=== PATIENT | male | born 1940 | race Caucasian/White ===

== ENCOUNTER 2023-12-05 15:46 | Emergency (ER) | payer OTHER ==
--- OUTSIDE RECORDS SUMMARY | 2023-12-05 15:52 | XMS REPORT | Continuity of Care Document ---
Author Name Unknown Address [address] [place] [address] [facility] thconnect Address [address] [place] [address] Care Team Providers Care Aoc [employer] Operations Staff Officer Name Role Phone Elijah_G Attending Clinician Unavailable Judy Malone Attending Clinician Unavailable Trdui Admitting Clinician Unavailable Scar Diaz Admitting Clinician Unavailable Payers Payer Name Policy Type Policy Number Effective Date Expirati on Date Source MEDICARE [place]: [employer] [id number] 2004 00:00:00 [employer] - FOR LIFE (MEDICARE SUPPLEMENT) [id number] Problems Condition Name Condition Details Condition Category Status Onset Date Resolution Date Last Treatment Date Treating Clinician Comments Source Chronic kidney disease due to hypertensi on Chronic Kidney Disease Due to Hypertensi on Problem Active 06-02 00:00: 00 [facility] - unspeci fied Chronic systolic heart failure Chronic Systolic Heart Failure Problem Active 06-02 00:00: 00 [facility] - unspeci fied Chronic kidney disease stage 3A Chronic Kidney Disease Stage 3a Problem Active 06-02 00:00: 00 [facility] - unspeci fied Chronic kidney disease due to type 2 diabetes mellitus Chronic Kidney Disease Due to Type 2 Diabetes Mellitus Problem Active 06-02 00:00: 00 [facility] - unspeci fied Hyperkalem ia Hyperkalem ia Problem Active 05-28 00:00: 00 [facility] - unspeci fied Lymphadeni tis Lymphadeni tis Problem Active 2- 00:00: 00 [facility] - unspeci fied 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 Problem Active 2 00:00: 00 [facility] - unspeci fied Hypertensi ve renal disease Hypertensi ve Renal Disease Problem Active 2 00:00: 00 [facility] - unspeci fied Coronary atheroscle rosis Coronary Atheroscle rosis Problem Active 2 00:00: 00 [facility] - unspeci fied Heart failure Heart Failure Problem Active 05-28 00:00: 00 [facility] - unspeci fied Chronic congestive heart failure Chronic Congestive Heart Failure Problem Active 05-28 00:00: 00 [facility] - unspeci fied Asthma Asthma Problem Active 05-28 00:00: 00 [facility] ic - unspeci fied Chronic obstructiv e pulmonary disease Chronic Obstructiv e Pulmonary Disease Problem Active 05-28 00:00: 00 [facility] - unspeci fied Gastroesop hageal reflux disease Gastroesop hageal Reflux Disease Problem Active 2 00:00: 00 [facility] - unspeci fied Acute kidney injury Acute Kidney Injury Problem Active 05-28 00:00: 00 [facility] ic - unspeci fied Osteoarthr itis Osteoarthr itis Problem Active 2 00:00: 00 [facility] ic - unspeci fied Leg swelling symptom Leg Swelling Symptom Problem Active 2 00:00: 00 [facility] ic - unspeci fied Sleep apnea Sleep Apnea Problem Active 2 00:00: 00 [facility] ic - unspeci fied Proteinuri a Proteinuri a Problem Active 05-28 00:00: 00 [facility] ic - unspeci fied Clinical finding Clinical Finding Problem Active 2 00:00: 00 [facility] - unspeci fied History of calculus of kidney History of Calculus of Kidney Problem Active 2 00:00: 00 [facility] ic - unspeci fied Chronic kidney disease stage 3B Chronic Kidney Disease Stage 3B Problem Active 2 00:00: 00 [facility] ic - unspeci fied History of dysthymia History of Dysthymia Problem Active 05-28 00:00: 00 [facility] ic - unspeci fied Renal disorder due to type 2 diabetes mellitus Renal Disorder Due to Type 2 Diabetes Mellitus Problem Active 2 00:00: 00 [facility] ic - unspeci fied Vitamin D deficiency Vitamin D Deficiency Problem Active 05-28 00:00: 00 [facility] - unspeci fied Hyperlipid emia Hyperlipid emia Problem Active 05-28 00:00: 00 [facility] ic - unspeci fied Allergies, Adverse Reactions, Alerts Allergy Name Allergy Type Status Severity Reaction(s) Onset Date Inactive Date Treating Clinician Comments Source Penicill ins DA Active U 3 00:00: 00 [facility] vancomyc in DA Active SV 3 00:00: 00 [facility] succinyl choline DA Active U 0 3 00:00: 00 [facility] Penicill ins DA Active U UNKNOWN 3 00:00: 00 [facility] vancomyc in DA Active SV DECREASED RENAL FX 06-28 00:00: 00 [facility] succinyl choline DA Active U MALIGNANT HYPERTHERMIA 0 3 00:00: 00 [facility] "ALLERGI C TO ANESTHIA " DA Active SV ANAPHYLAXIS 12-17 00:00: 00 [facility] vancomyc in DA Active SV 07-26 00:00: 00 [facility] vancomyc in DA Active SV DECREASED RENAL FX 4 00:00: 00 [facility] Penicill ins DA Active U 01-18 00:00: 00 [facility] succinyl choline DA Active U 01-18 00:00: 00 [facility] Penicill ins DA Active U UNKNOWN 01-18 00:00: 00 [facility] succinyl choline DA Active U MALIGNANT HYPERTHERMIA 01-18 00:00: 00 [facility] PENICILL INS Allergy to substanc e Active [facility] - unspeci fied Succinyl choline Allergy to substanc e Active [facility] - unspeci fied Vancomyc in Allergy to substanc e Active [facility] - unspeci fied Social History Smoking Status Start Date Stop Date Source Never Smoker Panoramic - uns pecified Medications Ordered Medication Name Filled Medication Name Start Date Stop Date Current Medication? Ordering Clinician Indication Dosage Frequency Signature (SIG) Comments Components Source aspirin 81 mg capsule Take 1 capsule every day by oral route. aspirin 81 mg capsule Take 1 capsule every day by oral route. No 1capsul e(s) Q1D aspirin 81 mg capsule Take 1 capsule every day by oral route. [facility] ic - unspeci fied atorvastati n 40 mg tablet Take 1 tablet every day by oral route. atorvastati n 40 mg tablet Take 1 tablet every day by oral route. No 1 Q1D atorvastat in 40 mg tablet Take 1 tablet every day by oral route. [facility] ic - unspeci fied B12 B12 No B12 [facility] - unspeci fied carvedilol 25 mg tablet Take 1 tablet twice a day by oral route. carvedilol 25 mg tablet Take 1 tablet twice a day by oral route. No 1 BID carvedilol 25 mg tablet Take 1 tablet twice a day by oral route. [facility] ic - unspeci fied cholecalcif zuhair (vitamin D3) 50 mcg (2,000 unit) capsule Take by oral route. cholecalcif zuhair (vitamin D3) 50 mcg (2,000 unit) capsule Take by oral route. No cholecalci ferol (vitamin D3) 50 mcg (2,000 unit) capsule Take by oral route. [facility]am ic - unspeci fied Flonase Allergy Relief 50 mcg/actuati on nasal spray,suspe nsion [place] 1 spray every day by intranasal route. Flonase Allergy Relief 50 mcg/actuati on nasal spray,suspe nsion [place] 1 spray every day by intranasal route. No 1spray( s) Q1D Flonase Allergy Relief 50 mcg/actuat ion nasal spray,susp ension [place] 1 spray every day by intranasal route. [facility] ic - unspeci fied furosemide 40 mg tablet Take 1 tablet every day by oral route. furosemide 40 mg tablet Take 1 tablet every day by oral route. No 1 Q1D furosemide 40 mg tablet Take 1 tablet every day by oral route. [facility] ic - unspeci fied hydralazine 10 mg tablet Take 1 tablet twice a day by oral route. hydralazine 10 mg tablet Take 1 tablet twice a day by oral route. No 1 BID hydralazin e 10 mg tablet Take 1 tablet twice a day by oral route. [facility]am ic - unspeci fied insulin aspart (niacinamid e) (U-100) 100 unit/mL subcutaneou s solution Inject by subcutaneou s route. insulin aspart (niacinamid e) (U-100) 100 unit/mL subcutaneou s solution Inject by subcutaneou s route. No insulin aspart (niacinami de) (U-100) 100 unit/mL subcutaneo us solution Inject by subcutaneo us route. [facility]am ic - unspeci fied Lantus Solostar U-100 Insulin Lantus Solostar U-100 Insulin No Lantus Solostar U-100 Insulin [facility]am ic - unspeci fied nitroglycer in 0.[address] by sublingual route. nitroglycer in 0.[address] by sublingual route. No nitroglyce rin 0.[address] by sublingual route. [facility]am ic - unspeci fied Plavix 75 mg tablet Take 1 tablet every day by oral route. Plavix 75 mg tablet Take 1 tablet every day by oral route. No 1 Q1D Plavix 75 mg tablet Take 1 tablet every day by oral route. [facility]am ic - unspeci fied tamsulosin 0.4 mg capsule Take 1 capsule every day by oral route. tamsulosin 0.4 mg capsule Take 1 capsule every day by oral route. No 1capsul e(s) Q1D tamsulosin 0.4 mg capsule Take 1 capsule every day by oral route. [facility]am ic - unspeci fied Immunizations Ordered Immunization Name Filled Immunization Name Date Status Comments Source pneumococcal, unspecified formulation pneumococcal, unspecified formulation Unknown Completed [facility] - unspecified influenza, unspecified formulation influenza, unspecified formulation Unknown Completed [facility] - unspecified COVID-19, mRNA, LNP-S, PF, 100 mcg/0.5 mL dose (Moderna) COVID-19, mRNA, LNP-S, PF, 100 mcg/0.5 mL dose (Moderna) Unknown Completed [facility] - unspecified Vital Signs Vital Name Observation Time Observation Value Comments S ource BP Systolic 2023-11-03 00:00:00 140 mm[Hg] Pano ramic - unspecified BP Diastolic 2023-11-03 00:00:00 80 mm[Hg] Multani oramic - unspecified Body Weight 2023-11-03 00:00:00 212 [lb_av] Multani oramic - unspecified Height 2023-11-03 00:00:00 68 [in_i] Panor amic - unspecified BMI (Body Mass Index) 2023-11-03 00:00:00 32.2 kg/m2 [facility] - unspecified Procedures Procedure Date / Time Performed Performing Clinician Source Procedure on Joint 2020-04-27 00:00:00 [facility] - unspecified Carotid Endarterectomy 2019-08-24 00:00:00 [facility] - unspecified [id number] 2019-07-04 00:00:00 [facility] [id number] 2019-07-04 00:00:00 [facility] [id number] 2019-07-04 00:00:00 [facility] [id number] 2019-07-01 00:00:00 [facility] [id number] 2019-07-01 00:00:00 [facility] Endoscopic Retrograde Cholangiopancreatography 2016-09-25 00:00:00 [facility]amic - unspecified Operative Procedure on Knee Panoramic - unspecified Operation on Heart Panoramic - unspecified Encounters Start Date/Time End Date/Time Encounter Type Admission Type Attending Clinicians Care Facility Care Department Encounter ID Source 2023-11-03 00:00:00 2023-11-03 00:00:00 Manda Nava MD: [id number] [address], [place] [address] [facility] [id number] [facility] ic - unspeci fied 2023-06-02 00:00:00 2023-06-02 00:00:00 Outpatient Reddy_G PANKS[facility] PANKS[facility] [id number] PANKSST 2023-02-10 00:00:00 2023-02-10 00:00:00 Outpatient Reddy_G PANKS[facility] PANKSST [id number] PANKSST 2019-06-30 17:00:00 2019-07-15 21:08:24 [id number] [facility] 2019-07-06 15:26:00 2019-07-09 00:04:24 Inpatient [facility] ER [id number] [facility] 2019-06-29 07:00:00 2019-07-02 07:17:49 Inpatient [facility] ER [id number] [facility] Results Test Description Test Time Test Comments Results Result Co mments Source Panoramic - unspecifiedCreatine kinase [Enzymatic activity/volume] in Serum or [id number] 00:00:00* Test Item Value Reference Range Interpretation Comme nts creatine kinase (test code = creatine kinase) 251 Pan[facility]amic - unspecifiedAlanine aminotransferase [Enzymatic activity/volume] in Serum or [id number] 00:00:00* Test Item Value Reference Range Interpretation Comme nts ALT (test code = ALT) 14 Panoramic - unspecifiedAspartate aminotransferase [Enzymatic activity/volume] in Serum or [id number] 00:00:00* Test Item Value Reference Range Interpretation Comme nts AST(SGOT) (test code = AST(SGOT)) 19 Panoramic - unspecifiedAlkaline phosphatase [Presence] in Body [id number] 00:00:00* Test Item Value Reference Range Interpretation Comme nts ALP (test code = ALP) 93 Panoramic - unspecifiedBilirubin.total [Mass/volume] in Serum or Plasma 2023-10-24 00:00:00* Test Item Value Reference Range Interpretation Comme nts bilirubin. total (test code = bilirubin. total) 0.8 [facility] - unspecifiedGlobulin [Mass/volume] in [id number] 00:00:00* Test Item Value Reference Range Interpretation Comme nts Albumin [Presence] in Urine (test code = 1753-3) 2.9 Panoramic - unspecifiedalbumin and [id number] 00:00:00* Test Item Value Reference Range Interpretation Comme nts albumin. serum (test code = albumin. serum) 3.6 [facility] - unspecifiedProtein [Mass/volume] in Serum or [id number] 00:00:00* Test Item Value Reference Range Interpretation Comme nts total protein (test code = t otal protein) 6.5 Pan[facility]amic - unspecifiedCalcium [Mass/volume] in Body [id number] 00:00:00* Test Item Value Reference Range Interpretation Comme nts calcium (test code = calcium) 9.3 Panoramic - unspecifiedhco3, [id number] 00:00:00* Test Item Value Reference Range Interpretation Comme nts bicarbonate (test code = bicarbonate) 23 Panoramic - unspecifiedUrea nitrogen/Creatinine [Mass Ratio] in Serum or Plasma 2023-10-24 00:00:00* Test Item Value Reference Range Interpretation Comme nts BUN.creatinine ratio (test c ode = BUN.creatinine ratio) 14 Panoramic - unspecifiedChloride [Moles/volume] in Serum or [id number] 00:00:00* Test Item Value Reference Range Interpretation Comme nts chloride (test code = chloride) 107 Panoramic - unspecifiedPotassium [Moles/volume] in Serum or [id number] 00:00:00* Test Item Value Reference Range Interpretation Comme nts potassium (test code = potassium) 4.1 Panoramic - unspecifiedSodium [Moles/volume] in Serum or [id number] 00:00:00* Test Item Value Reference Range Interpretation Comme nts sodium (test code = sodium) 140 Panoramic - unspecifiedGlomerular filtration rate/1.73 sq M.predicted [Volume Rate/Area] in Serum, Plasma or [id number] 00:00:00* Test Item Value Reference Range Interpretation Comme nts eGFR (test code = eGFR) 32.0 Panoramic - unspecifiedCreatinine [Mass/volume] in Serum or [id number] 00:00:00* Test Item Value Reference Range Interpretation Comme nts creatinine. serum (test code = creatinine. serum) 2.00 Panoramic - unspecifiedUrea nitrogen [Mass/volume] in Serum or [id number] 00:00:00* Test Item Value Reference Range Interpretation Comme nts BUN (test code = BUN) 28 Panoramic - unspecifiedGlucose [Mass/volume] in [id number] 00:00:00* Test Item Value Reference Range Interpretation Comme nts Glucose [Mass/volume] in Ser um, Plasma or Blood (test code = 12739-8) 210 Panoramic - unspecifiedMCV [Entitic volume] by Automated [id number] 00:00:00* Test Item Value Reference Range Interpretation Comme nts MCV (test code = MCV) 86.1 Panoramic - unspecifiedCBC panel - Blood by Automated [id number] 00:00:00* Test Item Value Reference Range Interpretation Comme nts basophils (test code = basophils) 0.08 eosinophils (test code = eosinophils) 4.3 MCH (test code = MCH) 28.1 Panoramic - unspecifiedCBC W Auto Differential panel - [id number] 00:00:00 * Test Item Value Reference Range Interpretation Comme nts absolute eosinophils (test c ode = absolute eosinophils) 0.31 lymphocytes (test code = lymphocytes) 29.3 neutrophils % (test code = n eutrophils %) 52.9 absolute monocyte (test code = absolute monocyte) 0.87 absolute neutrophil count (t est code = absolute neutrophil count) 3.84 Panoramic - unspecifiedAuto Differential panel - [id number] 00:00:00* Test Item Value Reference Range Interpretation Comme nts monocytes % (test code = monocytes %) 12.1 Panoramic - unspecifiedT-cell subsets CD4 and CD8 panel - [id number] 00:00:00* Test Item Value Reference Range Interpretation Comme nts lymphocyte count (test code = lymphocyte count) 2.13 Panoramic - unspecifiedmpv/[id number] 00:00:00* Test Item Value Reference Range Interpretation Comme nts MPV (test code = MPV) 10.1 Panoramic - unspecifiedPlatelets [#/volume] in Blood by Automated count 2023-10-24 00:00:00* Test Item Value Reference Range Interpretation Comme nts platelet count (test code = platelet count) 169 Panoramic - [id number] 00:00:00* Test Item Value Reference Range Interpretation Comme nts RDW (test code = RDW) 14.5 Panoramic - [id number] 00:00:00* Test Item Value Reference Range Interpretation Comme nts MCHC (test code = MCHC) 32.6 Panoramic - unspecifiedCompur Hematocrit [id number] 00:00:00* Test Item Value Reference Range Interpretation Comme nts hematocrit (test code = hematocrit) 31.6 Panoramic - unspecifiedCBC/D/plt+RPR+rh+abo+Ab [id number] 00:00:00* Test Item Value Reference Range Interpretation Comme nts hemoglobin (test code = hemoglobin) 10.3 Panoramic - unspecifiedErythrocytes [#/volume] in Blood by Automated count 2023-10-24 00:00:00* Test Item Value Reference Range Interpretation Comme nts red blood cell count (test c ode = red blood cell count) 3.67 Panoramic - unspecifiedLeukocytes [#/volume] in Blood by Automated count 2023-10-24 00:00:00* Test Item Value Reference Range Interpretation Comme nts WBC (test code = WBC) 7.3 Panoramic - [id number] 11:31:00* Test Item Value Reference Range Interpretation Comme nts GLUBED (test code = GLUBED) 165 MG/DL 65-99 H Performed by cer tified rim roller operator at [facility] [id number] 06:00:00* Test Item Value Reference Range Interpretation Comme nts GLUBED (test code = GLUBED) 111 MG/DL 65-99 H Performed by cer tified rim roller operator at [facility] CBC W/AUTO [id number] 03:49:00* Test Item Value Reference Range Interpretation Comme nts WHITE BLOOD CELL (test code = WBC) 7.88 x10 3/uL 4.80-10.80 N RED BLOOD CELL (test code = RBC) 3.23 x10 6/uL 4.7-6.1 L HEMOGLOBIN (test code = HGB) 8.9 G/DL 14.0-17.0 L HEMATOCRIT (test code = HCT) 27.5 % 42-52 L MEAN CELL VOLUME (test code = MCV) 85.1 FL 80-94 N MEAN CELL HGB (test code = MCH) 27.6 PG 27-31 N MEAN CELL HGB CONCENTRATION (test code = MCHC) 32.4 G/DL 33-37 L RED CELL DISTRIBUTION WIDTH (test code = RDW) 14.7 % 11.5-14.5 H PLATELET COUNT (test code = PLT) 168 x10 3/uL 150-450 N MEAN PLATELET VOLUME (test c ode = MPV) 10.5 FL 7.4-10.4 H NEUTROPHIL % (test code = NT%) 55.2 % 42-86 N IMMATURE GRANULOCYTE % (test code = IG%) 0.4 % 0.0-2.0 N LYMPHOCYTE % (test code = LY%) 26.8 % 24-44 N MONOCYTE % (test code = MO%) 11.2 % 0.0-4.0 H EOSINOPHIL % (test code = EO%) 5.8 % 0.0-2.7 H BASOPHIL % (test code = BA%) 0.6 % 0.0-0.5 H NUCLEATED RBC % (test code = NRBC%) 0.0 % 0.0-0.0 N NEUTROPHIL # (test code = NT#) 4.35 x10 3/uL 1.8-7.7 N IMMATURE GRANULOCYTE # (test code = IG#) 0.03 x10 3/uL 0.00-0.03 N LYMPHOCYTE # (test code = LY#) 2.11 x10 3/uL 1.0-4.8 N MONOCYTE # (test code = MO#) 0.88 x10 3/uL 0.0-0.8 H EOSINOPHIL # (test code = EO#) 0.46 x10 3/uL 0.0-0.5 N BASOPHIL # (test code = BA#) 0.05 x10 3/uL 0.0-0.2 N NUCLEATED RBC # (test code = NRBC#) 0.0 X10 3/uL 0.0-0.2 N BASIC METABOLIC [id number] 03:49:00* Test Item Value Reference Range Interpretation Comme nts SODIUM (test code = NA) 142 MMOL/L 133-145 N POTASSIUM (test code = K) 4.0 MMOL/L 3.6-5.2 N CHLORIDE (test code = CL) 106 MMOL/L 100-108 N CARBON DIOXIDE (test code = CO2) 30 MMOL/L 22-32 N GLUCOSE (test code = GLU) 120 MG/DL 65-99 H Results of this assay method may be falsely depressed orelevated if patient is taking sulfasalazine. BLOOD UREA NITROGEN (test code = BUN) 24 MG/DL 6-20 H GLOMERULAR FILTRATION RATE (test code = GFR) 39 35-81 N Reporting units: mL/min/1.73m\\S\\2 (Modified MDRD Formula) CREATININE (test code = CREAT) 1.69 MG/DL 0.60-1.00 H CALCIUM (test code = CA) 8.8 MG/DL 8.7-10.5 N [id number] 03:49:00* Test Item Value Reference Range Interpretation Comme nts MAGNESIUM (test code = MAG) 1.8 MG/DL 1.8-2.4 N [id number] 20:11:00* Test Item Value Reference Range Interpretation Comme nts GLUBED (test code = GLUBED) 203 MG/DL 65-99 H Performed by cer tified rim roller operator at [facility] - XR CHEST 1 [id number] 16:42:00Patient Name: BOB VITAL Unit No: [id number] EXAMS: CPT CODE: [id number] XR CHEST 1 V 09761 Reason: weakness Single frontal view chest COMPARISON: Chest x-ray 07/04/2019 INDICATION: Weakness FINDINGS: Cardiomegaly. ICD device with lead projecting over the right ventricular region. Surgical [place] left anterior chest wall. Mild bibasilar atelectasis. No lobar consolidation, large effusions, large pneumothorax, or disc acute osseous abnormality. IMPRESSION: Cardiomegaly otherwise no radio graphic acute chest abnormality. at 1642 Reported and signed by: Jossue Valles MD CC: Scar Diaz MD; Heriberto Diez MD Technologist: Isabel Sanchez RT; Lucía Boyd RT Trscrpt Dt/ ([id number] Orig Print D/T: S: 07/06/2019 ([id number]) [facility] NAME: BOB VITAL [address] PHYS: Heriberto Dhillon MD [facility] [place] [address] : 1940 AGE: 79 SEX: M LOC: LOGAN #: [phone] EXAM DATE: 07/06/2019 STATUS: REG ER FAX #: RAD NO: DC Dt: PAGE 1 Signed ReportBASIC METABOLIC PANEL 2019-07-06 16:15:00* Test Item Value Reference Range Interpretation Comme nts SODIUM (test code = NA) 137 MMOL/L 133-145 N POTASSIUM (test code = K) 4.1 MMOL/L 3.6-5.2 N CHLORIDE (test code = CL) 103 MMOL/L 100-108 N CARBON DIOXIDE (test code = CO2) 28 MMOL/L 22-32 N GLUCOSE (test code = GLU) 249 MG/DL 65-99 H Results of this assay method may be falsely depressed orelevated if patient is taking sulfasalazine. BLOOD UREA NITROGEN (test code = BUN) 25 MG/DL 6-20 H GLOMERULAR FILTRATION RATE (test code = GFR) 35 35-81 N Reporting units: mL/min/1.73m\\S\\2 (Modified MDRD Formula) CREATININE (test code = CREAT) 1.85 MG/DL 0.60-1.00 H CALCIUM (test code = CA) 9.1 MG/DL 8.7-10.5 N [id number] 16:15:00* Test Item Value Reference Range Interpretation Comme nts TROPONIN-I (test code = TROPI) < 0.04 NG/ML 0.00-0.06 N - The use of ser ial sampling and testing protocol is a recommended practice.- An elevated troponin level alone is often not sufficient for diagnosis of myocardial infarction.Results of this assay method may be falsely depressed orelevated if patient is taking high doses of Biotin. TROPONIN I [id number] 15:58:00* Test Item Value Reference Range Interpretation Comme nts TROPONIN I RAPID (test code = TROPIRAP) 0.03 NG/ML 0.00-0.08 N Performed by cer tified rim roller operator at [facility] - The use of serial sampling and testing protocol is a recommended practice.- An elevated troponin level alone is often not sufficient for diagnosis of myocardial infarction. CBC W/AUTO [id number] 15:50:00* Test Item Value Reference Range Interpretation Comme nts WHITE BLOOD CELL (test code = WBC) 8.76 x10 3/uL 4.80-10.80 N RED BLOOD CELL (test code = RBC) 3.58 x10 6/uL 4.7-6.1 L HEMOGLOBIN (test code = HGB) 9.8 G/DL 14.0-17.0 L HEMATOCRIT (test code = HCT) 30.2 % 42-52 L MEAN CELL VOLUME (test code = MCV) 84.4 FL 80-94 N MEAN CELL HGB (test code = MCH) 27.4 PG 27-31 N MEAN CELL HGB CONCENTRATION (test code = MCHC) 32.5 G/DL 33-37 L RED CELL DISTRIBUTION WIDTH (test code = RDW) 14.9 % 11.5-14.5 H PLATELET COUNT (test code = PLT) 174 x10 3/uL 150-450 N MEAN PLATELET VOLUME (test c ode = MPV) 10.1 FL 7.4-10.4 N NEUTROPHIL % (test code = NT%) 70.5 % 42-86 N IMMATURE GRANULOCYTE % (test code = IG%) 0.2 % 0.0-2.0 N LYMPHOCYTE % (test code = LY%) 15.5 % 24-44 L MONOCYTE % (test code = MO%) 9.0 % 0.0-4.0 H EOSINOPHIL % (test code = EO%) 4.0 % 0.0-2.7 H BASOPHIL % (test code = BA%) 0.8 % 0.0-0.5 H NUCLEATED RBC % (test code = NRBC%) 0.0 % 0.0-0.0 N NEUTROPHIL # (test code = NT#) 6.17 x10 3/uL 1.8-7.7 N IMMATURE GRANULOCYTE # (test code = IG#) 0.02 x10 3/uL 0.00-0.03 N LYMPHOCYTE # (test code = LY#) 1.36 x10 3/uL 1.0-4.8 N MONOCYTE # (test code = MO#) 0.79 x10 3/uL 0.0-0.8 N EOSINOPHIL # (test code = EO#) 0.35 x10 3/uL 0.0-0.5 N BASOPHIL # (test code = BA#) 0.07 x10 3/uL 0.0-0.2 N NUCLEATED RBC # (test code = NRBC#) 0.0 X10 3/uL 0.0-0.2 N [id number] 20:37:00* Test Item Value Reference Range Interpretation Comme nts GLUBED (test code = GLUBED) 253 MG/DL 65-99 H Performed by cer tified rim roller operator at [facility] [id number] 05:58:00* Test Item Value Reference Range Interpretation Comme nts GLUBED (test code = GLUBED) 147 MG/DL 65-99 H Performed by cer tified rim roller operator at [facility] BASIC METABOLIC [id number] 05:56:00* Test Item Value Reference Range Interpretation Comme nts SODIUM (test code = NA) 141 MMOL/L 133-145 N POTASSIUM (test code = K) 4.1 MMOL/L 3.6-5.2 N CHLORIDE (test code = CL) 105 MMOL/L 100-108 N CARBON DIOXIDE (test code = CO2) 28 MMOL/L 22-32 N GLUCOSE (test code = GLU) 153 MG/DL 65-99 H Results of this assay method may be falsely depressed orelevated if patient is taking sulfasalazine. BLOOD UREA NITROGEN (test code = BUN) 27 MG/DL 6-20 H GLOMERULAR FILTRATION RATE (test code = GFR) 39 35-81 N Reporting units: mL/min/1.73m\\S\\2 (Modified MDRD Formula) CREATININE (test code = CREAT) 1.71 MG/DL 0.60-1.00 H CALCIUM (test code = CA) 8.7 MG/DL 8.7-10.5 N CBC W/AUTO [id number] 05:34:00* Test Item Value Reference Range Interpretation Comme nts WHITE BLOOD CELL (test code = WBC) 8.06 x10 3/uL 4.80-10.80 N RED BLOOD CELL (test code = RBC) 3.14 x10 6/uL 4.7-6.1 L HEMOGLOBIN (test code = HGB) 8.5 G/DL 14.0-17.0 L HEMATOCRIT (test code = HCT) 26.9 % 42-52 L MEAN CELL VOLUME (test code = MCV) 85.7 FL 80-94 N MEAN CELL HGB (test code = MCH) 27.1 PG 27-31 N MEAN CELL HGB CONCENTRATION (test code = MCHC) 31.6 G/DL 33-37 L RED CELL DISTRIBUTION WIDTH (test code = RDW) 14.8 % 11.5-14.5 H PLATELET COUNT (test code = PLT) 155 x10 3/uL 150-450 N MEAN PLATELET VOLUME (test c ode = MPV) 10.5 FL 7.4-10.4 H NEUTROPHIL % (test code = NT%) 59.2 % 42-86 N IMMATURE GRANULOCYTE % (test code = IG%) 0.2 % 0.0-2.0 N LYMPHOCYTE % (test code = LY%) 25.7 % 24-44 N MONOCYTE % (test code = MO%) 10.8 % 0.0-4.0 H EOSINOPHIL % (test code = EO%) 3.5 % 0.0-2.7 H BASOPHIL % (test code = BA%) 0.6 % 0.0-0.5 H NUCLEATED RBC % (test code = NRBC%) 0.0 % 0.0-0.0 N NEUTROPHIL # (test code = NT#) 4.77 x10 3/uL 1.8-7.7 N IMMATURE GRANULOCYTE # (test code = IG#) 0.02 x10 3/uL 0.00-0.03 N LYMPHOCYTE # (test code = LY#) 2.07 x10 3/uL 1.0-4.8 N MONOCYTE # (test code = MO#) 0.87 x10 3/uL 0.0-0.8 H EOSINOPHIL # (test code = EO#) 0.28 x10 3/uL 0.0-0.5 N BASOPHIL # (test code = BA#) 0.05 x10 3/uL 0.0-0.2 N NUCLEATED RBC # (test code = NRBC#) 0.0 X10 3/uL 0.0-0.2 N [id number] 20:08:00* Test Item Value Reference Range Interpretation Comme nts GLUBED (test code = GLUBED) 205 MG/DL 65-99 H Performed by cer tified rim roller operator at [facility] [id number] 16:19:00* Test Item Value Reference Range Interpretation Comme nts GLUBED (test code = GLUBED) 159 MG/DL 65-99 H Performed by cer tified rim roller operator at [facility] [id number] 15:36:00* Test Item Value Reference Range Interpretation Comme nts GLUBED (test code = GLUBED) 162 MG/DL 65-99 H Performed by cer tified rim roller operator at [facility] - XR CHEST 1 [id number] 15:34:00Patient Name: BOB VITAL Unit No: [id number] EXAMS: CPT CODE: [id number] XR CHEST 1 V [id number] Reason: ICD PLACMENT - XR CHEST 1 V 07/04/2019 2:32 PM EXAM: - XR CHEST 1 V REASON FOR EXAM: ICD SAHN CMENT COMPARISON: 06/30/2019 FINDINGS: There is a new pacemaker in place on the left skin [place] overlying lead pacemaker. Lead is in the right ventricular apex. Heart remains prominent. Venous congestion is present. There is a suggestion of mild interstitial edema but this may be related to poor ins piratory result IMPRESSION: Pacemaker. Mild cardiomegaly and venous congestion at 1534 Reported and signed by: Nathan Ferguson MD CC: Scar Diaz MD; Nilton German MD; Federico Ulloa MD; Kaitlynn Chaudhari MD Technologist: Yajaira NUNN Trscrpt Dt/ ([id number] Orig Print D/T: S: 07/04/2019 (1538) [facility] NAME: BOB VITAL [address] PHYS: Federico Rueda MD, [id number] : 1940 AGE: 79 SEX: M LOC: [id number] PHONE #: [phone] EXAM DATE: 07/04/2019 STATUS: ADM IN FAX #: RAD NO: DC Dt: PAGE 1 Signed ReportCOAGULATION TIME [id number] 06:58:00* Test Item Value Reference Range Interpretation Comme nts COAGULATION TIME ACTIVATED (test code = ACT) 153 SECONDS see comments Performed by cer tified rim roller operator at [facility] MCTherapeutic Normal: < 150 for removal of arterial and venous sheaths > 450 during bypass surgery [id number] 06:04:00* Test Item Value Reference Range Interpretation Comme nts GLUBED (test code = GLUBED) 131 MG/DL 65-99 H Performed by cer tified rim roller operator at [facility] BASIC METABOLIC [id number] 05:15:00* Test Item Value Reference Range Interpretation Comme nts SODIUM (test code = NA) 142 MMOL/L 133-145 N POTASSIUM (test code = K) 3.8 MMOL/L 3.6-5.2 N CHLORIDE (test code = CL) 106 MMOL/L 100-108 N CARBON DIOXIDE (test code = CO2) 26 MMOL/L 22-32 N GLUCOSE (test code = GLU) 137 MG/DL 65-99 H Results of this assay method may be falsely depressed orelevated if patient is taking sulfasalazine. BLOOD UREA NITROGEN (test code = BUN) 24 MG/DL 6-20 H GLOMERULAR FILTRATION RATE (test code = GFR) 39 35-81 N Reporting units: mL/min/1.73m\\S\\2 (Modified MDRD Formula) CREATININE (test code = CREAT) 1.70 MG/DL 0.60-1.00 H CALCIUM (test code = CA) 8.7 MG/DL 8.7-10.5 N CBC W/AUTO [id number] 05:01:00* Test Item Value Reference Range Interpretation Comme nts WHITE BLOOD CELL (test code = WBC) 7.41 x10 3/uL 4.80-10.80 N RED BLOOD CELL (test code = RBC) 3.17 x10 6/uL 4.7-6.1 L HEMOGLOBIN (test code = HGB) 8.6 G/DL 14.0-17.0 L HEMATOCRIT (test code = HCT) 26.7 % 42-52 L MEAN CELL VOLUME (test code = MCV) 84.2 FL 80-94 N MEAN CELL HGB (test code = MCH) 27.1 PG 27-31 N MEAN CELL HGB CONCENTRATION (test code = MCHC) 32.2 G/DL 33-37 L RED CELL DISTRIBUTION WIDTH (test code = RDW) 14.8 % 11.5-14.5 H PLATELET COUNT (test code = PLT) 154 x10 3/uL 150-450 N MEAN PLATELET VOLUME (test c ode = MPV) 10.3 FL 7.4-10.4 N NEUTROPHIL % (test code = NT%) 53.3 % 42-86 N IMMATURE GRANULOCYTE % (test code = IG%) 0.3 % 0.0-2.0 N LYMPHOCYTE % (test code = LY%) 32.3 % 24-44 N MONOCYTE % (test code = MO%) 9.9 % 0.0-4.0 H EOSINOPHIL % (test code = EO%) 3.4 % 0.0-2.7 H BASOPHIL % (test code = BA%) 0.8 % 0.0-0.5 H NUCLEATED RBC % (test code = NRBC%) 0.0 % 0.0-0.0 N NEUTROPHIL # (test code = NT#) 3.96 x10 3/uL 1.8-7.7 N IMMATURE GRANULOCYTE # (test code = IG#) 0.02 x10 3/uL 0.00-0.03 N LYMPHOCYTE # (test code = LY#) 2.39 x10 3/uL 1.0-4.8 N MONOCYTE # (test code = MO#) 0.73 x10 3/uL 0.0-0.8 N EOSINOPHIL # (test code = EO#) 0.25 x10 3/uL 0.0-0.5 N BASOPHIL # (test code = BA#) 0.06 x10 3/uL 0.0-0.2 N NUCLEATED RBC # (test code = NRBC#) 0.0 X10 3/uL 0.0-0.2 N BASIC METABOLIC [id number] 04:54:00* Test Item Value Reference Range Interpretation Comme nts SODIUM (test code = NA) 142 MMOL/L 133-145 N POTASSIUM (test code = K) 3.8 MMOL/L 3.6-5.2 N CHLORIDE (test code = CL) 106 MMOL/L 100-108 N CARBON DIOXIDE (test code = CO2) 26 MMOL/L 22-32 N GLUCOSE (test code = GLU) 137 MG/DL 65-99 H Results of this assay method may be falsely depressed orelevated if patient is taking sulfasalazine. BLOOD UREA NITROGEN (test code = BUN) MG/DL 6-20 GLOMERULAR FILTRATION RATE (test code = GFR) 39 35-81 N Reporting units: mL/min/1.73m\\S\\2 (Modified MDRD Formula) CREATININE (test code = CREAT) 1.70 MG/DL 0.60-1.00 H CALCIUM (test code = CA) 8.7 MG/DL 8.7-10.5 N [id number] 21:02:00* Test Item Value Reference Range Interpretation Comme nts GLUBED (test code = GLUBED) 146 MG/DL 65-99 H Performed by cer tified rim roller operator at [facility] [id number] 16:23:00* Test Item Value Reference Range Interpretation Comme nts GLUBED (test code = GLUBED) 172 MG/DL 65-99 H Performed by cer tified rim roller operator at [facility] [id number] 11:45:00* Test Item Value Reference Range Interpretation Comme nts GLUBED (test code = GLUBED) 222 MG/DL 65-99 H Performed by cer tified rim roller operator at [facility] [id number] 06:24:00* Test Item Value Reference Range Interpretation Comme nts GLUBED (test code = GLUBED) 153 MG/DL 65-99 H Performed by cer tified rim roller operator at [facility] [id number] 06:24:00* Test Item Value Reference Range Interpretation Comme nts GLUBED (test code = GLUBED) 153 MG/DL 65-99 H Performed by cer tified rim roller operator at [facility] CBC W/AUTO [id number] 05:08:00* Test Item Value Reference Range Interpretation Comme nts WHITE BLOOD CELL (test code = WBC) 7.79 x10 3/uL 4.80-10.80 N RED BLOOD CELL (test code = RBC) 3.31 x10 6/uL 4.7-6.1 L HEMOGLOBIN (test code = HGB) 9.0 G/DL 14.0-17.0 L HEMATOCRIT (test code = HCT) 27.9 % 42-52 L MEAN CELL VOLUME (test code = MCV) 84.3 FL 80-94 N MEAN CELL HGB (test code = MCH) 27.2 PG 27-31 N MEAN CELL HGB CONCENTRATION (test code = MCHC) 32.3 G/DL 33-37 L RED CELL DISTRIBUTION WIDTH (test code = RDW) 14.7 % 11.5-14.5 H PLATELET COUNT (test code = PLT) 149 x10 3/uL 150-450 L MEAN PLATELET VOLUME (test c ode = MPV) 10.0 FL 7.4-10.4 N NEUTROPHIL % (test code = NT%) 61.2 % 42-86 N IMMATURE GRANULOCYTE % (test code = IG%) 0.3 % 0.0-2.0 N LYMPHOCYTE % (test code = LY%) 25.0 % 24-44 N MONOCYTE % (test code = MO%) 10.1 % 0.0-4.0 H EOSINOPHIL % (test code = EO%) 2.8 % 0.0-2.7 H BASOPHIL % (test code = BA%) 0.6 % 0.0-0.5 H NUCLEATED RBC % (test code = NRBC%) 0.0 % 0.0-0.0 N NEUTROPHIL # (test code = NT#) 4.76 x10 3/uL 1.8-7.7 N IMMATURE GRANULOCYTE # (test code = IG#) 0.02 x10 3/uL 0.00-0.03 N LYMPHOCYTE # (test code = LY#) 1.95 x10 3/uL 1.0-4.8 N MONOCYTE # (test code = MO#) 0.79 x10 3/uL 0.0-0.8 N EOSINOPHIL # (test code = EO#) 0.22 x10 3/uL 0.0-0.5 N BASOPHIL # (test code = BA#) 0.05 x10 3/uL 0.0-0.2 N NUCLEATED RBC # (test code = NRBC#) 0.0 X10 3/uL 0.0-0.2 N BASIC METABOLIC [id number] 04:57:00* Test Item Value Reference Range Interpretation Comme nts SODIUM (test code = NA) 141 MMOL/L 133-145 N POTASSIUM (test code = K) 3.8 MMOL/L 3.6-5.2 N CHLORIDE (test code = CL) 106 MMOL/L 100-108 N CARBON DIOXIDE (test code = CO2) 29 MMOL/L 22-32 N GLUCOSE (test code = GLU) 152 MG/DL 65-99 H Results of this assay method may be falsely depressed orelevated if patient is taking sulfasalazine. BLOOD UREA NITROGEN (test code = BUN) 21 MG/DL 6-20 H GLOMERULAR FILTRATION RATE (test code = GFR) 42 35-81 N Reporting units: mL/min/1.73m\\S\\2 (Modified MDRD Formula) CREATININE (test code = CREAT) 1.59 MG/DL 0.60-1.00 H CALCIUM (test code = CA) 8.6 MG/DL 8.7-10.5 L [id number] 04:57:00* Test Item Value Reference Range Interpretation Comme nts MAGNESIUM (test code = MAG) 1.8 MG/DL 1.8-2.4 N [id number] 20:57:00* Test Item Value Reference Range Interpretation Comme nts GLUBED (test code = GLUBED) 117 MG/DL 65-99 H Performed by cer tified rim roller operator at [facility] [id number] 16:25:00* Test Item Value Reference Range Interpretation Comme nts GLUBED (test code = GLUBED) 179 MG/DL 65-99 H Performed by cer tified rim roller operator at [facility] [id number] 12:42:00* Test Item Value Reference Range Interpretation Comme nts GLUBED (test code = GLUBED) 210 MG/DL 65-99 H Performed by cer tified rim roller operator at [facility] [id number] 06:10:00* Test Item Value Reference Range Interpretation Comme nts GLUBED (test code = GLUBED) 130 MG/DL 65-99 H Performed by cer tified rim roller operator at [facility] BASIC METABOLIC [id number] 05:26:00* Test Item Value Reference Range Interpretation Comme nts SODIUM (test code = NA) 143 MMOL/L 133-145 N POTASSIUM (test code = K) 3.4 MMOL/L 3.6-5.2 L CHLORIDE (test code = CL) 107 MMOL/L 100-108 N CARBON DIOXIDE (test code = CO2) 28 MMOL/L 22-32 N GLUCOSE (test code = GLU) 142 MG/DL 65-99 H Results of this assay method may be falsely depressed orelevated if patient is taking sulfasalazine. BLOOD UREA NITROGEN (test code = BUN) 16 MG/DL 6-20 N GLOMERULAR FILTRATION RATE (test code = GFR) 53 35-81 N Reporting units: mL/min/1.73m\\S\\2 (Modified MDRD Formula) CREATININE (test code = CREAT) 1.31 MG/DL 0.60-1.00 H CALCIUM (test code = CA) 8.4 MG/DL 8.7-10.5 L [id number] 05:26:00* Test Item Value Reference Range Interpretation Comme nts MAGNESIUM (test code = MAG) 1.8 MG/DL 1.8-2.4 N CBC W/AUTO [id number] 05:13:00* Test Item Value Reference Range Interpretation Comme nts WHITE BLOOD CELL (test code = WBC) 7.66 x10 3/uL 4.80-10.80 N RED BLOOD CELL (test code = RBC) 3.49 x10 6/uL 4.7-6.1 L HEMOGLOBIN (test code = HGB) 9.6 G/DL 14.0-17.0 L HEMATOCRIT (test code = HCT) 29.4 % 42-52 L MEAN CELL VOLUME (test code = MCV) 84.2 FL 80-94 N MEAN CELL HGB (test code = MCH) 27.5 PG 27-31 N MEAN CELL HGB CONCENTRATION (test code = MCHC) 32.7 G/DL 33-37 L RED CELL DISTRIBUTION WIDTH (test code = RDW) 14.6 % 11.5-14.5 H PLATELET COUNT (test code = PLT) 142 x10 3/uL 150-450 L MEAN PLATELET VOLUME (test c ode = MPV) 10.1 FL 7.4-10.4 N NEUTROPHIL % (test code = NT%) 60.0 % 42-86 N IMMATURE GRANULOCYTE % (test code = IG%) 0.3 % 0.0-2.0 N LYMPHOCYTE % (test code = LY%) 24.3 % 24-44 N MONOCYTE % (test code = MO%) 10.8 % 0.0-4.0 H EOSINOPHIL % (test code = EO%) 3.7 % 0.0-2.7 H BASOPHIL % (test code = BA%) 0.9 % 0.0-0.5 H NUCLEATED RBC % (test code = NRBC%) 0.0 % 0.0-0.0 N NEUTROPHIL # (test code = NT#) 4.60 x10 3/uL 1.8-7.7 N IMMATURE GRANULOCYTE # (test code = IG#) 0.02 x10 3/uL 0.00-0.03 N LYMPHOCYTE # (test code = LY#) 1.86 x10 3/uL 1.0-4.8 N MONOCYTE # (test code = MO#) 0.83 x10 3/uL 0.0-0.8 H EOSINOPHIL # (test code = EO#) 0.28 x10 3/uL 0.0-0.5 N BASOPHIL # (test code = BA#) 0.07 x10 3/uL 0.0-0.2 N NUCLEATED RBC # (test code = NRBC#) 0.0 X10 3/uL 0.0-0.2 N [id number] 20:42:00* Test Item Value Reference Range Interpretation Comme nts GLUBED (test code = GLUBED) 149 MG/DL 65-99 H Performed by cer tified rim roller operator at [facility] [id number] 16:45:00* Test Item Value Reference Range Interpretation Comme nts GLUBED (test code = GLUBED) 153 MG/DL 65-99 H Performed by cer tified rim roller operator at [facility] COAGULATION TIME [id number] 11:37:00* Test Item Value Reference Range Interpretation Comme nts COAGULATION TIME ACTIVATED (test code = ACT) 219 SECONDS see comments [facility]: < 150 for removal of arterial and venous sheaths > 450 during bypass surgery COAGULATION TIME [id number] 11:37:00* Test Item Value Reference Range Interpretation Comme nts COAGULATION TIME ACTIVATED (test code = ACT) 208 SECONDS see comments [facility] cer [facility]: < 150 for removal of arterial and venous sheaths > 450 during bypass surgery COAGULATION TIME [id number] 11:37:00* Test Item Value Reference Range Interpretation Comme nts COAGULATION TIME ACTIVATED (test code = ACT) 219 SECONDS see comments [facility] cer [facility]: < 150 for removal of arterial and venous sheaths > 450 during bypass surgery BASIC METABOLIC [id number] 05:46:00* Test Item Value Reference Range Interpretation Comme nts SODIUM (test code = NA) 141 MMOL/L 133-145 N POTASSIUM (test code = K) 3.7 MMOL/L 3.6-5.2 N CHLORIDE (test code = CL) 107 MMOL/L 100-108 N CARBON DIOXIDE (test code = CO2) 30 MMOL/L 22-32 N GLUCOSE (test code = GLU) 180 MG/DL 65-99 H Results of this assay method may be falsely depressed orelevated if patient is taking sulfasalazine. BLOOD UREA NITROGEN (test code = BUN) 20 MG/DL 6-20 N GLOMERULAR FILTRATION RATE (test code = GFR) 48 35-81 N Reporting units: mL/min/1.73m\\S\\2 (Modified MDRD Formula) CREATININE (test code = CREAT) 1.41 MG/DL 0.60-1.00 H CALCIUM (test code = CA) 8.6 MG/DL 8.7-10.5 L [id number] 05:46:00* Test Item Value Reference Range Interpretation Comme nts MAGNESIUM (test code = MAG) 1.9 MG/DL 1.8-2.4 N [id number] 05:26:00* Test Item Value Reference Range Interpretation Comme nts GLUBED (test code = GLUBED) 160 MG/DL 65-99 H Performed by cer tified rim roller operator at [facility] CBC W/AUTO [id number] 05:05:00* Test Item Value Reference Range Interpretation Comme nts WHITE BLOOD CELL (test code = WBC) 7.22 x10 3/uL 4.80-10.80 N RED BLOOD CELL (test code = RBC) 4.02 x10 6/uL 4.7-6.1 L HEMOGLOBIN (test code = HGB) 11.0 G/DL 14.0-17.0 L HEMATOCRIT (test code = HCT) 34.3 % 42-52 L MEAN CELL VOLUME (test code = MCV) 85.3 FL 80-94 N MEAN CELL HGB (test code = MCH) 27.4 PG 27-31 N MEAN CELL HGB CONCENTRATION (test code = MCHC) 32.1 G/DL 33-37 L RED CELL DISTRIBUTION WIDTH (test code = RDW) 14.8 % 11.5-14.5 H PLATELET COUNT (test code = PLT) 147 x10 3/uL 150-450 L MEAN PLATELET VOLUME (test c ode = MPV) 9.9 FL 7.4-10.4 N NEUTROPHIL % (test code = NT%) 53.3 % 42-86 N IMMATURE GRANULOCYTE % (test code = IG%) 0.3 % 0.0-2.0 N LYMPHOCYTE % (test code = LY%) 30.7 % 24-44 N MONOCYTE % (test code = MO%) 10.7 % 0.0-4.0 H EOSINOPHIL % (test code = EO%) 4.2 % 0.0-2.7 H BASOPHIL % (test code = BA%) 0.8 % 0.0-0.5 H NUCLEATED RBC % (test code = NRBC%) 0.0 % 0.0-0.0 N NEUTROPHIL # (test code = NT#) 3.85 x10 3/uL 1.8-7.7 N IMMATURE GRANULOCYTE # (test code = IG#) 0.02 x10 3/uL 0.00-0.03 N LYMPHOCYTE # (test code = LY#) 2.22 x10 3/uL 1.0-4.8 N MONOCYTE # (test code = MO#) 0.77 x10 3/uL 0.0-0.8 N EOSINOPHIL # (test code = EO#) 0.30 x10 3/uL 0.0-0.5 N BASOPHIL # (test code = BA#) 0.06 x10 3/uL 0.0-0.2 N NUCLEATED RBC # (test code = NRBC#) 0.0 X10 3/uL 0.0-0.2 N PROTHROMBIN [id number] 05:05:00* Test Item Value Reference Range Interpretation Comme nts PROTHROMBIN TIME PATIENT (test code = PTP) 13.3 SECONDS 9.6-12.3 H INTERNATIONAL NORMAL RATIO (test code = INR) 1.17 Recommended INR range (warfarin therapy): 2.0 - 3.0INR (International Normalized Ratio) should beused when interpreting oral anticoaglulant therapy. For atrial fibrillation and treatment orprevention of deep vein thrombosis. Patients with Palmaz-Mariel stent *: 2.0 - 3.0 Patients with mechanical heart valve *: 2.5 - 3.5 Patients with flex-stent *: 3.0 - 4.0(*) = asset management coordinator's suggested range Is patient on anticoagulants? No AnticoagulantsTHROMBOPLASTIN TIME PARTIAL 2019-07-01 05:05:00* Test Item Value Reference Range Interpretation Comme nts THROMBOPLASTIN TIME PARTIAL (test code = PTT) 32.3 SECONDS 22.5-35.3 N *Therapeutic lev el for heparin: 1.5 - 2.5 times the average patient value of 30.0 seconds. The aPTT tet should not be used to evaluate low moleculat weight heparin anticoagulant therapy. Is patient on anticoagulants? No [id number] 21:36:00* Test Item Value Reference Range Interpretation Comme nts GLUBED (test code = GLUBED) 136 MG/DL 65-99 H Performed by cer jennifer rim roller operator at [facility] UA RFLX MICROSCOPIC [id number] 18:14:00* Test Item Value Reference Range Interpretation Comme nts UA COLOR (test code = COLU) Light-Yellow YELLOW UA APPEARANCE (test code = APPU) CLEAR CLEAR UA GLUCOSE DIPSTICK (test code = DGLUU) NORMAL mg/dL NEGATIVE UA BILIRUBIN DIPSTICK (test code = BILU) NEGATIVE NEGATIVE UA KETONE DIPSTICK (test code = KETU) NEGATIVE mg/dL NEGATIVE UA SPECIFIC GRAVITY (test code = SGU) 1.014 1.001-1.035 N UA BLOOD DIPSTICK (test code = JAVIRE) 1+ UA PH DIPSTICK (test code = OXANA) 5.0 5.5-7.0 L UA PROTEIN DIPSTICK (test code = PROU) 30 mg/dL NEGATIVE A UA UROBILINOGEN DIPSTICK (test code = URO) NORMAL mg/dL NORMAL UA NITRITE DIPSTICK (test code = RICARDO) NEGATIVE NEGATIVE UA LEUKOCYTE ESTERASE DIPSTICK (test code = LEUU) TRACE NEGATIVE UA COMMENT (test code = COMU) VOLUME 10-12 ML URINE SPECIMEN DESCRIPTION (test code = UASPEC) Clean Catch UA WBC (test code = WBCU) < 10 #/HPF 0-10 UA SQUAMOUS CELLS (test code = SQU) 0 - 20 #/LPF <100 UA CULTURE NEEDED? (test code = UACULT) Criteria not met Indication for culture: Dysuria/FrequencyURINE SOURCE: Clean CatchUA MICROSCOPIC 2019-06-30 18:14:00* Test Item Value Reference Range Interpretation Comme nts UA RBC (test code = RBCU) >50 #/HPF NONE SEEN A UA MUCUS (test code = MUCU) RARE #/lpf NONE SEEN Indication for culture: Dysuria/FrequencyURINE SOURCE: Clean CatchCOMPREHENSIVE METABOLIC [id number] 18:13:00* Test Item Value Reference Range Interpretation Comme nts SODIUM (test code = NA) 140 MMOL/L 133-145 N POTASSIUM (test code = K) 3.6 MMOL/L 3.6-5.2 N CHLORIDE (test code = CL) 104 MMOL/L 100-108 N CARBON DIOXIDE (test code = CO2) 29 MMOL/L 22-32 N GLUCOSE (test code = GLU) 194 MG/DL 65-99 H Results of this assay method may be falsely depressed orelevated if patient is taking sulfasalazine. BLOOD UREA NITROGEN (test code = BUN) 21 MG/DL 6-20 H GLOMERULAR FILTRATION RATE (test code = GFR) 44 35-81 N Reporting units: mL/min/1.73m\\S\\2 (Modified MDRD Formula) CREATININE (test code = CREAT) 1.54 MG/DL 0.60-1.00 H TOTAL PROTEIN (test code = PROT) 7.4 G/DL 6.4-8.2 N ALBUMIN (test code = ALB) 3.6 G/DL 3.4-5.0 N GLOBULIN (test code = GLOB) 3.8 G/DL 1.5-3.8 N ALBUMIN/GLOBULIN RATIO (test code = A/G) 0.9 1.1-2.2 L CALCIUM (test code = CA) 9.1 MG/DL 8.7-10.5 N BILIRUBIN TOTAL (test code = BILT) 1.1 MG/DL 0.0-1.0 H SGOT/AST (test code = AST) 24 Units/L 15-37 N Results of this assay method may be falsely depressed orelevated if patient is taking sulfasalazine. SGPT/ALT (test code = ALT) 27 Units/L 30-65 L Results of this assay method may be falsely depressed orelevated if patient is taking sulfasalazine. ALKALINE PHOSPHATASE TOTAL (test code = ALKP) 86 Units/L 50-136 N [id number] 18:13:00* Test Item Value Reference Range Interpretation Comme nts PHOSPHOROUS (test code = PHOS) 3.1 MG/DL 2.5-4.9 N [id number] 18:13:00* Test Item Value Reference Range Interpretation Comme nts MAGNESIUM (test code = MAG) 1.9 MG/DL 1.8-2.4 N NT PRO-BRAIN NATRIURETIC [id number] 18:13:00* Test Item Value Reference Range Interpretation Comme nts NT PRO-BRAIN NATRIURETIC PEPTI (test code = PROBNP) 1654 PG/ML 0-450 H Results of this assay method may be falsely depressed orelevated if patient is taking high doses of Biotin. [id number] 18:13:00* Test Item Value Reference Range Interpretation Comme nts TROPONIN-I (test code = TROPI) < 0.04 NG/ML 0.00-0.06 N - The use of ser ial sampling and testing protocol is a recommended practice.- An elevated troponin level alone is often not sufficient for diagnosis of myocardial infarction.Results of this assay method may be falsely depressed orelevated if patient is taking high doses of Biotin. UA RFLX MICROSCOPIC [id number] 18:10:00* Test Item Value Reference Range Interpretation Comme nts UA COLOR (test code = COLU) Light-Yellow YELLOW UA APPEARANCE (test code = APPU) CLEAR CLEAR UA GLUCOSE DIPSTICK (test code = DGLUU) NORMAL mg/dL NEGATIVE UA BILIRUBIN DIPSTICK (test code = BILU) NEGATIVE NEGATIVE UA KETONE DIPSTICK (test cod e = KETU) NEGATIVE mg/dL NEGATIVE UA SPECIFIC GRAVITY (test code = SGU) 1.014 1.001-1.035 N UA BLOOD DIPSTICK (test code = JAVIER) 1+ UA PH DIPSTICK (test code = OXANA) 5.0 5.5-7.0 L UA PROTEIN DIPSTICK (test code = PROU) 30 mg/dL NEGATIVE A UA UROBILINOGEN DIPSTICK (test code = URO) NORMAL mg/dL NORMAL UA NITRITE DIPSTICK (test code = RICARDO) NEGATIVE NEGATIVE UA LEUKOCYTE ESTERASE DIPSTICK (test code = LEUU) TRACE NEGATIVE UA COMMENT (test code = COMU) VOLUME 10-12 ML URINE SPECIMEN DESCRIPTION (test code = UASPEC) Clean Catch UA WBC (test code = WBCU) #/hpf <10 UA SQUAMOUS CELLS (test code = SQU) #/lpf <100 UA CULTURE NEEDED? (test cod e = UACULT) Indication for culture: Dysuria/FrequencyURINE SOURCE: Clean CatchUA MICROSCOPIC 2019-06-30 18:10:00* Test Item Value Reference Range Interpretation Comme nts UA RBC (test code = RBCU) #/hpf NONE SEEN Indication for culture: Dysuria/FrequencyURINE SOURCE: Clean CatchUA RFLX MICROSCOPIC [id number] 18:10:00* Test Item Value Reference Range Interpretation Comme nts UA COLOR (test code = COLU) Light-Yellow YELLOW UA APPEARANCE (test code = APPU) CLEAR CLEAR UA GLUCOSE DIPSTICK (test code = DGLUU) NORMAL mg/dL NEGATIVE UA BILIRUBIN DIPSTICK (test code = BILU) NEGATIVE NEGATIVE UA KETONE DIPSTICK (test cod e = KETU) NEGATIVE mg/dL NEGATIVE UA SPECIFIC GRAVITY (test code = SGU) 1.014 1.001-1.035 N UA BLOOD DIPSTICK (test code = JAVIER) 1+ UA PH DIPSTICK (test code = OXANA) 5.0 5.5-7.0 L UA PROTEIN DIPSTICK (test code = PROU) 30 mg/dL NEGATIVE A UA UROBILINOGEN DIPSTICK (test code = URO) NORMAL mg/dL NORMAL UA NITRITE DIPSTICK (test code = RICARDO) NEGATIVE NEGATIVE UA LEUKOCYTE ESTERASE DIPSTICK (test code = LEUU) TRACE NEGATIVE UA COMMENT (test code = COMU) VOLUME 10-12 ML URINE SPECIMEN DESCRIPTION (test code = UASPEC) Clean Catch UA WBC (test code = WBCU) #/hpf <10 UA SQUAMOUS CELLS (test code = SQU) #/lpf <100 UA CULTURE NEEDED? (test cod e = UACULT) Indication for culture: Dysuria/FrequencyURINE SOURCE: Clean CatchUA MICROSCOPIC 2019-06-30 18:10:00* Test Item Value Reference Range Interpretation Comme nts UA RBC (test code = RBCU) #/hpf NONE SEEN Indication for culture: Dysuria/FrequencyURINE SOURCE: Clean Catch- XR CHEST 1 V 2019-06-30 17:40:00Patient Name: BOB VITAL Unit No: [id number] EXAMS: CPT CODE: [id number] XR CHEST 1 V [id number] Reason: chest pain Single view chest shows heart size at upper limits of normal. Scattered interstitial opacities persist similar to previous days exam. No focal lung consolidation, effusion or pneumothorax demonstrated. Monitoring device can demonstrated over the chest. IMPRESSION: Stable exam at 1740 Reported and signed by: Vicente Hamilton MD CC: Scar Diaz MD; Vicente Quinteros MD Technologist: Reji Hale RT Trscrpt Dt/ (1739)[email or web address].[email or web address] Orig Print D/T: S: 06/30/2019 (174) [facility] NAME: BOB VITAL [facility] PHYS: Vicente Orozco MD [facility] [place] [address] : 1940 AGE: 79 SEX: M LOC: [place] PHONE #: [phone] EXAM DATE: 06/30/2019STATUS: PRE ER FAX #: RAD NO: DC Dt: PAGE 1 Signed ReportTROPONIN I [id number] 17:39:00* Test Item Value Reference Range Interpretation Comme nts TROPONIN I RAPID (test code = TROPIRAP) 0.00 NG/ML 0.00-0.08 N Performed by cer tified rim roller operator at [facility] - The use of serial sampling and testing protocol is a recommended practice.- An elevated troponin level alone is often not sufficient for diagnosis of myocardial infarction. CBC W/AUTO [id number] 17:32:00* Test Item Value Reference Range Interpretation Comme nts WHITE BLOOD CELL (test code = WBC) 7.18 x10 3/uL 4.80-10.80 N RED BLOOD CELL (test code = RBC) 4.26 x10 6/uL 4.7-6.1 L HEMOGLOBIN (test code = HGB) 11.8 G/DL 14.0-17.0 L HEMATOCRIT (test code = HCT) 35.8 % 42-52 L MEAN CELL VOLUME (test code = MCV) 84.0 FL 80-94 N MEAN CELL HGB (test code = MCH) 27.7 PG 27-31 N MEAN CELL HGB CONCENTRATION (test code = MCHC) 33.0 G/DL 33-37 N RED CELL DISTRIBUTION WIDTH (test code = RDW) 14.8 % 11.5-14.5 H PLATELET COUNT (test code = PLT) 167 x10 3/uL 150-450 N MEAN PLATELET VOLUME (test c ode = MPV) 9.9 FL 7.4-10.4 N NEUTROPHIL % (test code = NT%) 51.6 % 42-86 N IMMATURE GRANULOCYTE % (test code = IG%) 0.3 % 0.0-2.0 N LYMPHOCYTE % (test code = LY%) 33.1 % 24-44 N MONOCYTE % (test code = MO%) 10.2 % 0.0-4.0 H EOSINOPHIL % (test code = EO%) 4.0 % 0.0-2.7 H BASOPHIL % (test code = BA%) 0.8 % 0.0-0.5 H NUCLEATED RBC % (test code = NRBC%) 0.0 % 0.0-0.0 N NEUTROPHIL # (test code = NT#) 3.70 x10 3/uL 1.8-7.7 N IMMATURE GRANULOCYTE # (test code = IG#) 0.02 x10 3/uL 0.00-0.03 N LYMPHOCYTE # (test code = LY#) 2.38 x10 3/uL 1.0-4.8 N MONOCYTE # (test code = MO#) 0.73 x10 3/uL 0.0-0.8 N EOSINOPHIL # (test code = EO#) 0.29 x10 3/uL 0.0-0.5 N BASOPHIL # (test code = BA#) 0.06 x10 3/uL 0.0-0.2 N NUCLEATED RBC # (test code = NRBC#) 0.0 X10 3/uL 0.0-0.2 N CBC W/AUTO [id number] 06:29:00* Test Item Value Reference Range Interpretation Comme nts WHITE BLOOD CELL (test code = WBC) 8.17 x10 3/uL 4.80-10.80 N RED BLOOD CELL (test code = RBC) 3.77 x10 6/uL 4.7-6.1 L HEMOGLOBIN (test code = HGB) 10.4 G/DL 14.0-17.0 L HEMATOCRIT (test code = HCT) 31.4 % 42-52 L MEAN CELL VOLUME (test code = MCV) 83.3 FL 80-94 N MEAN CELL HGB (test code = MCH) 27.6 PG 27-31 N MEAN CELL HGB CONCENTRATION (test code = MCHC) 33.1 G/DL 33-37 N RED CELL DISTRIBUTION WIDTH (test code = RDW) 14.9 % 11.5-14.5 H PLATELET COUNT (test code = PLT) 146 x10 3/uL 150-450 L MEAN PLATELET VOLUME (test c ode = MPV) 9.6 FL 7.4-10.4 N NEUTROPHIL % (test code = NT%) 50.5 % 42-86 N IMMATURE GRANULOCYTE % (test code = IG%) 0.2 % 0.0-2.0 N LYMPHOCYTE % (test code = LY%) 32.9 % 24-44 N MONOCYTE % (test code = MO%) 11.8 % 0.0-4.0 H EOSINOPHIL % (test code = EO%) 3.5 % 0.0-2.7 H BASOPHIL % (test code = BA%) 1.1 % 0.0-0.5 H NUCLEATED RBC % (test code = NRBC%) 0.0 % 0.0-0.0 N NEUTROPHIL # (test code = NT#) 4.12 x10 3/uL 1.8-7.7 N IMMATURE GRANULOCYTE # (test code = IG#) 0.02 x10 3/uL 0.00-0.03 N LYMPHOCYTE # (test code = LY#) 2.69 x10 3/uL 1.0-4.8 N MONOCYTE # (test code = MO#) 0.96 x10 3/uL 0.0-0.8 H EOSINOPHIL # (test code = EO#) 0.29 x10 3/uL 0.0-0.5 N BASOPHIL # (test code = BA#) 0.09 x10 3/uL 0.0-0.2 N NUCLEATED RBC # (test code = NRBC#) 0.0 X10 3/uL 0.0-0.2 N BASIC METABOLIC [id number] 06:27:00* Test Item Value Reference Range Interpretation Comme nts SODIUM (test code = NA) 143 MMOL/L 133-145 N POTASSIUM (test code = K) 3.6 MMOL/L 3.6-5.2 N CHLORIDE (test code = CL) 107 MMOL/L 100-108 N CARBON DIOXIDE (test code = CO2) 30 MMOL/L 22-32 N GLUCOSE (test code = GLU) 140 MG/DL 65-99 H Results of this assay method may be falsely depressed orelevated if patient is taking sulfasalazine. BLOOD UREA NITROGEN (test code = BUN) 22 MG/DL 6-20 H GLOMERULAR FILTRATION RATE (test code = GFR) 46 35-81 N Reporting units: mL/min/1.73m\\S\\2 (Modified MDRD Formula) CREATININE (test code = CREAT) 1.47 MG/DL 0.60-1.00 H CALCIUM (test code = CA) 8.9 MG/DL 8.7-10.5 N [id number] 18:46:00* Test Item Value Reference Range Interpretation Comme nts GLUBED (test code = GLUBED) 189 MG/DL 65-99 H Performed by cer tified rim roller operator at [facility] [id number] 17:18:00* Test Item Value Reference Range Interpretation Comme nts TROPONIN-I (test code = TROPI) 0.05 NG/ML 0.00-0.06 N - The use of ser ial sampling and testing protocol is a recommended practice.- An elevated troponin level alone is often not sufficient for diagnosis of myocardial infarction.Results of this assay method may be falsely depressed orelevated if patient is taking high doses of Biotin. PER RN JULY [id number] 13:49:00* Test Item Value Reference Range Interpretation Comme nts TROPONIN-I (test code = TROPI) 0.06 NG/ML 0.00-0.06 N - The use of ser ial sampling and testing protocol is a recommended practice.- An elevated troponin level alone is often not sufficient for diagnosis of myocardial infarction.Results of this assay method may be falsely depressed orelevated if patient is taking high doses of Biotin. - CT C-SPINE W/O [id number] 08:03:00Patient Name: BOB VITAL Unit No: [id number] EXAMS: CPT CODE: [id number] CT C-SPINE W/O [id number] Reason: fall, neck pain PROCEDURE INFORMATION: Exam: CT Cervical Spine Without Contrast Exam d ate and time: 06/29/2019 7:33 AM Age: 79 years old Clinical indication: Injury or trauma; Fall; Initial encounter; Swelling; Additional info: Fall, neck pain TECHNIQUE: Imaging protocol: Computed tomography images of the cervical spine without contrast. Radiation optimization: All CT scans at this facility use at least one of these dose optimization techniques: automated exposure control; mA and/or kV adjustment per patient size (includes targeted exams where dose is matched to clinical indication); or iterative reconstruction. COMPARISON: No relevant prior studies available. FINDINGS: Vertebrae: No acute bony injury or malalignment in the cervical spine. Discs/Spinal canal/Neural foramina: Spinal stenosis in association with disc bulging and degenerative change. The AP dimension of the central canal measures 7 mm at the C6-C7 level.Note that assessment of disc, spinal cord, and nerve root pathology is limited in the absence of intrathecal contrast. Soft tissues: Unremarkable. Lungs:Biapical interstitial/airspace disease. Vasculature: Vascular calcification. IMPRESSION: No acute bony injury or malalignment in the cervical spine. at 0803 Reported and signed by: Galileo Santiago CC: Scar Diaz MD; Vicente Quinteros MD Technologist: Cait Fulton RT Trscrpt Dt/ (802)[email or web address] Orig Print D/T: S: 06/29/2019 (802) CTDI: DLP: [facility] NAME: BOB VITAL [address] PHYS: [place] [address] : 1940 AGE: 79 SEX: M : FERNANDO PHONE #: [phone] EXAM DATE: 06/29/2019 STATUS: REG ER FAX #: RAD NO: DC Dt: PAGE 1 Signed Report- XR PELVIS 1/2 [id number] 07:57:00Patient Name: BOB VITAL Unit No: [id number] EXAMS: CPT CODE: [id number] XR PELVIS 1/2 VIEWS 15222 Reason: fall, pelvic pain PROCEDURE INFORMATION: Exam: XR Pelvis Exam date and time: 06/29/2019 7:30 AM Age: 79 years old Clinical indication: Pelvic pain; Additional info: Fall, pelvic pain TECHNIQUE: Imaging protocol: XR pelvis. Views: 1 or 2 view. COMPARISON: CT ABD PELVIS W/O CONT 12/17/20177:24 PM FINDINGS: Bones/joints: Osteopenia and degenerative change. No acute bony injury or malalignment in the visualized pelvis. If an occult fracture is of clinical concern, CT correlation can beperformed. Soft tissues: Skin folds. Gastrointestinal tract: Prominent stool. Vasculature: Vascularcalcification. IMPRESSION: No acute bony injury or malalignment in the visualized pelvis. at 0757 Reported and signed by: Galileo Santiago CC: Scar Diaz MD; Vicente Quinteros MD Technologist: Ruthie Baird RT Trscrpt Dt/ (075)[email or web address] Orig Print D/T: S: 06/29/2019 (0757) [facility] NAME: BOB SMITH [address] [facility] PHYS: [place] [address] : 1940 AGE:79 SEX: M LOC: FERNANDO PHONE #: [phone] EXAM DATE: 06/29/2019 STATUS: REGER FAX #: RAD NO: DC Dt: PAGE 1 Signed Report- XR CHEST 1 [id number] 07:55:00Patient Name: BOB VITAL Unit No: [id number] EXAMS: CPT CODE: [id number] XR CHEST 1 V [id number] Reason: chest pain PROCEDURE INFORMATION: Exam: XR Chest, 1 View Exam date and time: 06/29/2019 7:30 AMAge: 79 years old Clinical indication: Chest pain; Type not specified TECHNIQUE: Imaging protocol: XR of the chest Views: 1 view. COMPARISON: CR XR CHEST 1 V 12/18/2018 5:17 AM FINDINGS: Tubes, catheters and devices: Interval removal of previously visualized central venous catheter. Lungs: COPD and i nterstitial disease. Pleural space: No pleural effusion. Heart/Mediastinum: Borderline cardiomegaly. Bones/joints: Degenerative change. IMPRESSION: COPD and interstitial disease. at 0755 Reported and signed by: Galileo Santiago CC: Scar Diaz MD; Vicente Quinteros MD Technologist: Ruthie Baird RT Trscrpt Dt/ (075)[email or web address] Orig Print D/T: S: 06/29/2019 (075) [facility] NAME: BOB VITAL [address] PHYS: [place] [address] : 1940 AGE: 79 SEX: MACCT NO: [id number] LOC: FERNANDO PHONE #: [phone] EXAM DATE: 06/29/2019 STATUS: REG ER FAX #:RAD NO: DC Dt: PAGE 1 Signed Report- CT HEAD/BRAIN W/O [id number] 07:54:00Patient Name: BOB VITAL Unit No: [id number] EXAMS: CPT CODE: [id number] CT HEAD/BRAIN W/O CONT 45304 Reason: fall, loss of conciousness PROCEDURE INFORMATION: Exam: CT Head Without Contrast Exam date and time: 06/29/2019 7:33 AM Age: 79 years old Clinical indication: Injury or trauma; Fall; Initial encounter; Abrasion; Forehead; Additional info: Fall, loss of conciousness TECHNIQUE: Imaging p rotocol: Computed tomography of the head without contrast. Radiation optimization: All CT scans at this facility use at least one of these dose optimization techniques: automated exposure control; mAand/or kV adjustment per patient size (includes targeted exams where dose is matched to clinical ind ication); or iterative reconstruction. COMPARISON: CT HEAD/BRAIN W/CONT 12/17/2018 2:41 PM FINDINGS:Brain: No acute post-traumatic brain injury. Symmetric caliber of the cortical sulci. Mild small vessel ischemic change. Ventricles: Normal configuration of the ventricles. Bones/joints: No acute calv arial injury. Sinuses: Ethmoid sinus inflammatory change. Mastoid air cells: No mastoid effusion. Soft tissues: Small frontal scalp hematoma. Vasculature: Vascular and basal ganglia calcifications. IMPRESSION: No acute post-traumatic brain injury. at 0754 Reported and signed by: Galileo Santiago CC: Scar Diaz MD; Vicente Quinteros MD Technologist: Cait Fulton RT Trscrpt Dt/ (075)[email or web address] Orig Print D/T: S: 06/29/2019 (0754) CTDI: DLP: [facility] NAME: BOB VITAL [address] PHYS: Vicente [place] [address] : 1940 AGE: 79 SEX: M LOC: FERNANDO PHONE #: [phone] EXAM DATE: 06/29/2019 STATUS: REG ER FAX #: RAD NO: DC Dt: PAGE 1 Signed ReportCOMPREHENSIVE METABOLIC PANEL 2019-06-29 07:49:00* Test Item Value Reference Range Interpretation Comme nts SODIUM (test code = NA) 142 MMOL/L 133-145 N POTASSIUM (test code = K) 3.5 MMOL/L 3.6-5.2 L CHLORIDE (test code = CL) 105 MMOL/L 100-108 N CARBON DIOXIDE (test code = CO2) 26 MMOL/L 22-32 N GLUCOSE (test code = GLU) 186 MG/DL 65-99 H Results of this assay method may be falsely depressed orelevated if patient is taking sulfasalazine. BLOOD UREA NITROGEN (test code = BUN) 20 MG/DL 6-20 N GLOMERULAR FILTRATION RATE (test code = GFR) 45 35-81 N Reporting units: mL/min/1.73m\\S\\2 (Modified MDRD Formula) CREATININE (test code = CREAT) 1.50 MG/DL 0.60-1.00 H TOTAL PROTEIN (test code = PROT) 7.9 G/DL 6.4-8.2 N ALBUMIN (test code = ALB) 3.9 G/DL 3.4-5.0 N GLOBULIN (test code = GLOB) 4.0 G/DL 1.5-3.8 H ALBUMIN/GLOBULIN RATIO (test code = A/G) 1.0 1.1-2.2 L CALCIUM (test code = CA) 9.7 MG/DL 8.7-10.5 N BILIRUBIN TOTAL (test code = BILT) 1.4 MG/DL 0.0-1.0 H SGOT/AST (test code = AST) 28 Units/L 15-37 N Results of this assay method may be falsely depressed orelevated if patient is taking sulfasalazine. SGPT/ALT (test code = ALT) 28 Units/L 30-65 L Results of this assay method may be falsely depressed orelevated if patient is taking sulfasalazine. ALKALINE PHOSPHATASE TOTAL (test code = ALKP) 97 Units/L 50-136 N NT PRO-BRAIN NATRIURETIC [id number] 07:49:00* Test Item Value Reference Range Interpretation Comme nts NT PRO-BRAIN NATRIURETIC PEPTI (test code = PROBNP) 1347 PG/ML 0-450 H Results of this assay method may be falsely depressed orelevated if patient is taking high doses of Biotin. [id number] 07:49:00* Test Item Value Reference Range Interpretation Comme nts TROPONIN-I (test code = TROPI) < 0.04 NG/ML 0.00-0.06 N - The use of ser ial sampling and testing protocol is a recommended practice.- An elevated troponin level alone is often not sufficient for diagnosis of myocardial infarction.Results of this assay method may be falsely depressed orelevated if patient is taking high doses of Biotin. DRUG OF ABUSE SCREEN [id number] 07:47:00* Test Item Value Reference Range Interpretation Comments UR COCAINE (test code = COCAU) NEGATIVE NEGATIVE UR MDMA (test code = MDMAQLU) NEGATIVE NEGATIVE UR CANNABINOIDS (test code = CANU) NEGATIVE NEGATIVE UR AMPHETAMINE (test code = AMPHU) NEGATIVE NEGATIVE UR BARBITURATE QUAL (test code = BARBQLU) NEGATIVE NEGATIVE UR BENZODIAZEPINE (test code = BENZU) NEGATIVE NEGATIVE UR OPIATES QUAL (test code = OPIAQLU) NEGATIVE NEGATIVE UR PHENCYCLIDINE (PCP) (test code = PHENCU) NEGATIVE NEGATIVE Urine Drug Abuse Screen provides preliminary results thatmay be confirmed by alternate methods (i.e., GC/MS) [facility]. Results of screen may not be usedin criminal justice, job performance or professionalcredential review, or custody issues. Negative [place] Level ng/ml ----- Cocaine 300 Methamphetamine (Ecstacy) 500 Cannabinoids (THC) 50 Amphetamine 1000 Barbiturates 200 Benzodiazepines 200 Opiates 300 Phencyclidine (PCP) 25 UA RFLX MICROSCOPIC [id number] 07:38:00* Test Item Value Reference Range Interpretation Comme nts UA COLOR (test code = COLU) Light-Yellow YELLOW UA APPEARANCE (test code = APPU) CLEAR CLEAR UA GLUCOSE DIPSTICK (test code = DGLUU) NORMAL mg/dL NEGATIVE UA BILIRUBIN DIPSTICK (test code = BILU) NEGATIVE NEGATIVE UA KETONE DIPSTICK (test code = KETU) NEGATIVE mg/dL NEGATIVE UA SPECIFIC GRAVITY (test code = SGU) 1.012 1.001-1.035 N UA BLOOD DIPSTICK (test code = JAVIER) 1+ UA PH DIPSTICK (test code = OXANA) 7.0 5.5-7.0 N UA PROTEIN DIPSTICK (test code = PROU) 50 mg/dL NEGATIVE A UA UROBILINOGEN DIPSTICK (test code = URO) NORMAL mg/dL NORMAL UA NITRITE DIPSTICK (test code = RICARDO) NEGATIVE NEGATIVE UA LEUKOCYTE ESTERASE DIPSTICK (test code = LEUU) NEGATIVE NEGATIVE UA COMMENT (test code = COMU) VOLUME 10-12 ML URINE SPECIMEN DESCRIPTION (test code = UASPEC) Clean Catch UA WBC (test code = WBCU) < 10 #/HPF 0-10 UA SQUAMOUS CELLS (test code = SQU) 0 - 20 #/LPF <100 UA CULTURE NEEDED? (test code = UACULT) Criteria not met Indication for culture: Dysuria/FrequencyURINE SOURCE: Clean CatchUA MICROSCOPIC 2019-06-29 07:38:00* Test Item Value Reference Range Interpretation Comme nts UA RBC (test code = RBCU) 41-50 #/HPF NONE SEEN A UA MUCUS (test code = MUCU) RARE #/lpf NONE SEEN Indication for culture: Dysuria/FrequencyURINE SOURCE: Clean CatchUA RFLX MICROSCOPIC [id number] 07:36:00* Test Item Value Reference Range Interpretation Comme nts UA COLOR (test code = COLU) Light-Yellow YELLOW UA APPEARANCE (test code = APPU) CLEAR CLEAR UA GLUCOSE DIPSTICK (test code = DGLUU) NORMAL mg/dL NEGATIVE UA BILIRUBIN DIPSTICK (test code = BILU) NEGATIVE NEGATIVE UA KETONE DIPSTICK (test cod e = KETU) NEGATIVE mg/dL NEGATIVE UA SPECIFIC GRAVITY (test code = SGU) 1.012 1.001-1.035 N UA BLOOD DIPSTICK (test code = JAVIER) 1+ UA PH DIPSTICK (test code = OXANA) 7.0 5.5-7.0 N UA PROTEIN DIPSTICK (test code = PROU) 50 mg/dL NEGATIVE A UA UROBILINOGEN DIPSTICK (test code = URO) NORMAL mg/dL NORMAL UA NITRITE DIPSTICK (test code = RICARDO) NEGATIVE NEGATIVE UA LEUKOCYTE ESTERASE DIPSTICK (test code = LEUU) NEGATIVE NEGATIVE UA COMMENT (test code = COMU) VOLUME 10-12 ML URINE SPECIMEN DESCRIPTION (test code = UASPEC) Clean Catch UA WBC (test code = WBCU) #/hpf <10 UA SQUAMOUS CELLS (test code = SQU) #/lpf <100 UA CULTURE NEEDED? (test cod e = UACULT) Indication for culture: Dysuria/FrequencyURINE SOURCE: Clean CatchUA MICROSCOPIC 2019-06-29 07:36:00* Test Item Value Reference Range Interpretation Comme nts UA RBC (test code = RBCU) #/HPF NONE SEEN Indication for culture: Dysuria/FrequencyURINE SOURCE: Clean CatchUA RFLX MICROSCOPIC [id number] 07:36:00* Test Item Value Reference Range Interpretation Comme nts UA COLOR (test code = COLU) Light-Yellow YELLOW UA APPEARANCE (test code = APPU) CLEAR CLEAR UA GLUCOSE DIPSTICK (test code = DGLUU) NORMAL mg/dL NEGATIVE UA BILIRUBIN DIPSTICK (test code = BILU) NEGATIVE NEGATIVE UA KETONE DIPSTICK (test cod e = KETU) NEGATIVE mg/dL NEGATIVE UA SPECIFIC GRAVITY (test code = SGU) 1.012 1.001-1.035 N UA BLOOD DIPSTICK (test code = JAVIER) 1+ UA PH DIPSTICK (test code = OXANA) 7.0 5.5-7.0 N UA PROTEIN DIPSTICK (test code = PROU) 50 mg/dL NEGATIVE A UA UROBILINOGEN DIPSTICK (test code = URO) NORMAL mg/dL NORMAL UA NITRITE DIPSTICK (test code = RICARDO) NEGATIVE NEGATIVE UA LEUKOCYTE ESTERASE DIPSTICK (test code = LEUU) NEGATIVE NEGATIVE UA COMMENT (test code = COMU) VOLUME 10-12 ML URINE SPECIMEN DESCRIPTION (test code = UASPEC) Clean Catch UA WBC (test code = WBCU) #/hpf <10 UA SQUAMOUS CELLS (test code = SQU) #/lpf <100 UA CULTURE NEEDED? (test cod e = UACULT) Indication for culture: Dysuria/FrequencyURINE SOURCE: Clean CatchUA MICROSCOPIC 2019-06-29 07:36:00* Test Item Value Reference Range Interpretation Comme nts UA RBC (test code = RBCU) #/HPF NONE SEEN Indication for culture: Dysuria/FrequencyURINE SOURCE: Clean CatchCBC W/AUTO [id number] 07:31:00* Test Item Value Reference Range Interpretation Comme nts WHITE BLOOD CELL (test code = WBC) 9.07 x10 3/uL 4.80-10.80 N RED BLOOD CELL (test code = RBC) 4.58 x10 6/uL 4.7-6.1 L HEMOGLOBIN (test code = HGB) 12.6 G/DL 14.0-17.0 L HEMATOCRIT (test code = HCT) 37.0 % 42-52 L MEAN CELL VOLUME (test code = MCV) 80.8 FL 80-94 N MEAN CELL HGB (test code = MCH) 27.5 PG 27-31 N MEAN CELL HGB CONCENTRATION (test code = MCHC) 34.1 G/DL 33-37 N RED CELL DISTRIBUTION WIDTH (test code = RDW) 15.0 % 11.5-14.5 H PLATELET COUNT (test code = PLT) 151 x10 3/uL 150-450 N MEAN PLATELET VOLUME (test c ode = MPV) 9.7 FL 7.4-10.4 N NEUTROPHIL % (test code = NT%) 69.2 % 42-86 N IMMATURE GRANULOCYTE % (test code = IG%) 0.2 % 0.0-2.0 N LYMPHOCYTE % (test code = LY%) 19.6 % 24-44 L MONOCYTE % (test code = MO%) 7.6 % 0.0-4.0 H EOSINOPHIL % (test code = EO%) 2.4 % 0.0-2.7 N BASOPHIL % (test code = BA%) 1.0 % 0.0-0.5 H NUCLEATED RBC % (test code = NRBC%) 0.0 % 0.0-0.0 N NEUTROPHIL # (test code = NT#) 6.27 x10 3/uL 1.8-7.7 N IMMATURE GRANULOCYTE # (test code = IG#) 0.02 x10 3/uL 0.00-0.03 N LYMPHOCYTE # (test code = LY#) 1.78 x10 3/uL 1.0-4.8 N MONOCYTE # (test code = MO#) 0.69 x10 3/uL 0.0-0.8 N EOSINOPHIL # (test code = EO#) 0.22 x10 3/uL 0.0-0.5 N BASOPHIL # (test code = BA#) 0.09 x10 3/uL 0.0-0.2 N NUCLEATED RBC # (test code = NRBC#) 0.0 X10 3/uL 0.0-0.2 N AB HEPATITIS B [id number] 06:09:00* Test Item Value Reference Range Interpretation Comme nts AB HEPATITIS B SURFACE (test code = HBSAB) Non Reactive () Non Reactive: Inconsistent with immunity, less than 10 mIU/mL Reactive: Consistent with immunity, greater than 9.9 mIU/mL AG HEPATITIS B [id number] 06:09:00* Test Item Value Reference Range Interpretation Comme nts AG HEPATITIS B SURFACE (test code = HBSAG) Negative AB HEPATITIS B [id number] 06:09:00* Test Item Value Reference Range Interpretation Comme nts AB HEPATITIS B CORE (test code = HBCAB) Negativ e AB HEPATITIS B CORE [id number] 06:09:00* Test Item Value Reference Range Interpretation Comme nts AB HEPATITIS B CORE IGM (cande t code = HBCMAB) Negative AB HEPATITIS [id number] 06:09:00* Test Item Value Reference Range Interpretation Comme nts AB HEPATITIS C (test code = HCVAB) s/co rat 0.0-0.9 AB HEPATITIS B [id number] 06:09:00* Test Item Value Reference Range Interpretation Comme nts AB HEPATITIS B SURFACE (test code = HBSAB) Non Reactive () Non Reactive: Inconsistent with immunity, less than 10 mIU/mL Reactive: Consistent with immunity, greater than 9.9 mIU/mL AG HEPATITIS B [id number] 06:09:00* Test Item Value Reference Range Interpretation Comme nts AG HEPATITIS B SURFACE (test code = HBSAG) Negative AB HEPATITIS B [id number] 06:09:00* Test Item Value Reference Range Interpretation Comme nts AB HEPATITIS B CORE (test code = HBCAB) Negativ e AB HEPATITIS B CORE [id number] 06:09:00* Test Item Value Reference Range Interpretation Comme nts AB HEPATITIS B CORE IGM (cande t code = HBCMAB) Negative AB HEPATITIS [id number] 06:09:00* Test Item Value Reference Range Interpretation Comme nts AB HEPATITIS C (test code = HCVAB) 0.2 0.0-0.9 INFCE Result Uni ts: s/co ratio Negative: < 0.8 Indeterminate: 0.8 - 0.9 Positive: > 0.9 The CDC recommends that a positive HCV antibody result be followed up with a HCV Nucleic Acid Amplification test (780358). AB HEPATITIS B [id number] 06:09:00* Test Item Value Reference Range Interpretation Comme nts AB HEPATITIS B SURFACE (test code = HBSAB) Non Reactive () Non Reactive: Inconsistent with immunity, less than 10 mIU/mL Reactive: Consistent with immunity, greater than 9.9 mIU/mL AG HEPATITIS B [id number] 06:09:00* Test Item Value Reference Range Interpretation Comme nts AG HEPATITIS B SURFACE (test code = HBSAG) Negative Negative AB HEPATITIS B [id number] 06:09:00* Test Item Value Reference Range Interpretation Comme nts AB HEPATITIS B CORE (test code = HBCAB) Negativ e AB HEPATITIS B CORE [id number] 06:09:00* Test Item Value Reference Range Interpretation Comme nts AB HEPATITIS B CORE IGM (cande t code = HBCMAB) Negative AB HEPATITIS [id number] 06:09:00* Test Item Value Reference Range Interpretation Comme nts AB HEPATITIS C (test code = HCVAB) 0.2 0.0-0.9 INFCE Result Uni ts: s/co ratio Negative: < 0.8 Indeterminate: 0.8 - 0.9 Positive: > 0.9 The CDC recommends that a positive HCV antibody result be followed up with a HCV Nucleic Acid Amplification test (951167). AB HEPATITIS B [id number] 06:09:00* Test Item Value Reference Range Interpretation Comme nts AB HEPATITIS B SURFACE (test code = HBSAB) Non Reactive () Non Reactive: Inconsistent with immunity, less than 10 mIU/mL Reactive: Consistent with immunity, greater than 9.9 mIU/mL AG HEPATITIS B [id number] 06:09:00* Test Item Value Reference Range Interpretation Comme nts AG HEPATITIS B SURFACE (test code = HBSAG) Negative Negative AB HEPATITIS B [id number] 06:09:00* Test Item Value Reference Range Interpretation Comme nts AB HEPATITIS B CORE (test co de = HBCAB) Negative Negative AB HEPATITIS B CORE [id number] 06:09:00* Test Item Value Reference Range Interpretation Comme nts AB HEPATITIS B CORE IGM (cande t code = HBCMAB) Negative AB HEPATITIS [id number] 06:09:00* Test Item Value Reference Range Interpretation Comme nts AB HEPATITIS C (test code = HCVAB) 0.2 0.0-0.9 INFCE Result Uni ts: s/co ratio Negative: < 0.8 Indeterminate: 0.8 - 0.9 Positive: > 0.9 The CDC recommends that a positive HCV antibody result be followed up with a HCV Nucleic Acid Amplification test (551225). AB HEPATITIS B [id number] 06:09:00* Test Item Value Reference Range Interpretation Comme nts AB HEPATITIS B SURFACE (test code = HBSAB) Non Reactive () Non Reactive: Inconsistent with immunity, less than 10 mIU/mL Reactive: Consistent with immunity, greater than 9.9 mIU/mL AG HEPATITIS B [id number] 06:09:00* Test Item Value Reference Range Interpretation Comme nts AG HEPATITIS B SURFACE (test code = HBSAG) Negative Negative AB HEPATITIS B [id number] 06:09:00* Test Item Value Reference Range Interpretation Comme nts AB HEPATITIS B CORE (test co de = HBCAB) Negative Negative AB HEPATITIS B CORE [id number] 06:09:00* Test Item Value Reference Range Interpretation Comme nts AB HEPATITIS B CORE IGM (test code = HBCMAB) Negative Negative Performed A t: [address] [id number] Wyatt Bellamy MD Ph:[phone] AB HEPATITIS [id number] 06:09:00* Test Item Value Reference Range Interpretation Comme nts AB HEPATITIS C (test code = HCVAB) 0.2 0.0-0.9 INFCE Result Uni ts: s/co ratio Negative: < 0.8 Indeterminate: 0.8 - 0.9 Positive: > 0.9 The CDC recommends that a positive HCV antibody result be followed up with a HCV Nucleic Acid Amplification test ([id number]). [id number] 16:44:00* Test Item Value Reference Range Interpretation Comme nts GLUBED (test code = GLUBED) 268 MG/DL 65-99 H Performed by cer tified rim roller operator at [facility] [id number] 12:13:00* Test Item Value Reference Range Interpretation Comme nts GLUBED (test code = GLUBED) 330 MG/DL 65-99 H Performed by cer tified rim roller operator at [facility] COMPREHENSIVE METABOLIC [id number] 08:59:00* Test Item Value Reference Range Interpretation Comme nts SODIUM (test code = NA) 140 MMOL/L 133-145 N POTASSIUM (test code = K) 4.8 MMOL/L 3.6-5.2 N CHLORIDE (test code = CL) 105 MMOL/L 100-108 N CARBON DIOXIDE (test code = CO2) 26 MMOL/L 22-32 N GLUCOSE (test code = GLU) 221 MG/DL 65-99 H Results of this assay method may be falsely depressed orelevated if patient is taking sulfasalazine. BLOOD UREA NITROGEN (test code = BUN) 27 MG/DL 6-20 H GLOMERULAR FILTRATION RATE (test code = GFR) 37 42-98 L Reporting units: mL/min/1.73m\\S\\2 (Modified MDRD Formula) CREATININE (test code = CREAT) 1.77 MG/DL 0.60-1.00 H TOTAL PROTEIN (test code = PROT) 6.7 G/DL 6.4-8.2 N ALBUMIN (test code = ALB) 3.4 G/DL 3.4-5.0 N GLOBULIN (test code = GLOB) 3.3 G/DL 1.5-3.8 N ALBUMIN/GLOBULIN RATIO (test code = A/G) 1.0 1.1-2.2 L CALCIUM (test code = CA) 9.2 MG/DL 8.7-10.5 N BILIRUBIN TOTAL (test code = BILT) 0.7 MG/DL 0.0-1.0 N SGOT/AST (test code = AST) 23 Units/L 15-37 N Results of this assay method may be falsely depressed orelevated if patient is taking sulfasalazine. SGPT/ALT (test code = ALT) 37 Units/L 30-65 N Results of this assay method may be falsely depressed orelevated if patient is taking sulfasalazine. ALKALINE PHOSPHATASE TOTAL (test code = ALKP) 130 Units/L 50-136 N [id number] 08:59:00* Test Item Value Reference Range Interpretation Comme nts MAGNESIUM (test code = MAG) 2.0 MG/DL 1.8-2.4 N CBC W/AUTO [id number] 08:13:00* Test Item Value Reference Range Interpretation Comme nts WHITE BLOOD CELL (test code = WBC) 7.11 x10 3/uL 4.80-10.80 N RED BLOOD CELL (test code = RBC) 3.79 x10 6/uL 4.7-6.1 L HEMOGLOBIN (test code = HGB) 10.7 G/DL 14.0-17.0 L HEMATOCRIT (test code = HCT) 32.7 % 42-52 L MEAN CELL VOLUME (test code = MCV) 86.3 FL 80-94 N MEAN CELL HGB (test code = MCH) 28.2 PG 27-31 N MEAN CELL HGB CONCENTRATION (test code = MCHC) 32.7 G/DL 33-37 L RED CELL DISTRIBUTION WIDTH (test code = RDW) 13.6 % 11.5-14.5 N PLATELET COUNT (test code = PLT) 127 x10 3/uL 150-450 L MEAN PLATELET VOLUME (test c ode = MPV) 9.8 FL 7.4-10.4 N NEUTROPHIL % (test code = NT%) 51.7 % 42-86 N IMMATURE GRANULOCYTE % (test code = IG%) 0.4 % 0.0-2.0 N LYMPHOCYTE % (test code = LY%) 31.9 % 24-44 N MONOCYTE % (test code = MO%) 10.3 % 0.0-4.0 H EOSINOPHIL % (test code = EO%) 4.9 % 0.0-2.7 H BASOPHIL % (test code = BA%) 0.8 % 0.0-0.5 H NUCLEATED RBC % (test code = NRBC%) 0.0 % 0.0-0.0 N NEUTROPHIL # (test code = NT#) 3.67 x10 3/uL 1.8-7.7 N IMMATURE GRANULOCYTE # (test code = IG#) 0.03 x10 3/uL 0.00-0.03 N LYMPHOCYTE # (test code = LY#) 2.27 x10 3/uL 1.0-4.8 N MONOCYTE # (test code = MO#) 0.73 x10 3/uL 0.0-0.8 N EOSINOPHIL # (test code = EO#) 0.35 x10 3/uL 0.0-0.5 N BASOPHIL # (test code = BA#) 0.06 x10 3/uL 0.0-0.2 N NUCLEATED RBC # (test code = NRBC#) 0.0 X10 3/uL 0.0-0.2 N [id number] 05:30:00* Test Item Value Reference Range Interpretation Comme nts GLUBED (test code = GLUBED) 186 MG/DL 65-99 H Performed by cer Tongda rim roller operator at [facility]2019-08-24 20:46:00* Test Item Value Reference Range Interpretation Comme nts GLUBED (test code = GLUBED) 262 MG/DL 65-99 H Performed by [facility] Tongda rim roller operator at [facility]2019-08-24 17:40:00* Test Item Value Reference Range Interpretation Comme nts GLUBED (test code = GLUBED) 243 MG/DL 65-99 H Performed by TriC[employer] rim roller operator at [facility] [place] KDNEY SCAN FLW [id number] 17:29:00Patient Name: BOB VITAL Unit No: [id number] EXAMS: CPT CODE: [id number] NM KDNEY SCAN FLW [facility] [id number] Reason: hyperkalemia. Renal vascular disease. COMPARISON: Previous CT of the abdomen and pelvis without contrast December 17, 2018 PROCEDURE: Nuclear medicine renal scan. Patient received an intravenous dose of 10 mCi of technetium 99 MAG3. FINDINGS: There is symmetric flow to both kidneys with normal bilateral nephrograms. There is slight asymmetric excretion of contrast material into the right the renal collecting system. However there is no significant obstruction. Normal appearance ofthe ureters and urinary bladder is seen bilaterally. Time to peak for the left kidney is 7 minutes and for the right kidney 10 minutes. The T1/2 for the Left kidney is 29 minutes and for the right kidney 37 minutes. Percent activity in the left kidney is 61% and in the right kidney 39%. IMPRESSION:Symmetric flow to both kidneys with somewhat delayed excretion of the radiopharmaceutical into the collecting system in the right side. Normal bilateral nephrograms. at 1072 Reported and signed by: Bob Bowie MD CC: Scar Diaz MD; Jhonatan Celestin MD Technologist: John YOUSIF Trscrpt Dt/ ([id number])[email or web address] Orig Print D/T: S: 12/18/2018 (4357) [facility] NAME: BOB VITAL [address] PHYS: [place] [address] : 1940 AGE: 78 SEX: M LOC: D.HCU 24 PHONE #: [phone] EXAM DATE: 12/18/2018 STATUS: ADM IN FAX#: RAD NO: DC Dt: PAGE 1 Signed [id number] 16:07:00* Test Item Value Reference Range Interpretation Comme nts GLUBED (test code = GLUBED) 268 MG/DL 65-99 H Performed by cer jennifer rim roller operator at [facility] RFLX [id number] 10:19:00* Test Item Value Reference Range Interpretation Comme nts UA COLOR (test code = COLU) YELLOW YELLOW UA APPEARANCE (test code = APPU) CLEAR CLEAR UA GLUCOSE DIPSTICK (test code = DGLUU) 50 mg/dL NEGATIVE UA BILIRUBIN DIPSTICK (test code = BILU) NEGATIVE NEGATIVE UA KETONE DIPSTICK (test cod e = KETU) NEGATIVE mg/dL NEGATIVE UA SPECIFIC GRAVITY (test code = SGU) 1.015 1.001-1.035 N UA BLOOD DIPSTICK (test code = JAVIER) 4+ NEGATIVE A UA PH DIPSTICK (test code = OXANA) 5.0 5.5-7.0 L UA PROTEIN DIPSTICK (test code = PROU) NEGATIVE mg/dL NEGATIVE UA UROBILINOGEN DIPSTICK (test code = URO) NORMAL mg/dL NORMAL UA NITRITE DIPSTICK (test code = RICARDO) NEGATIVE NEGATIVE UA LEUKOCYTE ESTERASE DIPSTICK (test code = LEUU) NEGATIVE NEGATIVE UA COMMENT (test code = COMU) VOLUME 10-12 ML URINE SPECIMEN DESCRIPTION (test code = UASPEC) Clean Catch URINE SOURCE: Clean CatchUA [id number] 10:19:00* Test Item Value Reference Range Interpretation Comme nts UA WBC (test code = WBCU) < 10 #/hpf <10 UA RBC (test code = RBCU) 30-40 #/HPF NONE SEEN UA BACTERIA (test code = BACU) 1+ #/hpf NONE SEEN UA SQUAMOUS CELLS (test code = SQU) 0 - 20 #/lpf <100 URINE SOURCE: Clean Catch- US RETROPERITONEAL [id number] 10:03:00Patient Name: BOB VITAL Unit No: [id number] EXAMS: CPT CODE: [id number] US RETROPERITONEAL COM 10743 History: NILES. Using real-time and Doppler ultrasound, both kidneys are evaluated. Comparison: 12/18/2017. FINDINGS: The right kidney measures 10.7 x 5.5 x 4.3 cm. The right renal cortex thickness measures 1.0 cm. The resistive index measures 0.75. The left kidney measures 12.1 x 5.6 x 4.8 cm . The left renal cortex thickness measures 1.3 cm. The resistive index measures 0.84. The bladder measures 5.6 x 5.0 x 9.2 cm. The bladder volume is calculated to be 134 cc. IMPRESSION: 1. No evidence hydronephrosis or perinephric fluid collection. at 1003 Reported and signed by: Arden Valdes MD CC: Scar Diaz MD; Jhonatan Celestin MD; Addie Barnes MD Technologist: Aleta CANCINO Trnscrbd D/ (1003) [email or web address] Orig PrintD/T: S: 12/18/2018 (1006) Probe: [facility] NAME: BOB VITAL [address] PHYS: [place] [address] : 1940 AGE: 78 SEX: M LOC: D.U 24 PHONE #: [phone] EXAM DATE: 12/18/2018 STATUS: ADM IN FAX #: RAD NO: Page 1 Signed ReportUA RFLX [id number] 09:36:00* Test Item Value Reference Range Interpretation Comme nts UA COLOR (test code = COLU) YELLOW YELLOW UA APPEARANCE (test code = APPU) CLEAR CLEAR UA GLUCOSE DIPSTICK (test code = DGLUU) 50 mg/dL NEGATIVE UA BILIRUBIN DIPSTICK (test code = BILU) NEGATIVE NEGATIVE UA KETONE DIPSTICK (test cod e = KETU) NEGATIVE mg/dL NEGATIVE UA SPECIFIC GRAVITY (test code = SGU) 1.015 1.001-1.035 N UA BLOOD DIPSTICK (test code = JAVIER) 4+ NEGATIVE A UA PH DIPSTICK (test code = OXANA) 5.0 5.5-7.0 L UA PROTEIN DIPSTICK (test code = PROU) NEGATIVE mg/dL NEGATIVE UA UROBILINOGEN DIPSTICK (test code = URO) NORMAL mg/dL NORMAL UA NITRITE DIPSTICK (test code = RICARDO) NEGATIVE NEGATIVE UA LEUKOCYTE ESTERASE DIPSTICK (test code = LEUU) NEGATIVE NEGATIVE UA COMMENT (test code = COMU) VOLUME 10-12 ML URINE SPECIMEN DESCRIPTION (test code = UASPEC) Clean Catch URINE SOURCE: Clean CatchUA [id number] 09:36:00* Test Item Value Reference Range Interpretation Comme nts UA WBC (test code = WBCU) #/hpf <10 UA RBC (test code = RBCU) #/HPF NONE SEEN UA SQUAMOUS CELLS (test code = SQU) #/lpf <100 URINE SOURCE: Clean CatchUA RFLX [id number] 09:36:00* Test Item Value Reference Range Interpretation Comme nts UA COLOR (test code = COLU) YELLOW YELLOW UA APPEARANCE (test code = APPU) CLEAR CLEAR UA GLUCOSE DIPSTICK (test code = DGLUU) 50 mg/dL NEGATIVE UA BILIRUBIN DIPSTICK (test code = BILU) NEGATIVE NEGATIVE UA KETONE DIPSTICK (test cod e = KETU) NEGATIVE mg/dL NEGATIVE UA SPECIFIC GRAVITY (test code = SGU) 1.015 1.001-1.035 N UA BLOOD DIPSTICK (test code = JAVIER) 4+ NEGATIVE A UA PH DIPSTICK (test code = OXANA) 5.0 5.5-7.0 L UA PROTEIN DIPSTICK (test code = PROU) NEGATIVE mg/dL NEGATIVE UA UROBILINOGEN DIPSTICK (test code = URO) NORMAL mg/dL NORMAL UA NITRITE DIPSTICK (test code = RICARDO) NEGATIVE NEGATIVE UA LEUKOCYTE ESTERASE DIPSTICK (test code = LEUU) NEGATIVE NEGATIVE UA COMMENT (test code = COMU) VOLUME 10-12 ML URINE SPECIMEN DESCRIPTION (test code = UASPEC) Clean Catch URINE SOURCE: Clean CatchUA [id number] 09:36:00* Test Item Value Reference Range Interpretation Comme nts UA WBC (test code = WBCU) #/hpf <10 UA RBC (test code = RBCU) #/HPF NONE SEEN UA SQUAMOUS CELLS (test code = SQU) #/lpf <100 URINE SOURCE: Clean Catch- XR CHEST 1 [id number] 08:24:00Patient Name: BOB VITAL Unit No: [id number] EXAMS: CPT CODE: [id number] XR CHEST 1 V 80381 Reason: needed History: needed. Technique: 1 view of chest. Comparison: 12/17/2018. Findings: HEART AND MEDIASTINUM: Within normal limits. LUNGS: Clear. There is a right IJ central venous catheter withthe tip identified at superior vena cava. Impression: 1. No evidence of acute cardiopulmonary disease. at 0824 Reported and signed by: Arden Valdes MD CC: Scar Diaz MD; Jhonatan Celestin MD; Deb Kim Technologist: Ankita Brewer RT; Tammi Garay RT PRN Trscrpt Dt/ (0824)[email or web address] Orig Print D/T: S: 12/18/2018 (0827)[facility] NAME: BOB VITAL SPID PHYS: [place] [address] : 1940 AGE: 78 SEX: M LOC: LeslieU 24 PHONE #: [phone] EXAM DATE: 12/18/2018 STATUS: ADM IN FAX #: RAD NO: DC Dt: PAGE 1 Signed ReportCOMPREHENSIVE METABOLIC [id number] 08:04:00* Test Item Value Reference Range Interpretation Comme nts SODIUM (test code = NA) 140 MMOL/L 133-145 N VERIFIED BY REPE ATED ANALYSIS BY Jennifer Batres V. 12/18/18 POTASSIUM (test code = K) 4.3 MMOL/L 3.6-5.2 VERIFIED BY REPE ATED ANALYSIS BY Jennifer Batres V. 12/18/18 CHLORIDE (test code = CL) 105 MMOL/L 100-108 N CARBON DIOXIDE (test code = CO2) 27 MMOL/L 22-32 N GLUCOSE (test code = GLU) 177 MG/DL 65-99 H Results of this assay method may be falsely depressed orelevated if patient is taking sulfasalazine. BLOOD UREA NITROGEN (test code = BUN) 22 MG/DL 6-20 H GLOMERULAR FILTRATION RATE (test code = GFR) 52 42-98 N Reporting units: mL/min/1.73m\\S\\2 (Modified MDRD Formula) CREATININE (test code = CREAT) 1.32 MG/DL 0.60-1.00 H TOTAL PROTEIN (test code = PROT) 6.3 G/DL 6.4-8.2 L ALBUMIN (test code = ALB) 3.2 G/DL 3.4-5.0 L GLOBULIN (test code = GLOB) 3.1 G/DL 1.5-3.8 N ALBUMIN/GLOBULIN RATIO (test code = A/G) 1.0 1.1-2.2 L CALCIUM (test code = CA) 8.6 MG/DL 8.7-10.5 L BILIRUBIN TOTAL (test code = BILT) 1.0 MG/DL 0.0-1.0 N SGOT/AST (test code = AST) 32 Units/L 15-37 N Results of this assay method may be falsely depressed orelevated if patient is taking sulfasalazine. SGPT/ALT (test code = ALT) 42 Units/L 30-65 N Results of this assay method may be falsely depressed orelevated if patient is taking sulfasalazine. ALKALINE PHOSPHATASE TOTAL (test code = ALKP) 124 Units/L 50-136 N [id number] 08:04:00* Test Item Value Reference Range Interpretation Comme nts MAGNESIUM (test code = MAG) 1.5 MG/DL 1.8-2.4 L COMPREHENSIVE METABOLIC [id number] 08:00:00* Test Item Value Reference Range Interpretation Comme nts SODIUM (test code = NA) MMOL/L 133-145 N POTASSIUM (test code = K) MMOL/L 3.6-5.2 CHLORIDE (test code = CL) 105 MMOL/L 100-108 N CARBON DIOXIDE (test code = CO2) 27 MMOL/L 22-32 N GLUCOSE (test code = GLU) 177 MG/DL 65-99 H Results of this assay method may be falsely depressed orelevated if patient is taking sulfasalazine. BLOOD UREA NITROGEN (test code = BUN) 22 MG/DL 6-20 H GLOMERULAR FILTRATION RATE (test code = GFR) 52 42-98 N Reporting units: mL/min/1.73m\\S\\2 (Modified MDRD Formula) CREATININE (test code = CREAT) 1.32 MG/DL 0.60-1.00 H TOTAL PROTEIN (test code = PROT) 6.3 G/DL 6.4-8.2 L ALBUMIN (test code = ALB) 3.2 G/DL 3.4-5.0 L GLOBULIN (test code = GLOB) 3.1 G/DL 1.5-3.8 N ALBUMIN/GLOBULIN RATIO (test code = A/G) 1.0 1.1-2.2 L CALCIUM (test code = CA) 8.6 MG/DL 8.7-10.5 L BILIRUBIN TOTAL (test code = BILT) 1.0 MG/DL 0.0-1.0 N SGOT/AST (test code = AST) 32 Units/L 15-37 N Results of this assay method may be falsely depressed orelevated if patient is taking sulfasalazine. SGPT/ALT (test code = ALT) 42 Units/L 30-65 N Results of this assay method may be falsely depressed orelevated if patient is taking sulfasalazine. ALKALINE PHOSPHATASE TOTAL (test code = ALKP) 124 Units/L 50-136 N [id number] 08:00:00* Test Item Value Reference Range Interpretation Comme nts MAGNESIUM (test code = MAG) 1.5 MG/DL 1.8-2.4 L [id number] 07:49:00* Test Item Value Reference Range Interpretation Comme nts GLUBED (test code = GLUBED) 175 MG/DL 65-99 H Performed by cer tified rim roller operator at [facility] CBC W/AUTO [id number] 07:46:00* Test Item Value Reference Range Interpretation Comme nts WHITE BLOOD CELL (test code = WBC) 7.87 x10 3/uL 4.80-10.80 N RED BLOOD CELL (test code = RBC) 3.47 x10 6/uL 4.7-6.1 L HEMOGLOBIN (test code = HGB) 10.4 G/DL 14.0-17.0 L HEMATOCRIT (test code = HCT) 29.1 % 42-52 L MEAN CELL VOLUME (test code = MCV) 83.9 FL 80-94 N MEAN CELL HGB (test code = MCH) 30.0 PG 27-31 N MEAN CELL HGB CONCENTRATION (test code = MCHC) 35.7 G/DL 33-37 N RED CELL DISTRIBUTION WIDTH (test code = RDW) 13.6 % 11.5-14.5 N PLATELET COUNT (test code = PLT) 118 x10 3/uL 150-450 L MEAN PLATELET VOLUME (test c ode = MPV) 9.7 FL 7.4-10.4 N NEUTROPHIL % (test code = NT%) 56.4 % 42-86 N IMMATURE GRANULOCYTE % (test code = IG%) 0.1 % 0.0-2.0 N LYMPHOCYTE % (test code = LY%) 28.5 % 24-44 N MONOCYTE % (test code = MO%) 9.0 % 0.0-4.0 H EOSINOPHIL % (test code = EO%) 5.0 % 0.0-2.7 H BASOPHIL % (test code = BA%) 1.0 % 0.0-0.5 H NUCLEATED RBC % (test code = NRBC%) 0.0 % 0.0-0.0 N NEUTROPHIL # (test code = NT#) 4.44 x10 3/uL 1.8-7.7 N IMMATURE GRANULOCYTE # (test code = IG#) 0.01 x10 3/uL 0.00-0.03 N LYMPHOCYTE # (test code = LY#) 2.24 x10 3/uL 1.0-4.8 N MONOCYTE # (test code = MO#) 0.71 x10 3/uL 0.0-0.8 N EOSINOPHIL # (test code = EO#) 0.39 x10 3/uL 0.0-0.5 N BASOPHIL # (test code = BA#) 0.08 x10 3/uL 0.0-0.2 N NUCLEATED RBC # (test code = NRBC#) 0.0 X10 3/uL 0.0-0.2 N ARTERIAL BLOOD [id number] 04:58:00* Test Item Value Reference Range Interpretation Comme nts ARTERIAL BLOOD GAS PH (test code = PHA) 7.41 7.35-7.45 N ARTERIAL BLOOD GAS PCO2 (cande t code = PCO2A) 36.1 mmHg 35.0-45.0 N ARTERIAL BLOOD GAS PO2 (test code = PO2A) 78.3 mmHg 60.0-80.0 N BICARBONATE TOTAL HCO3 (test code = HCO3) 22.4 mmol/L 20.0-26.0 N BASE EXCESS (test code = CHRISTOPHER) -1.8 mmol/L -3.0-3.0 N ABG O2 SATURATION (test code = SATA) 95.8 % 95-100 N ABG TYPE (test code = TYPEA) Arterial FIO2 (test code = FIO2A) 21.0 % MODE (test code = MODE) room air ABG PATIENT RESP RATE (test code = RRPATA) 14.0 /MIN ABG TEMPERATURE (test code = TEMPA) 98.6 F CARLI TEST (test code = ALN) Yes ABG SITE (test code = SITEA) RR TOTAL HGB (test code = THB) 12.0 G/DL 13.0-18.0 L OXYHEMOGLOBIN (test code = OOHGBT) 95.1 % 92.0-98.0 N CARBOXYHEMOGLOBIN (test code = HOHGBT) 0.2 % 0.5-1.5 L METHEMOGLOBIN (test code = METHGB) 0.5 % 0.4-1.5 N BASIC METABOLIC [id number] 22:45:00* Test Item Value Reference Range Interpretation Comme nts SODIUM (test code = NA) 143 MMOL/L 133-145 N POTASSIUM (test code = K) 6.5 MMOL/L 3.6-5.2 HH CHLORIDE (test code = CL) 112 MMOL/L 100-108 H CARBON DIOXIDE (test code = CO2) 23 MMOL/L 22-32 N GLUCOSE (test code = GLU) 157 MG/DL 65-99 H Results of this assay method may be falsely depressed orelevated if patient is taking sulfasalazine. BLOOD UREA NITROGEN (test code = BUN) 53 MG/DL 6-20 H GLOMERULAR FILTRATION RATE (test code = GFR) 31 42-98 L Reporting units: mL/min/1.73m\\S\\2 (Modified MDRD Formula) CREATININE (test code = CREAT) 2.08 MG/DL 0.60-1.00 H CALCIUM (test code = CA) 10.4 MG/DL 8.7-10.5 N CV CALL [id number] 22:45:00* Test Item Value Reference Range Interpretation Comme nts CV CALL CHEM (test code = CVC) Called Results called t o and read back by KALEY LEACH RN;.for analyte(s): K .at 2245 - 12/17/18; by D.LAB.BVP. BASIC METABOLIC [id number] 22:44:00* Test Item Value Reference Range Interpretation Comme nts SODIUM (test code = NA) 143 MMOL/L 133-145 N POTASSIUM (test code = K) 6.5 MMOL/L 3.6-5.2 HH CHLORIDE (test code = CL) 112 MMOL/L 100-108 H CARBON DIOXIDE (test code = CO2) 23 MMOL/L 22-32 N GLUCOSE (test code = GLU) 157 MG/DL 65-99 H Results of this assay method may be falsely depressed orelevated if patient is taking sulfasalazine. BLOOD UREA NITROGEN (test code = BUN) 53 MG/DL 6-20 H GLOMERULAR FILTRATION RATE (test code = GFR) 31 42-98 L Reporting units: mL/min/1.73m\\S\\2 (Modified MDRD Formula) CREATININE (test code = CREAT) 2.08 MG/DL 0.60-1.00 H CALCIUM (test code = CA) 10.4 MG/DL 8.7-10.5 N CV CALL [id number] 22:44:00* Test Item Value Reference Range [facility]ation [facility] (test code = CVC) PROTHROMBIN [id number] 22:24:00* Test Item Value Reference Range Interpretation [facility] PR[facility] TIME PATIENT (test code = PTP) 12.1 SECONDS 9.6-12.3 N INTERNATIONAL NORMAL RATIO (test code = INR) 1.07 Recommended INR range (warfarin therapy): 2.0 - 3.0INR (International Normalized Ratio) should beused when interpreting oral anticoaglulant therapy. For atrial fibrillation and treatment orprevention of deep vein thrombosis. Patients with Palmaz-Mariel stent *: 2.0 - 3.0 Patients with mechanical heart valve *: 2.5 - 3.5 Patients with flex-stent *: 3.0 - 4.0(*) = asset management coordinator's suggested range Is patient on anticoagulants? No AnticoagulantsTHROMBOPLASTIN TIME PARTIAL 2018-12-17 22:24:00* Test Item Value Reference Range Interpretation [facility] THROMBOPLASTIN TIME PARTIAL (test code = PTT) 33.7 SECONDS 22.5-35.3 N *Therapeutic lev el for heparin: 1.5 - 2.5 times the average patient value of 30.0 seconds. The aPTT tet should not be used to evaluate low moleculat weight heparin anticoagulant therapy. Is patient on anticoagulants? No Anticoagulants- US GUIDANCE VASC ACCESS 2018-12-17 22:21:00Patient Name: BBO VITAL Unit No: [id number] EXAMS: CPT CODE: [id number] US GUIDANCE VASC ACCESS [id number] Trialysis PLACEMENT TECHNIQUE AND FINDINGS: Informed consent was obtained. The patient's right neck and chest were prepped and draped sterilely. Maximal sterile barrier technique was used. Lidocaine was used for local anesthetic. Ultrasound was used to confirm patency of the internal jugular vein. Ultrasound was used to guide access to the vein with a micropuncture needle (image documented) and an 0.018-inch wire passed. The needle was exchanged for a 4-Namibian sheath and dilator. The dilator and wire were exchanged for a J wire. A dermatotomy was made and the tissues serially dilated to accommodate placement of a trialysis catheter; the tip was positioned in the superior vena cava. Later confirmed by chest radiograph. The hub was sutured in place with 2-0 nylon. It aspirates andflushes freely. IMPRESSION: Successful placement 15 cm right internal jugular Trialysis catheter. at 2221 Reported and signed by: Arden Valdes MD CC: Scar Diaz MD; Jhonatan Celestin MD Technologist: Taryn HARDWICK RT Fluoro Time: DAP (Gy m2): Air Kerma (mGy): Trnscrpt: 12/17/2018 (2220) [email or web address] [facility] NAME: BOB JJ [address] [facility] PHYS: SARAI[place] [address] : 1940 AGE: 78 SEX: M LOC: VIJAY 1 PHONE #: [phone] EXAM DATE: 12/17/2018 STATUS: ADM IN FAX #: RAD #: D/C DT PAGE 1 Signed Report- XR CHEST 1 [id number] 22:05:00Patient Name: BOB VITAL Unit No: [id number] EXAMS: CPT CODE: [id number] XR CHEST 1 V [id number] Reason: TEMP HDC PLACEMENT History: TEMP HDC PLACEMENT. Technique: 1 view of chest. Comparison: 12/17/2018. Findings: HEART AND MEDIASTINUM: Unchanged. LUNGS: Clear. A monitoring device is identified in the left chest. There is a right IJ central venous catheter with the tip identified at superior vena cava. Impression: 1. No evidence of acute cardiopulmonary disease. at 2205 Reported and signed by: Arden Valdes MD CC: Scar Diaz MD; Jhonatan Celestin MD; Arden Valdes MD Technologist: Barry NUNN Trscrpt Dt/ ([id number])[email or web address] Orig Print D/T: S: 12/17/2018 (6935) [facility] NAME: BOB VITAL [address] YS: [place] [id number] : 1940 AGE: 78 SEX: M LOC: VIJAY Cooper PHONE #: [phone] EXAM DATE: 12/17/2018 STATUS: ADM IN FAX #: RAD NO: DCDt: PAGE 1 Signed ReportGLUBED 2018-12-17 19:10:00* Test Item Value Reference Range Interpretation Comme nts GLUBED (test code = GLUBED) 175 MG/DL 65-99 H Performed by cer jennifer rim roller operator at [facility] BASIC METABOLIC [id number] 17:10:00* Test Item Value Reference Range Interpretation Comme nts SODIUM (test code = NA) 143 MMOL/L 133-145 POTASSIUM (test code = K) 7.2 MMOL/L 3.6-5.2 HH CHLORIDE (test code = CL) 112 MMOL/L 100-108 H CARBON DIOXIDE (test code = CO2) 23 MMOL/L 22-32 N GLUCOSE (test code = GLU) 251 MG/DL 65-99 H Results of this assay method may be falsely depressed orelevated if patient is taking sulfasalazine. BLOOD UREA NITROGEN (test code = BUN) 55 MG/DL 6-20 H GLOMERULAR FILTRATION RATE (test code = GFR) 26 42-98 L Reporting units: mL/min/1.73m\\S\\2 (Modified MDRD Formula) CREATININE (test code = CREAT) 2.44 MG/DL 0.60-1.00 H CALCIUM (test code = CA) 10.3 MG/DL 8.7-10.5 N CV CALL [id number] 17:10:00* Test Item Value Reference Range Interpretation Comme nts CV CALL CHEM (test code = CVC) BASIC METABOLIC [id number] 17:10:00* Test Item Value Reference Range Interpretation Comme nts SODIUM (test code = NA) 143 MMOL/L 133-145 POTASSIUM (test code = K) 7.2 MMOL/L 3.6-5.2 HH CHLORIDE (test code = CL) 112 MMOL/L 100-108 H CARBON DIOXIDE (test code = CO2) 23 MMOL/L 22-32 N GLUCOSE (test code = GLU) 251 MG/DL 65-99 H Results of this assay method may be falsely depressed orelevated if patient is taking sulfasalazine. BLOOD UREA NITROGEN (test code = BUN) 55 MG/DL 6-20 H GLOMERULAR FILTRATION RATE (test code = GFR) 26 42-98 L Reporting units: mL/min/1.73m\\S\\2 (Modified MDRD Formula) CREATININE (test code = CREAT) 2.44 MG/DL 0.60-1.00 H CALCIUM (test code = CA) 10.3 MG/DL 8.7-10.5 N CV CALL [id number] 17:10:00* Test Item Value Reference Range Interpretation Comme [facility] CV CALL CHEM (test code = CVC) Called Results called t o and read back by CHELSEY DANIEL/RN;.for analyte(s): K .at 0 - 12/17/18; by D.LAB.SP. ARTERIAL BLOOD [id number] 15:23:00* Test Item Value Reference Range Interpretation Comme [facility] ARTERIAL BLOOD GAS PH (test code = PHA) 7.26 7.35-7.45 LL ARTERIAL BLOOD GAS PCO2 (test code = PCO2A) 35.9 mmHg 35.0-45.0 N ARTERIAL BLOOD GAS PO2 (test code = PO2A) 97.7 mmHg 60.0-80.0 H BICARBONATE TOTAL HCO3 (test code = HCO3) 15.7 mmol/L 20.0-26.0 L BASE EXCESS (test code = CHRISTOPHER) -10.4 mmol/L -3.0-3.0 L ABG O2 SATURATION (test code = SATA) 96.9 % 95-100 N ABG TYPE (test code = TYPEA) Arterial FIO2 (test code = FIO2A) 21.0 % MODE (test code = MODE) ROOM AIR ABG PATIENT RESP RATE (test code = RRPATA) 22.0 /MIN ABG TEMPERATURE (test code = TEMPA) 98.6 F CARLI TEST (test code = ALN) Yes ABG SITE (test code = SITEA) LR TOTAL HGB (test code = THB) 11.5 G/DL 13.0-18.0 L OXYHEMOGLOBIN (test code = OOHGBT) 96.1 % 92.0-98.0 N CARBOXYHEMOGLOBIN (test code = HOHGBT) 0.3 % 0.5-1.5 L METHEMOGLOBIN (test code = METHGB) 0.5 % 0.4-1.5 N CV CALL BG (test code = CVCBG) Called Results called to and read back by SHASHA,RNat 15:22 - 12/17/2018; by HIMANSHU,LADIES LOCKER ROOM ATTENDANT [id number] 15:11:00* Test Item Value Reference Range Interpretation Comme nts GLUBED (test code = GLUBED) 465 MG/DL 65-99 HH Performed by cer jennifer rim roller operator at [facility] - CT HEAD/BRAIN W/[id number] 14:57:00Patient Name: BOB VITAL Unit No: [id number] EXAMS: CPT CODE: [id number] CT HEAD/BRAIN W/CONT 17999 Reason: weakness - CT HEAD/BRAIN W/CONT 12/17/2018 2:[address] BRAIN SCAN: Scans ofthe brain were performed at routine axial sections without the use of IV contrast. The ventricles are enlarged but have an otherwise normal configuration. There is sulcal widening and gyral narrowingover the cerebral convexities. There is patchy decreased attenuation in the periventricular and deep white matter. No mass lesion, midline shift, or extracerebral fluid collection is present. The cerebellum, brainstem and sella regions are unremarkable. No low or high attenuation intraparenchymal lesions are noted. The paranasal sinuses, mastoids, and middle ears are normally aerated. IMPRESSION: 1. Negative CT scan of the brain for acute disease. 2. 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 at 4769 Reported and signed by: Thanh Hernandez MD CC: Scar Diaz MD; Chandu Hernandez MD Technologist: Cait Fulton RT Trscrpt Dt/ ([id number] Orig Print D/T: S: 12/17/2018 (4095) CTDI: DLP: [facility] NAME: BOB VITAL [address] PHYS: Chandu Bell [place] [address] : 1940 AGE: 78 SEX: M LOC: FERNANDO PHONE #: [phone] EXAM DATE: 12/17/2018 STATUS: REG ER FAX #: RAD NO: DC Dt: PAGE 1 Signed Report BASIC METABOLIC [id number] 14:26:00* Test Item Value Reference Range Interpretation Comme nts SODIUM (test code = NA) 135 MMOL/L 133-145 N POTASSIUM (test code = K) 7.5 MMOL/L 3.6-5.2 HH CHLORIDE (test code = CL) 107 MMOL/L 100-108 N CARBON DIOXIDE (test code = CO2) 18 MMOL/L 22-32 L GLUCOSE (test code = GLU) 522 MG/DL 65-99 HH Results of this assay method may be falsely depressed orelevated if patient is taking sulfasalazine. BLOOD UREA NITROGEN (test code = BUN) 56 MG/DL 6-20 H GLOMERULAR FILTRATION RATE (test code = GFR) 24 42-98 L Reporting units: mL/min/1.73m\\S\\2 (Modified MDRD Formula) CREATININE (test code = CREAT) 2.58 MG/DL 0.60-1.00 H CALCIUM (test code = CA) 9.4 MG/DL 8.7-10.5 N CV CALL [id number] 14:26:00* Test Item Value Reference Range Interpretation Comme nts CV CALL CHEM (test code = CVC) BASIC METABOLIC [id number] 14:26:00* Test Item Value Reference Range Interpretation Comme nts SODIUM (test code = NA) 135 MMOL/L 133-145 N POTASSIUM (test code = K) 7.5 MMOL/L 3.6-5.2 HH CHLORIDE (test code = CL) 107 MMOL/L 100-108 N CARBON DIOXIDE (test code = CO2) 18 MMOL/L 22-32 L GLUCOSE (test code = GLU) 522 MG/DL 65-99 HH Results of this assay method may be falsely depressed orelevated if patient is taking sulfasalazine. BLOOD UREA NITROGEN (test code = BUN) 56 MG/DL 6-20 H GLOMERULAR FILTRATION RATE (test code = GFR) 24 42-98 L Reporting units: mL/min/1.73m\\S\\2 (Modified MDRD Formula) CREATININE (test code = CREAT) 2.58 MG/DL 0.60-1.00 H CALCIUM (test code = CA) 9.4 MG/DL 8.7-10.5 N CV CALL [id number] 14:26:00* Test Item Value Reference Range Interpretation Comme nts CV CALL CHEM (test code = CVC) Called Results called t o and read back by VINCE PAUL;.for analyte(s): K AND GLUC .at 1426 - 12/17/18; by [email or web address]. - XR CHEST 1 [id number] 14:14:00Patient Name: BOB VITAL Unit No: [id number] EXAMS: CPT CODE: [id number] XR CHEST 1 V 12221 Reason: chest pain History: chest pain. Technique: 1 view of chest. Comparison: 12/17/2017. Findings:HEART AND MEDIASTINUM: Within normal limits. LUNGS: Clear. Impression: 1. No evidence of acute cardiopulmonary disease. at 1414 Reported and signed by: Arden Valdes MD CC: Scar Diaz MD; Chandu Hernandez MD Technologist: Luis Fernando NUNN PRN Trscrpt Dt/ (1414)[email or web address] Orig Print D/T: S: 12/17/2018 (2021) [facility] [address] PHYS: Chandu [place] [address] : 1940 AGE: 78 SEX: M LOC: FERNANDO PHONE #: [phone] EXAM DATE: 12/17/2018 STATUS: REG ER FAX #: RAD NO: DC Dt: PAGE 1 Signed ReportTROPONIN I [id number] 14:06:00* Test Item Value Reference Range Interpretation Comme nts TROPONIN I RAPID (test code = TROPIRAP) 0.00 NG/ML 0.00-0.08 N Performed by cer tified rim roller operator at [facility] - The use of serial sampling and testing protocol is a recommended practice.- An elevated troponin level alone is often not sufficient for diagnosis of myocardial infarction. CBC W/AUTO [id number] 14:01:00* Test Item Value Reference Range Interpretation Comme nts WHITE BLOOD CELL (test code = WBC) 8.67 x10 3/uL 4.80-10.80 N RED BLOOD CELL (test code = RBC) 3.83 x10 6/uL 4.7-6.1 L HEMOGLOBIN (test code = HGB) 11.5 G/DL 14.0-17.0 L HEMATOCRIT (test code = HCT) 33.4 % 42-52 L MEAN CELL VOLUME (test code = MCV) 87.2 FL 80-94 N MEAN CELL HGB (test code = MCH) 30.0 PG 27-31 N MEAN CELL HGB CONCENTRATION (test code = MCHC) 34.4 G/DL 33-37 N RED CELL DISTRIBUTION WIDTH (test code = RDW) 14.0 % 11.5-14.5 N PLATELET COUNT (test code = PLT) 140 x10 3/uL 150-450 L MEAN PLATELET VOLUME (test c ode = MPV) 9.7 FL 7.4-10.4 N NEUTROPHIL % (test code = NT%) 61.5 % 42-86 N IMMATURE GRANULOCYTE % (test code = IG%) 0.3 % 0.0-2.0 N LYMPHOCYTE % (test code = LY%) 24.7 % 24-44 N MONOCYTE % (test code = MO%) 7.5 % 0.0-4.0 H EOSINOPHIL % (test code = EO%) 4.8 % 0.0-2.7 H BASOPHIL % (test code = BA%) 1.2 % 0.0-0.5 H NUCLEATED RBC % (test code = NRBC%) 0.0 % 0.0-0.0 N NEUTROPHIL # (test code = NT#) 5.33 x10 3/uL 1.8-7.7 N IMMATURE GRANULOCYTE # (test code = IG#) 0.03 x10 3/uL 0.00-0.03 N LYMPHOCYTE # (test code = LY#) 2.14 x10 3/uL 1.0-4.8 N MONOCYTE # (test code = MO#) 0.65 x10 3/uL 0.0-0.8 N EOSINOPHIL # (test code = EO#) 0.42 x10 3/uL 0.0-0.5 N BASOPHIL # (test code = BA#) 0.10 x10 3/uL 0.0-0.2 N NUCLEATED RBC # (test code = NRBC#) 0.0 X10 3/uL 0.0-0.2 N Notes Date/Time Note Provider Source 2019-07-07 11:02:00 [facility] ([facility]) Cardiology Progress Note REPORT#:[id number] REPORT STATUS: Signed DATE:07/07/19 TIME: 110 PATIENT: BOB VITAL UNIT #: [id number] ROOM/BED: [facility]-1 : 39 AGE: 79 SEX: M ATTEND: Anne Plasencia MD ADM AUTHOR: Karl Ramos MD * ALL edits or amendments must be made on the electronic/computer document * Subjective Free Text Subj Notes Free Text Subj Notes: No new complaints. Objective General VS/I O: 24 hour I O ending at 0700: 07/06 0700 07/05 1900 Intake Total Output Total Balance Patient 89 kg 90.909 kg Weight Weight Bed scale Bed scale Measurement Method Vital Signs: Date Time Temp Pulse Resp B/P B/P Pulse O2 O2 Flow FiO2 Mean Ox Delivery Rate 07/06 0808 98.2 72 18 113/63 79.4 94 Room air 07/06 0804 98.2 71 18 128/63 84.8 93 Room air 07/06 0803 98.2 74 18 124/65 84.8 93 Room air 07/06 0403 76 98/56 70.1 07/06 0402 74 100/44 62.8 98 07/06 0359 98.2 75 18 109/65 79.7 98 Room air 07/06 0029 98.8 79 17 105/62 76.3 96 Room air 07/05 1900 98.1 87 18 169/69 102.5 97 07/05 1533 98.3 97 16 161/72 101 68 Room air Patient Weight Weight (lb): 196 Weight (oz): 3.38 Weight (kg): 89.000 Medications: Active Meds + DC'd Last 24 Hrs Carvedilol 12.5 MG Q12HR PO Aspirin 81 MG DAILY PO Cholecalciferol 1,000 UNIT DAILY PO (CKD) Clopidogrel Bisulfate 75 MG DAILY PO Enoxaparin Sodium 40 MG DAILY SUBQ Furosemide 20 MG DAILY PO Tamsulosin HCl 0.4 MG DAILY PO Clindamycin HCl 300 MG Q6HR PO Atorvastatin Calcium 80 MG BEDTIME PO Carvedilol 18.75 MG Q12HR PO (DC) Insulin Human Lispro MODERATE SLIDING SCALE INSULIN AC HS SUBQ Isosorbide Mononitrate 20 MG Q12HR PO (DC) Undefined Medication 25 UNIT Q12HR SUBQ Acetaminophen 650 MG Q4H PRN PRN PO Dextrose 20 GM ASDIR PRN PO Dextrose/Water 25 GM ASDIR PRN IV Dextrose/Water 12.5 GM ASDIR PRN IV Hydralazine HCl 10 MG Q6H PRN PRN IV Ondansetron HCl 4 MG Q8H PRN PRN IV Physical Exam General appearance: alert, oriented, no acute distress Head/Eyes: normal conjunctiva/sclera ENT: moist mucosal membranes Neck: no JVD Cardiovascular: CV assessment: regular rate and rhythm, normal heart sounds, no gallop, no murmur Respiratory: decreased breath sounds Abdomen: soft, non-tender Lower extremity: LE assessment: no clubbing, no cyanosis, no edema 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, 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 Skin: no rash Psychiatry: normal affect, normal mood Results Findings/Data: Laboratory Tests 07/06 07/06 07/05 07/05 07/05 0559 0239 2009 1547 1545 Chemistry Sodium (133 - 145 MMOL/L) 142 137 Potassium (3.6 - 5.2 MMOL/L) 4.0 4.1 Chloride (100 - 108 MMOL/L) 106 103 Carbon Dioxide (22 - 32 MMOL/L) 30 28 BUN (6 - 20 MG/DL) 24 H 25 H Creatinine (0.60 - 1.00 MG/DL) 1.69 H 1.85 H Estimated GFR (MDRD) (35 - 81) 39 35 Glucose (65 - 99 MG/DL) 120 H 249 H POC Glucose (65 - 99 MG/DL) 111 H 203 H Calcium (8.7 - 10.5 MG/DL) 8.8 9.1 Magnesium (1.8 - 2.4 MG/DL) 1.8 Rapid Troponin I (0.00 - 0.08 NG/ML) 0.03 Troponin I (0.00 - 0.06 NG/ML) < 0.04 Laboratory Tests 07/06 07/05 0239 1545 Hematology WBC (4.80 - 10.80 x10 3/uL) 7.88 8.76 RBC (4.7 - 6.1 x10 6/uL) 3.23 L 3.58 L Hgb (14.0 - 17.0 G/DL) 8.9 L 9.8 L Hct (42 - 52 %) 27.5 L 30.2 L MCV (80 - 94 FL) 85.1 84.4 MCH (27 - 31 PG) 27.6 27.4 MCHC (33 - 37 G/DL) 32.4 L 32.5 L RDW Coeff of Desmond (11.5 - 14.5 %) 14.7 H 14.9 H Plt Count (150 - 450 x10 3/uL) 168 174 MPV (7.4 - 10.4 FL) 10.5 H 10.1 Neut % (Auto) (42 - 86 %) 55.2 70.5 Lymph % (Auto) (24 - 44 %) 26.8 15.5 L [place] % (Auto) (0.0 - 4.0 %) 11.2 H 9.0 H Eos % (Auto) (0.0 - 2.7 %) 5.8 H 4.0 H Baso % (Auto) (0.0 - 0.5 %) 0.6 H 0.8 H Eos # (Auto) (0.0 - 0.5 x10 3/uL) 0.46 0.35 Baso # (Auto) (0.0 - 0.2 x10 3/uL) 0.05 0.07 Abs Immat Gran (auto) (0.00 - 0.03 x10 3/uL) 0.03 0.02 Absolute Neuts (auto) (1.8 - 7.7 x10 3/uL) 4.35 6.17 Absolute Lymphs (auto) (1.0 - 4.8 x10 3/uL) 2.11 1.36 Absolute Monos (auto) (0.0 - 0.8 x10 3/uL) 0.88 H 0.79 Absolute Nucleated RBC (0.0 - 0.2 X10 3/uL) 0.0 0.0 Immature Gran % (0.0 - 2.0 %) 0.4 0.2 Nucleated RBC % (0.0 - 0.0 %) 0.0 0.0 Laboratory Tests 07/06 07/05 0239 1545 Chemistry Magnesium (1.8 - 2.4 MG/DL) 1.8 Troponin I (0.00 - 0.06 NG/ML) < 0.04 Radiology data: Recent Impressions: RADIOLOGY - XR CHEST 1 V 07/05 1620 Report Impression - Status: SIGNED Entered: 07/06/2019 0535 IMPRESSION: Cardiomegaly otherwise no radiographic acute chest abnormality. Impression By: [email or web address] - Jossue Valles MD Diagnosis, Assessment Plan Free Text DxA P Notes Free Text DxA P Notes: Orthostatic lightheadedness, presyncope Status post PCI of prox and mid left Cx with AYALA, June 30 Prior RCA stent, 2015 Ischemic cardiomyopathy, EF 45 to 50% Chronic systolic heart failure Paroxysmal VT, status post ICD implantation July 03 Chronic LBBB DM type II Hypertension Dyslipidemia REAL on CPAP Plan: 1. Presyncope: Patient presents following an episode of near fainting. History suggests vasovagal/neurocardiogenic etiology. No syncope. ICD interrogation revealed no arrhythmia. No orthostatic hypotension noted. Blood pressures are in the 120s without hydralazine. 2. Severe coronary disease: Status post PCI to left circumflex Jun 30. Prior RCA stent had mild disease. Continue aspirin and clopidogrel. High intensity statin therapy. 3. Paroxysmal VT: Patient is status post ICD implantation, no arrhythmia during presyncope. 4. Ischemic cardiomyopathy: EF is 45 to 50%. 5. Chronic systolic heart failure: Patient was previously on carvedilol, hydralazine, isosorbide mononitrate and furosemide 20 mg daily. Continue carvedilol 12.5 mg twice daily. We may discontinue hydralazine and isosorbide mononitrate. Patient was instructed to check his blood pressure daily and call office if any concerns. 6. DM type II: Management as per primary team. 7. Hypertension: Patient has a history of SUZETTE inhibitor intolerance with hyperkalemia. We will down titrate his blood pressure medications. 8. CKD stage III: Monitor renal function. at 0015 RPT #:[id number] END OF REPORT [facility] 2019-07-07 09:52:00 [facility] ([facility]) Hospitalist Progress Note REPORT#:[id number] REPORT STATUS: Signed DATE:07/07/19 TIME: 951 PATIENT: BOB VITAL UNIT #: [id number] ROOM/BED: [facility]-1 : 39 AGE: 79 SEX: M ATTEND: Anne Plasencia MD ADM AUTHOR: Anne Plasencia MD * ALL edits or amendments must be made on the electronic/computer document * Subjective Free Text Subj Notes Free Subj Notes: denies any complaints, no pre-syncopal episodes, no arrhythmias noted on telemetry, neg orthostatic vitals, no chest pain Objective General VS/I O: Vital Signs: Date Time Temp Pulse Resp B/P B/P Pulse O2 O2 Flow FiO2 Mean Ox Delivery Rate 07/06 1151 98.1 73 18 164/69 100.5 94 Room air 07/06 0808 98.2 72 18 113/63 79.4 94 Room air 07/06 0804 98.2 71 18 128/63 84.8 93 Room air 07/06 0803 98.2 74 18 124/65 84.8 93 Room air 07/06 0403 76 98/56 70.1 07/06 0402 74 100/44 62.8 98 07/06 0359 98.2 75 18 109/65 79.7 98 Room air 07/06 0029 98.8 79 17 105/62 76.3 96 Room air 07/05 1900 98.1 87 18 169/69 102.5 97 07/05 1533 98.3 97 16 161/72 101 68 Room air 24 hour I O ending at 0700: 07/06 0700 07/05 1900 Intake Total Output Total Balance Patient 89 kg 90.909 kg Weight Weight Bed scale Bed scale Measurement Method Patient Weight Weight (lb): 196 Weight (oz): 3.38 Weight (kg): 89.000 Physical Exam General appearance: alert, awake, oriented Head/Eyes: clear cornea, EOMI Neck: full range of motion Cardiovascular: normal heart sounds, regular rate rhythm Respiratory: aerating well, clear to auscultation, symmetric expansion Abdomen: non-tender, normal bowel sounds, soft, no distention Extremities: moves all 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, 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 Skin: dry, intact Wound/incision: Location: left chest Site Condition: dressing clean dry Diagnosis, Assessment Plan Free Text DxA P Notes Free Text DxA P Notes: pre-syncope likely vasovagal. neg orthostatic Paroxysmal V. 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 keep SBP more than 110 ,mmhg -CPAP nightly Sliding scale insulin, glucose check PRN hydralazine -As needed neb treatment -Avoid nephrotoxic agents, monitor renal function -Continue meds as per med rec Code status: Full code MDM if needed: Yudy [phone] DVT PPx: SCDs for now dispo: ok for DC at 1226 RPT #:[id number] END OF REPORT [facility] 2019-07-06 21:15:00 [facility] ([facility]) Cardiology Consultation REPORT#:[id number] REPORT STATUS: Signed DATE:07/06/19 TIME: 2114 PATIENT: BOB VITAL UNIT #: [id number] ROOM/BED: [facility]-1 : 38 AGE: 79 SEX: M ATTEND: Anne Plasencia MD ADM AUTHOR: Karl Ramos MD * ALL edits or amendments must be made on the electronic/computer document * History of Present Illness HPI Reason for consult: Presyncope Free Text HPI Notes Free Text HPI Notes: Mr. Vital is a 79-year-old male known for severe coronary disease, status post PCI to proximal and mid left circumflex on June 30, prior PCI to RCA in 2015, ischemic cardiomyopathy, EF 45 to 50%, DM type II, hypertension, dyslipidemia and chronic LBBB. He underwent ICD implantation on July 03 for paroxysmal VT. Patient presents to emergency department following an episode of lightheadedness and a feeling that he may faint. He was at the restroom using commode when he started to experience lightheadedness. He states he was not straining. He then got up and walked to his bedroom and try to lay down. He felt lightheaded despite lying flat for some time. Denies chest pain or shortness of breath. No syncope. Reports no calf swelling or pain. No bleeding. History - Adult longitudinal Additional medical history: Type 2 diabetes mellitus, hypertension, dyslipidemia, CKD 3, CAD status post cardiac stents in 2015, CHF with EF 45 to 49%(Echo 06/30/2019), LBBB, COPD, REAL on CPAP, GERD, BPH, history of malignant hyperthermia Additional surgical history: Cardiac stent in 2015, recent stent 07/01/2019 AICD placement cholecystectomy, right inguinal hernia repair, kidney stone status post cystoscopy with ESWL, tonsillectomy, bilateral knee surgery, ERCP with sphinterotomy 2017 Additional family history: Mother: /heart disease and hypertension Father: /diabetes mellitus Alcohol use: Denies EtOH use Drug use: Denies recreational drugs Smoking status for patients 13 years old or older: Never Smoker Additional social history: Former smoker with 2 PPD for 20 years, quit smoking in 1976, exposed to asbestos when he was in [place] Allergies: Coded Allergies: vancomycin (Severe, DECREASED RENAL FX 06/29/19) Penicillins (UNKNOWN 06/29/19) succinylcholine (MALIGNANT HYPERTHERMIA 06/29/19) Uncoded Allergies: "ALLERGIC TO ANESTHIA" (Severe, ANAPHYLAXIS 12/17/17) Review of Systems Constitutional: Denies: fever. Skin: Denies: rash. Allergy/Immun: Denies: anaphylaxis. Eyes: Denies: diplopia. ENT: Denies: throat swelling, tongue swelling. Respiratory: Denies: productive cough (sputum). Cardiovascular: Denies: chest pain, orthopnea. GI: Denies: hematemesis, hematochezia, melena. Musculoskeletal: Denies: joint swelling. Heme: Denies: bleeding. Endocrine: Denies: polydipsia. Neuro: Denies: focal weakness. Psych: Denies: change in mental status. Objective Physical Exam VS/I O: Vital Signs: Date Time Temp Pulse Resp B/P B/P Pulse O2 O2 Flow FiO2 Mean Ox Delivery Rate 07/05 1900 98.1 87 18 169/69 102.5 97 07/05 1533 98.3 97 16 161/72 101 68 Room air Patient Weight Weight (lb): Weight (oz): Weight (kg): 90.909 General appearance: alert, oriented, no acute distress Head/Eyes: normal conjunctiva/sclera ENT: moist mucosal membranes Neck: no JVD Cardiovascular: CV assessment: regular rate and rhythm, normal heart sounds, no murmur, no rub Respiratory: decreased breath sounds Abdomen: soft, non-tender Lower extremity: LE assessment: no clubbing, no cyanosis, no edema 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, 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 Skin: no rash Psychiatry: normal affect, normal mood Results Findings/Data: Laboratory Tests 07/057 1545 Chemistry Sodium (133 - 145 MMOL/L) 137 Potassium (3.6 - 5.2 MMOL/L) 4.1 Chloride (100 - 108 MMOL/L) 103 Carbon Dioxide (22 - 32 MMOL/L) 28 BUN (6 - 20 MG/DL) 25 H Creatinine (0.60 - 1.00 MG/DL) 1.85 H Estimated GFR (MDRD) (35 - 81) 35 Glucose (65 - 99 MG/DL) 249 H POC Glucose (65 - 99 MG/DL) 203 H Calcium (8.7 - 10.5 MG/DL) 9.1 Rapid Troponin I (0.00 - 0.08 NG/ML) 0.03 Troponin I (0.00 - 0.06 NG/ML) < 0.04 Laboratory Tests 07/05 1545 Hematology WBC (4.80 - 10.80 x10 3/uL) 8.76 RBC (4.7 - 6.1 x10 6/uL) 3.58 L Hgb (14.0 - 17.0 G/DL) 9.8 L Hct (42 - 52 %) 30.2 L MCV (80 - 94 FL) 84.4 MCH (27 - 31 PG) 27.4 MCHC (33 - 37 G/DL) 32.5 L RDW Coeff of Desmond (11.5 - 14.5 %) 14.9 H Plt Count (150 - 450 x10 3/uL) 174 MPV (7.4 - 10.4 FL) 10.1 Neut % (Auto) (42 - 86 %) 70.5 Lymph % (Auto) (24 - 44 %) 15.5 L [place] % (Auto) (0.0 - 4.0 %) 9.0 H Eos % (Auto) (0.0 - 2.7 %) 4.0 H Baso % (Auto) (0.0 - 0.5 %) 0.8 H Eos # (Auto) (0.0 - 0.5 x10 3/uL) 0.35 Baso # (Auto) (0.0 - 0.2 x10 3/uL) 0.07 Abs Immat Gran (auto) (0.00 - 0.03 x10 3/uL) 0.02 Absolute Neuts (auto) (1.8 - 7.7 x10 3/uL) 6.17 Absolute Lymphs (auto) (1.0 - 4.8 x10 3/uL) 1.36 Absolute Monos (auto) (0.0 - 0.8 x10 3/uL) 0.79 Absolute Nucleated RBC (0.0 - 0.2 X10 3/uL) 0.0 Immature Gran % (0.0 - 2.0 %) 0.2 Nucleated RBC % (0.0 - 0.0 %) 0.0 Laboratory Tests 07/05 1545 Chemistry Troponin I (0.00 - 0.06 NG/ML) < 0.04 Radiology Data: Recent Impressions: RADIOLOGY - XR CHEST 1 V 07/05 1620 Report Impression - Status: SIGNED Entered: 07/06/2019 4345 IMPRESSION: Cardiomegaly otherwise no radiographic acute chest abnormality. Impression By: [email or web address] - Jossue Valles MD EKG Interpretation: normal sinus rhythm, left bundle branch block Diagnosis, Assessment Plan Free Text DxA P Notes Free Text DxA P Notes: Orthostatic lightheadedness, presyncope Status post PCI of prox and mid left Cx with AYALA, June 30 Prior RCA stent, 2015 Ischemic cardiomyopathy, EF 45 to 50% Chronic systolic heart failure Paroxysmal VT, status post ICD implantation July 03 Chronic LBBB DM type II Hypertension Dyslipidemia REAL on CPAP Plan: 1. Presyncope: Patient presents following an episode of near fainting. History suggests vasovagal/neurocardiogenic etiology. No syncope. ICD interrogation revealed no arrhythmia. No orthostatic hypotension noted. 2. Severe coronary disease: Status post PCI to left circumflex Mar 6. Prior RCA stent had mild disease. Continue aspirin and clopidogrel. High intensity statin therapy. 3. Paroxysmal VT: Patient is status post ICD implantation, no arrhythmia during presyncope. 4. Ischemic cardiomyopathy: EF is 45 to 50%. 5. Chronic systolic heart failure: Patient was previously on carvedilol, hydralazine, isosorbide mononitrate and furosemide 20 mg daily. He is currently not on hydralazine and his blood pressures are less than 120 systolic. We will reduce carvedilol dose to 12.5 mg twice daily and also discontinue isosorbide mononitrate. 6. DM type II: Management as per primary team. 7. Hypertension: Patient has a history of SUZETTE inhibitor intolerance with hyperkalemia. We will reduce dose as above based on current blood pressure trend. If his blood pressure starts to increase greater than 140 mmHg systolic, we may add hydralazine 25 mg twice daily. 8. CKD stage III: Monitor renal function. at 1827 RPT #:[id number] END OF REPORT [facility] 2019-07-06 17:56:00 [facility] ([facility]) Hospitalist History Physical REPORT#:[id number] REPORT STATUS: Signed DATE:07/06/19 TIME: 1756 PATIENT: BOB VITAL UNIT #: [id number] ROOM/BED: [id number] : 39 AGE: 79 SEX: M ATTEND: Anne Plasencia MD ADM AUTHOR: Anne Plasencia MD * ALL edits or amendments must be made on the electronic/computer document * History of Present Illness Free Text HPI Notes Free Text HPI Notes: This is an 79-year-old male past medical history of type 2 diabetes, hypertension, dyslipidemia, CKD 3, coronary disease status post cardiac stents, CHF with EF of 45%, LBBB, COPD, REAL on CPAP who presented to the ED with presyncopal episode. Patient was discharged a day prior to admission for paroxysmal V. tach status post AICD placement as well status post left cardiac cath angioplasty with stenting of the left mid circumflex and proximal left circumflex. He was doing well upon discharge until a few hours prior to admission he went to the bathroom to have a bowel movement, while sitting at the potty he had a sudden onset severe dizziness as well as diaphoresis. He denies straining, denies any chest pain. He stood up, laid on his bed, episode lasted for about 10 minutes. He felt palpitations but did not feel his ICD firing. Presence of the symptoms prompted patient to seek evaluation. Denies fever, denies shortness of breath, denies lower extremity swelling, no nausea no vomiting, denies abdominal pain. History Additional medical history: paroxysmal vtacType 2 diabetes mellitus, hypertension, dyslipidemia, CKD 3, CAD status post cardiac stents in 2015, CHF with EF 45 to 49%(Echo 06/30/2019), LBBB, COPD, REAL on CPAP, GERD, BPH, history of malignant hyperthermia Additional surgical history: Cardiac stent in 2015, recent stent 07/01/2019 AICD placement cholecystectomy, right inguinal hernia repair, kidney stone status post cystoscopy with ESWL, tonsillectomy, bilateral knee surgery, ERCP with sphinterotomy 2017 Additional family history: Mother: /heart disease and hypertension Father: /diabetes mellitus Alcohol use: Denies EtOH use Drug use: Denies recreational drugs Smoking status for patients 13 years old or older: Never Smoker Additional social history: Former smoker with 2 PPD for 20 years, quit smoking in 1976, exposed to asbestos when he was in [place] Medication/Allergy-Vaccine Hx Home Medications: ATORVASTATIN (LIPITOR) 80 MG PO BEDTIME CARVEDILOL (COREG) 18.75 MG PO Q12HR CHOLECALCIFEROL (VITAMIN D3) (VITAMIN D3) 1,000 UNITS PO DAILY CLINDAMYCIN HCL (CLEOCIN) 300 MG PO QID CLOPIDOGREL (PLAVIX) 75 MG PO DAILY FUROSEMIDE (LASIX) 20 MG PO DAILY hydrALAZINE (APRESOLINE) 50 MG PO BID INSULIN ASPART (NovoLOG FLEXPEN) 0 UNITS SUBQ AC HS INSULIN GLARGINE (LANTUS) 25 UNITS SUBQ BID ISOSORBIDE MONONITRATE (MONOKET) 20 MG PO BID TAMSULOSIN ER (FLOMAX) 0.4 MG PO DAILY Discontinued Medications ASPIRIN EC (ECOTRIN) 81 MG PO DAILY ATORVASTATIN (LIPITOR) 40 MG PO DAILY CARVEDILOL (COREG) 12.5 MG PO BID Allergies: Coded Allergies: vancomycin (Severe, DECREASED RENAL FX 06/29/19) Penicillins (UNKNOWN 06/29/19) succinylcholine (MALIGNANT HYPERTHERMIA 06/29/19) Uncoded Allergies: "ALLERGIC TO ANESTHIA" (Severe, ANAPHYLAXIS 12/17/17) Objective Physical Exam General appearance: alert, awake, oriented Head/Eyes: clear cornea, EOMI Neck: full range of motion Cardiovascular: normal heart sounds, regular rate rhythm Respiratory: aerating well, clear to auscultation, symmetric expansion Abdomen: non-tender, normal bowel sounds, soft, no distention Extremities: moves all 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, 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 Skin: dry, intact Wound/incision: Location: left chest Site Condition: dressing clean dry Diagnosis, Assessment Plan Free Text DxA P Notes Free Text DxA P Notes: pre-syncope Paroxysmal V. 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%, not in exacerbation Ischemic cardiomyopathy LBBB COPD Type 2 diabetes Hypertension NILES on CKD 3 Dyslipidemia plan: Observe for 24 hours tele -PM interrogation: No arrhythmias noted Cardiology consulted, appreciate recommendation Orthostatic vital signs -CPAP nightly Sliding scale insulin, glucose check PRN hydralazine -As needed neb treatment -Avoid nephrotoxic agents, monitor renal function -Continue meds as per med rec Code status: Full code MDM if needed: Yudy [phone] DVT PPx: SCDs for now at 0845 RPT #:[id number] END OF REPORT [facility] 2019-07-06 16:12:00 [id number] [place], [place] PATIENT NAME: BOB VITAL ADMIT DATE: 07/06/19 ACCOUNT NO: [id number] ROOM NO: [facility] AGE: 79 REPORT TYPE: ELECTROCARDIOGRAM SEX: M : 39 ADMITTING PHYSICIAN:Anne Plasencia MD ATTENDING PHYSICIAN:Anne Plasencia MD Order: [id number] Test Reason : dizziness, recent aicd placement Test Date/Time Stamp: ThuJul 06 2019 16:12:30 Blood Pressure : / mmHG Vent. Rate : 083 BPM Atrial Rate : 083 BPM P-R Int : 182 ms QRS Dur : 160 ms QT Int : 436 ms P-R-T Axes : 054 001 126 degrees QTc Int : 512 ms Normal sinus rhythm Left bundle branch block Abnormal ECG Confirmed by HERIBERTO DIEZ ([id number]), production editor CARLOS FLEMING ([id number]) on 08/08/2019 10:50:53 AM Referred By: Self Referred Confirmed by:HERIBERTO DIEZ at 1052 PATIENT NAME: BOB VITAL [facility] 2019-07-06 15:35:00 [facility] ([facility]) OR A CAMPUS OF [facility] EMERGENCY PROVIDER REPORT REPORT#:[id number] REPORT STATUS: Signed DATE:07/06/19 TIME: 1534 PATIENT: BOB VITAL UNIT #: [id number] ROOM/BED: [place] [address] AGE: 79 SEX: M PCP PHYS: Scar Diaz MD SERVICE AUTHOR: Heriberto Diez MD * ALL edits or amendments must be made on the electronic/computer document * HPI-Dizziness/Weakness General Confirmed Patient Yes Patient Type New patient Initial Greet Date/Time 07/06/191534 Presentation Chief Complaint Dizzy, Weakness, generalized Hx Obtained From Patient Onset Occurred Today Symptom Duration Brief Progression since Onset Resolved Quality no pain Radiation Does not radiate. Severity: Onset Pain level 0 out of 10 Severity: Current No pain currently Associated with Reports: Chills, Palpitations, Weakness. Denies: Chest pain, Fever, Headache, Nausea, Vomiting. Associated Other Pt denies other symptoms Exacerbated by Nothing Relieved by Nothing Free Text HPI Notes Free Text HPI Notes 79 y/o M w/ hx of DM, HTN HDL, CKD, CAD and COPD presents to the ED w/ c/o weakness, dizziness and diaphoresis that began today while at home. Pt states that the dizziness lasted about 10 mins and resolved prior to arriving in the ED. He continues to feel chilled and is visibly shaking while speaking. Pt was discharged yesterday after having an AICD inserted by Dr. Bobby on Thursday and stents on . He denies any chest pain but reports a "fluttering feeling" in his chest. Pt states that he has taken all his prescribed meds today except his insulin (glucose level at 647 upon arrival). Pt denies any known sick contacts, alcohol/illegal drug use and has not used tobacco in more than 15 yrs. Portions of this section were scribed by Bailey Diallo on 07/06/19 at 1737 Review of Systems ROS Statements All systems rev neg except as marked. Focused Review of Systems Constitutional Reports: Chills. Denies: Fatigue, Fever, Lethargy. Eyes Denies: Eye pain bilat, Photophobia, Redness bilat, Swelling bilat. Ears/Nose/Throat Denies: Mouth pain, Nasal congestion, Nose bleeding, Sinus problem. Respiratory Denies: Cough, non-productive, Cough, productive, Shortness of breath, Wheezing. Cardiovascular Reports: Palpitations. Denies: Chest pain, Dyspnea on exertion, Syncope. GI Denies: Abdominal pain, Diarrhea, Nausea, Vomiting. Male Denies: Dysuria, Flank pain, Hematuria, Incontinence. Skin Reports: Diaphoresis. Denies: Abrasion, Rash, Swelling. Neurologic Denies: Generalized weakness, Headache, Lightheaded, Numbness. Additional Review of Systems Musculoskeletal Denies: Back pain, Extremity pain, Extremity swelling, Joint pain. Portions of this section were scribed by Bailey Diallo on 07/06/19 at 1619 Past Medical History - Adult Stated Complaint PT C/O DIZZINESS AND SHAKY AFTER HAVING A BM' Allergies Coded Allergies: vancomycin (Severe, DECREASED RENAL FX 06/29/19) Penicillins (UNKNOWN 06/29/19) succinylcholine (MALIGNANT HYPERTHERMIA 06/29/19) Uncoded Allergies: "ALLERGIC TO ANESTHIA" (Severe, ANAPHYLAXIS 12/17/17) Home Medications Active Scripts CLINDAMYCIN HCL (CLEOCIN) 300 MG PO QID CLINDAMYCIN HCL (CLEOCIN) 300 MG PO QID #28 CAP Prov: 07/05/19 CLOPIDOGREL (PLAVIX) 75 MG PO DAILY CLOPIDOGREL (PLAVIX) 75 MG PO DAILY #30 TAB Ref 2 Prov: 07/05/19 ATORVASTATIN (LIPITOR) 80 MG PO BEDTIME ATORVASTATIN (LIPITOR) 80 MG PO BEDTIME #30 TAB Ref 1 Prov: 07/05/19 Discontinued Scripts CARVEDILOL (COREG) 18.75 MG PO Q12HR CARVEDILOL (COREG) 18.75 MG PO Q12HR #60 TAB Ref 2 Prov: 07/05/19 DC: 07/07/19 1221 Discontinued as per MD Reported Medications CHOLECALCIFEROL (VITAMIN D3) (VITAMIN D3) 1,000 UNITS PO DAILY INSULIN GLARGINE (LANTUS) 25 UNITS SUBQ BID ISOSORBIDE MONONITRATE (MONOKET) 20 MG PO BID TAMSULOSIN ER (FLOMAX) 0.4 MG PO DAILY INSULIN ASPART (NovoLOG FLEXPEN) 0 UNITS SUBQ AC HS FUROSEMIDE (LASIX) 20 MG PO DAILY Discontinued Reported Medications ASPIRIN EC (ECOTRIN) 81 MG PO DAILY CARVEDILOL (COREG) 12.5 MG PO BID ATORVASTATIN (LIPITOR) 40 MG PO DAILY hydrALAZINE (APRESOLINE) 50 MG PO BID Review of Nursing Notes Rev avail, and agree Additional Medical History Type 2 diabetes mellitus, hypertension, dyslipidemia, CKD 3, CAD status post cardiac stents in 2016, CHF with EF 45 to 49%(Echo 06/30/2019), LBBB, COPD, REAL on CPAP, GERD, BPH, history of malignant hyperthermia Additional Surgical History Cardiac stent in 2016,cholecystectomy, right inguinal hernia repair, kidney stone status post cystoscopy with ESWL, tonsillectomy, bilateral knee surgery, ERCP with sphinterotomy 2017 Additional Family History Mother: /heart disease and hypertension Father: /diabetes mellitus Alcohol Use Denies EtOH use Drug Use Denies recreational drugs Smoking status for patients 13 years old or older: Never Smoker Additional Social History Former smoker with 2 PPD for 20 years, quit smoking in 1976, exposed to asbestos when he was in [place] Portions of this section were scribed by Bailey Diallo on 07/06/19 at 1619 Physical Exam Vital Signs Vital Signs First Documented: Result Date Time Pulse Ox 68 07/05 1533 B/P 161/72 07/05 1533 B/P Mean 101 07/05 1533 O2 Delivery Room air 07/05 1533 Temp 98.3 07/05 1533 Pulse 97 07/05 153 Resp 16 07/05 1532 Last Documented: Result Date Time Pulse Ox 68 07/05 1532 B/P 161/72 07/05 1532 B/P Mean 101 07/05 1532 O2 Delivery Room air 07/05 1532 Temp 98.3 07/05 1532 Pulse 97 07/05 153 Resp 16 07/05 153 Review of Vital Signs Reviewed Focused PE General/Const General/Const Awake, Alert, No acute distress, Well appearing, Cooperative MS Head Head Atraumatic, Normocephalic Eyes Eyes Atraumatic, PERRL, EOMI, Conjunctiva NL, Cornea clear Ears/Nose/Throat Ears/Nose/Throat Atraumatic, Airway patent, Pharynx NL, Tympanic membs NL, Ext aud canal NL MS Neck Neck Atraumatic, Supple, No meningismus, No swelling, Non-tender Resp/Chest Respiratory/Chest Atraumatic, Breath sounds NL, Breath sounds = bilat, No respiratory distress, No rales Cardiovascular Cardiovascular Heart rate NL, Regular rhythm, Heart sounds NL, No gallop, No murmurs Abdomen/GI Abdomen/GI Atraumatic, Soft, Non-tender, No guarding, No rebound MS Back Back Atraumatic, Inspection NL, Full range of motion, Painless range of motion, Non-tender Neurologic Neurologic Oriented X3, Speech NL, No motor deficits, No sensory deficits, CN II - XII intact Portions of this section were scribed by Bailey Diallo on 07/06/19 at 1633 Interpretation Diagnostics Lab Results Interpretation Considerations Independ review imaging Results Laboratory Tests 07/06/19 1545: [Embedded Image Not Available] Laboratory Tests: 07/05 07/05 1547 1545 Chemistry Sodium (133 - 145 MMOL/L) 137 Potassium (3.6 - 5.2 MMOL/L) 4.1 Chloride (100 - 108 MMOL/L) 103 Carbon Dioxide (22 - 32 MMOL/L) 28 BUN (6 - 20 MG/DL) 25 H Creatinine (0.60 - 1.00 MG/DL) 1.85 H Estimated GFR (MDRD) (35 - 81) 35 Glucose (65 - 99 MG/DL) 249 H Calcium (8.7 - 10.5 MG/DL) 9.1 Rapid Troponin I (0.00 - 0.08 NG/ML) 0.03 Troponin I (0.00 - 0.06 NG/ML) < 0.04 Hematology WBC (4.80 - 10.80 x10 3/uL) 8.76 RBC (4.7 - 6.1 x10 6/uL) 3.58 L Hgb (14.0 - 17.0 G/DL) 9.8 L Hct (42 - 52 %) 30.2 L MCV (80 - 94 FL) 84.4 MCH (27 - 31 PG) 27.4 MCHC (33 - 37 G/DL) 32.5 L RDW Coeff of [place]mond (11.5 - 14.5 %) 14.9 H Plt Count (150 - 450 x10 3/uL) 174 MPV (7.4 - 10.4 FL) 10.1 Neut % (Auto) (42 - 86 %) 70.5 Lymph % (Auto) (24 - 44 %) 15.5 L [place] % (Auto) (0.0 - 4.0 %) 9.0 H Eos % (Auto) (0.0 - 2.7 %) 4.0 H Baso % (Auto) (0.0 - 0.5 %) 0.8 H Eos # (Auto) (0.0 - 0.5 x10 3/uL) 0.35 Baso # (Auto) (0.0 - 0.2 x10 3/uL) 0.07 Abs Immat Gran (auto) (0.00 - 0.03 x10 3/uL) 0.02 Absolute Neuts (auto) (1.8 - 7.7 x10 3/uL) 6.17 Absolute Lymphs (auto) (1.0 - 4.8 x10 3/uL) 1.36 Absolute Monos (auto) (0.0 - 0.8 x10 3/uL) 0.79 Absolute Nucleated RBC (0.0 - 0.2 X10 3/uL) 0.0 Immature Gran % (0.0 - 2.0 %) 0.2 Nucleated RBC % (0.0 - 0.0 %) 0.0 Recent Impressions: RADIOLOGY - XR CHEST 1 V 07/050 Report Impression - Status: SIGNED Entered: 07/06/2019 0654 IMPRESSION: Cardiomegaly otherwise no radiographic acute chest abnormality. Impression By: [email or web address] - Jossue Valles MD Lab Imaging Statement Laboratory radiographic studies reviewed and considered in the medical decision-making. Point of Care Testing Pulse Oximetry Pulse Ox % 68 On: Room air Interpretation Interpreted by me, Pulse oximetry normal Time 1533 Rhythm Strip Interpretation Time 1533 Rate 97 Rhythm Strip Interpretation Interpreted by me, Normal sinus rhythm ECG #1 Interpretation ECG Documented in MUSE Yes Date 07/06/19 Time 1612 Interpreted by and reviewed by me, ED physician NL ECG Interpretation Normal rate, Normal sinus rhythm, No STEMI, No change from prior ECGs, Adequate tracing Rate 83 Conduction/[place] LBBB - incomplete Portions of this section were scribed by Bailey Diallo on 07/06/19 at 1737 Re-Evaluation MDM Consultation Consultation Referral/Consult Name Karl Ramos MD Slot Manager Called Cardiology Requested Call Time 1627 Requested Call Date 07/06/19 Call Returned Call returned Call Returned Time 1645 Call Returned Date 07/06/19 Slot Manager Will see patient, Will see in office, Agrees with eval, Agrees with plan Portions of this section were scribed by Bailey Diallo on 07/06/19 at 1737 Patient Discharge Departure Vital Signs/Condition Vital Signs First Documented: Result Date Time Pulse Ox 68 07/05 1533 B/P 161/72 03/ 1533 B/P Mean 101 / 1533 O2 Delivery Room air 07/05 1533 Temp 98.3 07/05 1533 Pulse 97 / 1533 Resp 16 07/05 1533 Last Documented: Result Date Time Pulse Ox 68 07/05 1533 B/P 161/72 07/05 1533 B/P Mean 101 /11 1533 O2 Delivery Room air 07/05 1533 Temp 98.3 /11 1533 Pulse 97 / 1533 Resp 16 / 1533 All vital signs available at the time of this entry have been reviewed. Condition Stable Clinical Impression Clinical Impression Primary Impression: Near syncope Secondary Impressions: Recent major surgery Time of Impression 1738 Disposition Decision Admit Admit Physician Name Anne Plasencia MD Admit Physician Hospitalist Request Time 1719 Request Date 07/06/19 )( Admission Accepts Yes )( Accepted Time 173 )( Accepted Date 07/06/19 Call Information will see patient, agrees with eval, agrees with plan Discharge/Care Plan Counseled Regarding Diagnosis, Lab results, Imaging studies, Need for admission Admit Note I have spoken with the patient and/or caregivers. I have explained the patient's condition, diagnoses and treatment plan based on the information available to me at this time. I have answered the patient's and/or caregiver's questions and addressed any concerns. The patient and/or caregivers have as good an understanding of the patient's diagnosis, condition and treatment plan as can be expected at this point. The patient has been stabilized within the capability of the emergency department. The patient will be transported for further care and management or will be moved to an observation or inpatient service. I have communicated with the staff or medical practitioner taking over this patient's care. Quality Measures BP F/U for HTN Pre-existing HTN Smoking Cessation Screened, non user Tobacco Screening/Cessation 18 years or older, Denies tobacco use Supervising Physician Note Scribe Statement Bailey Diallo, 07/06/19 1632, scribing for and in the presence of [Dr. Diez]. Signed By: Bailey Diallo, 07/06/19 1632 Provider Scribed Statement I personally performed the services described in this documentation and reviewed the documentation that was dictated to the scribe(s) in my presence, and it accurately records my words and actions. Heriberto Diez, 07/09/19 Portions of this section were scribed by Bailey Diallo on 07/06/19 at 1737 at 0948 RPT #:[id number] END OF REPORT [facility] 2019-07-05 14:54:00 [facility] ([facility]) Hospitalist Discharge Summary REPORT#:[id number] REPORT STATUS: Signed DATE:07/05/19 TIME: 1454 PATIENT: BOB VITAL UNIT #: [id number] ROOM/BED: [facility]16-01 : 39 AGE: 79 SEX: M ATTEND: Nilton German MD ADM AUTHOR: Nilton German MD * ALL edits or amendments must be made on the electronic/computer document * PCP PCP Discharge to: home General Information Date of admission: Observation Start Date: 06/30/19 Date of admission: 07/01/19 Discharge date: 07/05/19 Admission diagnosis: Paroxysmal V. tach Syncope Coronary artery disease status post stents CHF with EF of 45 to 49% Ischemic cardiomyopathy LBBB COPD Type 2 diabetes Hypertension CKD 3 Dyslipidemia Discharge diagnosis: Paroxysmal V. tach status post ICD pacemaker placement Syncope Coronary artery disease status post stents CHF with EF of 45 to 49% Ischemic cardiomyopathy LBBB COPD Type 2 diabetes Hypertension CKD 3 Dyslipidemia Hospital course: This is an 79-year-old male with a past medical history of type 2 diabetes, hypertension, dyslipidemia, CKD 3, coronary disease status post cardiac stents, CHF with EF of 45%, LBBB, COPD, REAL on CPAP who presented to the ED for admission as the patient was sent by his beef cattle farm worker for V. tach and a syncopal episode patient's beef cattle farm worker is . Patient subsequently underwent a left heart cath angioplasty and stenting of mid left circumflex proximal left circumflex with drug eluting stents 06/30 eventually was planned that he will need an ICD pacemaker placement by . Patient was started on amiodarone and carvedilol per cardiology recommendations. The patient tolerated the procedure well he was on prophylactic Cleocin for a total of 7days. Eventually he was discharged on aspirin Plavix statin and all other home medications. He is to follow-up with in 2 weeks. Consultants: cardiology Pt. condition on discharge: fair Med Rec Med Rec Discharge meds: Stop taking the following medications: CARVEDILOL (COREG) 12.5 MG TAB 12.5 MILLIGRAM ORAL TWICE DAILY. ATORVASTATIN (LIPITOR) 40 MG TAB 40 MILLIGRAM ORAL DAILY. ASPIRIN EC (ECOTRIN) 81 MG TAB.EC 81 MILLIGRAM ORAL DAILY. Continue taking these medications: TAMSULOSIN ER (FLOMAX) 0.4 MG CAP.SR.24H 0.4 MILLIGRAM ORAL DAILY. Instructions: 30 MINUTES AFTER THE SAME MEAL DAILY INSULIN ASPART (NovoLOG FLEXPEN) 100 UNITS/ML PEN.INJCTR 0 UNITS SUBCUTANEOUS BEFORE MEALS AND AT BEDTIME. INSULIN GLARGINE (LANTUS) 100 UNIT/ML VIAL 25 UNITS SUBCUTANEOUS TWICE DAILY. CHOLECALCIFEROL (VITAMIN D3) (VITAMIN D3) 1,000 UNITS CAP 1,000 UNITS ORAL DAILY. FUROSEMIDE (LASIX) 20 MG TAB 20 MILLIGRAM ORAL DAILY. hydrALAZINE (APRESOLINE) 50 MG TAB 50 MILLIGRAM ORAL TWICE DAILY. ISOSORBIDE MONONITRATE (MONOKET) 20 MG TAB 20 MILLIGRAM ORAL TWICE DAILY. Start taking the following new medications: CLINDAMYCIN HCL (CLEOCIN) 300 MG CAP 300 MILLIGRAM ORAL FOUR TIMES A DAY. Qty = 28 No Refills CLOPIDOGREL (PLAVIX) 75 MG TAB 75 MILLIGRAM ORAL DAILY. Qty = 30 Refills = 2 ATORVASTATIN (LIPITOR) 40 MG TAB 80 MILLIGRAM ORAL BEDTIME. Qty = 30 Refills = 1 CARVEDILOL (COREG) 12.5 MG TAB 18.75 MILLIGRAM ORAL EVERY 12 HOURS. Qty = 60 Refills = 2 Discharge Instructions Diet: cardiac, diabetic Additional instructions: f/u with dr bobby 2 wks Objective General VS/I O: Vital Signs: Date Time Temp Pulse Resp B/P B/P Pulse O2 O2 Flow FiO2 Mean Ox Delivery Rate 07/04 1115 97.9 71 18 100/57 71.1 96 Room air 07/04 0753 98.1 64 18 136/70 92.2 97 07/04 0700 97 Room air 0.631486 21 07/04 0351 97.9 67 16 104/51 68.9 96 CPAP 07/03 2352 97.7 69 16 120/59 79.4 95 CPAP 07/03 1934 98.1 78 18 141/68 92.3 94 Room air 07/03 1832 93 Room air 21 24 hour I O ending at 0700: 07/04 0700 07/03 1900 Intake Total 400.00 Output Total 600 Balance -200.00 Intake, IV 160.00 Intake, Oral 240 Output, Urine 600 Patient 94 kg Weight Physical Exam General appearance: alert, awake, oriented Head/Eyes: normocephalic, right eye bruise around ENT: moist mucosal membranes, normal nose Neck: non-tender, no masses or swelling Cardiovascular: murmur, regular rate rhythm Respiratory: aerating well, clear to auscultation, symmetric expansion, no distress Abdomen: non-tender, normal bowel sounds, soft, no distention Extremities: edema (BLE trace), moves all, no calf tenderness Neuro/SENIOR MARKETING ENGINEER: normal speech, no sensory deficits Skin: dry, intact Psychiatry: normal affect, normal judgment/insight, normal mood, no hallucinations at 1658 RPT #:[id number] END OF REPORT [facility] 2019-07-05 11:03:00 [facility] ([facility] Cardiology Progress Note REPORT#:[id number] REPORT STATUS: Signed DATE:07/05/19 TIME: 1103 PATIENT: BOB VITAL UNIT #: [id number] ROOM/BED: [place] [address] : 39 AGE: 79 SEX: M ATTEND: Nilton German MD ADM AUTHOR: Karl Ramos MD * ALL edits or amendments must be made on the electronic/computer document * Subjective Free Text Subj Notes Free Text Subj Notes: Denies chest pain or shortness of breath. Out of bed on chair. Objective General VS/I O: 24 hour I O ending at 0700: 07/04 0700 07/03 1900 Intake Total 400.00 Output Total 600 Balance -200.00 Intake, IV 160.00 Intake, Oral 240 Output, Urine 600 Patient 94 kg Weight Vital Signs: Date Time Temp Pulse Resp B/P B/P Pulse O2 O2 Flow FiO2 Mean Ox Delivery Rate 07/04 0753 98.1 64 18 136/70 92.2 97 07/04 0700 97 Room air 0.719000 21 07/04 0351 97.9 67 16 104/51 68.9 96 CPAP 07/03 2352 97.7 69 16 120/59 79.4 95 CPAP 07/03 1934 98.1 78 18 141/68 92.3 94 Room air 07/03 1832 93 Room air 21 07/03 1610 98.6 79 16 131/70 90.3 93 07/03 1544 81 131/70 90.3 92 07/03 1514 70 118/69 85.1 94 07/03 1459 75 126/66 86.1 94 07/03 1444 77 129/68 88.3 91 07/03 1430 76 131/67 88.0 89 07/03 1429 76 131/67 88.0 93 07/03 1414 79 127/77 93.4 95 07/03 1117 98.6 77 16 127/62 83.7 95 Patient Weight Weight (lb): 207 Weight (oz): 3.75 Weight (kg): 94.000 Medications: Active Meds + DC'd Last 24 Hrs Clindamycin HCl 300 MG QID PO Clindamycin HCl/Dextrose 50 ML Q6H IV (DC) Hydrocodone Bitart/Acetaminophen 1 TAB Q4H PRN PRN PO Tramadol HCl 50 MG Q4H PRN PRN PO Tramadol HCl 100 MG Q4H PRN PRN PO Iopamidol 0 .STK-MED ONE IV (DC) Lidocaine/Epinephrine 0 .STK-MED ONE .ROUTE (DCr) Clindamycin Phosphate 0 .STK-MED ONE IV (DCr) Sodium Chloride 100 ML .STK-MED ONE IV (DC) Clindamycin Phosphate 0 .STK-MED ONE IV (DC) Lidocaine/Epinephrine 0 .STK-MED ONE LOCAL (DC) Sodium Chloride 1,500 ML .STK-MED ONE IV (DC) Fentanyl Citrate 0 .STK-MED ONE IV (DCr) Midazolam HCl 0 .STK-MED ONE IV (DC) Sodium Bicarbonate 0 .STK-MED ONE IV (DC) Sodium Chloride 1,000 ML .STK-MED ONE IV (DC) Atorvastatin Calcium 80 MG BEDTIME PO Isosorbide Mononitrate 20 MG BID 8A 8P PO Clopidogrel Bisulfate 75 MG DAILY PO Morphine Sulfate 2 MG Q4H PRN IV Aspirin 81 MG DAILY PO Tamsulosin HCl 0.4 MG DAILY PO Carvedilol 18.75 MG Q12HR PO Hydralazine HCl 50 MG Q12HR PO Insulin Human Lispro MODERATE SLIDING SCALE INSULIN AC HS SUBQ Hydralazine HCl 10 MG Q6H PRN PRN IV (r) Dextrose 20 GM ASDIR PRN PO Dextrose/Water 25 GM ASDIR PRN IV Dextrose/Water 12.5 GM ASDIR PRN IV Ondansetron HCl 4 MG Q4H PRN PRN IV Acetaminophen 650 MG Q4H PRN PRN PO Physical Exam General appearance: alert, oriented, no acute distress Head/Eyes: normal conjunctiva/sclera Neck: no JVD Cardiovascular: CV assessment: regular rate and rhythm, no murmur, no rub Respiratory: decreased breath sounds Abdomen: soft, non-tender Lower extremity: LE assessment: no clubbing, no cyanosis Right groin site: no hematoma 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, 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 Skin: no rash Results Findings/Data: Laboratory Tests 07/04 07/04 07/03 07/03 07/03 0556 0417 2005 1617 1116 Chemistry Sodium (133 - 145 MMOL/L) 141 Potassium (3.6 - 5.2 MMOL/L) 4.1 Chloride (100 - 108 MMOL/L) 105 Carbon Dioxide (22 - 32 MMOL/L) 28 BUN (6 - 20 MG/DL) 27 H Creatinine (0.60 - 1.00 MG/DL) 1.71 H Estimated GFR (MDRD) (35 - 81) 39 Glucose (65 - 99 MG/DL) 153 H POC Glucose (65 - 99 MG/DL) 147 H 205 H 159 H 162 H Calcium (8.7 - 10.5 MG/DL) 8.7 Laboratory Tests 07/04 416 Hematology WBC (4.80 - 10.80 x10 3/uL) 8.06 RBC (4.7 - 6.1 x10 6/uL) 3.14 L Hgb (14.0 - 17.0 G/DL) 8.5 L Hct (42 - 52 %) 26.9 L MCV (80 - 94 FL) 85.7 MCH (27 - 31 PG) 27.1 MCHC (33 - 37 G/DL) 31.6 L RDW Coeff of Desmond (11.5 - 14.5 %) 14.8 H Plt Count (150 - 450 x10 3/uL) 155 MPV (7.4 - 10.4 FL) 10.5 H Neut % (Auto) (42 - 86 %) 59.2 Lymph % (Auto) (24 - 44 %) 25.7 [place] % (Auto) (0.0 - 4.0 %) 10.8 H Eos % (Auto) (0.0 - 2.7 %) 3.5 H Baso % (Auto) (0.0 - 0.5 %) 0.6 H Eos # (Auto) (0.0 - 0.5 x10 3/uL) 0.28 Baso # (Auto) (0.0 - 0.2 x10 3/uL) 0.05 Abs Immat Gran (auto) (0.00 - 0.03 x10 3/uL) 0.02 Absolute Neuts (auto) (1.8 - 7.7 x10 3/uL) 4.77 Absolute Lymphs (auto) (1.0 - 4.8 x10 3/uL) 2.07 Absolute Monos (auto) (0.0 - 0.8 x10 3/uL) 0.87 H Absolute Nucleated RBC (0.0 - 0.2 X10 3/uL) 0.0 Immature Gran % (0.0 - 2.0 %) 0.2 Nucleated RBC % (0.0 - 0.0 %) 0.0 Radiology data: Recent Impressions: RADIOLOGY - XR CHEST 1 V 07/03 1445 Report Impression - Status: SIGNED Entered: 07/04/2019 1538 IMPRESSION: Pacemaker. Mild cardiomegaly and venous congestion Impression By: [email or web address] Marva Ferguson MD Diagnosis, Assessment Plan Free Text DxA P Notes Free Text DxA P Notes: Paroxysmal VT with syncope Status post PCI of prox and mid left Cx with AYALA, June 30 Prior RCA stent, 2015 Ischemic cardiomyopathy, EF 45 to 50% Chronic systolic heart failure Paroxysmal VT Chronic LBBB DM type II Hypertension Dyslipidemia REAL on CPAP Plan: 1. Severe coronary disease: Status post PCI to left circumflex this admission. Prior RCA stent had mild disease. Continue aspirin and clopidogrel. High intensity statin therapy. 2. Paroxysmal VT: Patient is status post ICD implantation. 3. Ischemic cardiomyopathy: EF is 45 to 50%. 4. Chronic systolic heart failure: Continue carvedilol, hydralazine and isosorbide mononitrate. We will resume furosemide 20 mg daily, home medication. 5. DM type II: Management as per primary team. 6. Hypertension: We may increase carvedilol dose to 25 mg twice daily if blood pressure remains persistently elevated. Patient has a history of SUZETTE inhibitor intolerance with hyperkalemia. 7. CKD stage III: Monitor renal function. at 1110 RPT #:[id number] END OF REPORT [facility] 2019-07-04 14:01:00 [facility] ([facility]) EP Consultation Note REPORT#:[id number] REPORT STATUS: Signed DATE:07/04/19 TIME: 1401 PATIENT: BOB VITAL UNIT #: [id number] ROOM/BED: [facility]16-01 : 39 AGE: 79 SEX: M ATTEND: Nilton German MD ADM AUTHOR: Federico Ulloa MD * ALL edits or amendments must be made on the electronic/computer document * History of Present Illness HPI: the patient is an 79 y/o with CAD EF 45-50% , previous syncope s/p loop recorder implant - he experienced syncope yesterday and loop recorder showed VF episdoe, LHC was done showed stable chronic occluive disease he under went PCI . no acute NC. History - Adult longitudinal Additional medical history: Type 2 diabetes mellitus, hypertension, dyslipidemia, CKD 3, CAD status post cardiac stents in 2015, CHF with EF 45 to 49%(Echo 06/30/2019), LBBB, COPD, REAL on CPAP, GERD, BPH, history of malignant hyperthermia Additional surgical history: Cardiac stent in 2015,cholecystectomy, right inguinal hernia repair, kidney stone status post cystoscopy with ESWL, tonsillectomy, bilateral knee surgery, ERCP with sphinterotomy 2017 Additional family history: Mother: /heart disease and hypertension Father: /diabetes mellitus Alcohol use: Denies EtOH use Drug use: Denies recreational drugs Smoking status for patients 13 years old or older: Former Smoker Additional social history: Former smoker with 2 PPD for 20 years, quit smoking in 1976, exposed to asbestos when he was in [employer] Allergies: Coded Allergies: vancomycin (Severe, DECREASED RENAL FX 06/29/19) Penicillins (UNKNOWN 06/29/19) succinylcholine (MALIGNANT HYPERTHERMIA 06/29/19) Uncoded Allergies: "ALLERGIC TO ANESTHIA" (Severe, ANAPHYLAXIS 12/17/17) Review of Systems Respiratory: Reports: VINCENT (dyspnea on exertion). GI: Denies: anorexia, diarrhea, GERD. Objective VS/I O Last Documented: Result Date Time Pulse Ox 95 07/03 1117 B/P 127/62 07/03 1117 B/P Mean 83.7 07/03 1117 Temp 98.6 07/03 1117 Pulse 77 07/03 1117 Resp 16 07/03 1117 FiO2 21 07/03 0700 O2 Delivery Room air 07/03 699 O2 Flow Rate 0.212381 07/03 0700 24 hour I O ending at 0700: 07/03 0700 07/02 1900 Intake Total Output Total Balance Patient 95.5 kg 91.172 kg Weight Patient Weight Weight (lb): 210 Weight (oz): 8.66 Weight (kg): 95.500 General appearance: alert, awake Cardiovascular: CV assessment: regular rate and rhythm Respiratory: clear to auscultation Abdomen: soft Diagnosis, Assessment Plan Free Text A P: 1- VF arrest leading to syncope we will plan for single chamber ICD implant since EF 45-50% and he is not PPM dependent 2-CAD chronic occlusive disease s/p PCI continue ASA plavix and BB 3-HTN BP stable at 1405 RPT #:[id number] END OF REPORT [facility] 2019-07-04 13:58:00 [id number] [place], [place] PATIENT NAME: BOB VITAL ADMIT DATE: 07/01/19 ACCOUNT NO: [id number] ROOM NO: [id number] AGE: 79 REPORT TYPE: OPERATIVE REPORT SEX: M ADMITTING PHYSICIAN:Nilton German MD ATTENDING PHYSICIAN:Nilton German MD OPERATION DATE: 07/04/2019 PREPROCEDURE DIAGNOSES: 1. Cardiac arrest due to ventricular fibrillation, status post loop recorder implant. 2. Stable coronary artery disease with chronic occlusion, status post stent. 3. Baseline left bundle-branch block. 4. Ejection fraction 45%. POST-PROCEDURE DIAGNOSES: CLINICAL HISTORY: The patient is an 79 years old who had a syncopal episode in the past, status post loop recorder. Loop recorder shows VF episode. No acute NC; however, he underwent left heart catheterization to evaluate his coronaries. He noted to have stable coronary artery disease and revascularization was done for chronic occlusion and we were asked to evaluate the patient for possible ICD implant. The patient's EF is 45%. I discussed with him and with his ICD implant for secondary prevention of sudden cardiac . Risk of the procedure including, but not limited to bleeding, infection, damaging to large blood vessel, damaging the heart valve, possible need for chest tube or cardiac surgery, possible stroke or were explained. The patient agreed to proceed with the procedure and signed informed consent. We decided to proceed with a single chamber device since her EF is reasonably okay at 45%. SURGEON: Federico Ulloa MD PRIMER ASSEMBLER: ANESTHESIA: PROCEDURES PERFORMED: 1. Single-chamber implantable cardioverter-defibrillator implant. 2. Moderate sedation. 3. Loop recorder removal. PROCEDURE DETAILS: Moderate sedation was done under my supervision with total of 1 mg Versed and 25 mcg fentanyl were given. The patient was monitored by the trained staff in the labor relations teacher for 35 minutes of duration of procedure with no complications. Left upper venogram showed patent axillary vein. We accessed the axillary vein after forming the pocket with modified Seldinger technique using micropuncture. Using 9-Namibian sheath, we placed RV lead in distal RV septum. Sensing and pacing were acceptable. The lead was sutured in facial plane and connected the PATIENT NAME: BOB VITAL ICD generator and flushed the pocket with antibiotic solution. We closed with 2 and 3-0 Vicryl and dakotah. Then, we made a 5-mm incision overlapping the old loop recorder scar. We removed the loop recorder outside the body and we sutured the wound with ____suture. IMPLANTED MATERIAL: Medtronic single chamber ICD, model number [id number], serial number [id number]; RV lead Medtronic 6935, serial number [id number], sensing pacing parameter R-wave 20 mV, impedance 579, threshold 0.6 ____. The device programmed to VVI 40 with 3 VT zones. FINAL DIAGNOSIS: Successful implant of single chamber ICD and loop recorder removal. PLAN: The patient can be monitored overnight and if he is stable, he can be discharged home tomorrow. Keep the wound covered and dry for 2 weeks. Avoid heavy lifting and stretching the arm above the shoulder for one month and minocycline 100 mg b.i.d. for 10 days. Dictated By: Federico Ulloa MD WT: OP:DSHILOH/AKI/ITA Conf#: [id number]#: [id number] Authenticated by Federico Ulloa MD On 08/15/2019 12:25:49 PM at 1226 PATIENT NAME: BOB VITAL [facility] 2019-07-04 11:18:00 [facility] ([facility]) Hospitalist Progress Note REPORT#:[id number] REPORT STATUS: Signed DATE:07/04/19 TIME: 1118 PATIENT: BOB VITAL UNIT #: [id number] ROOM/BED: [place] [id number] : 39 AGE: 79 SEX: M ATTEND: Nilton German MD ADM AUTHOR: Nilton German MD * ALL edits or amendments must be made on the electronic/computer document * Subjective Patient reports: Yes: resting comfortably. No: abdominal pain, chest pain. Comments: She is doing well no acute issues overnight he is awaiting his ICD placement Review of Systems Constitutional: Denies: chills, fever. Skin: Reports: bruising. Denies: rash, swelling. Eyes: Denies: redness, discharge. ENT: Denies: nasal congestion, sore throat. Respiratory: Denies: non productive cough, SOB. Cardiovascular: Denies: chest pain, palpitations. GI: Denies: abdominal pain, nausea, vomiting. : Denies: dysuria, flank pain. Neuro: Denies: dizziness, headache. Psych: Denies: change in mental status, confusion. Objective General VS/I O: Vital Signs: Date Time Temp Pulse Resp B/P B/P Pulse O2 O2 Flow FiO2 Mean Ox Delivery Rate 07/03 1610 98.6 79 16 131/70 90.3 93 07/03 1544 81 131/70 90.3 92 07/03 1514 70 118/69 85.1 94 07/03 1459 75 126/66 86.1 94 07/03 1444 77 129/68 88.3 91 07/03 1430 76 131/67 88.0 89 / 1429 76 131/67 88.0 93 07/03 1414 79 127/77 93.4 95 / 1117 98.6 77 16 127/62 83.7 95 07/03 0754 98.2 66 16 152/74 100.4 97 07/03 0700 95 Room air 0.380959 21 07/03 0400 97.5 67 18 125/64 84.5 95 07/02 2337 97.7 73 18 134/64 87.4 97 07/02 1933 98.2 80 17 150/65 93.6 95 Room air 07/02 1916 95 Room air 21 24 hour I O ending at 0700: 07/03 0700 07/02 1900 Intake Total Output Total Balance Patient 95.5 kg 91.172 kg Weight Patient Weight Weight (lb): 210 Weight (oz): 8.66 Weight (kg): 95.500 Medications: Active Meds + DC'd Last 24 Hrs Clindamycin HCl 300 MG QID PO Clindamycin HCl/Dextrose 50 ML Q6H IV Hydrocodone Bitart/Acetaminophen 1 TAB Q4H PRN PRN PO Tramadol HCl 50 MG Q4H PRN PRN PO Tramadol HCl 100 MG Q4H PRN PRN PO Iopamidol 0 .STK-MED ONE IV (DC) Lidocaine/Epinephrine 0 .STK-MED ONE .ROUTE (DCr) Clindamycin Phosphate 0 .STK-MED ONE IV (DCr) Sodium Chloride 100 ML .STK-MED ONE IV (DC) Clindamycin Phosphate 0 .STK-MED ONE IV (DC) Lidocaine/Epinephrine 0 .STK-MED ONE LOCAL (DC) Sodium Chloride 1,500 ML .STK-MED ONE IV (DC) Fentanyl Citrate 0 .STK-MED ONE IV (DCr) Midazolam HCl 0 .STK-MED ONE IV (DC) Sodium Bicarbonate 0 .STK-MED ONE IV (DC) Sodium Chloride 1,000 ML .STK-MED ONE IV (DC) Sodium Chloride 250 ML ONCE ONE IV (DC) Atorvastatin Calcium 80 MG BEDTIME PO Isosorbide Mononitrate 20 MG BID 8A 8P PO Clopidogrel Bisulfate 75 MG DAILY PO Morphine Sulfate 2 MG Q4H PRN IV Aspirin 81 MG DAILY PO Tamsulosin HCl 0.4 MG DAILY PO Carvedilol 18.75 MG Q12HR PO Hydralazine HCl 50 MG Q12HR PO Insulin Human Lispro MODERATE SLIDING SCALE INSULIN AC HS SUBQ Hydralazine HCl 10 MG Q6H PRN PRN IV (r) Dextrose 20 GM ASDIR PRN PO Dextrose/Water 25 GM ASDIR PRN IV Dextrose/Water 12.5 GM ASDIR PRN IV Ondansetron HCl 4 MG Q4H PRN PRN IV Acetaminophen 650 MG Q4H PRN PRN PO Physical Exam General appearance: alert, awake, oriented Head/Eyes: normocephalic, right eye bruise around ENT: moist mucosal membranes, normal nose Neck: non-tender, no masses or swelling Cardiovascular: murmur, regular rate rhythm Respiratory: aerating well, clear to auscultation, symmetric expansion, no distress Abdomen: non-tender, normal bowel sounds, soft, no distention Extremities: edema (BLE trace), moves all, no calf tenderness Neuro/SENIOR MARKETING ENGINEER: normal speech, no sensory deficits Skin: dry, intact Psychiatry: normal affect, normal judgment/insight, normal mood, no hallucinations Results Findings/Data: Laboratory Tests 07/03 07/03 07/03 07/02 07/02 1116 0539 0325 2032 1619 Chemistry Sodium (133 - 145 MMOL/L) 142 Potassium (3.6 - 5.2 MMOL/L) 3.8 Chloride (100 - 108 MMOL/L) 106 Carbon Dioxide (22 - 32 MMOL/L) 26 BUN (6 - 20 MG/DL) 24 H Creatinine (0.60 - 1.00 MG/DL) 1.70 H Estimated GFR (MDRD) (35 - 81) 39 Glucose (65 - 99 MG/DL) 137 H POC Glucose (65 - 99 MG/DL) 162 H 131 H 146 H 172 H Calcium (8.7 - 10.5 MG/DL) 8.7 Laboratory Tests 07/03 0325 Hematology WBC (4.80 - 10.80 x10 3/uL) 7.41 RBC (4.7 - 6.1 x10 6/uL) 3.17 L Hgb (14.0 - 17.0 G/DL) 8.6 L Hct (42 - 52 %) 26.7 L MCV (80 - 94 FL) 84.2 MCH (27 - 31 PG) 27.1 MCHC (33 - 37 G/DL) 32.2 L RDW Coeff of Desmond (11.5 - 14.5 %) 14.8 H Plt Count (150 - 450 x10 3/uL) 154 MPV (7.4 - 10.4 FL) 10.3 Neut % (Auto) (42 - 86 %) 53.3 Lymph % (Auto) (24 - 44 %) 32.3 [place] % (Auto) (0.0 - 4.0 %) 9.9 H Eos % (Auto) (0.0 - 2.7 %) 3.4 H Baso % (Auto) (0.0 - 0.5 %) 0.8 H Eos # (Auto) (0.0 - 0.5 x10 3/uL) 0.25 Baso # (Auto) (0.0 - 0.2 x10 3/uL) 0.06 Abs Immat Gran (auto) (0.00 - 0.03 x10 3/uL) 0.02 Absolute Neuts (auto) (1.8 - 7.7 x10 3/uL) 3.96 Absolute Lymphs (auto) (1.0 - 4.8 x10 3/uL) 2.39 Absolute Monos (auto) (0.0 - 0.8 x10 3/uL) 0.73 Absolute Nucleated RBC (0.0 - 0.2 X10 3/uL) 0.0 Immature Gran % (0.0 - 2.0 %) 0.3 Nucleated RBC % (0.0 - 0.0 %) 0.0 Radiology data: Recent Impressions: RADIOLOGY - XR CHEST 1 V 07/03 1445 Report Impression - Status: SIGNED Entered: 07/04/2019 1538 IMPRESSION: Pacemaker. Mild cardiomegaly and venous congestion Impression By: [email or web address] - Nathan Ferguson MD Results: labs reviewed, vital signs stable Diagnosis, Assessment Plan Consultants: cardiology Plan discussed with: patient, family, nurse Free Text DxA P Notes Free Text DxA P Notes: Assessment - V. tach, paroxysmal - Syncope secondary to above - CAD status post cardiac stents in 2016 * s/p heart cath, angioplasty and stenting of mid left circumflex proximal left circumflex with drug eluting stents 3/6 - CHF with EF 45-49%(Echo 06/30/2019) - Ischemic cardiomyopathy - LBBB - COPD - Type 2 diabetes mellitus - Hypertension - CKD 3 - Dyslipidemia - BPH - GERD - Obstructive sleep apnea on CPAP - History of malignant hyperthermia - Vertigo Plan - planning for ICD pacemaker with Dr. Ulloa today - fall precautions/PT - telemetry - beef cattle farm worker, Dr. Hein on board, appreciate care - Moderate insulin sliding scale - Hold Lasix, continue aspirin, atorvastatin, hydralazine 50 twice daily, carvedilol to 18.75 BID per beef cattle farm worker, flomax, plavix, isosorbide mononitrate - CPAP with sleep, can use home machine - Labs in AM Code status: Full code MDM if needed: Yudy [phone] DVT PPx: SCDs for now at 1622 RPT #:[id number] END OF REPORT [facility] 2019-07-04 09:40:00 [facility] ([facility]) Cardiology Progress Note REPORT#:[id number] REPORT STATUS: Signed DATE:07/04/19 TIME: 939 PATIENT: BOB VITAL UNIT #: [id number] ROOM/BED: [facility]16-01 : 39 AGE: 79 SEX: M ATTEND: Nilton German MD ADM AUTHOR: Karl Ramos MD * ALL edits or amendments must be made on the electronic/computer document * Subjective Free Text Subj Notes Free Text Subj Notes: No new complaints. Objective General VS/I O: 24 hour I O ending at 0700: 07/03 0700 07/02 1900 Intake Total Output Total Balance Patient 95.5 kg 91.172 kg Weight Vital Signs: Date Time Temp Pulse Resp B/P B/P Pulse O2 O2 Flow FiO2 Mean Ox Delivery Rate 07/03 0754 98.2 66 16 152/74 100.4 97 07/03 0400 97.5 67 18 125/64 84.5 95 07/02 2337 97.7 73 18 134/64 87.4 97 07/02 1933 98.2 80 17 150/65 93.6 95 Room air 07/02 1916 95 Room air 21 07/02 1532 98.1 83 18 133/72 92.0 95 07/02 1128 97.9 77 20 122/59 80.2 96 07/02 0947 80 119/54 76.1 Patient Weight Weight (lb): 210 Weight (oz): 8.66 Weight (kg): 95.500 Medications: Active Meds + DC'd Last 24 Hrs Atorvastatin Calcium 80 MG BEDTIME PO Isosorbide Mononitrate 20 MG BID 8A 8P PO Clopidogrel Bisulfate 75 MG DAILY PO Morphine Sulfate 2 MG Q4H PRN IV Aspirin 81 MG DAILY PO Tamsulosin HCl 0.4 MG DAILY PO Carvedilol 18.75 MG Q12HR PO Hydralazine HCl 50 MG Q12HR PO Insulin Human Lispro MODERATE SLIDING SCALE INSULIN AC HS SUBQ Hydralazine HCl 10 MG Q6H PRN PRN IV (r) Dextrose 20 GM ASDIR PRN PO Dextrose/Water 25 GM ASDIR PRN IV Dextrose/Water 12.5 GM ASDIR PRN IV Ondansetron HCl 4 MG Q4H PRN PRN IV Acetaminophen 650 MG Q4H PRN PRN PO Physical Exam General appearance: alert, oriented, no acute distress Head/Eyes: normal conjunctiva/sclera Neck: no JVD Cardiovascular: CV assessment: regular rate and rhythm, no murmur, no rub Respiratory: decreased breath sounds Abdomen: soft, non-tender Lower extremity: LE assessment: no clubbing, no cyanosis Right groin site: no hematoma 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, 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 Skin: no rash Results Findings/Data: Laboratory Tests 07/03 07/03 07/02 07/02 07/02 0539 0325 2032 1619 1137 Chemistry Sodium (133 - 145 MMOL/L) 142 Potassium (3.6 - 5.2 MMOL/L) 3.8 Chloride (100 - 108 MMOL/L) 106 Carbon Dioxide (22 - 32 MMOL/L) 26 BUN (6 - 20 MG/DL) 24 H Creatinine (0.60 - 1.00 MG/DL) 1.70 H Estimated GFR (MDRD) (35 - 81) 39 Glucose (65 - 99 MG/DL) 137 H POC Glucose (65 - 99 MG/DL) 131 H 146 H 172 H 222 H Calcium (8.7 - 10.5 MG/DL) 8.7 Laboratory Tests 07/03 0325 Hematology WBC (4.80 - 10.80 x10 3/uL) 7.41 RBC (4.7 - 6.1 x10 6/uL) 3.17 L Hgb (14.0 - 17.0 G/DL) 8.6 L Hct (42 - 52 %) 26.7 L MCV (80 - 94 FL) 84.2 MCH (27 - 31 PG) 27.1 MCHC (33 - 37 G/DL) 32.2 L RDW Coeff of Desmond (11.5 - 14.5 %) 14.8 H Plt Count (150 - 450 x10 3/uL) 154 MPV (7.4 - 10.4 FL) 10.3 Neut % (Auto) (42 - 86 %) 53.3 Lymph % (Auto) (24 - 44 %) 32.3 [place] % (Auto) (0.0 - 4.0 %) 9.9 H Eos % (Auto) (0.0 - 2.7 %) 3.4 H Baso % (Auto) (0.0 - 0.5 %) 0.8 H Eos # (Auto) (0.0 - 0.5 x10 3/uL) 0.25 Baso # (Auto) (0.0 - 0.2 x10 3/uL) 0.06 Abs Immat Gran (auto) (0.00 - 0.03 x10 3/uL) 0.02 Absolute Neuts (auto) (1.8 - 7.7 x10 3/uL) 3.96 Absolute Lymphs (auto) (1.0 - 4.8 x10 3/uL) 2.39 Absolute Monos (auto) (0.0 - 0.8 x10 3/uL) 0.73 Absolute Nucleated RBC (0.0 - 0.2 X10 3/uL) 0.0 Immature Gran % (0.0 - 2.0 %) 0.3 Nucleated RBC % (0.0 - 0.0 %) 0.0 Diagnosis, Assessment Plan Free Text DxA P Notes Free Text DxA P Notes: Paroxysmal VT with syncope Status post PCI of prox and mid left Cx with AYALA, June 30 Prior RCA stent2015 Ischemic cardiomyopathy, EF 45 to 50% Paroxysmal VT Chronic LBBB DM type II Hypertension Dyslipidemia REAL on CPAP Plan: 1. Severe coronary disease: Status post PCI to left circumflex this admission. Prior RCA stent had mild disease. Continue aspirin and clopidogrel. High intensity statin therapy. 2. Paroxysmal VT: Patient is awaiting ICD implantation tomorrow. 3. Ischemic cardiomyopathy: EF is 45 to 50%. Continue carvedilol, hydralazine and isosorbide mononitrate. 4. DM type II: Management as per primary team. 5. Hypertension: We may increase carvedilol dose to 25 mg twice daily if blood pressure remains persistently elevated. Patient has a history of SUZETTE inhibitor intolerance with hyperkalemia. 6. CKD stage III: We will hydrate patient gently pre-procedure. at 0948 RPT #:[id number] END OF REPORT [facility] 2019-07-03 14:56:00 [facility] ([facility] Cardiology Progress Note REPORT#:[id number] REPORT STATUS: Signed DATE:07/03/19 TIME: 145 PATIENT: BOB VITAL UNIT #: [id number] ROOM/BED: [place] [address] : 39 AGE: 79 SEX: M ATTEND: Judy Malone MD ADM AUTHOR: Karl Ramos MD * ALL edits or amendments must be made on the electronic/computer document * Subjective Free Text Subj Notes Free Text Subj Notes: Denies chest pain or shortness of breath. Objective General VS/I O: Vital Signs: Date Time Temp Pulse Resp B/P B/P Pulse O2 O2 Flow FiO2 Mean Ox Delivery Rate 07/02 1128 97.9 77 20 122/59 80.2 96 / 0947 80 119/54 76.1 07/02 0805 95 Room air 07/02 0726 97.7 63 20 111/58 76.1 97 / 0419 98.4 69 17 114/64 80.9 98 CPAP 07/01 2346 65 105/61 75.8 96 07/01 2345 97.9 68 17 97/49 65.3 95 CPAP / 1922 98.6 77 17 144/63 89.7 96 Room air 07/01 1858 96 Room air 21 07/01 1536 98.1 75 18 145/56 85.5 97 Patient Weight Weight (lb): 201 Weight (oz): 11.57 Weight (kg): 91.172 Medications: Active Meds + DC'd Last 24 Hrs Atorvastatin Calcium 80 MG BEDTIME PO Isosorbide Mononitrate 20 MG BID 8A 8P PO Clopidogrel Bisulfate 75 MG DAILY PO Morphine Sulfate 2 MG Q4H PRN IV Aspirin 81 MG DAILY PO Tamsulosin HCl 0.4 MG DAILY PO Carvedilol 18.75 MG Q12HR PO Hydralazine HCl 50 MG Q12HR PO Insulin Human Lispro MODERATE SLIDING SCALE INSULIN AC HS SUBQ Hydralazine HCl 10 MG Q6H PRN PRN IV (r) Dextrose 20 GM ASDIR PRN PO Dextrose/Water 25 GM ASDIR PRN IV Dextrose/Water 12.5 GM ASDIR PRN IV Ondansetron HCl 4 MG Q4H PRN PRN IV Acetaminophen 650 MG Q4H PRN PRN PO Physical Exam General appearance: alert, oriented, no acute distress Head/Eyes: normal conjunctiva/sclera Neck: no JVD Cardiovascular: CV assessment: regular rate and rhythm, no murmur, no rub Respiratory: decreased breath sounds Abdomen: soft, non-tender Lower extremity: LE assessment: no clubbing, no cyanosis Right groin site: no hematoma 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, 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 Skin: no rash Results Findings/Data: Laboratory Tests 07/02 07/02 07/02 07/01 07/01 1137 0611 0409 2042 1623 Chemistry Sodium (133 - 145 MMOL/L) 141 Potassium (3.6 - 5.2 MMOL/L) 3.8 Chloride (100 - 108 MMOL/L) 106 Carbon Dioxide (22 - 32 MMOL/L) 29 BUN (6 - 20 MG/DL) 21 H Creatinine (0.60 - 1.00 MG/DL) 1.59 H Estimated GFR (MDRD) (35 - 81) 42 Glucose (65 - 99 MG/DL) 152 H POC Glucose (65 - 99 MG/DL) 222 H 153 H 117 H 179 H Calcium (8.7 - 10.5 MG/DL) 8.6 L Magnesium (1.8 - 2.4 MG/DL) 1.8 Laboratory Tests 07/02 0409 Hematology WBC (4.80 - 10.80 x10 3/uL) 7.79 RBC (4.7 - 6.1 x10 6/uL) 3.31 L Hgb (14.0 - 17.0 G/DL) 9.0 L Hct (42 - 52 %) 27.9 L MCV (80 - 94 FL) 84.3 MCH (27 - 31 PG) 27.2 MCHC (33 - 37 G/DL) 32.3 L RDW Coeff of Desmond (11.5 - 14.5 %) 14.7 H Plt Count (150 - 450 x10 3/uL) 149 L MPV (7.4 - 10.4 FL) 10.0 Neut % (Auto) (42 - 86 %) 61.2 Lymph % (Auto) (24 - 44 %) 25.0 [place] % (Auto) (0.0 - 4.0 %) 10.1 H Eos % (Auto) (0.0 - 2.7 %) 2.8 H Baso % (Auto) (0.0 - 0.5 %) 0.6 H Eos # (Auto) (0.0 - 0.5 x10 3/uL) 0.22 Baso # (Auto) (0.0 - 0.2 x10 3/uL) 0.05 Abs Immat Gran (auto) (0.00 - 0.03 x10 3/uL) 0.02 Absolute Neuts (auto) (1.8 - 7.7 x10 3/uL) 4.76 Absolute Lymphs (auto) (1.0 - 4.8 x10 3/uL) 1.95 Absolute Monos (auto) (0.0 - 0.8 x10 3/uL) 0.79 Absolute Nucleated RBC (0.0 - 0.2 X10 3/uL) 0.0 Immature Gran % (0.0 - 2.0 %) 0.3 Nucleated RBC % (0.0 - 0.0 %) 0.0 Laboratory Tests 07/02 0409 Chemistry Magnesium (1.8 - 2.4 MG/DL) 1.8 Diagnosis, Assessment Plan Free Text DxA P Notes Free Text DxA P Notes: Paroxysmal VT with syncope Status post PCI of prox and mid left Cx with AYALA, June 30 Prior RCA stent, 2015 Ischemic cardiomyopathy, EF 45 to 50% Paroxysmal VT Chronic LBBB DM type II Hypertension Dyslipidemia REAL on CPAP Plan: 1. Severe coronary disease: Status post PCI to left circumflex this admission. Prior RCA stent had mild disease. Continue aspirin and clopidogrel. High intensity statin therapy. 2. Paroxysmal VT: Patient is awaiting ICD implantation tomorrow. 3. Ischemic cardiomyopathy: EF is 45 to 50%. Continue carvedilol, hydralazine and isosorbide mononitrate. 4. DM type II: Management as per primary team. 5. Hypertension: Blood pressure is controlled. Patient has history of SUZETTE inhibitor intolerance with hyperkalemia. at 1502 RPT #:[id number] END OF REPORT [facility] 2019-07-03 12:33:00 [facility] ([facility]) Hospitalist Progress Note REPORT#:[id number] REPORT STATUS: Signed DATE:07/03/19 TIME: 1233 PATIENT: BOB VITAL UNIT #: [id number] ROOM/BED: [place] [id number] : 39 AGE: 79 SEX: M ATTEND: Judy Malone MD ADM AUTHOR: Judy Malone MD * ALL edits or amendments must be made on the electronic/computer document * Subjective Comments: Patient just got out of the shower. He notes that he was weak during his shower. Now that he sat down in bed he is having a little bit of dizziness. Overall, he feels weak. He denies chest pain, palpitations, shortness of breath , difficulty breathing, cough. Tolerating diet. Ambulated with PT in his room. Review of Systems Constitutional: Denies: chills, fever. Respiratory: Denies: non productive cough, SOB. Cardiovascular: Denies: chest pain, palpitations. GI: Denies: abdominal pain, nausea, vomiting. Objective General VS/I O: Vital Signs: Date Time Temp Pulse Resp B/P B/P Pulse O2 O2 Flow FiO2 Mean Ox Delivery Rate 07/02 1128 97.9 77 20 122/59 80.2 96 / 0947 80 119/54 76.1 07/02 0805 95 Room air 07/02 0726 97.7 63 20 111/58 76.1 97 / 0419 98.4 69 17 114/64 80.9 98 CPAP / 2346 65 105/61 75.8 96 07/01 2345 97.9 68 17 97/49 65.3 95 CPAP 07/01 1922 98.6 77 17 144/63 89.7 96 Room air 07/01 1858 96 Room air 21 07/01 1536 98.1 75 18 145/56 85.5 97 Patient Weight Weight (lb): 201 Weight (oz): 11.57 Weight (kg): 91.172 Physical Exam General appearance: alert, awake, oriented, no acute distress, pleasant, conversational, mental status normal, no respiratory distress Head/Eyes: normocephalic, right eye bruise around Cardiovascular: murmur, regular rate rhythm Respiratory: aerating well, clear to auscultation, symmetric expansion, no distress Abdomen: non-tender, normal bowel sounds, soft, no distention Extremities: edema (BLE trace), moves all, no calf tenderness Neuro/SENIOR MARKETING ENGINEER: normal speech, no sensory deficits Skin: dry, intact Psychiatry: normal affect, normal judgment/insight, normal mood, no hallucinations Results Findings/Data: Laboratory Tests 07/02 07/02 07/02 07/01 07/01 1137 0611 0409 2042 1623 Chemistry Sodium (133 - 145 MMOL/L) 141 Potassium (3.6 - 5.2 MMOL/L) 3.8 Chloride (100 - 108 MMOL/L) 106 Carbon Dioxide (22 - 32 MMOL/L) 29 BUN (6 - 20 MG/DL) 21 H Creatinine (0.60 - 1.00 MG/DL) 1.59 H Estimated GFR (MDRD) (35 - 81) 42 Glucose (65 - 99 MG/DL) 152 H POC Glucose (65 - 99 MG/DL) 222 H 153 H 117 H 179 H Calcium (8.7 - 10.5 MG/DL) 8.6 L Magnesium (1.8 - 2.4 MG/DL) 1.8 Laboratory Tests 07/02 0409 Hematology WBC (4.80 - 10.80 x10 3/uL) 7.79 RBC (4.7 - 6.1 x10 6/uL) 3.31 L Hgb (14.0 - 17.0 G/DL) 9.0 L Hct (42 - 52 %) 27.9 L MCV (80 - 94 FL) 84.3 MCH (27 - 31 PG) 27.2 MCHC (33 - 37 G/DL) 32.3 L RDW Coeff of Desmond (11.5 - 14.5 %) 14.7 H Plt Count (150 - 450 x10 3/uL) 149 L MPV (7.4 - 10.4 FL) 10.0 Neut % (Auto) (42 - 86 %) 61.2 Lymph % (Auto) (24 - 44 %) 25.0 [place] % (Auto) (0.0 - 4.0 %) 10.1 H Eos % (Auto) (0.0 - 2.7 %) 2.8 H Baso % (Auto) (0.0 - 0.5 %) 0.6 H Eos # (Auto) (0.0 - 0.5 x10 3/uL) 0.22 Baso # (Auto) (0.0 - 0.2 x10 3/uL) 0.05 Abs Immat Gran (auto) (0.00 - 0.03 x10 3/uL) 0.02 Absolute Neuts (auto) (1.8 - 7.7 x10 3/uL) 4.76 Absolute Lymphs (auto) (1.0 - 4.8 x10 3/uL) 1.95 Absolute Monos (auto) (0.0 - 0.8 x10 3/uL) 0.79 Absolute Nucleated RBC (0.0 - 0.2 X10 3/uL) 0.0 Immature Gran % (0.0 - 2.0 %) 0.3 Nucleated RBC % (0.0 - 0.0 %) 0.0 Results: labs reviewed, current med profile rev'd Diagnosis, Assessment Plan Free Text DxA P Notes Free Text DxA P Notes: Assessment - V. tach, paroxysmal - Syncope secondary to above - CAD status post cardiac stents in 2016 * s/p heart cath, angioplasty and stenting of mid left circumflex proximal left circumflex with drug eluting stents /6 - CHF with EF 45-49%(Echo 06/30/2019) - Ischemic cardiomyopathy - LBBB - COPD - Type 2 diabetes mellitus - Hypertension - CKD 3 - Dyslipidemia - BPH - GERD - Obstructive sleep apnea on CPAP - History of malignant hyperthermia - Vertigo Plan - planning for ICD pacemaker with Dr. Ulloa for tentatively tomorrow - fall precautions/PT - telemetry - beef cattle farm worker, Dr. Hein on board, appreciate care - Moderate insulin sliding scale - Hold Lasix, continue aspirin, atorvastatin, hydralazine 50 twice daily, carvedilol to 18.75 BID per beef cattle farm worker, flomax, plavix, isosorbide mononitrate - CPAP with sleep, can use home machine - Labs in AM Code status: Full code MDM if needed: Yudy [phone] DVT PPx: SCDs for now at 1550 RPT #:[id number] END OF REPORT [facility] 2019-07-02 19:11:00 [facility] ([facility]) Cardiology Progress Note REPORT#:[id number] REPORT STATUS: Signed DATE:07/02/19 TIME: 1910 PATIENT: BOB VITAL UNIT #: [id number] ROOM/BED: [place] [id number] : 39 AGE: 79 SEX: M ATTEND: Judy Malone MD ADM AUTHOR: Karl Ramos MD * ALL edits or amendments must be made on the electronic/computer document * Subjective Free Text Subj Notes Free Text Subj Notes: No new complaints. Objective General VS/I O: 24 hour I O ending at 0700: 07/01 0700 06/30 1900 Intake Total 600.00 Output Total Balance 600.00 Intake, IV 500.00 Intake, Oral 100 Number Voids 1 Vital Signs: Date Time Temp Pulse Resp B/P B/P Pulse O2 O2 Flow FiO2 Mean Ox Delivery Rate 07/01 1536 98.1 75 18 145/56 85.5 97 07/01 1217 98.8 67 17 152/72 98.7 96 Nasal cannula 07/01 1201 97 Room air 07/01 0833 97.5 73 18 152/77 102.2 96 07/01 0356 97.5 63 17 134/60 84.8 97 CPAP 06/30 2329 97.5 63 17 144/64 91.0 95 CPAP 06/30 1948 97.9 68 17 134/65 88.2 95 Room air Patient Weight Weight (lb): 201 Weight (oz): 11.57 Weight (kg): 91.500 Medications: Active Meds + DC'd Last 24 Hrs Atorvastatin Calcium 80 MG BEDTIME PO Potassium Chloride 40 MEQ ONCE ONE PO (DC) Clopidogrel Bisulfate 75 MG DAILY PO Morphine Sulfate 2 MG Q4H PRN IV Sodium Chloride 1,250 ML ASDIR IV (DC) Aspirin 81 MG DAILY PO Tamsulosin HCl 0.4 MG DAILY PO Carvedilol 18.75 MG Q12HR PO Hydralazine HCl 50 MG Q12HR PO Insulin Human Lispro MODERATE SLIDING SCALE INSULIN AC HS SUBQ Hydralazine HCl 10 MG Q6H PRN PRN IV (r) Potassium Chloride/Sodium Chloride 1,000 ML .[id number] IV (DC) Dextrose 20 GM ASDIR PRN PO Dextrose/Water 25 GM ASDIR PRN IV Dextrose/Water 12.5 GM ASDIR PRN IV Ondansetron HCl 4 MG Q4H PRN PRN IV Acetaminophen 650 MG Q4H PRN PRN PO Physical Exam General appearance: alert, oriented, no acute distress Head/Eyes: normal conjunctiva/sclera Neck: no JVD Cardiovascular: CV assessment: regular rate and rhythm, no murmur, no rub Respiratory: decreased breath sounds Abdomen: soft, non-tender Lower extremity: LE assessment: no clubbing, no cyanosis Right groin site: no hematoma 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, 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 Skin: no rash Results Findings/Data: Laboratory Tests 07/01 07/01 07/01 07/01 06/30 1623 1216 0608 0354 2037 Chemistry Sodium (133 - 145 MMOL/L) 143 Potassium (3.6 - 5.2 MMOL/L) 3.4 L Chloride (100 - 108 MMOL/L) 107 Carbon Dioxide (22 - 32 MMOL/L) 28 BUN (6 - 20 MG/DL) 16 Creatinine (0.60 - 1.00 MG/DL) 1.31 H Estimated GFR (MDRD) (35 - 81) 53 Glucose (65 - 99 MG/DL) 142 H POC Glucose (65 - 99 MG/DL) 179 H 210 H 130 H 149 H Calcium (8.7 - 10.5 MG/DL) 8.4 L Magnesium (1.8 - 2.4 MG/DL) 1.8 Laboratory Tests 07/01 0354 Hematology WBC (4.80 - 10.80 x10 3/uL) 7.66 RBC (4.7 - 6.1 x10 6/uL) 3.49 L Hgb (14.0 - 17.0 G/DL) 9.6 L Hct (42 - 52 %) 29.4 L MCV (80 - 94 FL) 84.2 MCH (27 - 31 PG) 27.5 MCHC (33 - 37 G/DL) 32.7 L RDW Coeff of Desmond (11.5 - 14.5 %) 14.6 H Plt Count (150 - 450 x10 3/uL) 142 L MPV (7.4 - 10.4 FL) 10.1 Neut % (Auto) (42 - 86 %) 60.0 Lymph % (Auto) (24 - 44 %) 24.3 [place] % (Auto) (0.0 - 4.0 %) 10.8 H Eos % (Auto) (0.0 - 2.7 %) 3.7 H Baso % (Auto) (0.0 - 0.5 %) 0.9 H Eos # (Auto) (0.0 - 0.5 x10 3/uL) 0.28 Baso # (Auto) (0.0 - 0.2 x10 3/uL) 0.07 Abs Immat Gran (auto) (0.00 - 0.03 x10 3/uL) 0.02 Absolute Neuts (auto) (1.8 - 7.7 x10 3/uL) 4.60 Absolute Lymphs (auto) (1.0 - 4.8 x10 3/uL) 1.86 Absolute Monos (auto) (0.0 - 0.8 x10 3/uL) 0.83 H Absolute Nucleated RBC (0.0 - 0.2 X10 3/uL) 0.0 Immature Gran % (0.0 - 2.0 %) 0.3 Nucleated RBC % (0.0 - 0.0 %) 0.0 Laboratory Tests 07/01 0354 Chemistry Magnesium (1.8 - 2.4 MG/DL) 1.8 Diagnosis, Assessment Plan Free Text DxA P Notes Free Text DxA P Notes: Paroxysmal VT with syncope Status post PCI of prox and mid left Cx with AYALA, June 30 Prior RCA stent, 2015 Ischemic cardiomyopathy, EF 45 to 50% Paroxysmal VT Chronic LBBB DM type II Hypertension Dyslipidemia REAL on CPAP Plan: 1. Severe coronary disease: Patient underwent PCI to left circumflex this admission. Prior RCA stent had mild disease. Continue aspirin and clopidogrel. High intensity statin therapy. 2. Paroxysmal VT: Patient is awaiting ICD implantation on Thursday. 3. Ischemic cardiomyopathy: EF is 45 to 50%. Continue carvedilol. 4. DM type II: Management as per primary team. 5. Hypertension: Blood pressure control is suboptimal. Patient has history of SUZETTE inhibitor intolerance with hyperkalemia. Continue carvedilol, dose has been increased. Continue hydralazine. We will add isosorbide mononitrate, home medication. at 1931 RPT #:[id number] END OF REPORT [facility] 2019-07-02 14:01:00 [facility] ([facility]) Hospitalist Progress Note REPORT#:[id number] REPORT STATUS: Signed DATE:07/02/19 TIME: 1401 PATIENT: BOB VITAL UNIT #: [id number] ROOM/BED: [place] [id number] : 39 AGE: 79 SEX: M ATTEND: Judy Malone MD ADM AUTHOR: Judy Malone MD * ALL edits or amendments must be made on the electronic/computer document * Subjective Comments: Patient states he is doing okay. He denies any chest pain, palpitations. He states he did feel dizzy when he got up this morning and walk to restroom. He has not ambulated much. Tolerating diet. Review of Systems Constitutional: Denies: chills, fever. Skin: Reports: bruising. Denies: rash, swelling. Respiratory: Denies: non productive cough, SOB. GI: Denies: abdominal pain, nausea, vomiting. Objective General VS/I O: Vital Signs: Date Time Temp Pulse Resp B/P B/P Pulse O2 O2 Flow FiO2 Mean Ox Delivery Rate 07/01 1217 98.8 67 17 152/72 98.7 96 Nasal cannula 07/01 0833 97.5 73 18 152/77 102.2 96 07/01 0356 97.5 63 17 134/60 84.8 97 CPAP 06/30 2329 97.5 63 17 144/64 91.0 95 CPAP 06/30 1948 97.9 68 17 134/65 88.2 95 Room air 06/30 1643 12 06/30 1640 98.1 70 12 134/68 90.1 93 / 1639 66 134/68 90.1 93 06/30 1624 68 148/70 96.0 90 03/06 1609 64 147/65 92.3 96 03/06 1554 69 153/67 95.6 94 03/06 1545 66 89 03/06 1542 65 147/69 94.9 85 03/06 1539 66 147/69 94.9 88 03/06 1525 67 133/63 86.2 92 03/06 1509 66 144/72 96.2 94 03/06 1455 62 124/57 79.0 93 03/06 1440 67 120/61 80.7 93 /06 1426 63 86 03/06 1426 66 87 03/06 1424 61 126/60 82.2 87 03/06 1424 68 126/60 82.2 93 /06 1419 62 111/71 84.2 82 /06 1409 62 111/71 84.2 91 24 hour I O ending at 0700: 07/01 0700 06/30 1900 Intake Total 600.00 Output Total Balance 600.00 Intake, IV 500.00 Intake, Oral 100 Number Voids 1 Patient Weight Weight (lb): 201 Weight (oz): 11.57 Weight (kg): 91.500 Physical Exam General appearance: alert, awake, oriented, no acute distress, pleasant, conversational, mental status normal, no respiratory distress Head/Eyes: normocephalic, right eye bruise around Cardiovascular: murmur, regular rate rhythm Respiratory: aerating well, clear to auscultation, symmetric expansion, no distress Abdomen: non-tender, normal bowel sounds, soft, no distention Extremities: edema (BLE trace), moves all, no calf tenderness 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, 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, normal speech Skin: dry, intact Psychiatry: normal affect, normal judgment/insight, normal mood, no hallucinations Results Findings/Data: Laboratory Tests 07/01 07/01 07/01 06/30 06/30 1216 0608 0354 2037 1639 Chemistry Sodium (133 - 145 MMOL/L) 143 Potassium (3.6 - 5.2 MMOL/L) 3.4 L Chloride (100 - 108 MMOL/L) 107 Carbon Dioxide (22 - 32 MMOL/L) 28 BUN (6 - 20 MG/DL) 16 Creatinine (0.60 - 1.00 MG/DL) 1.31 H Estimated GFR (MDRD) (35 - 81) 53 Glucose (65 - 99 MG/DL) 142 H POC Glucose (65 - 99 MG/DL) 210 H 130 H 149 H 153 H Calcium (8.7 - 10.5 MG/DL) 8.4 L Magnesium (1.8 - 2.4 MG/DL) 1.8 Laboratory Tests 07/01 0354 Hematology WBC (4.80 - 10.80 x10 3/uL) 7.66 RBC (4.7 - 6.1 x10 6/uL) 3.49 L Hgb (14.0 - 17.0 G/DL) 9.6 L Hct (42 - 52 %) 29.4 L MCV (80 - 94 FL) 84.2 MCH (27 - 31 PG) 27.5 MCHC (33 - 37 G/DL) 32.7 L RDW Coeff of Desmond (11.5 - 14.5 %) 14.6 H Plt Count (150 - 450 x10 3/uL) 142 L MPV (7.4 - 10.4 FL) 10.1 Neut % (Auto) (42 - 86 %) 60.0 Lymph % (Auto) (24 - 44 %) 24.3 [place] % (Auto) (0.0 - 4.0 %) 10.8 H Eos % (Auto) (0.0 - 2.7 %) 3.7 H Baso % (Auto) (0.0 - 0.5 %) 0.9 H Eos # (Auto) (0.0 - 0.5 x10 3/uL) 0.28 Baso # (Auto) (0.0 - 0.2 x10 3/uL) 0.07 Abs Immat Gran (auto) (0.00 - 0.03 x10 3/uL) 0.02 Absolute Neuts (auto) (1.8 - 7.7 x10 3/uL) 4.60 Absolute Lymphs (auto) (1.0 - 4.8 x10 3/uL) 1.86 Absolute Monos (auto) (0.0 - 0.8 x10 3/uL) 0.83 H Absolute Nucleated RBC (0.0 - 0.2 X10 3/uL) 0.0 Immature Gran % (0.0 - 2.0 %) 0.3 Nucleated RBC % (0.0 - 0.0 %) 0.0 Microbiology Date/Time Procedure - Status Source Growth 06/30 1456 MRSA Screen - COMP NARES-MRSA Results: labs reviewed, current med profile rev'd Diagnosis, Assessment Plan Free Text DxA P Notes Free Text DxA P Notes: Assessment - V. tach - Syncope secondary to above - CAD status post cardiac stents in 2016 - CHF with EF 45-49%(Echo 06/30/2019) - LBBB - COPD - Type 2 diabetes mellitus - Hypertension - CKD 3 - Dyslipidemia - BPH - GERD - Obstructive sleep apnea on CPAP - History of malignant hyperthermia - Vertigo - Hypokalemia Plan - s/p heart cath, angioplasty and stenting of mid left circumflex proximal left circumflex with drug eluting stents 06/30 and planning for ICD pacemaker with Dr. Ulloa for next week - fall precautions/PT eval - telemetry - beef cattle farm worker, Dr. Hein on board, appreciate care - Moderate insulin sliding scale - Hold Lasix, continue aspirin, atorvastatin, hydralazine 50 twice daily, carvedilol to 18.75 BID per beef cattle farm worker, plavix, flomax - replete potassium - CPAP with sleep, can use home machine - Labs in AM Code status: Full code MDM if needed: Yudy [phone] DVT PPx: SCDs for now at 1629 RPT #:[id number] END OF REPORT [facility] 2019-07-01 13:28:00 [id number] [place], [place] PATIENT NAME: BOB VITAL ADMIT DATE: 07/01/19 ACCOUNT NO: [id number] ROOM NO: D.D216 AGE: 79 REPORT TYPE: ELECTROCARDIOGRAM SEX: M : 38 ADMITTING PHYSICIAN:Judy Malone MD ATTENDING PHYSICIAN:Judy Malone MD Order: [id number] Test Reason : Test Date/Time Stamp: ThuJul 01 2019 13:28:06 Blood Pressure : / mmHG Vent. Rate : 061 BPM Atrial Rate : 061 BPM P-R Int : 172 ms QRS Dur : 156 ms QT Int : 502 ms P-R-T Axes : 064 005 134 degrees QTc Int : 505 ms Normal sinus rhythm Left bundle branch block Abnormal ECG When compared with ECG of 01-JUL-2019 13:27, (Unconfirmed) No significant change was found Confirmed by BOB HEIN M.D. ([id number]) on 07/01/2019 4:23:20 PM Referred By: Judy Malone Confirmed by:BOB HEIN M.D. at 1623 PATIENT NAME: BOB VITAL [facility] 2019-07-01 10:57:00 [id number] [place], [place] PATIENT NAME: BOB VITAL ADMIT DATE: 07/01/19 ACCOUNT NO: [id number] ROOM NO: D.[id number] AGE: 79 REPORT TYPE: CONSULTATION SEX: M ADMITTING PHYSICIAN:Nilton German MD ATTENDING PHYSICIAN:Nilton German MD CONSULTATION DATE: 06/30/2019 CONSULTING PHYSICIAN: Bob Hein MD CARDIOLOGY CONSULTATION REASON FOR CARDIOLOGY CONSULTATION: Ventricular fibrillation. HISTORY OF PRESENT ILLNESS: Mr. Vital is a pleasant patient of [employer] whom I have been following for multiple cardiovascular conditions including coronary artery disease and systolic dysfunction. He has a previous history of systolic dysfunction, last ejection fraction of 40% to 45% on recent echocardiogram. Coronary artery disease, status post RCA stent and small to moderate left circumflex vessel with significant stenosis 80% in the cardiac catheterization in 2018 that has been managed medically. The patient has developed recurrent episodes of loss of consciousness for which he underwent loop recorder implant my colleague, Dr. Ulloa. Loop recorder transmission unfortunately with remote monitoring was not efficient as the patient plugged in the device in electrical outlet, which had no electricity apparently. Eventually, we received transmission of the loop recorder data which showed ventricular fibrillation episode. The patient's PCP notified our service for recurrent syncopal spell. The documented ventricular fibrillation episodes; however, was in March with spontaneous resolution. For this reason, the patient was asked to come to the Emergency Room for admission, ischemic workup and electrophysiology assessment for defibrillator placement. The patient denies having any chest pain or shortness of breath. He has had recurrent episodes of loss of consciousness while he was lying in his bed. Suddenly he felt strange sensation in his chest, became diaphoretic and fell out of the bed hitting his head around the right eye on the nightstand with a small ulceration. The patient's had to wake him up. The interrogation from last syncope from yesterday is not available at the time of my visit to the Emergency Room. The patient is stable and the cardiac telemetry shows no ventricular activity. Electrolytes within normal limits. PAST MEDICAL HISTORY: 1. Systolic dysfunction of the left ventricle/chronic systolic heart failure, ejection fraction 40% to 45%. 2. Coronary artery disease, status post RCA drug-eluting stent in 2018, Promus 3.0 x 28. 3. Hypertension. 4. Hyperlipidemia. 5. History of hyperkalemia. 6. SUZETTE inhibitor intolerance. 7. BPH. PATIENT NAME: BOB VITAL 8. Diabetes mellitus type 2. 9. Hyperlipidemia. 10. Chronic renal insufficiency. 11. COPD. 12. Asbestosis SOCIAL HISTORY: No alcohol abuse, drug abuse, or smoking. Previously, he smoked for 21 years. FAMILY HISTORY: Positive in father cerebral aneurysm. The patient's mother unknown. PAST SURGICAL HISTORY: Meniscus repair, appendectomy and tonsillectomy. Loop recorder implant in 2018, coronary stent placed in RCA 2016. ALLERGIES: SEVERAL INCLUDING PENICILLIN AND VANCOMYCIN. REVIEW OF SYSTEMS: A 14-point review of system was obtained. CONSTITUTIONAL: No fever, chills, or recent major weight change. NEUROLOGIC: Positive loss of consciousness, syncope as stated above. No focal weakness. No seizure activity described. HEENT: No epistaxis or swallowing difficulties, visual or hearing problems reported. RESPIRATORY: No shortness of breath, cough, sputum, hemoptysis. GASTROINTESTINAL: No nausea, vomiting, diarrhea, constipation or gastrointestinal bleeding such as melena, hematochezia, or hematemesis. CARDIOVASCULAR: As per present illness. No chest pain or shortness of breath, or leg edema. No definite palpitations. Positive syncope. GENITOURINARY: No hematuria or dysuria. MUSCULOSKELETAL: No myalgias, arthralgias or joint swelling. PSYCHIATRIC: No current complaints of anxiety or depression. ENDOCRINE: No heat or cold intolerance reported. SKIN: No easy bruising or rashes. Rest of the 14-point review of systems is negative. PHYSICAL EXAMINATION: VITAL SIGNS: Blood pressure is 178/84, heart rate is 87, respiratory rate 16, and O2 sat is 100% on nasal cannula oxygen. GENERAL IMPRESSION: Elderly male patient in no acute distress. HEENT: Extraocular movements are intact. No icterus seen. NECK: Supple. No JVD. No carotid bruit. Bilateral carotid pulse, normal upstroke. CARDIOVASCULAR: Regular rate and rhythm. No gallop. LUNGS: Clear to auscultation bilaterally. ABDOMEN: Soft, nondistended. Positive bowel sounds. EXTREMITIES: No edema, cyanosis, or clubbing. SKIN: No rashes. Eye bruising seen around the right eye also with small laceration on the right eyebrow. MUSCULOSKELETAL: No gross joint deformities. NEUROLOGIC: Alert, awake, and oriented. Grossly nonfocal. PSYCHIATRIC: Appropriate mood and affect. No anxiety or depression. LABORATORY STUDIES: Reviewed. Hemoglobin 11.0, and platelet count is 147. Creatinine is 1.54, potassium 3.6, and magnesium is 1.0. Troponin negative. PATIENT NAME: BOB VITAL BNP 654. IMAGING: No acute disease seen. Interstitial opacities. EKG shows normal sinus rhythm, left bundle-branch block. QTc is prolonged at 502 milliseconds. Interrogation from loop recorder reviewed, shows 04/01/2019 episodes of ventricular fibrillation with spontaneous termination. ASSESSMENT AND PLAN: 1. Ventricular fibrillation: Recurrent episodes based on clinical history. For current syncopal episode, no interrogation is available. The patient was admitted for in-hospital workup. Cardiac catheterization is planned for 07/01/2019 with possible revascularization. No obvious reversible cause, has significant electrolyte abnormalities. The patient has relatively preserved left ventricular function. Ejection fraction was 40% to 45% on last assessment. Electrophysiology service to assess the patient. Final recommendations to follow. Tonight amiodarone will be started p.o. 2. Coronary artery disease, multivessel. Do repeat cardiac catheterization as stated above. Revascularization if indicated of the left circumflex territory or RCA. Final recommendations to follow. Continue aspirin and high intensity statin therapy. Beta sosa therapy. May need anti-ischemic therapy with calcium channel sosa, beta sosa and long-acting nitro. 3. Hyperlipidemia. Continue high intensity statin therapy. 4. Hypertension, suboptimally controlled; beta sosa, calcium channel sosa, long-acting nitro. 5. History of hyperkalemia. Currently, potassium is low normal. SUZETTE inhibitor is contraindicated given previous history of acute renal failure and severe hyperkalemia. 7. Suzette inhibitors are contraindicated: Previous acute renal failure and hyperkalemia. We will use Imdur and hydralazine. 8. Chronic renal insufficiency. Intravenous fluid for renal protection. 9. Diabetes mellitus type 2, insulin-dependent as per internal medicine service. Dictated By: Bob Hein MD WT: CON:LANIE/CRYSTAL/NTS Conf#: [id number]/DID#: [id number] Authenticated and Edited by Bob Hein MD On 07/05/19 1:01:50 PM at 1304 PATIENT NAME: BOB VITAL [facility] 2019-07-01 10:46:00 [facility] ([facility]) Hospitalist Progress Note REPORT#:[id number] REPORT STATUS: Signed DATE:07/01/19 TIME: 1046 PATIENT: BOB VITAL UNIT #: [id number] ROOM/BED: [place] [id number] : 39 AGE: 79 SEX: M ATTEND: Judy Malone MD ADM AUTHOR: Judy Malone MD * ALL edits or amendments must be made on the electronic/computer document * Subjective Comments: Patient has returned from heart cath. He denies any complaints at this time. Denies chest pain, palpitations, shortness of breath, difficulty breathing, cough. Review of Systems Constitutional: Denies: chills, fever. Skin: Reports: bruising. Denies: rash, swelling. GI: Denies: abdominal pain, nausea, vomiting. Objective General VS/I O: Vital Signs: Date Time Temp Pulse Resp B/P B/P Pulse O2 O2 Flow FiO2 Mean Ox Delivery Rate 06/30 0809 97.7 68 12 164/54 90.6 94 06/30 0409 70 18 100 21 06/30 0337 68 18 148/73 97.8 100 06/29 2344 97.5 71 17 136/69 91.6 99 06/29 2341 70 12 99 21 06/29 2341 99 Room air 06/29 2120 97.9 87 16 153/69 96.8 95 06/298 71 16 179/79 112 95 06/29 2017 81 16 165/93 117 97 06/29 1823 77 18 178/84 115 94 Room air 06/29 1706 99.0 84 18 195/86 122 96 Room air 24 hour I O ending at 0700: 06/30 0700 06/29 1900 Intake Total 850.00 Output Total 600 Balance 250.00 Intake, IV 750.00 Intake, Oral 100 Output, Urine 600 Patient 91.5 kg 90.909 kg Weight Weight Bed scale Stated/Reported Measurement Method Patient Weight Weight (lb): 201 Weight (oz): 11.57 Weight (kg): 91.500 Physical Exam General appearance: alert, awake, no acute distress, no respiratory distress Head/Eyes: normocephalic, right eye bruise around Cardiovascular: murmur, regular rate rhythm Respiratory: aerating well, clear to auscultation, symmetric expansion, no distress Abdomen: non-tender, normal bowel sounds, soft, no distention Extremities: edema (BLE trace), moves all, no calf tenderness 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, 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, normal speech Skin: dry, intact Psychiatry: normal affect, normal judgment/insight, normal mood, no hallucinations Results Findings/Data: Laboratory Tests 06/30 06/30 06/29 06/29 06/29 0524 0451 2134 1728 1725 Chemistry Sodium (133 - 145 MMOL/L) 141 140 Potassium (3.6 - 5.2 MMOL/L) 3.7 3.6 Chloride (100 - 108 MMOL/L) 107 104 Carbon Dioxide (22 - 32 MMOL/L) 30 29 BUN (6 - 20 MG/DL) 20 21 H Creatinine (0.60 - 1.00 MG/DL) 1.41 H 1.54 H Estimated GFR (MDRD) (35 - 81) 48 44 Glucose (65 - 99 MG/DL) 180 H 194 H POC Glucose (65 - 99 MG/DL) 160 H 136 H Calcium (8.7 - 10.5 MG/DL) 8.6 L 9.1 Phosphorus (2.5 - 4.9 MG/DL) 3.1 Magnesium (1.8 - 2.4 MG/DL) 1.9 1.9 Total Bilirubin (0.0 - 1.0 MG/DL) 1.1 H AST (15 - 37 Units/L) 24 ALT (30 - 65 Units/L) 27 L Alkaline Phosphatase (50 - 136 Units/L) 86 Rapid Troponin I (0.00 - 0.08 NG/ML) 0.00 Troponin I (0.00 - 0.06 NG/ML) < 0.04 NT-Pro-B Natriuret Pep (0 - 450 PG/ML) 1654 H Total Protein (6.4 - 8.2 G/DL) 7.4 Albumin (3.4 - 5.0 G/DL) 3.6 Globulin (1.5 - 3.8 G/DL) 3.8 Albumin/Globulin Ratio (1.1 - 2.2) 0.9 L Laboratory Tests 06/30 0451 Coagulation PT (9.6 - 12.3 SECONDS) 13.3 H INR 1.17 APTT (22.5 - 35.3 SECONDS) 32.3 Laboratory Tests 06/30 06/29 0451 1725 Hematology WBC (4.80 - 10.80 x10 3/uL) 7.22 7.18 RBC (4.7 - 6.1 x10 6/uL) 4.02 L 4.26 L Hgb (14.0 - 17.0 G/DL) 11.0 L 11.8 L Hct (42 - 52 %) 34.3 L 35.8 L MCV (80 - 94 FL) 85.3 84.0 MCH (27 - 31 PG) 27.4 27.7 MCHC (33 - 37 G/DL) 32.1 L 33.0 RDW Coeff of Desmond (11.5 - 14.5 %) 14.8 H 14.8 H Plt Count (150 - 450 x10 3/uL) 147 L 167 MPV (7.4 - 10.4 FL) 9.9 9.9 Neut % (Auto) (42 - 86 %) 53.3 51.6 Lymph % (Auto) (24 - 44 %) 30.7 33.1 [place] % (Auto) (0.0 - 4.0 %) 10.7 H 10.2 H Eos % (Auto) (0.0 - 2.7 %) 4.2 H 4.0 H Baso % (Auto) (0.0 - 0.5 %) 0.8 H 0.8 H Eos # (Auto) (0.0 - 0.5 x10 3/uL) 0.30 0.29 Baso # (Auto) (0.0 - 0.2 x10 3/uL) 0.06 0.06 Abs Immat Gran (auto) (0.00 - 0.03 x10 3/uL) 0.02 0.02 Absolute Neuts (auto) (1.8 - 7.7 x10 3/uL) 3.85 3.70 Absolute Lymphs (auto) (1.0 - 4.8 x10 3/uL) 2.22 2.38 Absolute Monos (auto) (0.0 - 0.8 x10 3/uL) 0.77 0.73 Absolute Nucleated RBC (0.0 - 0.2 X10 3/uL) 0.0 0.0 Immature Gran % (0.0 - 2.0 %) 0.3 0.3 Nucleated RBC % (0.0 - 0.0 %) 0.0 0.0 Laboratory Tests 06/29 175 Urines Ur Spec Description Clean Catch Urine Color (YELLOW) Light-Yellow Urine Appearance (CLEAR) CLEAR Urine pH (5.5 - 7.0) 5.0 L Ur Specific [place] (1.001 - 1.035) 1.014 Urine Protein (NEGATIVE mg/dL) 30 Urine Glucose (UA) (NEGATIVE mg/dL) NORMAL Urine Ketones (NEGATIVE mg/dL) NEGATIVE Urine Blood 1+ Urine Nitrite (NEGATIVE) NEGATIVE Urine Bilirubin (NEGATIVE) NEGATIVE Urine Urobilinogen (NORMAL mg/dL) NORMAL Ur Leukocyte Esterase (NEGATIVE) TRACE Urine RBC (NONE SEEN #/HPF) >50 Urine WBC (0 - 10 #/HPF) < 10 Ur Squamous Epith Cells (<100 #/LPF) 0 - 20 Urine Mucus (NONE SEEN #/lpf) RARE Urine Culture Screen Criteria not met Urine Comment VOLUME 10-12 ML Radiology data: Recent Impressions: RADIOLOGY - XR CHEST 1 V 06/30 1719 Report Impression - Status: SIGNED Entered: 06/30/2019 202 IMPRESSION: Stable exam Impression By: Renetta Hamilton MD Results: labs reviewed, x-ray personally reviewed, current med profile rev'd Diagnosis, Assessment Plan Free Text DxA P Notes Free Text DxA P Notes: Assessment - V. tach - Syncope secondary to above - CAD status post cardiac stents in 2016 - CHF with EF 45-49%(Echo 06/30/2019) - LBBB - COPD - Type 2 diabetes mellitus - Hypertension - CKD 3 - Dyslipidemia - BPH - GERD - Obstructive sleep apnea on CPAP - History of malignant hyperthermia Plan - s/p heart cath today with 2 stents placed and planning for ICD pacemaker with Dr. Ulloa for next week - telemetry - beef cattle farm worker, Dr. Hein on board, appreciate care - NS with 20k,75 cc/h - p.o. amiodarone 400mg BID, carvedilol to 18.75 BID per beef cattle farm worker - Moderate insulin sliding scale - Hold Lasix, continue aspirin, atorvastatin, hydralazine 50 twice daily - CPAP with sleep, can use home machine - Labs in AM Code status: Full code MDM if needed: Yudy [phone] DVT PPx: SCDs for now at 1627 RPT #:[id number] END OF REPORT [facility] 2019-07-01 10:35:00 [id number] [place], [place] PATIENT NAME: BOB VITAL ADMIT DATE: 07/01/19 ACCOUNT NO: [id number] ROOM NO: [id number] AGE: 79 REPORT TYPE: CARDIAC CATHERIZATION REPORT SEX: M : 39 ADMITTING PHYSICIAN:Nilton German MD ATTENDING PHYSICIAN:Nilton German MD PROCEDURE DATE: 07/01/2019 PROCEDURES PERFORMED: 1. Left heart catheterization, selective left and right coronary angiogram, left ventricular pressure measurement. 2. Angioplasty and stenting of the mid left circumflex 95% stenosis with a drug-eluting Darlington 2.0 x 15 mm stent to 0% residual. 3. Angioplasty and stenting of the proximal left circumflex 80% to 90% calcified stenosis with a drug-eluting Resolute Darlington 2.75 x 12 mm drug-eluting stent that was upsized to 3 mm in diameter with a noncompliant balloon to 0% residual. 4. Conscious sedation. Physician face time 70 minutes. INDICATION FOR PROCEDURE: Ventricular fibrillation, recurrent. CHURCH ORGANIST: Dr. Hein. CLASSIFICATION: ASA class III. ANESTHESIA USED: Conscious sedation with 2 mg Versed and 50 mcg of fentanyl. Local anesthesia with 2% Xylocaine. The patient was monitored by trained medical professional observer for his vital signs and cardiac telemetry findings. Anesthesia initiated at 09:06 a.m. and terminated 10:16 a.m. INFORMED CONSENT: Informed consent was obtained prior to procedure. Risks, benefits involved, alternative management options discussed with patient. Risks including but not limited to bleeding, vascular damage requiring vascular surgery, loss of limb, stroke, embolization, myocardial infarction, need for emergent open heart surgery, renal failure, dialysis, possible allergic reaction, and . He verbalized understanding and wished to proceed. DESCRIPTION OF DIAGNOSTIC PORTION OF PROCEDURE: Right groin was anesthetized with 2% Xylocaine and 4-Namibian sheath placed in modified Seldinger technique into the right common femoral artery. Selective left coronary angiogram was taken; however, secondary to poor visualization, sheath was exchanged to a 6-Namibian sheath and a 6-Namibian JR4 was advanced into the left main, left coronary angiogram was taken selectively. Thereafter, catheter was exchanged to a JR4, 6-Namibian catheter was placed in the left ventricle and left ventricular pressure was measured. This was followed by selectively cannulating the right coronary artery. Selective right coronary angiogram was taken. This was followed by performing the angioplasty procedure. FINDINGS: 1. Left main showed no significant disease seen, bifurcates to LAD and left PATIENT NAME: BOB VITAL circumflex vessels. 2. Left anterior descending artery: The LAD is a medium-size vessel. A 20% proximal plaque and 20% mid segment plaque seen. Distally it wraps around the apex, gives rise to 2 smaller diagonals in the mid and proximal segment followed by a larger diagonal 3. No obstructive disease in the LAD. LEFT CIRCUMFLEX: 1. The left circumflex is a medium small vessel. It gives rise to a tiny OM1 followed by a medium small OM2. Between the two there is 85%, possible 90% eccentric calcified stenosis. After the larger OM2, the left circumflex in the AV groove segment has 90% to 95% focal stenosis that continues into 2 posterolateral branches about 2 mm in size. 2. Right coronary artery: The right coronary artery has a proximal 30% plaque, patent mid stent with 10% in-stent restenosis. It gives rise to a PDA and a posterolateral branch, which has 20% disease. LEFT VENTRICULAR PRESSURE MEASUREMENT: No aortic valve gradient on pullback. LVEDP is 10 to 15 mmHg. INTERVENTIONAL PROCEDURE DESCRIPTION: Lesion intervened; 1. Lesion #1 mid circumflex 95% stenosis. 2. Lesion #2 proximal circumflex 80% to 85% stenosis, calcified. ANTICOAGULATION USED: Heparin total of 16,000 units was administered. Plavix loading on the table carried out. The patient has been taking aspirin. EQUIPMENTS USED: 1. Guide catheter EBU 3.5, 6-Namibian. 2. Wire ChoICE PT exchanged to Girafficnger support. 3. Predilatation balloon Sprinter 2.0 x 12. 4. Stent deployed to the mid segment lesion, Darlington 2.0 x 15. 5. Stent deployed to the proximal lesion Joe 2.75 x 12. 6. Postdilatation balloon for the proximal stent NC Stormer 3.0 x 6 and 3.0 x 11. DETAILED DESCRIPTION OF INTERVENTIONAL PROCEDURE: The guide was placed in the left main after heparin was given. ACT confirmed subtherapeutic. Additional heparin was given total 9000 units. However, ACT remained subtherapeutic all the time. ACT was in 219 range. Thereafter, Choice PT wire was passed into the distal left circumflex posterolateral branch. Predilatation with a Sprinter 2.0 x 12 mm balloon was carried out in the mid segment lesion followed by delivering 2.0 x 15 mm drug-eluting Resolute Joe stent which was deployed at 14 atmospheres, postdilated at 16 atmospheres. Stent balloon was retrieved. Please note that the proximal lesion was predilated with a Sprinter balloon at the beginning of the procedure after the predilatation of the mid circumflex stenosis. This was followed by delivering a 3.0 x 12 mm drug-eluting stent to the calcified proximal stenosis between OM1 and OM2. Some care was required to position the stent likely difficult to move secondary to heavy calcifications in the vessel. The stent was deployed at 15 atmospheres, postdilated at 18 atmospheres. Intracoronary nitroglycerin was given for vessel sizing. Stent balloon was retrieved. Wire sweeped back across the stent. An NC Stormer 3.0 x 6 mm balloon was advanced to the proximal stent, postdilated distally at 8, proximally 10 atmospheres. Difficult to move proximally the balloon, it was felt maybe hanging to the stent strut and the wire was sub-stent PATIENT NAME: BOB VITAL strut. For this reason a new wire, Zinger wire was passed into the left circumflex with a loop passed through the stent and a new NC Stormer 3.0 x 11 mm balloon was placed into the middle of the stent and the entire stent was postdilated at 10 atmospheres. Two post-dilatations were carried out pulling away from the distal stent edge back to proximal stent edge each time at 10 atmospheres. Noncompliant balloon was retrieved through the guide. Final injection showed excellent result, stent expansion opposition. Distal outflow improved. All equipment removed and the patient will be transferred to the holding area for manual sheath pull. RESULTS: 1. Lesion #1, preintervention 95% stenosis and post-intervention 0% residual. 2. Lesion #2. Proximal left circumflex, preintervention 80% to 85% stenosis, post-intervention less than 5% residual, PATRIA III flow. COMPLICATIONS: None observed. REMOVED SAMPLES: Blood for ACT determination. ESTIMATED BLOOD LOSS: 50 mL. SUMMARY: 1. Successful drug-eluting stent placement. 2. Severe left circumflex stenosis. The patient has had repeated episodes of ventricular fibrillation with [id number] systolic dysfunction with normal electrolytes felt to be potentially related to ischemia. No other ischemic revascularizable territory. At this time, no significant ischemia left behind. RECOMMENDATIONS: 1. Electrophysiology service evaluation of this patient for defibrillator placement. 2. Aggressive medical therapy for coronary artery disease, IV fluid for renal protection. Dictated By: Bob Hein MD WT: CATH:NIMO/CRYSTAL/ITA Conf#: [id number]/DID#: [id number] Authenticated and Edited by Bob Hein MD On 07/05/19 1:01:42 PM at 1304 PATIENT NAME: BOB VITAL [facility] 2019-06-30 19:35:00 [facility] ([facility]) Hospitalist History Physical REPORT#:[id number] REPORT STATUS: Signed DATE:06/30/19 TIME: 1934 PATIENT: BOB VITAL UNIT #: [id number] ROOM/BED: [place] [id number] : 39 AGE: 79 SEX: M ATTEND: Nilton German MD ADM AUTHOR: Miranda Sam * ALL edits or amendments must be made on the electronic/computer document * History of Present Illness HPI Chief complaint: Vtach PCP: PCP: Scar Diaz MD Floor Sanding Machine Operator:Dr. Hein Silk Washing Machine Operator: Dr. Nava GI: Dr. Espinosa HPI: 79 years old male with type 2 diabetes mellitus, hypertension, dyslipidemia, CKD 3, CAD status post cardiac stents in 2015, CHF with EF 45 to 49%(Echo 06/30/2019 ), LBBB, COPD, REAL on CPAP, GERD, BPH, history of malignant hyperthermia was directed to go to ED for admission by beef cattle farm worker for V. tach. Patient had a syncopal episode yesterday morning. He was in his bed,was feeling funny in his chest, diaphoretic and he passed out for few seconds and he was brought to the ED and admitted at [facility] yesterday and was discharged this evening around 4 PM. After he went home he got a call from the beef cattle farm worker office that his loop recorder showed he was having V. tach and he was directed to go to ED. Patient denied chest pain, palpitation, dizziness or any other symptoms at the time of exam. History Additional medical history: Type 2 diabetes mellitus, hypertension, dyslipidemia, CKD 3, CAD status post cardiac stents in 2015, CHF with EF 45 to 49%(Echo 06/30/2019), LBBB, COPD, REAL on CPAP, GERD, BPH, history of malignant hyperthermia Additional surgical history: Cardiac stent in 2016,cholecystectomy, right inguinal hernia repair, kidney stone status post cystoscopy with ESWL, tonsillectomy, bilateral knee surgery, ERCP with sphinterotomy 2017 Additional family history: Mother: /heart disease and hypertension Father: /diabetes mellitus Alcohol use: Denies EtOH use Drug use: Denies recreational drugs Additional social history: Former smoker with 2 PPD for 20 years, quit smoking in 1976, exposed to asbestos when he was in [employer] Medication/Allergy-Vaccine Hx Home Medications: ATORVASTATIN (LIPITOR) 80 MG PO BEDTIME CARVEDILOL (COREG) 18.75 MG PO Q12HR CHOLECALCIFEROL (VITAMIN D3) (VITAMIN D3) 1,000 UNITS PO DAILY CLINDAMYCIN HCL (CLEOCIN) 300 MG PO QID CLOPIDOGREL (PLAVIX) 75 MG PO DAILY FUROSEMIDE (LASIX) 20 MG PO DAILY hydrALAZINE (APRESOLINE) 50 MG PO BID INSULIN ASPART (NovoLOG FLEXPEN) 0 UNITS SUBQ AC HS INSULIN GLARGINE (LANTUS) 25 UNITS SUBQ BID ISOSORBIDE MONONITRATE (MONOKET) 20 MG PO BID TAMSULOSIN ER (FLOMAX) 0.4 MG PO DAILY Discontinued Medications ASPIRIN EC (ECOTRIN) 81 MG PO DAILY ATORVASTATIN (LIPITOR) 40 MG PO DAILY CARVEDILOL (COREG) 12.5 MG PO BID Allergies: Coded Allergies: vancomycin (Severe, DECREASED RENAL FX 06/29/19) Penicillins (UNKNOWN 06/29/19) succinylcholine (MALIGNANT HYPERTHERMIA 06/29/19) Uncoded Allergies: "ALLERGIC TO ANESTHIA" (Severe, ANAPHYLAXIS 12/17/17) Review of Systems Constitutional: Denies: chills, fever. Skin: Reports: bruising. Denies: abrasion. Eyes: Denies: redness, discharge. ENT: Denies: nasal congestion, sore throat. Respiratory: Denies: non productive cough, SOB. Cardiovascular: Denies: chest pain, palpitations. GI: Denies: nausea, vomiting. : Denies: dysuria, flank pain. Neuro: Denies: dizziness, headache. Psych: Denies: change in mental status, confusion. Objective General VS/I O: Vital Signs: Date Time Temp Pulse Resp B/P B/P Pulse O2 O2 Flow FiO2 Mean Ox Delivery Rate 06/29 1823 77 18 178/84 115 94 Room air 06/29 1706 99.0 84 18 195/86 122 96 Room air Patient Weight Weight (lb): Weight (oz): Weight (kg): 90.909 Physical Exam General appearance: alert, awake, oriented, no acute distress, pleasant, conversational, mental status normal, no respiratory distress Head/Eyes: normocephalic, right eye bruise around ENT: moist mucosal membranes, normal nose Neck: non-tender, no masses or swelling Cardiovascular: normal capillary refill, regular rate rhythm Respiratory: aerating well, clear to auscultation, symmetric expansion, no distress Abdomen: non-tender, normal bowel sounds, soft, no distention Extremities: edema (BLE trace), moves all, no calf tenderness 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, 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, normal speech Psychiatry: normal affect, normal judgment/insight, normal mood Results Findings/Data: Laboratory Tests 06/29 06/29 1728 1725 Chemistry Sodium (133 - 145 MMOL/L) 140 Potassium (3.6 - 5.2 MMOL/L) 3.6 Chloride (100 - 108 MMOL/L) 104 Carbon Dioxide (22 - 32 MMOL/L) 29 BUN (6 - 20 MG/DL) 21 H Creatinine (0.60 - 1.00 MG/DL) 1.54 H Estimated GFR (MDRD) (35 - 81) 44 Glucose (65 - 99 MG/DL) 194 H Calcium (8.7 - 10.5 MG/DL) 9.1 Phosphorus (2.5 - 4.9 MG/DL) 3.1 Magnesium (1.8 - 2.4 MG/DL) 1.9 Total Bilirubin (0.0 - 1.0 MG/DL) 1.1 H AST (15 - 37 Units/L) 24 ALT (30 - 65 Units/L) 27 L Alkaline Phosphatase (50 - 136 Units/L) 86 Rapid Troponin I (0.00 - 0.08 NG/ML) 0.00 Troponin I (0.00 - 0.06 NG/ML) < 0.04 NT-Pro-B Natriuret Pep (0 - 450 PG/ML) 1654 H Total Protein (6.4 - 8.2 G/DL) 7.4 Albumin (3.4 - 5.0 G/DL) 3.6 Globulin (1.5 - 3.8 G/DL) 3.8 Albumin/Globulin Ratio (1.1 - 2.2) 0.9 L Laboratory Tests 06/29 1725 Hematology WBC (4.80 - 10.80 x10 3/uL) 7.18 RBC (4.7 - 6.1 x10 6/uL) 4.26 L Hgb (14.0 - 17.0 G/DL) 11.8 L Hct (42 - 52 %) 35.8 L MCV (80 - 94 FL) 84.0 MCH (27 - 31 PG) 27.7 MCHC (33 - 37 G/DL) 33.0 RDW Coeff of Desmond (11.5 - 14.5 %) 14.8 H Plt Count (150 - 450 x10 3/uL) 167 MPV (7.4 - 10.4 FL) 9.9 Neut % (Auto) (42 - 86 %) 51.6 Lymph % (Auto) (24 - 44 %) 33.1 [place] % (Auto) (0.0 - 4.0 %) 10.2 H Eos % (Auto) (0.0 - 2.7 %) 4.0 H Baso % (Auto) (0.0 - 0.5 %) 0.8 H Eos # (Auto) (0.0 - 0.5 x10 3/uL) 0.29 Baso # (Auto) (0.0 - 0.2 x10 3/uL) 0.06 Abs Immat Gran (auto) (0.00 - 0.03 x10 3/uL) 0.02 Absolute Neuts (auto) (1.8 - 7.7 x10 3/uL) 3.70 Absolute Lymphs (auto) (1.0 - 4.8 x10 3/uL) 2.38 Absolute Monos (auto) (0.0 - 0.8 x10 3/uL) 0.73 Absolute Nucleated RBC (0.0 - 0.2 X10 3/uL) 0.0 Immature Gran % (0.0 - 2.0 %) 0.3 Nucleated RBC % (0.0 - 0.0 %) 0.0 Laboratory Tests 06/29 1756 Urines Ur Spec Description Clean Catch Urine Color (YELLOW) Light-Yellow Urine Appearance (CLEAR) CLEAR Urine pH (5.5 - 7.0) 5.0 L Ur Specific [place] (1.001 - 1.035) 1.014 Urine Protein (NEGATIVE mg/dL) 30 Urine Glucose (UA) (NEGATIVE mg/dL) NORMAL Urine Ketones (NEGATIVE mg/dL) NEGATIVE Urine Blood 1+ Urine Nitrite (NEGATIVE) NEGATIVE Urine Bilirubin (NEGATIVE) NEGATIVE Urine Urobilinogen (NORMAL mg/dL) NORMAL Ur Leukocyte Esterase (NEGATIVE) TRACE Urine RBC (NONE SEEN #/HPF) >50 Urine WBC (0 - 10 #/HPF) < 10 Ur Squamous Epith Cells (<100 #/LPF) 0 - 20 Urine Mucus (NONE SEEN #/lpf) RARE Urine Culture Screen Criteria not met Urine Comment VOLUME 10-12 ML Radiology data: Recent Impressions: RADIOLOGY - XR CHEST 1 V 06/29 1720 Report Impression - Status: SIGNED Entered: 06/30/2019 174 IMPRESSION: Stable exam Impression By: Renetta - Vicente Hamilton MD Diagnosis, Assessment Plan Free Text DxA P Notes Free Text DxA P Notes: Assessment - V. tach - Syncope secondary to above - CAD status post cardiac stents in 2016 - CHF with EF 45-49%(Echo 06/30/2019) - LBBB - COPD - Type 2 diabetes mellitus - Hypertension - CKD 3 - Dyslipidemia - BPH - GERD - Obstructive sleep apnea on CPAP - History of malignant hyperthermia Plan - Place patient on telemetry - Dr. Hein on board, appreciate care - Planning for heart cath tomorrow and planning for ICD pacemaker with Dr. Ulloa - NS with 20k,75 cc/h - N.p.o. after midnight - Start p.o. amiodarone 400mg BID, increase carvedilol to 18.75 BID per beef cattle farm worker - Moderate sliding scale - Hold Lasix, continue aspirin, atorvastatin, hydralazine 50 twice daily - CPAP at HS Code status: Full code MDM if needed: Yudy [phone] DVT PPx: SCDs for now at 1559 RPT #:[id number] END OF REPORT [facility] 2019-06-30 19:35:00 [facility] ([facility]) Hospitalist History Physical REPORT#:[id number] REPORT STATUS: Signed DATE:06/30/19 TIME: 1934 PATIENT: BOB VITAL UNIT #: [id number] ROOM/BED: [place] [id number] : 39 AGE: 79 SEX: M ATTEND: Nilton German MD ADM AUTHOR: Miranda Sam * ALL edits or amendments must be made on the electronic/computer document * Miranda Sam 06/30/191934: History of Present Illness HPI Chief complaint: Vtach PCP: PCP: Scar Daiz MD Floor Sanding Machine Operator:Dr. Hein Silk Washing Machine Operator: Dr. Nava GI: Dr. Espinosa HPI: 79 years old male with type 2 diabetes mellitus, hypertension, dyslipidemia, CKD 3, CAD status post cardiac stents in 2016, CHF with EF 45 to 49%(Echo 06/30/2019 ), LBBB, COPD, REAL on CPAP, GERD, BPH, history of malignant hyperthermia was directed to go to ED for admission by beef cattle farm worker for V. tach. Patient had a syncopal episode yesterday morning. He was in his bed,was feeling funny in his chest, diaphoretic and he passed out for few seconds and he was brought to the ED and admitted at [facility] yesterday and was discharged this evening around 4 PM. After he went home he got a call from the beef cattle farm worker office that his loop recorder showed he was having V. tach and he was directed to go to ED. Patient denied chest pain, palpitation, dizziness or any other symptoms at the time of exam. History Additional medical history: Type 2 diabetes mellitus, hypertension, dyslipidemia, CKD 3, CAD status post cardiac stents in 2016, CHF with EF 45 to 49%(Echo 06/30/2019), LBBB, COPD, REAL on CPAP, GERD, BPH, history of malignant hyperthermia Additional surgical history: Cardiac stent in 2016,cholecystectomy, right inguinal hernia repair, kidney stone status post cystoscopy with ESWL, tonsillectomy, bilateral knee surgery, ERCP with sphinterotomy 2018 Additional family history: Mother: /heart disease and hypertension Father: /diabetes mellitus Alcohol use: Denies EtOH use Drug use: Denies recreational drugs Additional social history: Former smoker with 2 PPD for 20 years, quit smoking in 1976, exposed to asbestos when he was in [employer] Medication/Allergy-Vaccine Hx Allergies: Coded Allergies: vancomycin (Severe, DECREASED RENAL FX 06/29/19) Penicillins (UNKNOWN 06/29/19) succinylcholine (MALIGNANT HYPERTHERMIA 06/29/19) Uncoded Allergies: "ALLERGIC TO ANESTHIA" (Severe, ANAPHYLAXIS 12/17/17) Review of Systems Constitutional: Denies: chills, fever. Skin: Reports: bruising. Denies: abrasion. Eyes: Denies: redness, discharge. ENT: Denies: nasal congestion, sore throat. Respiratory: Denies: non productive cough, SOB. Cardiovascular: Denies: chest pain, palpitations. GI: Denies: nausea, vomiting. : Denies: dysuria, flank pain. Neuro: Denies: dizziness, headache. Psych: Denies: change in mental status, confusion. Objective General VS/I O: Vital Signs: Date Time Temp Pulse Resp B/P B/P Pulse O2 O2 Flow FiO2 Mean Ox Delivery Rate 06/29 1823 77 18 178/84 115 94 Room air 06/29 1706 99.0 84 18 195/86 122 96 Room air Patient Weight Weight (lb): Weight (oz): Weight (kg): 90.909 Physical Exam General appearance: alert, awake, oriented, no acute distress, pleasant, conversational, mental status normal, no respiratory distress Head/Eyes: normocephalic, right eye bruise around ENT: moist mucosal membranes, normal nose Neck: non-tender, no masses or swelling Cardiovascular: normal capillary refill, regular rate rhythm Respiratory: aerating well, clear to auscultation, symmetric expansion, no distress Abdomen: non-tender, normal bowel sounds, soft, no distention Extremities: edema (BLE trace), moves all, no calf tenderness 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, 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, normal speech Psychiatry: normal affect, normal judgment/insight, normal mood Results Findings/Data: Laboratory Tests 06/29 06/29 1728 1725 Chemistry Sodium (133 - 145 MMOL/L) 140 Potassium (3.6 - 5.2 MMOL/L) 3.6 Chloride (100 - 108 MMOL/L) 104 Carbon Dioxide (22 - 32 MMOL/L) 29 BUN (6 - 20 MG/DL) 21 H Creatinine (0.60 - 1.00 MG/DL) 1.54 H Estimated GFR (MDRD) (35 - 81) 44 Glucose (65 - 99 MG/DL) 194 H Calcium (8.7 - 10.5 MG/DL) 9.1 Phosphorus (2.5 - 4.9 MG/DL) 3.1 Magnesium (1.8 - 2.4 MG/DL) 1.9 Total Bilirubin (0.0 - 1.0 MG/DL) 1.1 H AST (15 - 37 Units/L) 24 ALT (30 - 65 Units/L) 27 L Alkaline Phosphatase (50 - 136 Units/L) 86 Rapid Troponin I (0.00 - 0.08 NG/ML) 0.00 Troponin I (0.00 - 0.06 NG/ML) < 0.04 NT-Pro-B Natriuret Pep (0 - 450 PG/ML) 1654 H Total Protein (6.4 - 8.2 G/DL) 7.4 Albumin (3.4 - 5.0 G/DL) 3.6 Globulin (1.5 - 3.8 G/DL) 3.8 Albumin/Globulin Ratio (1.1 - 2.2) 0.9 L Laboratory Tests 06/29 1725 Hematology WBC (4.80 - 10.80 x10 3/uL) 7.18 RBC (4.7 - 6.1 x10 6/uL) 4.26 L Hgb (14.0 - 17.0 G/DL) 11.8 L Hct (42 - 52 %) 35.8 L MCV (80 - 94 FL) 84.0 MCH (27 - 31 PG) 27.7 MCHC (33 - 37 G/DL) 33.0 RDW Coeff of Desmond (11.5 - 14.5 %) 14.8 H Plt Count (150 - 450 x10 3/uL) 167 MPV (7.4 - 10.4 FL) 9.9 Neut % (Auto) (42 - 86 %) 51.6 Lymph % (Auto) (24 - 44 %) 33.1 [place] % (Auto) (0.0 - 4.0 %) 10.2 H Eos % (Auto) (0.0 - 2.7 %) 4.0 H Baso % (Auto) (0.0 - 0.5 %) 0.8 H Eos # (Auto) (0.0 - 0.5 x10 3/uL) 0.29 Baso # (Auto) (0.0 - 0.2 x10 3/uL) 0.06 Abs Immat Gran (auto) (0.00 - 0.03 x10 3/uL) 0.02 Absolute Neuts (auto) (1.8 - 7.7 x10 3/uL) 3.70 Absolute Lymphs (auto) (1.0 - 4.8 x10 3/uL) 2.38 Absolute Monos (auto) (0.0 - 0.8 x10 3/uL) 0.73 Absolute Nucleated RBC (0.0 - 0.2 X10 3/uL) 0.0 Immature Gran % (0.0 - 2.0 %) 0.3 Nucleated RBC % (0.0 - 0.0 %) 0.0 Laboratory Tests 06/29 1756 Urines Ur Spec Description Clean Catch Urine Color (YELLOW) Light-Yellow Urine Appearance (CLEAR) CLEAR Urine pH (5.5 - 7.0) 5.0 L Ur Specific [place] (1.001 - 1.035) 1.014 Urine Protein (NEGATIVE mg/dL) 30 Urine Glucose (UA) (NEGATIVE mg/dL) NORMAL Urine Ketones (NEGATIVE mg/dL) NEGATIVE Urine Blood 1+ Urine Nitrite (NEGATIVE) NEGATIVE Urine Bilirubin (NEGATIVE) NEGATIVE Urine Urobilinogen (NORMAL mg/dL) NORMAL Ur Leukocyte Esterase (NEGATIVE) TRACE Urine RBC (NONE SEEN #/HPF) >50 Urine WBC (0 - 10 #/HPF) < 10 Ur Squamous Epith Cells (<100 #/LPF) 0 - 20 Urine Mucus (NONE SEEN #/lpf) RARE Urine Culture Screen Criteria not met Urine Comment VOLUME 10-12 ML Radiology data: Recent Impressions: RADIOLOGY - XR CHEST 1 V 06/29 1720 Report Impression - Status: SIGNED Entered: 06/30/2019 1743 IMPRESSION: Stable exam Impression By: Renetta - Vicente Hamilton MD Diagnosis, Assessment Plan Free Text DxA P Notes Free Text DxA P Notes: Assessment - V. tach - Syncope secondary to above - CAD status post cardiac stents in 2016 - CHF with EF 45-49%(Echo 06/30/2019) - LBBB - COPD - Type 2 diabetes mellitus - Hypertension - CKD 3 - Dyslipidemia - BPH - GERD - Obstructive sleep apnea on CPAP - History of malignant hyperthermia Plan - Place patient on telemetry - Dr. Hein on board, appreciate care - Planning for heart cath tomorrow and planning for ICD pacemaker with Dr. Ulloa - NS with 20k,75 cc/h - N.p.o. after midnight - Start p.o. amiodarone 400mg BID, increase carvedilol to 18.75 BID per beef cattle farm worker - Moderate sliding scale - Hold Lasix, continue aspirin, atorvastatin, hydralazine 50 twice daily - CPAP at HS Code status: Full code MDM if needed: Yudy [phone] DVT PPx: SCDs for now Tyree Kim 08/22/19 2253: History Medication/Allergy-Vaccine Hx Home Medications: ASPIRIN 81 MG PO DAILY ATORVASTATIN (LIPITOR) 80 MG PO BEDTIME CARVEDILOL (COREG) 12.5 MG PO Q12HR CHOLECALCIFEROL (VITAMIN D3) (VITAMIN D3) 1,000 UNITS PO DAILY CLINDAMYCIN HCL (CLEOCIN) 300 MG PO QID CLOPIDOGREL (PLAVIX) 75 MG PO DAILY FUROSEMIDE (LASIX) 20 MG PO DAILY INSULIN ASPART (NovoLOG FLEXPEN) 0 UNITS SUBQ AC HS INSULIN GLARGINE (LANTUS) 25 UNITS SUBQ BID ISOSORBIDE MONONITRATE (MONOKET) 20 MG PO BID TAMSULOSIN ER (FLOMAX) 0.4 MG PO DAILY Attestations Physician Attestation Agree w/findings plan: .case reviewed in detail and discussed with foot setter,tico. and I agree with above mentioned plan. at 1559 RPT #:[id number] END OF REPORT [facility] 2019-06-30 19:35:00 [facility] ([facility]) Hospitalist History Physical REPORT#:[id number] REPORT STATUS: Signed DATE:06/30/19 TIME: 1934 PATIENT: BOB VITAL UNIT #: [id number] ROOM/BED: [place] [id number] : 39 AGE: 79 SEX: M ATTEND: Nilton German MD ADM AUTHOR: Miranda Sam * ALL edits or amendments must be made on the electronic/computer document * Miranda Sam 06/30/191934: History of Present Illness HPI Chief complaint: Vtach PCP: PCP: Scar Diaz MD Floor Sanding Machine Operator:Dr. Hein Silk Washing Machine Operator: Dr. Nava GI: Dr. Espinosa HPI: 79 years old male with type 2 diabetes mellitus, hypertension, dyslipidemia, CKD 3, CAD status post cardiac stents in 2016, CHF with EF 45 to 49%(Echo 06/30/2019 ), LBBB, COPD, REAL on CPAP, GERD, BPH, history of malignant hyperthermia was directed to go to ED for admission by beef cattle farm worker for V. tach. Patient had a syncopal episode yesterday morning. He was in his bed,was feeling funny in his chest, diaphoretic and he passed out for few seconds and he was brought to the ED and admitted at [facility] yesterday and was discharged this evening around 4 PM. After he went home he got a call from the beef cattle farm worker office that his loop recorder showed he was having V. tach and he was directed to go to ED. Patient denied chest pain, palpitation, dizziness or any other symptoms at the time of exam. History Additional medical history: Type 2 diabetes mellitus, hypertension, dyslipidemia, CKD 3, CAD status post cardiac stents in 2015, CHF with EF 45 to 49%(Echo 06/30/2019), LBBB, COPD, REAL on CPAP, GERD, BPH, history of malignant hyperthermia Additional surgical history: Cardiac stent in 2015,cholecystectomy, right inguinal hernia repair, kidney stone status post cystoscopy with ESWL, tonsillectomy, bilateral knee surgery, ERCP with sphinterotomy 2017 Additional family history: Mother: /heart disease and hypertension Father: /diabetes mellitus Alcohol use: Denies EtOH use Drug use: Denies recreational drugs Additional social history: Former smoker with 2 PPD for 20 years, quit smoking in 1976, exposed to asbestos when he was in [employer] Medication/Allergy-Vaccine Hx Allergies: Coded Allergies: vancomycin (Severe, DECREASED RENAL FX 06/29/19) Penicillins (UNKNOWN 06/29/19) succinylcholine (MALIGNANT HYPERTHERMIA 06/29/19) Uncoded Allergies: "ALLERGIC TO ANESTHIA" (Severe, ANAPHYLAXIS 12/17/17) Review of Systems Constitutional: Denies: chills, fever. Skin: Reports: bruising. Denies: abrasion. Eyes: Denies: redness, discharge. ENT: Denies: nasal congestion, sore throat. Respiratory: Denies: non productive cough, SOB. Cardiovascular: Denies: chest pain, palpitations. GI: Denies: nausea, vomiting. : Denies: dysuria, flank pain. Neuro: Denies: dizziness, headache. Psych: Denies: change in mental status, confusion. Objective General VS/I O: Vital Signs: Date Time Temp Pulse Resp B/P B/P Pulse O2 O2 Flow FiO2 Mean Ox Delivery Rate 06/29 1823 77 18 178/84 115 94 Room air 06/29 1706 99.0 84 18 195/86 122 96 Room air Patient Weight Weight (lb): Weight (oz): Weight (kg): 90.909 Physical Exam General appearance: alert, awake, oriented, no acute distress, pleasant, conversational, mental status normal, no respiratory distress Head/Eyes: normocephalic, right eye bruise around ENT: moist mucosal membranes, normal nose Neck: non-tender, no masses or swelling Cardiovascular: normal capillary refill, regular rate rhythm Respiratory: aerating well, clear to auscultation, symmetric expansion, no distress Abdomen: non-tender, normal bowel sounds, soft, no distention Extremities: edema (BLE trace), moves all, no calf tenderness 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, 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, normal speech Psychiatry: normal affect, normal judgment/insight, normal mood Results Findings/Data: Laboratory Tests 06/29 06/29 1728 1725 Chemistry Sodium (133 - 145 MMOL/L) 140 Potassium (3.6 - 5.2 MMOL/L) 3.6 Chloride (100 - 108 MMOL/L) 104 Carbon Dioxide (22 - 32 MMOL/L) 29 BUN (6 - 20 MG/DL) 21 H Creatinine (0.60 - 1.00 MG/DL) 1.54 H Estimated GFR (MDRD) (35 - 81) 44 Glucose (65 - 99 MG/DL) 194 H Calcium (8.7 - 10.5 MG/DL) 9.1 Phosphorus (2.5 - 4.9 MG/DL) 3.1 Magnesium (1.8 - 2.4 MG/DL) 1.9 Total Bilirubin (0.0 - 1.0 MG/DL) 1.1 H AST (15 - 37 Units/L) 24 ALT (30 - 65 Units/L) 27 L Alkaline Phosphatase (50 - 136 Units/L) 86 Rapid Troponin I (0.00 - 0.08 NG/ML) 0.00 Troponin I (0.00 - 0.06 NG/ML) < 0.04 NT-Pro-B Natriuret Pep (0 - 450 PG/ML) 1654 H Total Protein (6.4 - 8.2 G/DL) 7.4 Albumin (3.4 - 5.0 G/DL) 3.6 Globulin (1.5 - 3.8 G/DL) 3.8 Albumin/Globulin Ratio (1.1 - 2.2) 0.9 L Laboratory Tests 06/29 1725 Hematology WBC (4.80 - 10.80 x10 3/uL) 7.18 RBC (4.7 - 6.1 x10 6/uL) 4.26 L Hgb (14.0 - 17.0 G/DL) 11.8 L Hct (42 - 52 %) 35.8 L MCV (80 - 94 FL) 84.0 MCH (27 - 31 PG) 27.7 MCHC (33 - 37 G/DL) 33.0 RDW Coeff of Desmond (11.5 - 14.5 %) 14.8 H Plt Count (150 - 450 x10 3/uL) 167 MPV (7.4 - 10.4 FL) 9.9 Neut % (Auto) (42 - 86 %) 51.6 Lymph % (Auto) (24 - 44 %) 33.1 [place] % (Auto) (0.0 - 4.0 %) 10.2 H Eos % (Auto) (0.0 - 2.7 %) 4.0 H Baso % (Auto) (0.0 - 0.5 %) 0.8 H Eos # (Auto) (0.0 - 0.5 x10 3/uL) 0.29 Baso # (Auto) (0.0 - 0.2 x10 3/uL) 0.06 Abs Immat Gran (auto) (0.00 - 0.03 x10 3/uL) 0.02 Absolute Neuts (auto) (1.8 - 7.7 x10 3/uL) 3.70 Absolute Lymphs (auto) (1.0 - 4.8 x10 3/uL) 2.38 Absolute Monos (auto) (0.0 - 0.8 x10 3/uL) 0.73 Absolute Nucleated RBC (0.0 - 0.2 X10 3/uL) 0.0 Immature Gran % (0.0 - 2.0 %) 0.3 Nucleated RBC % (0.0 - 0.0 %) 0.0 Laboratory Tests 06/29 1756 Urines Ur Spec Description Clean Catch Urine Color (YELLOW) Light-Yellow Urine Appearance (CLEAR) CLEAR Urine pH (5.5 - 7.0) 5.0 L Ur Specific [place] (1.001 - 1.035) 1.014 Urine Protein (NEGATIVE mg/dL) 30 Urine Glucose (UA) (NEGATIVE mg/dL) NORMAL Urine Ketones (NEGATIVE mg/dL) NEGATIVE Urine Blood 1+ Urine Nitrite (NEGATIVE) NEGATIVE Urine Bilirubin (NEGATIVE) NEGATIVE Urine Urobilinogen (NORMAL mg/dL) NORMAL Ur Leukocyte Esterase (NEGATIVE) TRACE Urine RBC (NONE SEEN #/HPF) >50 Urine WBC (0 - 10 #/HPF) < 10 Ur Squamous Epith Cells (<100 #/LPF) 0 - 20 Urine Mucus (NONE SEEN #/lpf) RARE Urine Culture Screen Criteria not met Urine Comment VOLUME 10-12 ML Radiology data: Recent Impressions: RADIOLOGY - XR CHEST 1 V 06/29 1720 Report Impression - Status: SIGNED Entered: 06/30/2019 6713 IMPRESSION: Stable exam Impression By: Renetta - Vicente Hamilton MD Diagnosis, Assessment Plan Free Text DxA P Notes Free Text DxA P Notes: Assessment - V. tach - Syncope secondary to above - CAD status post cardiac stents in 2016 - CHF with EF 45-49%(Echo 06/30/2019) - LBBB - COPD - Type 2 diabetes mellitus - Hypertension - CKD 3 - Dyslipidemia - BPH - GERD - Obstructive sleep apnea on CPAP - History of malignant hyperthermia Plan - Place patient on telemetry - Dr. Hein on board, appreciate care - Planning for heart cath tomorrow and planning for ICD pacemaker with Dr. Ulloa - NS with 20k,75 cc/h - N.p.o. after midnight - Start p.o. amiodarone 400mg BID, increase carvedilol to 18.75 BID per beef cattle farm worker - Moderate sliding scale - Hold Lasix, continue aspirin, atorvastatin, hydralazine 50 twice daily - CPAP at HS Code status: Full code MDM if needed: Yudy [phone] DVT PPx: SCDs for now Tyree Kim 08/22/19 4019: History Medication/Allergy-Vaccine Hx Home Medications: ASPIRIN 81 MG PO DAILY ATORVASTATIN (LIPITOR) 80 MG PO BEDTIME CARVEDILOL (COREG) 12.5 MG PO Q12HR CHOLECALCIFEROL (VITAMIN D3) (VITAMIN D3) 1,000 UNITS PO DAILY CLINDAMYCIN HCL (CLEOCIN) 300 MG PO QID CLOPIDOGREL (PLAVIX) 75 MG PO DAILY FUROSEMIDE (LASIX) 20 MG PO DAILY INSULIN ASPART (NovoLOG FLEXPEN) 0 UNITS SUBQ AC HS INSULIN GLARGINE (LANTUS) 25 UNITS SUBQ BID ISOSORBIDE MONONITRATE (MONOKET) 20 MG PO BID TAMSULOSIN ER (FLOMAX) 0.4 MG PO DAILY Attestations Physician Attestation Agree w/findings plan: .case reviewed in detail and discussed with foot setter,tico. and I agree with above mentioned plan. at 1559 at 2305 RPT #:[id number] END OF REPORT [facility] 2019-06-30 17:27:00 [facility] ([facility]) OR A CAMPUS OF [facility] EMERGENCY PROVIDER REPORT REPORT#:[id number] REPORT STATUS: Signed DATE:06/30/19 TIME: 1727 PATIENT: BOB VITAL UNIT #: [id number] ROOM/BED: [place] [address] AGE: 79 SEX: M PCP PHYS: Scar Diaz MD SERVICE AUTHOR: Vicente Quinteros MD * ALL edits or amendments must be made on the electronic/computer document * HPI-General Illness Free Text HPI Notes Free Text HPI Notes 79M with a PMHx of DM presents to the ED with c/o v tach. Pt states that two days ago he had a syncopal episode and was taken to the ED. Pt has been having episodes of v tach. Pt states during these episodes he gets diaphoretic. Pt states he has been wetting the bed. Pt sees Dr. Hein and he sent him here. Pt has a stent in his heart. Pt is a former smoker and drinker. General Confirmed Patient Yes Patient Type New patient Initial Greet Date/Time 06/30/19 1705 Presentation Chief Complaint Palpitations Hx Obtained From Patient Sudden in Onset? Yes Onset Occurred Days ago Symptom Duration Waxes and wanes Caused by No trauma by history Associated with Reports: Diaphoresis. Associated Other Pt denies other symptoms Portions of this section were scribed by Alexander Jennings on 06/30/19 at 1835 Review of Systems ROS Statements All systems rev neg except as marked. Free Text ROS Notes Free Text ROS Notes Constitutional: no fever Eyes: no drainage ENT: no runny nose CV: no chest pain Resp: no SOB GI: no vomiting : no dysuria Skin: no rash Hem: no petechiae Allergy: no hives Musculoskeletal: no leg swelling Neurological: no slurred speech Pysch: No Suicide ideation, No homicidal ideation Portions of this section were scribed by Alexander Jennings on 06/30/19 at 1727 Past Medical History - Adult Stated Complaint FAST HEART RATE-SENT BY Allergies Coded Allergies: vancomycin (Severe, DECREASED RENAL FX 06/29/19) Penicillins (UNKNOWN 06/29/19) succinylcholine (MALIGNANT HYPERTHERMIA 06/29/19) Uncoded Allergies: "ALLERGIC TO ANESTHIA" (Severe, ANAPHYLAXIS 12/17/17) Home Medications Reported Medications ASPIRIN EC (ECOTRIN) 81 MG PO DAILY CHOLECALCIFEROL (VITAMIN D3) (VITAMIN D3) 1,000 UNITS PO DAILY INSULIN GLARGINE (LANTUS) 25 UNITS SUBQ BID ISOSORBIDE MONONITRATE (MONOKET) 20 MG PO BID CARVEDILOL (COREG) 12.5 MG PO BID ATORVASTATIN (LIPITOR) 40 MG PO DAILY TAMSULOSIN ER (FLOMAX) 0.4 MG PO DAILY INSULIN ASPART (NovoLOG FLEXPEN) 0 UNITS SUBQ AC HS FUROSEMIDE (LASIX) 20 MG PO DAILY hydrALAZINE (APRESOLINE) 50 MG PO BID Review of Nursing Notes Rev avail, and agree Past Medical History: Reports: Coronary artery disease, Diabetes mellitus, GERD/gastritis, Hypertension, BPH, Dyslipidemia. Additional Medical History Htn, IDDM, HLD, CAD sp 1 stent in 2017, HFrEF (unknown last echo), known LBBB, BPH, GERD, REAL, Malignant hyperthermia Additional Surgical History CARDIAC STENT in 2017 Lap yung 08/2016 ERCP in 09/2016 BL knee surgeries Alcohol Use Denies EtOH use Drug Use Denies recreational drugs Smoking status for patients 13 years old or older: Former Smoker Portions of this section were scribed by Alexander Jennings on 06/30/19 at 1727 Physical Exam Vital Signs Vital Signs First Documented: Result Date Time Pulse Ox 96 06/29 170 B/P 195/86 06/29 170 B/P Mean 122 06/29 170 O2 Delivery Room air 06/29 1705 Temp 37.2 06/29 170 Pulse 84 06/29 170 Resp 18 06/29 170 Last Documented: Result Date Time Pulse Ox 94 06/29 182 B/P 178/84 06/29 1823 B/P Mean 115 06/29 1822 O2 Delivery Room air 06/29 182 Pulse 77 06/29 182 Resp 18 06/29 1822 Temp 37.2 06/29 170 Review of Vital Signs Reviewed Free Text PE Notes Free Text PE Notes CONSTITUTIONAL: Alert and oriented and responds appropriately to questions. Well-appearing; well-nourished HEAD: Normocephalic; atraumatic EYES: Conjunctiva non-injected ENT: moist mucous membranes NECK: Supple, full rom, no signs of neck stiffness or pain. CARD: No Murmurs RESP: no respiratory distress ABD/GI: non-distended, nontender BACK: normal ROM, no cva tenderness EXT: appear atraumatic SKIN: Normal color, no rash NEURO: Moves all extremities equally, A/O x4 PSYCH: The patient s mood and manner are appropriate. Grooming and personal hygiene are appropriate Portions of this section were scribed by Alexander Jennings on 06/30/19 at 1835 Interpretation Diagnostics Lab Results Interpretation Considerations Independ review imaging, Reviewed prior records Results Laboratory Tests 06/30/19 1725: [Embedded Image Not Available] Laboratory Tests: 06/29 06/29 06/29 1756 1728 1725 Chemistry Sodium (133 - 145 MMOL/L) 140 Potassium (3.6 - 5.2 MMOL/L) 3.6 Chloride (100 - 108 MMOL/L) 104 Carbon Dioxide (22 - 32 MMOL/L) 29 BUN (6 - 20 MG/DL) 21 H Creatinine (0.60 - 1.00 MG/DL) 1.54 H Estimated GFR (MDRD) (35 - 81) 44 Glucose (65 - 99 MG/DL) 194 H Calcium (8.7 - 10.5 MG/DL) 9.1 Phosphorus (2.5 - 4.9 MG/DL) 3.1 Magnesium (1.8 - 2.4 MG/DL) 1.9 Total Bilirubin (0.0 - 1.0 MG/DL) 1.1 H AST (15 - 37 Units/L) 24 ALT (30 - 65 Units/L) 27 L Alkaline Phosphatase (50 - 136 Units/L) 86 Rapid Troponin I (0.00 - 0.08 NG/ML) 0.00 Troponin I (0.00 - 0.06 NG/ML) < 0.04 NT-Pro-B Natriuret Pep (0 - 450 PG/ML) 1654 H Total Protein (6.4 - 8.2 G/DL) 7.4 Albumin (3.4 - 5.0 G/DL) 3.6 Globulin (1.5 - 3.8 G/DL) 3.8 Albumin/Globulin Ratio (1.1 - 2.2) 0.9 L Hematology WBC (4.80 - 10.80 x10 3/uL) 7.18 RBC (4.7 - 6.1 x10 6/uL) 4.26 L Hgb (14.0 - 17.0 G/DL) 11.8 L Hct (42 - 52 %) 35.8 L MCV (80 - 94 FL) 84.0 MCH (27 - 31 PG) 27.7 MCHC (33 - 37 G/DL) 33.0 RDW Coeff of [place]mond (11.5 - 14.5 %) 14.8 H Plt Count (150 - 450 x10 3/uL) 167 MPV (7.4 - 10.4 FL) 9.9 Neut % (Auto) (42 - 86 %) 51.6 Lymph % (Auto) (24 - 44 %) 33.1 [place] % (Auto) (0.0 - 4.0 %) 10.2 H Eos % (Auto) (0.0 - 2.7 %) 4.0 H Baso % (Auto) (0.0 - 0.5 %) 0.8 H Eos # (Auto) (0.0 - 0.5 x10 3/uL) 0.29 Baso # (Auto) (0.0 - 0.2 x10 3/uL) 0.06 Abs Immat Gran (auto) (0.00 - 0.03 x10 3/uL) 0.02 Absolute Neuts (auto) (1.8 - 7.7 x10 3/uL) 3.70 Absolute Lymphs (auto) (1.0 - 4.8 x10 3/uL) 2.38 Absolute Monos (auto) (0.0 - 0.8 x10 3/uL) 0.73 Absolute Nucleated RBC (0.0 - 0.2 X10 3/uL) 0.0 Immature Gran % (0.0 - 2.0 %) 0.3 Nucleated RBC % (0.0 - 0.0 %) 0.0 Urines Ur Spec Description Clean Catch Urine Color (YELLOW) Light-Yellow Urine Appearance (CLEAR) CLEAR Urine pH (5.5 - 7.0) 5.0 L Ur Specific [place] (1.001 - 1.035) 1.014 Urine Protein (NEGATIVE mg/dL) 30 Urine Glucose (UA) (NEGATIVE mg/dL) NORMAL Urine Ketones (NEGATIVE mg/dL) NEGATIVE Urine Blood 1+ Urine Nitrite (NEGATIVE) NEGATIVE Urine Bilirubin (NEGATIVE) NEGATIVE Urine Urobilinogen (NORMAL mg/dL) NORMAL Ur Leukocyte Esterase (NEGATIVE) TRACE Urine RBC (NONE SEEN #/HPF) >50 Urine WBC (0 - 10 #/HPF) < 10 Ur Squamous Epith Cells (<100 #/LPF) 0 - 20 Urine Mucus (NONE SEEN #/lpf) RARE Urine Culture Screen Criteria not met Urine Comment VOLUME 10-12 ML Recent Impressions: RADIOLOGY - XR CHEST 1 V 06/30 1719 Report Impression - Status: SIGNED Entered: 06/30/2019 1743 IMPRESSION: Stable exam Impression By: [email or web address].SARINA - Vicente Hamilton MD Lab Imaging Statement Laboratory radiographic studies reviewed and considered in the medical decision-making. ECG #1 Interpretation ECG Documented in MUSE Yes Date 06/30/19 Time 1720 Interpreted by ED physician NL ECG Interpretation Normal rate, Normal sinus rhythm, No STEMI, Normal axis Rate 79 Conduction/[place] LBBB - complete Portions of this section were scribed by Alexander Jennings on 06/30/19 at 1835 Re-Evaluation MDM Free Text MDM Notes Free Text MDM Notes 79 yo with syncope, patient was sent over from cardiology clinic for abnormal telemetry readings. Patient is found to have several runs of V. tach. Patient' s labs here are fairly unremarkable, patient is not in V. tach here, patient has not been have any PVCs. The plan is for admission and then a possible AICD placement tomorrow. Spoke with the hospitalist who accepted patient for admission. Patient agrees with the plan. The patient is doing well, does not need any amiodarone. Re-Evaluation/Progress #1 Text/Dict Note 1800 patient is doing well, patient is not having any PVCs. Patient Discharge Departure Vital Signs/Condition Vital Signs First Documented: Result Date Time Pulse Ox 96 06/29 1706 B/P 195/86 / 1706 B/P Mean 122 / 1706 O2 Delivery Room air 06/29 170 Temp 37.2 / 170 Pulse 84 / 1706 Resp 18 06/29 1706 Last Documented: Result Date Time Pulse Ox 94 / 1823 B/P 178/84 / 1823 B/P Mean 115 / 1823 O2 Delivery Room air 06/29 182 Pulse 77 / 1823 Resp 18 06/29 1823 Temp 37.2 06/29 1706 All vital signs available at the time of this entry have been reviewed. Condition Stable Clinical Impression Clinical Impression Primary Impression: Syncope Disposition Decision Admit Admit Physician Name Tyree Kim MD Admit Physician Hospitalist Request Time 183 Request Date 06/30/19 )( Admission Accepts Yes )( Accepted Time 183 )( Accepted Date 06/30/19 Call Information will see patient, agrees with eval, agrees with plan Discharge/Care Plan Counseled Regarding Diagnosis, Lab results, Imaging studies, Need for admission Admit Note I have spoken with the patient and/or caregivers. I have explained the patient's condition, diagnoses and treatment plan based on the information available to me at this time. I have answered the patient's and/or caregiver's questions and addressed any concerns. The patient and/or caregivers have as good an understanding of the patient's diagnosis, condition and treatment plan as can be expected at this point. The patient has been stabilized within the capability of the emergency department. The patient will be transported for further care and management or will be moved to an observation or inpatient service. I have communicated with the staff or medical practitioner taking over this patient's care. Quality Measures BP F/U for HTN Pre-existing HTN Smoking Cessation Screened, non user Tobacco Screening/Cessation 18 years or older, Denies tobacco use Supervising Physician Note Scribe Statement Alexander Jennings, 06/30/19 1727, scribing for and in the presence of [Dr. Quinteros]. Signed By: Alexander Jennings, 06/30/19 1727 Provider Scribed Statement I personally performed the services described in this documentation and reviewed the documentation that was dictated to the scribe(s) in my presence, and it accurately records my words and actions. Vicente Quinteros, 07/01/19 Portions of this section were scribed by Alexander Jennings on 06/30/19 at 1835 at 1641 RPT #:[id number] END OF REPORT [facility] 2019-06-30 17:20:00 [id number] [place], [place] PATIENT NAME: BOB VITAL ADMIT DATE: 07/01/19 ACCOUNT NO: [id number] ROOM NO: [id number] AGE: 79 REPORT TYPE: ELECTROCARDIOGRAM SEX: M : 39 ADMITTING PHYSICIAN:Nilton German MD ATTENDING PHYSICIAN:Nilton German MD Order: [id number] Test Reason : Test Date/Time Stamp: ThuJun 30 2019 17:20:42 Blood Pressure : / mmHG Vent. Rate : 079 BPM Atrial Rate : 079 BPM P-R Int : 166 ms QRS Dur : 156 ms QT Int : 438 ms P-R-T Axes : 044 -23 137 degrees QTc Int : 502 ms Normal sinus rhythm Left bundle branch block Abnormal ECG Confirmed by VICENTE QUINTEROS ([id number]), production editor CARLOS FLEMING ([id number]) on 07/04/2019 10:19:03 AM Referred By: Kaitlynn Chaudhari Confirmed by:VICENTE QUINTEROS at 1019 PATIENT NAME: BOB VITAL [facility] 2019-06-30 12:15:00 [id number] [place], [place] PATIENT NAME: BOB VITAL ADMIT DATE: 06/29/19 ACCOUNT NO: [id number] ROOM NO: D.[id number] AGE: 79 REPORT TYPE: eECHOCARDIOGRAM REPORT SEX: M : 39 ADMITTING PHYSICIAN:Patrice Schwartz MD ATTENDING PHYSICIAN:Patrice Schwartz MD *[facility]* [address] [place], [place] [address] Transthoracic Echocardiogram Patient: Bob Vital Study Date: 06/30/2019 BP: 129 / 71 Location: [facility] URN: [id number] : 1940 Age: 79 Height: 72 in / 182.9 cm Gender: M Weight: 214.5 lb / 97.5 kg BMI/BSA: 29.2 kg/m 2 / 2.2 m 2 *Ordering Physician: * Wilder Russo R2 *Interpreting Physician: * Charlie Rodriguez MD *Employment Recruiter: * Annika Benjamin [facility] Indications: Syncope. History: Coronary artery disease. Congestive heart failure. Risk factors: Hypertension. Diabetes mellitus. Labs, prior tests, procedures, and surgery: Stress test. EF was 45%. Study data: Transthoracic echocardiogram. Procedure: Transthoracic echocardiography was performed. Image quality was adequate. Complete 2D, complete spectral Doppler, and color Doppler. Rhythm: Normal sinus rhythm. Findings Left ventricle: The cavity size is normal. Wall thickness is mildly PATIENT NAME: BOB VITAL increased. The estimated ejection fraction is 45-49%. Regional wall motion abnormalities: Hypokinesis of the anterior myocardium. Hypokinesis of the apical myocardium. Features are consistent with a pseudonormal left ventricular filling pattern, with concomitant abnormal relaxation and increased filling pressure (grade 2 diastolic dysfunction). Right ventricle: The cavity size is normal. Systolic function is normal. Right atrium: The atrium is normal in size. Aortic valve: The leaflets are moderately thickened and moderately calcified. Thickening, consistent with sclerosis. There is no evidence of stenosis. Mitral valve: The annulus is mildly calcified and mildly fibrotic. The leaflets are mildly thickened and mildly calcified. There is mild regurgitation. Tricuspid valve: The valve is structurally normal. There is no evidence of stenosis. There is no regurgitation. Pericardium: There is no pericardial effusion. Measurements Left ventricle Value Ref Aortic valve Value Ref LORE, LAX 4.7 cm 4.2 - Mean v, S 1.2 m/sec ----- 5.8 VTI, S 36.6 cm ----- ESD, LAX 3.7 cm 2.5 - Mean grad, S 6.5 mm Hg ----- 4.0 Peak grad, S 12.3 mm Hg ----- ESD/bsa, LAX 1.7 cm/m 2 1.3 - LVOT/AV, VTI ratio 0.63 ----- 2.1 CAITLIN, VTI 2.66 cm 2 ----- FS, LAX 21 % 25 - 43 CAITLIN, Vmax 2.54 cm 2 ----- PW, ED 1.2 cm 0.6 - 1.0 Mitral valve Value Ref PW, ES 2.3 cm -------- Peak E 1.42 m/sec ----- IVS/PW, ED 1.52 -------- Peak A 1.46 m/sec ----- EF 43 % 52 - 72 Decel time 166 ms ----- EDV, A/L 25 ml 62 - 150 Peak grad, D 8.0 mm Hg ----- EDV/bsa, A/L 11 ml/m 2 34 - 74 Peak E/A ratio 0.97 ----- E', lat alison, TDI 5.3 cm/sec >=10.0 MR peak v 5.46 m/sec ----- E/e', lat alison, TDI 27 -------- PATIENT NAME: BOB VITAL E', med alison, TDI 3.5 cm/sec >=7.0 Pulmonic valve Value Ref E/e', med alison, TDI 40 -------- UT peak v 2.44 m/sec ----- E', avg, TDI 4.4 cm/sec -------- UT peak grad 24 mm Hg ----- E/e', avg, TDI 32 <=14 UT v, ED 0.77 m/sec ----- UT grad, ED 24 mm Hg ----- LVOT Value Ref Diam, S 2.32 cm -------- Tricuspid valve Value Ref Area 4.2 cm 2 -------- TR peak v 2.9 m/sec <=2.8 Peak karine, S 1.06 m/sec -------- Peak RV-RA grad, S 34 mm Hg ----- Mean akrine, S 0.75 m/sec -------- VTI, S 23.1 cm -------- Aortic root Value Ref Peak grad, S 4 mm Hg -------- Root diam, ED MM 2.69 cm ----- Mean grad, S 3 mm Hg -------- SV 97 ml -------- Pulmonary artery Value Ref Qs 7.46 L/min -------- Pressure, S 31.6 mm Hg ----- Qs/bsa 3.4 L/(min-m 2) -------- SV/bsa 44 ml/m 2 -------- Inferior vena cava Value Ref Diam 2.9 cm ----- Ventricular septum Value Ref IVS, ED 1.9 cm 0.6 - Systemic veins Value Ref 1.0 Estimated CVP 3 mm Hg ----- IVS, ES 2.4 cm -------- Pulmonary veins Value Ref Right ventricle Value Ref Peak v, S 0.92 m/sec ----- TAPSE, 2D 2.5 cm 1.7 - Peak v, D 0.47 m/sec ----- 3.1 Peak S/D ratio 1.94 ----- TAPSE, MM 2.5 cm 1.7 - Peak A rev v 0.24 m/sec ----- 3.1 Pressure, S 37 mm Hg -------- Left atrium Value Ref Vol/bsa, ES, 1-p 38 ml/m 2 12 - 37 A4C PATIENT NAME: BOB VITAL Vol/bsa, ES, A/L 34 ml/m 2 16 - 34 AP dim, ES MM 5.5 cm 3.0 - 4.0 LA/Ao root ratio, 2.05 -------- MM Conclusions Summary: 1. Left ventricle: The cavity size is normal. Wall thickness is mildly increased. The estimated ejection fraction is 45-49%. Hypokinesis of the anterior myocardium. Hypokinesis of the apical myocardium. Features are consistent with a pseudonormal left ventricular filling pattern, with concomitant abnormal relaxation and increased filling pressure (grade 2 diastolic dysfunction). 2. Aortic valve: Thickening, consistent with sclerosis. 3. Mitral valve: The annulus is mildly calcified and mildly fibrotic. The leaflets are mildly thickened and mildly calcified. Prepared and electronically signed by Charlie Rodriguez MD 06/30/2019 12:14 at 1215 PATIENT NAME: BOB VITAL [facility] 2019-06-30 08:17:00 [facility] ([facility]) Discharge Summary REPORT#:[id number] REPORT STATUS: Signed DATE:06/30/19 TIME: 816 PATIENT: BOB VITAL UNIT #: [id number] ROOM/BED: [place] [address] : 39 AGE: 79 SEX: M ATTEND: Patrice Schwartz MD ADM AUTHOR: Wilder Russo MD R2 * ALL edits or amendments must be made on the electronic/computer document * PCP PCP Discharge to: home General Information Date of admission: Observation Start Date: 06/29/19 Date of admission: 06/29/19 Date of discharge: 06/30/19 Discharge diagnosis: Syncope Coronary artery disease status post stent in 2016, follows Dr. Hein Paroxysmal atrial tachycardia, with implanted loop recorder Left bundle branch block, chronic REAL on CPAP Hypertension Type 2 diabetes on insulin COPD Former smoker CKD, follows Dr. Nava Hospital course: Mr. Vital is a 79-year-old male with past medical history of coronary artery disease status post stent in 2017, REAL on CPAP, hypertension, type 2 diabetes on insulin who presented to the ED with syncope. He states that he awoke overnight from bed and had sudden syncopal episode, falling out of bed. He states that prior, he had a few moments of diaphoresis and lightheadedness, and then lost consciousness. He denies any changes to his insulin or home antihypertensives. He denies chest pain, shortness of breath, nausea, vomiting. He denies similar episodes of this. He denies confusion afterwards and denies fecal, urinary incontinence. He has never had a seizure in the past. Troponin was negative x3. Cardiac telemetry showed no events. The patient ws asked to use his implanted loop recorder to send the syncopal event, which he did in the ED. He was discharged with instructions for followup. Med Rec Med Rec Discharge meds: Continue taking these medications: TAMSULOSIN ER (FLOMAX) 0.4 MG CAP.SR.24H 0.4 MILLIGRAM ORAL DAILY. Instructions: 30 MINUTES AFTER THE SAME MEAL DAILY CARVEDILOL (COREG) 12.5 MG TAB 12.5 MILLIGRAM ORAL TWICE DAILY. INSULIN ASPART (NovoLOG FLEXPEN) 100 UNITS/ML PEN.INJCTR 0 UNITS SUBCUTANEOUS BEFORE MEALS AND AT BEDTIME. INSULIN GLARGINE (LANTUS) 100 UNIT/ML VIAL 25 UNITS SUBCUTANEOUS TWICE DAILY. ATORVASTATIN (LIPITOR) 40 MG TAB 40 MILLIGRAM ORAL DAILY. ASPIRIN EC (ECOTRIN) 81 MG TAB.EC 81 MILLIGRAM ORAL DAILY. CHOLECALCIFEROL (VITAMIN D3) (VITAMIN D3) 1,000 UNITS CAP 1,000 UNITS ORAL DAILY. FUROSEMIDE (LASIX) 20 MG TAB 20 MILLIGRAM ORAL DAILY. hydrALAZINE (APRESOLINE) 50 MG TAB 50 MILLIGRAM ORAL TWICE DAILY. Discharge Instructions F/U labs/procedures/tests: please follow up with beef cattle farm worker Follow-up Appointments PCP: PCP: Scar Diaz MD Follow up timeframe: In 1-2 weeks Attending Physician: Attending Physician: Patrice Schwartz MD Consulting provider 1: Provider 1: Bob Hein MD Specialty: CARDIOVASC DIS at 1549 RPT #:[id number] END OF REPORT [facility] 2019-06-30 08:17:00 [facility] ([facility]) Discharge Summary REPORT#:[id number] REPORT STATUS: Signed DATE:06/30/19 TIME: 816 PATIENT: BOB VITAL UNIT #: [id number] ROOM/BED: [address] : [address] AGE: 79 SEX: M ATTEND: Patrice Schwartz MD ADM AUTHOR: Wilder Russo MD R3 * ALL edits or amendments must be made on the electronic/computer document * PCP PCP Discharge to: home General Information Date of admission: Observation Start Date: 06/29/19 Date of admission: 06/29/19 Date of discharge: 06/30/19 Discharge diagnosis: Syncope Coronary artery disease status post stent in 2017, follows Dr. Hein Paroxysmal atrial tachycardia, with implanted loop recorder Left bundle branch block, chronic REAL on CPAP Hypertension Type 2 diabetes on insulin COPD Former smoker CKD, follows Dr. Nava [facility] course: Mr. Vital is a 79-year-old male with past medical history of coronary artery disease status post stent in 2017, REAL on CPAP, hypertension, type 2 diabetes on insulin who presented to the ED with syncope. He states that he awoke overnight from bed and had sudden syncopal episode, falling out of bed. He states that prior, he had a few moments of diaphoresis and lightheadedness, and then lost consciousness. He denies any changes to his insulin or home antihypertensives. He denies chest pain, shortness of breath, nausea, vomiting. He denies similar episodes of this. He denies confusion afterwards and denies fecal, urinary incontinence. He has never had a seizure in the past. Troponin was negative x3. Cardiac telemetry showed no events. The patient ws asked to use his implanted loop recorder to send the syncopal event, which he did in the ED. He was discharged with instructions for followup. Med Rec Med Rec Discharge meds: Continue taking these medications: TAMSULOSIN ER (FLOMAX) 0.4 MG CAP.SR.24H 0.4 MILLIGRAM ORAL DAILY. Instructions: 30 MINUTES AFTER THE SAME MEAL DAILY CARVEDILOL (COREG) 12.5 MG TAB 12.5 MILLIGRAM ORAL TWICE DAILY. INSULIN ASPART (NovoLOG FLEXPEN) 100 UNITS/ML PEN.INJCTR 0 UNITS SUBCUTANEOUS BEFORE MEALS AND AT BEDTIME. INSULIN GLARGINE (LANTUS) 100 UNIT/ML VIAL 25 UNITS SUBCUTANEOUS TWICE DAILY. ATORVASTATIN (LIPITOR) 40 MG TAB 40 MILLIGRAM ORAL DAILY. ASPIRIN EC (ECOTRIN) 81 MG TAB.EC 81 MILLIGRAM ORAL DAILY. CHOLECALCIFEROL (VITAMIN D3) (VITAMIN D3) 1,000 UNITS CAP 1,000 UNITS ORAL DAILY. FUROSEMIDE (LASIX) 20 MG TAB 20 MILLIGRAM ORAL DAILY. hydrALAZINE (APRESOLINE) 50 MG TAB 50 MILLIGRAM ORAL TWICE DAILY. Discharge Instructions F/U labs/procedures/tests: please follow up with beef cattle farm worker Follow-up Appointments PCP: PCP: Scar Diaz MD Follow up timeframe: In 1-2 weeks Attending Physician: Attending Physician: Patrice Schwartz MD Consulting provider 1: Provider 1: Bob Hein MD Specialty: CARDIOVASC DIS at 1549 at 1705 RPT #:[id number] END OF REPORT [facility] 2019-06-30 07:13:00 [facility] ([facility]) Hospitalist Progress Note REPORT#:[id number] REPORT STATUS: Signed DATE:06/30/19 TIME: 712 PATIENT: BOB VITAL UNIT #: [id number] ROOM/BED: [place] [address] : 39 AGE: 79 SEX: M ATTEND: Patrice Schwartz MD ADM AUTHOR: Wilder Russo MD R2 * ALL edits or amendments must be made on the electronic/computer document * Subjective Chief Complaint: follow up syncope Comments: Seen and examined this AM. Denies recurrent syncope. Denies lightheadedness, diaphoresis. No chest pain. Review of Systems Free Text ROS Notes: Free Text ROS Notes: 10 systems reviewed and negative unless stated above in HPI Objective General VS/I O: Vital Signs: Date Time Temp Pulse Resp B/P B/P Pulse O2 O2 Flow FiO2 Mean Ox Delivery Rate 06/29 0504 81 13 98 30 06/29 0439 58 17 129/71 90.2 99 BiPAP mask 06/29 0152 86 17 98 30 06/29 0020 36.8 73 18 155/72 99.3 97 Nasal cannula 06/28 2320 Nasal 2.797932 cannula 06/28 2021 36.7 82 17 155/69 97.6 92 Room air 06/28 1623 36.5 80 18 145/68 93.4 93 / 1530 78 16 151/68 95 96 Nasal 2.874111 cannula / 1436 83 16 132/70 90 97 03/04 1236 82 16 139/60 86 96 Nasal 2.649064 cannula / 1130 84 16 146/65 92 95 Nasal 2.311643 cannula / 0950 36.6 03/ 0930 83 16 201/87 125 97 Nasal 2.681551 cannula / 0830 84 16 181/84 116 94 Nasal 2.263207 cannula 24 hour I O ending at 0700: 06/29 0700 06/28 1900 Intake Total Output Total Balance Number Voids 1 Patient 97.727 kg Weight Weight Estimated Measurement Method Patient Weight Weight (lb): Weight (oz): Weight (kg): 97.727 Physical Exam General appearance: alert, awake, oriented Head/Eyes: atraumatic, normocephalic Neck: non-tender, no JVD Cardiovascular: normal capillary refill, normal heart sounds, regular rate rhythm Respiratory: aerating well, symmetric expansion Abdomen: non-tender, soft Extremities: moves all, no clubbing, no cyanosis 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, 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, CNII-XII intact, normal speech Skin: dry, intact Psychiatry: normal affect, normal mood Results Findings/Data: Laboratory Tests 06/29 06/28 06/28 06/28 06/28 0535 1843 1641 1311 0718 Chemistry Sodium (133 - 145 MMOL/L) 143 142 Potassium (3.6 - 5.2 MMOL/L) 3.6 3.5 L Chloride (100 - 108 MMOL/L) 107 105 Carbon Dioxide (22 - 32 MMOL/L) 30 26 BUN (6 - 20 MG/DL) 22 H 20 Creatinine (0.60 - 1.00 MG/DL) 1.47 H 1.50 H Estimated GFR (MDRD) (35 - 81) 46 45 Glucose (65 - 99 MG/DL) 140 H 186 H POC Glucose (65 - 99 MG/DL) 189 H Calcium (8.7 - 10.5 MG/DL) 8.9 9.7 Total Bilirubin (0.0 - 1.0 MG/DL) 1.4 H AST (15 - 37 Units/L) 28 ALT (30 - 65 Units/L) 28 L Alkaline Phosphatase (50 - 136 97 Units/L) Troponin I (0.00 - 0.06 NG/ML) 0.05 0.06 < 0.04 NT-Pro-B Natriuret Pep (0 - 450 PG/ML) 1347 H Total Protein (6.4 - 8.2 G/DL) 7.9 Albumin (3.4 - 5.0 G/DL) 3.9 Globulin (1.5 - 3.8 G/DL) 4.0 H Albumin/Globulin Ratio (1.1 - 2.2) 1.0 L Laboratory Tests 06/29 03/ 0535 0718 Hematology WBC (4.80 - 10.80 x10 3/uL) 8.17 9.07 RBC (4.7 - 6.1 x10 6/uL) 3.77 L 4.58 L Hgb (14.0 - 17.0 G/DL) 10.4 L 12.6 L Hct (42 - 52 %) 31.4 L 37.0 L MCV (80 - 94 FL) 83.3 80.8 MCH (27 - 31 PG) 27.6 27.5 MCHC (33 - 37 G/DL) 33.1 34.1 RDW Coeff of Desmond (11.5 - 14.5 %) 14.9 H 15.0 H Plt Count (150 - 450 x10 3/uL) 146 L 151 MPV (7.4 - 10.4 FL) 9.6 9.7 Neut % (Auto) (42 - 86 %) 50.5 69.2 Lymph % (Auto) (24 - 44 %) 32.9 19.6 L [place] % (Auto) (0.0 - 4.0 %) 11.8 H 7.6 H Eos % (Auto) (0.0 - 2.7 %) 3.5 H 2.4 Baso % (Auto) (0.0 - 0.5 %) 1.1 H 1.0 H Eos # (Auto) (0.0 - 0.5 x10 3/uL) 0.29 0.22 Baso # (Auto) (0.0 - 0.2 x10 3/uL) 0.09 0.09 Abs Immat Gran (auto) (0.00 - 0.03 x10 3/uL) 0.02 0.02 Absolute Neuts (auto) (1.8 - 7.7 x10 3/uL) 4.12 6.27 Absolute Lymphs (auto) (1.0 - 4.8 x10 3/uL) 2.69 1.78 Absolute Monos (auto) (0.0 - 0.8 x10 3/uL) 0.96 H 0.69 Absolute Nucleated RBC (0.0 - 0.2 X10 3/uL) 0.0 0.0 Immature Gran % (0.0 - 2.0 %) 0.2 0.2 Nucleated RBC % (0.0 - 0.0 %) 0.0 0.0 Laboratory Tests 06/29 723 Toxicology Urine Opiates Screen (NEGATIVE) NEGATIVE Ur Barbiturates Screen (NEGATIVE) NEGATIVE Ur Phencyclidine Scrn (NEGATIVE) NEGATIVE Ur Amphetamine Screen (NEGATIVE) NEGATIVE MDMA (NEGATIVE) NEGATIVE U Benzodiazepines Scrn (NEGATIVE) NEGATIVE Urine Cocaine Screen (NEGATIVE) NEGATIVE U Cannabinoids Screen (NEGATIVE) NEGATIVE Laboratory Tests 06/29 723 Urines Ur Spec Description Clean Catch Urine Color (YELLOW) Light-Yellow Urine Appearance (CLEAR) CLEAR Urine pH (5.5 - 7.0) 7.0 Ur Specific [place] (1.001 - 1.035) 1.012 Urine Protein (NEGATIVE mg/dL) 50 A Urine Glucose (UA) (NEGATIVE mg/dL) NORMAL Urine Ketones (NEGATIVE mg/dL) NEGATIVE Urine Blood 1+ Urine Nitrite (NEGATIVE) NEGATIVE Urine Bilirubin (NEGATIVE) NEGATIVE Urine Urobilinogen (NORMAL mg/dL) NORMAL Ur Leukocyte Esterase (NEGATIVE) NEGATIVE Urine RBC (NONE SEEN #/HPF) 41-50 A Urine WBC (0 - 10 #/HPF) < 10 Ur Squamous Epith Cells (<100 #/LPF) 0 - 20 Urine Mucus (NONE SEEN #/lpf) RARE Urine Culture Screen Criteria not met Urine Comment VOLUME 10-12 ML Radiology data: Recent Impressions: RADIOLOGY - XR PELVIS 1/2 VIEWS 06/29 719 Report Impression - Status: SIGNED Entered: 06/29/2019 075 IMPRESSION: No acute bony injury or malalignment in the visualized pelvis. Impression By: [email or web address] - Galileo Jacobs MD [facility] RADIOLOGY - XR CHEST 1 V 06/29 719 Report Impression - Status: SIGNED Entered: 06/29/2019 0755 IMPRESSION: COPD and interstitial disease. Impression By: Racheal Santiago CAT SCAN - CT C-SPINE W/O CONT 06/28 729 Report Impression - Status: SIGNED Entered: 06/29/2019 0803 IMPRESSION: No acute bony injury or malalignment in the cervical spine. Impression By: Racheal Santiago CAT SCAN - CT HEAD/BRAIN W/O CONT 06/28 0630 Report Impression - Status: SIGNED Entered: 06/29/2019 0754 IMPRESSION: No acute post-traumatic brain injury. Impression By: Racheal Santiago Diagnosis, Assessment Plan Free Text DxA P Notes Free Text DxA P Notes: Syncope Coronary artery disease status post stent in 2017, follows Dr. Hein Paroxysmal atrial tachycardia, with implanted loop recorder Left bundle branch block, chronic REAL on CPAP Hypertension Type 2 diabetes on insulin COPD Former smoker CKD, follows Dr. Nava Plan: -Asked patient to use loop recorder to send event, which he did in ED -Troponin negative x 3 -Cardiac telemetry without events -Echocardiogram -Home Lasix -Home aspirin -Home hydralazine, carvedilol -Home atorvastatin -Home tamsulosin -CPAP at night -Moderate SSI with Lantus 25 u qHS Cardiac diet DVT PPX: SCDs, short anticipated stay FULL CODE Dispo: Home at 0815 RPT #:[id number] END OF REPORT [facility] 2019-06-30 07:13:00 [facility] ([facility]) Hospitalist Progress Note REPORT#:[id number] REPORT STATUS: Signed DATE:06/30/19 TIME: 712 PATIENT: BOB VITAL UNIT #: [id number] ROOM/BED: [address]1 : 39 AGE: 79 SEX: M ATTEND: Patrice Schwartz MD ADM AUTHOR: Wilder Russo MD R3 * ALL edits or amendments must be made on the electronic/computer document * Subjective Chief Complaint: follow up syncope Comments: Seen and examined this AM. Denies recurrent syncope. Denies lightheadedness, diaphoresis. No chest pain. Review of Systems Free Text ROS Notes: Free Text ROS Notes: 10 systems reviewed and negative unless stated above in HPI Objective General VS/I O: Vital Signs: Date Time Temp Pulse Resp B/P B/P Pulse O2 O2 Flow FiO2 Mean Ox Delivery Rate 06/29 0504 81 13 98 30 06/29 0439 58 17 129/71 90.2 99 BiPAP mask 06/29 0152 86 17 98 30 / 0020 36.8 73 18 155/72 99.3 97 Nasal cannula / 2320 Nasal 2.830777 cannula 06/28 2022 36.7 82 17 155/69 97.6 92 Room air / 1623 36.5 80 18 145/68 93.4 93 / 1530 78 16 151/68 95 96 Nasal 2.701773 cannula / 1436 83 16 132/70 90 97 03/ 1236 82 16 139/60 86 96 Nasal 2.945079 cannula / 1130 84 16 146/65 92 95 Nasal 2.642648 cannula / 0950 36.6 03/ 0930 83 16 201/87 125 97 Nasal 2.798923 cannula / 0830 84 16 181/84 116 94 Nasal 2.919068 cannula 24 hour I O ending at 0700: 06/29 0700 06/28 1900 Intake Total Output Total Balance Number Voids 1 Patient 97.727 kg Weight Weight Estimated Measurement Method Patient Weight Weight (lb): Weight (oz): Weight (kg): 97.727 Physical Exam General appearance: alert, awake, oriented Head/Eyes: atraumatic, normocephalic Neck: non-tender, no JVD Cardiovascular: normal capillary refill, normal heart sounds, regular rate rhythm Respiratory: aerating well, symmetric expansion Abdomen: non-tender, soft Extremities: moves all, no clubbing, no cyanosis 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, 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, CNII-XII intact, normal speech Skin: dry, intact Psychiatry: normal affect, normal mood Results Findings/Data: Laboratory Tests 06/29 06/28 06/28 06/28 06/28 0535 1843 1641 1311 0718 Chemistry Sodium (133 - 145 MMOL/L) 143 142 Potassium (3.6 - 5.2 MMOL/L) 3.6 3.5 L Chloride (100 - 108 MMOL/L) 107 105 Carbon Dioxide (22 - 32 MMOL/L) 30 26 BUN (6 - 20 MG/DL) 22 H 20 Creatinine (0.60 - 1.00 MG/DL) 1.47 H 1.50 H Estimated GFR (MDRD) (35 - 81) 46 45 Glucose (65 - 99 MG/DL) 140 H 186 H POC Glucose (65 - 99 MG/DL) 189 H Calcium (8.7 - 10.5 MG/DL) 8.9 9.7 Total Bilirubin (0.0 - 1.0 MG/DL) 1.4 H AST (15 - 37 Units/L) 28 ALT (30 - 65 Units/L) 28 L Alkaline Phosphatase (50 - 136 97 Units/L) Troponin I (0.00 - 0.06 NG/ML) 0.05 0.06 < 0.04 NT-Pro-B Natriuret Pep (0 - 450 PG/ML) 1347 H Total Protein (6.4 - 8.2 G/DL) 7.9 Albumin (3.4 - 5.0 G/DL) 3.9 Globulin (1.5 - 3.8 G/DL) 4.0 H Albumin/Globulin Ratio (1.1 - 2.2) 1.0 L Laboratory Tests 06/29 03/ 0535 0718 Hematology WBC (4.80 - 10.80 x10 3/uL) 8.17 9.07 RBC (4.7 - 6.1 x10 6/uL) 3.77 L 4.58 L Hgb (14.0 - 17.0 G/DL) 10.4 L 12.6 L Hct (42 - 52 %) 31.4 L 37.0 L MCV (80 - 94 FL) 83.3 80.8 MCH (27 - 31 PG) 27.6 27.5 MCHC (33 - 37 G/DL) 33.1 34.1 RDW Coeff of Desmond (11.5 - 14.5 %) 14.9 H 15.0 H Plt Count (150 - 450 x10 3/uL) 146 L 151 MPV (7.4 - 10.4 FL) 9.6 9.7 Neut % (Auto) (42 - 86 %) 50.5 69.2 Lymph % (Auto) (24 - 44 %) 32.9 19.6 L [place] % (Auto) (0.0 - 4.0 %) 11.8 H 7.6 H Eos % (Auto) (0.0 - 2.7 %) 3.5 H 2.4 Baso % (Auto) (0.0 - 0.5 %) 1.1 H 1.0 H Eos # (Auto) (0.0 - 0.5 x10 3/uL) 0.29 0.22 Baso # (Auto) (0.0 - 0.2 x10 3/uL) 0.09 0.09 Abs Immat Gran (auto) (0.00 - 0.03 x10 3/uL) 0.02 0.02 Absolute Neuts (auto) (1.8 - 7.7 x10 3/uL) 4.12 6.27 Absolute Lymphs (auto) (1.0 - 4.8 x10 3/uL) 2.69 1.78 Absolute Monos (auto) (0.0 - 0.8 x10 3/uL) 0.96 H 0.69 Absolute Nucleated RBC (0.0 - 0.2 X10 3/uL) 0.0 0.0 Immature Gran % (0.0 - 2.0 %) 0.2 0.2 Nucleated RBC % (0.0 - 0.0 %) 0.0 0.0 Laboratory Tests 06/28 0724 Toxicology Urine Opiates Screen (NEGATIVE) NEGATIVE Ur Barbiturates Screen (NEGATIVE) NEGATIVE Ur Phencyclidine Scrn (NEGATIVE) NEGATIVE Ur Amphetamine Screen (NEGATIVE) NEGATIVE MDMA (NEGATIVE) NEGATIVE U Benzodiazepines Scrn (NEGATIVE) NEGATIVE Urine Cocaine Screen (NEGATIVE) NEGATIVE U Cannabinoids Screen (NEGATIVE) NEGATIVE Laboratory Tests 06/28 0724 Urines Ur Spec Description Clean Catch Urine Color (YELLOW) Light-Yellow Urine Appearance (CLEAR) CLEAR Urine pH (5.5 - 7.0) 7.0 Ur Specific [place] (1.001 - 1.035) 1.012 Urine Protein (NEGATIVE mg/dL) 50 A Urine Glucose (UA) (NEGATIVE mg/dL) NORMAL Urine Ketones (NEGATIVE mg/dL) NEGATIVE Urine Blood 1+ Urine Nitrite (NEGATIVE) NEGATIVE Urine Bilirubin (NEGATIVE) NEGATIVE Urine Urobilinogen (NORMAL mg/dL) NORMAL Ur Leukocyte Esterase (NEGATIVE) NEGATIVE Urine RBC (NONE SEEN #/HPF) 41-50 A Urine WBC (0 - 10 #/HPF) < 10 Ur Squamous Epith Cells (<100 #/LPF) 0 - 20 Urine Mucus (NONE SEEN #/lpf) RARE Urine Culture Screen Criteria not met Urine Comment VOLUME 10-12 ML Radiology data: Recent Impressions: RADIOLOGY - XR PELVIS 1/2 VIEWS 06/28 07 Report Impression - Status: SIGNED Entered: 06/29/2019 0757 IMPRESSION: No acute bony injury or malalignment in the visualized pelvis. Impression By: Racheal Santiago RADIOLOGY - XR CHEST 1 V 06/28 07 Report Impression - Status: SIGNED Entered: 06/29/2019 0755 IMPRESSION: COPD and interstitial disease. Impression By: Racheal Santiago CAT SCAN - CT C-SPINE W/O CONT 06/28 0730 Report Impression - Status: SIGNED Entered: 06/29/2019 0803 IMPRESSION: No acute bony injury or malalignment in the cervical spine. Impression By: Racheal Santiago CAT SCAN - CT HEAD/BRAIN W/O CONT 06/28 0730 Report Impression - Status: SIGNED Entered: 06/29/2019 0754 IMPRESSION: No acute post-traumatic brain injury. Impression By: Racheal Santiago Diagnosis, Assessment Plan Free Text DxA P Notes Free Text DxA P Notes: Syncope Coronary artery disease status post stent in 2017, follows Dr. Hein Paroxysmal atrial tachycardia, with implanted loop recorder Left bundle branch block, chronic REAL on CPAP Hypertension Type 2 diabetes on insulin COPD Former smoker CKD, follows Dr. Nava Plan: -Asked patient to use loop recorder to send event, which he did in ED -Troponin negative x 3 -Cardiac telemetry without events -Echocardiogram -Home Lasix -Home aspirin -Home hydralazine, carvedilol -Home atorvastatin -Home tamsulosin -CPAP at night -Moderate SSI with Lantus 25 u qHS Cardiac diet DVT PPX: SCDs, short anticipated stay FULL CODE Dispo: Home at 0815 at 1825 RPT #:[id number] END OF REPORT [facility] 2019-06-29 14:06:00 [facility] ([facility]) Hospitalist History Physical REPORT#:[id number] REPORT STATUS: Signed DATE:06/29/19 TIME: 1406 PATIENT: BOB VITAL UNIT #: [id number] ROOM/BED: [place] [address] : 39 AGE: 79 SEX: M ATTEND: Patrice Schwartz MD ADM AUTHOR: Wilder Russo MD R2 * ALL edits or amendments must be made on the electronic/computer document * History of Present Illness HPI Chief complaint: Lost consciousness HPI: Mr. Vital is a 79-year-old male with past medical history of coronary artery disease status post stent in 2016, REAL on CPAP, hypertension, type 2 diabetes on insulin who presented to the ED with syncope. He states that he awoke overnight from bed and had sudden syncopal episode, falling out of bed. He states that prior, he had a few moments of diaphoresis and lightheadedness, and then lost consciousness. He denies any changes to his insulin or home antihypertensives. He denies chest pain, shortness of breath, nausea, vomiting. He denies similar episodes of this. He denies confusion afterwards and denies fecal, urinary incontinence. He has never had a seizure in the past. History Past medical history: Reports: Coronary artery disease, Diabetes mellitus, GERD/gastritis, Hypertension, BPH, Dyslipidemia. Additional medical history: Htn, IDDM, HLD, CAD sp 1 stent in 2017, HFrEF (unknown last echo), known LBBB, BPH, GERD, REAL, Malignant hyperthermia Additional surgical history: CARDIAC STENT in 2017 Lap yung 08/2016 ERCP in 09/2016 BL knee surgeries Alcohol use: Denies EtOH use Drug use: Denies recreational drugs Smoking status for patients 13 years old or older: Former Smoker Medication/Allergy-Vaccine Hx Home Medications: ASPIRIN EC (ECOTRIN) 81 MG PO DAILY ATORVASTATIN (LIPITOR) 40 MG PO DAILY CARVEDILOL (COREG) 12.5 MG PO BID CHOLECALCIFEROL (VITAMIN D3) (VITAMIN D3) 1,000 UNITS PO DAILY FUROSEMIDE (LASIX) 20 MG PO DAILY hydrALAZINE (APRESOLINE) 50 MG PO BID INSULIN ASPART (NovoLOG FLEXPEN) 0 UNITS SUBQ AC HS INSULIN GLARGINE (LANTUS) 25 UNITS SUBQ BID TAMSULOSIN ER (FLOMAX) 0.4 MG PO DAILY Allergies: Coded Allergies: vancomycin (Severe, DECREASED RENAL FX 06/29/19) Penicillins (UNKNOWN 06/29/19) succinylcholine (MALIGNANT HYPERTHERMIA 06/29/19) Uncoded Allergies: "ALLERGIC TO ANESTHIA" (Severe, ANAPHYLAXIS 12/17/17) Review of Systems Free Text ROS Notes: Free Text ROS Notes: 10 systems reviewed and negative unless stated above in HPI Objective General VS/I O: Vital Signs: Date Time Temp Pulse Resp B/P B/P Pulse O2 O2 Flow FiO2 Mean Ox Delivery Rate 06/28 2021 36.7 82 17 155/69 97.6 92 Room air 06/28 1623 36.5 80 18 145/68 93.4 93 06/28 1530 78 16 151/68 95 96 Nasal 2.513442 cannula / 1436 83 16 132/70 90 97 / 1236 82 16 139/60 86 96 Nasal 2.136423 cannula / 1130 84 16 146/65 92 95 Nasal 2.600793 cannula / 0950 36.6 / 0930 83 16 201/87 125 97 Nasal 2.380966 cannula / 0830 84 16 181/84 116 94 Nasal 2.876944 cannula / 0710 163/80 107 /04 0701 37.1 86 16 201/98 132 98 Room air Patient Weight Weight (lb): Weight (oz): Weight (kg): 97.727 Physical Exam General appearance: alert, awake, oriented Head/Eyes: atraumatic, normocephalic Neck: non-tender, no JVD Cardiovascular: normal capillary refill, normal heart sounds, regular rate rhythm Respiratory: aerating well, symmetric expansion Abdomen: non-tender, soft Extremities: moves all, no clubbing, no cyanosis 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, 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, CNII-XII intact, normal speech Skin: dry, intact Psychiatry: normal affect, normal mood Results Findings/Data: Laboratory Tests 06/28 06/28 06/28 06/28 1843 1641 1311 0718 Chemistry Sodium (133 - 145 MMOL/L) 142 Potassium (3.6 - 5.2 MMOL/L) 3.5 L Chloride (100 - 108 MMOL/L) 105 Carbon Dioxide (22 - 32 MMOL/L) 26 BUN (6 - 20 MG/DL) 20 Creatinine (0.60 - 1.00 MG/DL) 1.50 H Estimated GFR (MDRD) (35 - 81) 45 Glucose (65 - 99 MG/DL) 186 H POC Glucose (65 - 99 MG/DL) 189 H Calcium (8.7 - 10.5 MG/DL) 9.7 Total Bilirubin (0.0 - 1.0 MG/DL) 1.4 H AST (15 - 37 Units/L) 28 ALT (30 - 65 Units/L) 28 L Alkaline Phosphatase (50 - 136 Units/L) 97 Troponin I (0.00 - 0.06 NG/ML) 0.05 0.06 < 0.04 NT-Pro-B Natriuret Pep (0 - 450 PG/ML) 1347 H Total Protein (6.4 - 8.2 G/DL) 7.9 Albumin (3.4 - 5.0 G/DL) 3.9 Globulin (1.5 - 3.8 G/DL) 4.0 H Albumin/Globulin Ratio (1.1 - 2.2) 1.0 L Laboratory Tests 06/28 0718 Hematology WBC (4.80 - 10.80 x10 3/uL) 9.07 RBC (4.7 - 6.1 x10 6/uL) 4.58 L Hgb (14.0 - 17.0 G/DL) 12.6 L Hct (42 - 52 %) 37.0 L MCV (80 - 94 FL) 80.8 MCH (27 - 31 PG) 27.5 MCHC (33 - 37 G/DL) 34.1 RDW Coeff of Desmond (11.5 - 14.5 %) 15.0 H Plt Count (150 - 450 x10 3/uL) 151 MPV (7.4 - 10.4 FL) 9.7 Neut % (Auto) (42 - 86 %) 69.2 Lymph % (Auto) (24 - 44 %) 19.6 L [place] % (Auto) (0.0 - 4.0 %) 7.6 H Eos % (Auto) (0.0 - 2.7 %) 2.4 Baso % (Auto) (0.0 - 0.5 %) 1.0 H Eos # (Auto) (0.0 - 0.5 x10 3/uL) 0.22 Baso # (Auto) (0.0 - 0.2 x10 3/uL) 0.09 Abs Immat Gran (auto) (0.00 - 0.03 x10 3/uL) 0.02 Absolute Neuts (auto) (1.8 - 7.7 x10 3/uL) 6.27 Absolute Lymphs (auto) (1.0 - 4.8 x10 3/uL) 1.78 Absolute Monos (auto) (0.0 - 0.8 x10 3/uL) 0.69 Absolute Nucleated RBC (0.0 - 0.2 X10 3/uL) 0.0 Immature Gran % (0.0 - 2.0 %) 0.2 Nucleated RBC % (0.0 - 0.0 %) 0.0 Laboratory Tests 06/28 0724 Toxicology Urine Opiates Screen (NEGATIVE) NEGATIVE Ur Barbiturates Screen (NEGATIVE) NEGATIVE Ur Phencyclidine Scrn (NEGATIVE) NEGATIVE Ur Amphetamine Screen (NEGATIVE) NEGATIVE MDMA (NEGATIVE) NEGATIVE U Benzodiazepines Scrn (NEGATIVE) NEGATIVE Urine Cocaine Screen (NEGATIVE) NEGATIVE U Cannabinoids Screen (NEGATIVE) NEGATIVE Laboratory Tests 06/28 0724 Urines Ur Spec Description Clean Catch Urine Color (YELLOW) Light-Yellow Urine Appearance (CLEAR) CLEAR Urine pH (5.5 - 7.0) 7.0 Ur Specific [place] (1.001 - 1.035) 1.012 Urine Protein (NEGATIVE mg/dL) 50 Urine Glucose (UA) (NEGATIVE mg/dL) NORMAL Urine Ketones (NEGATIVE mg/dL) NEGATIVE Urine Blood 1+ Urine Nitrite (NEGATIVE) NEGATIVE Urine Bilirubin (NEGATIVE) NEGATIVE Urine Urobilinogen (NORMAL mg/dL) NORMAL Ur Leukocyte Esterase (NEGATIVE) NEGATIVE Urine RBC (NONE SEEN #/HPF) 41-50 Urine WBC (0 - 10 #/HPF) < 10 Ur Squamous Epith Cells (<100 #/LPF) 0 - 20 Urine Mucus (NONE SEEN #/lpf) RARE Urine Culture Screen Criteria not met Urine Comment VOLUME 10-12 ML Radiology data: Recent Impressions: RADIOLOGY - XR PELVIS 1/2 VIEWS 06/28 0720 Report Impression - Status: SIGNED Entered: 06/29/2019 0757 IMPRESSION: No acute bony injury or malalignment in the visualized pelvis. Impression By: Racheal Santiago RADIOLOGY - XR CHEST 1 V 06/29 719 Report Impression - Status: SIGNED Entered: 06/29/2019 0755 IMPRESSION: COPD and interstitial disease. Impression By: Racheal Santiago CAT SCAN - CT C-SPINE W/O CONT 06/28 07 Report Impression - Status: SIGNED Entered: 06/29/2019 0803 IMPRESSION: No acute bony injury or malalignment in the cervical spine. Impression By: Racheal Santiago CAT SCAN - CT HEAD/BRAIN W/O CONT 06/28 729 Report Impression - Status: SIGNED Entered: 06/29/2019 0754 IMPRESSION: No acute post-traumatic brain injury. Impression By: Racheal Santiago Diagnosis, Assessment Plan Free Text DxA P Notes Free Text DxA P Notes: Syncope Coronary artery disease status post stent in 2017, follows Dr. Hein Paroxysmal atrial tachycardia, with implanted loop recorder Left bundle branch block, chronic REAL on CPAP Hypertension Type 2 diabetes on insulin COPD Former smoker CKD, follows Dr. Nava Plan: -Asked patient to use loop recorder to send event, which he did in ED -Troponin negative x 3 -Cardiac telemetry -Echocardiogram -Home Lasix -Home aspirin -Home hydralazine, carvedilol -Home atorvastatin -Home tamsulosin -CPAP at night -Moderate SSI with Lantus 25 u qHS Cardiac diet DVT PPX: SCDs, short anticipated stay FULL CODE Dispo: Home at 0635 RPT #:[id number] END OF REPORT [facility] 2019-06-29 14:06:00 [facility] ([facility]) Hospitalist History Physical REPORT#:[id number] REPORT STATUS: Signed DATE:06/29/19 TIME: 1406 PATIENT: BOB VITAL UNIT #: [id number] ROOM/BED: [facility] : 39 AGE: 79 SEX: M ATTEND: Patrice Schwartz MD ADM AUTHOR: Wilder Russo MD R3 * ALL edits or amendments must be made on the electronic/computer document * History of Present Illness HPI Chief complaint: Lost consciousness HPI: Mr. Vital is a 79-year-old male with past medical history of coronary artery disease status post stent in 2017, REAL on CPAP, hypertension, type 2 diabetes on insulin who presented to the ED with syncope. He states that he awoke overnight from bed and had sudden syncopal episode, falling out of bed. He states that prior, he had a few moments of diaphoresis and lightheadedness, and then lost consciousness. He denies any changes to his insulin or home antihypertensives. He denies chest pain, shortness of breath, nausea, vomiting. He denies similar episodes of this. He denies confusion afterwards and denies fecal, urinary incontinence. He has never had a seizure in the past. History Past medical history: Reports: Coronary artery disease, Diabetes mellitus, GERD/gastritis, Hypertension, BPH, Dyslipidemia. Additional medical history: Htn, IDDM, HLD, CAD sp 1 stent in 2017, HFrEF (unknown last echo), known LBBB, BPH, GERD, REAL, Malignant hyperthermia Additional surgical history: CARDIAC STENT in 2016 Lap yung 08/2016 ERCP in 09/2016 BL knee surgeries Alcohol use: Denies EtOH use Drug use: Denies recreational drugs Smoking status for patients 13 years old or older: Former Smoker Medication/Allergy-Vaccine Hx Home Medications: ASPIRIN EC (ECOTRIN) 81 MG PO DAILY ATORVASTATIN (LIPITOR) 40 MG PO DAILY CARVEDILOL (COREG) 12.5 MG PO BID CHOLECALCIFEROL (VITAMIN D3) (VITAMIN D3) 1,000 UNITS PO DAILY FUROSEMIDE (LASIX) 20 MG PO DAILY hydrALAZINE (APRESOLINE) 50 MG PO BID INSULIN ASPART (NovoLOG FLEXPEN) 0 UNITS SUBQ AC HS INSULIN GLARGINE (LANTUS) 25 UNITS SUBQ BID TAMSULOSIN ER (FLOMAX) 0.4 MG PO DAILY Allergies: Coded Allergies: vancomycin (Severe, DECREASED RENAL FX 06/29/19) Penicillins (UNKNOWN 06/29/19) succinylcholine (MALIGNANT HYPERTHERMIA 06/29/19) Uncoded Allergies: "ALLERGIC TO ANESTHIA" (Severe, ANAPHYLAXIS 12/17/17) Review of Systems Free Text ROS Notes: Free Text ROS Notes: 10 systems reviewed and negative unless stated above in HPI Objective General VS/I O: Vital Signs: Date Time Temp Pulse Resp B/P B/P Pulse O2 O2 Flow FiO2 Mean Ox Delivery Rate 06/28 2021 36.7 82 17 155/69 97.6 92 Room air 06/28 1623 36.5 80 18 145/68 93.4 93 06/28 1530 78 16 151/68 95 96 Nasal 2.841314 cannula / 1436 83 16 132/70 90 97 / 1236 82 16 139/60 86 96 Nasal 2.384915 cannula / 1130 84 16 146/65 92 95 Nasal 2.114379 cannula / 0950 36.6 06/28 0930 83 16 201/87 125 97 Nasal 2.398077 cannula / 0830 84 16 181/84 116 94 Nasal 2.949264 cannula 06/28 0710 163/80 107 /04 0701 37.1 86 16 201/98 132 98 Room air Patient Weight Weight (lb): Weight (oz): Weight (kg): 97.727 Physical Exam General appearance: alert, awake, oriented Head/Eyes: atraumatic, normocephalic Neck: non-tender, no JVD Cardiovascular: normal capillary refill, normal heart sounds, regular rate rhythm Respiratory: aerating well, symmetric expansion Abdomen: non-tender, soft Extremities: moves all, no clubbing, no cyanosis 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, 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, CNII-XII intact, normal speech Skin: dry, intact Psychiatry: normal affect, normal mood Results Findings/Data: Laboratory Tests 06/28 06/28 06/28 06/28 1843 1641 1311 0718 Chemistry Sodium (133 - 145 MMOL/L) 142 Potassium (3.6 - 5.2 MMOL/L) 3.5 L Chloride (100 - 108 MMOL/L) 105 Carbon Dioxide (22 - 32 MMOL/L) 26 BUN (6 - 20 MG/DL) 20 Creatinine (0.60 - 1.00 MG/DL) 1.50 H Estimated GFR (MDRD) (35 - 81) 45 Glucose (65 - 99 MG/DL) 186 H POC Glucose (65 - 99 MG/DL) 189 H Calcium (8.7 - 10.5 MG/DL) 9.7 Total Bilirubin (0.0 - 1.0 MG/DL) 1.4 H AST (15 - 37 Units/L) 28 ALT (30 - 65 Units/L) 28 L Alkaline Phosphatase (50 - 136 Units/L) 97 Troponin I (0.00 - 0.06 NG/ML) 0.05 0.06 < 0.04 NT-Pro-B Natriuret Pep (0 - 450 PG/ML) 1347 H Total Protein (6.4 - 8.2 G/DL) 7.9 Albumin (3.4 - 5.0 G/DL) 3.9 Globulin (1.5 - 3.8 G/DL) 4.0 H Albumin/Globulin Ratio (1.1 - 2.2) 1.0 L Laboratory Tests 06/28 0718 Hematology WBC (4.80 - 10.80 x10 3/uL) 9.07 RBC (4.7 - 6.1 x10 6/uL) 4.58 L Hgb (14.0 - 17.0 G/DL) 12.6 L Hct (42 - 52 %) 37.0 L MCV (80 - 94 FL) 80.8 MCH (27 - 31 PG) 27.5 MCHC (33 - 37 G/DL) 34.1 RDW Coeff of Desmond (11.5 - 14.5 %) 15.0 H Plt Count (150 - 450 x10 3/uL) 151 MPV (7.4 - 10.4 FL) 9.7 Neut % (Auto) (42 - 86 %) 69.2 Lymph % (Auto) (24 - 44 %) 19.6 L [place] % (Auto) (0.0 - 4.0 %) 7.6 H Eos % (Auto) (0.0 - 2.7 %) 2.4 Baso % (Auto) (0.0 - 0.5 %) 1.0 H Eos # (Auto) (0.0 - 0.5 x10 3/uL) 0.22 Baso # (Auto) (0.0 - 0.2 x10 3/uL) 0.09 Abs Immat Gran (auto) (0.00 - 0.03 x10 3/uL) 0.02 Absolute Neuts (auto) (1.8 - 7.7 x10 3/uL) 6.27 Absolute Lymphs (auto) (1.0 - 4.8 x10 3/uL) 1.78 Absolute Monos (auto) (0.0 - 0.8 x10 3/uL) 0.69 Absolute Nucleated RBC (0.0 - 0.2 X10 3/uL) 0.0 Immature Gran % (0.0 - 2.0 %) 0.2 Nucleated RBC % (0.0 - 0.0 %) 0.0 Laboratory Tests 06/29 723 Toxicology Urine Opiates Screen (NEGATIVE) NEGATIVE Ur Barbiturates Screen (NEGATIVE) NEGATIVE Ur Phencyclidine Scrn (NEGATIVE) NEGATIVE Ur Amphetamine Screen (NEGATIVE) NEGATIVE MDMA (NEGATIVE) NEGATIVE U Benzodiazepines Scrn (NEGATIVE) NEGATIVE Urine Cocaine Screen (NEGATIVE) NEGATIVE U Cannabinoids Screen (NEGATIVE) NEGATIVE Laboratory Tests 06/29 723 Urines Ur Spec Description Clean Catch Urine Color (YELLOW) Light-Yellow Urine Appearance (CLEAR) CLEAR Urine pH (5.5 - 7.0) 7.0 Ur Specific [place] (1.001 - 1.035) 1.012 Urine Protein (NEGATIVE mg/dL) 50 Urine Glucose (UA) (NEGATIVE mg/dL) NORMAL Urine Ketones (NEGATIVE mg/dL) NEGATIVE Urine Blood 1+ Urine Nitrite (NEGATIVE) NEGATIVE Urine Bilirubin (NEGATIVE) NEGATIVE Urine Urobilinogen (NORMAL mg/dL) NORMAL Ur Leukocyte Esterase (NEGATIVE) NEGATIVE Urine RBC (NONE SEEN #/HPF) 41-50 Urine WBC (0 - 10 #/HPF) < 10 Ur Squamous Epith Cells (<100 #/LPF) 0 - 20 Urine Mucus (NONE SEEN #/lpf) RARE Urine Culture Screen Criteria not met Urine Comment VOLUME 10-12 ML Radiology data: Recent Impressions: RADIOLOGY - XR PELVIS 1/2 VIEWS 06/29 719 Report Impression - Status: SIGNED Entered: 06/29/2019 0757 IMPRESSION: No acute bony injury or malalignment in the visualized pelvis. Impression By: Racheal Santiago RADIOLOGY - XR CHEST 1 V 06/29 719 Report Impression - Status: SIGNED Entered: 06/29/2019 0755 IMPRESSION: COPD and interstitial disease. Impression By: Racheal Santiago CAT SCAN - CT C-SPINE W/O CONT 06/28 0730 Report Impression - Status: SIGNED Entered: 06/29/2019 0803 IMPRESSION: No acute bony injury or malalignment in the cervical spine. Impression By: Racheal Jacobs MD vRtorres CAT SCAN - CT HEAD/BRAIN W/O CONT 06/28 0730 Report Impression - Status: SIGNED Entered: 06/29/2019 0754 IMPRESSION: No acute post-traumatic brain injury. Impression By: Racheal Jacobs MD vRtorres Diagnosis, Assessment Plan Free Text DxA P Notes Free Text DxA P Notes: Syncope Coronary artery disease status post stent in 2017, follows Dr. Hein Paroxysmal atrial tachycardia, with implanted loop recorder Left bundle branch block, chronic REAL on CPAP Hypertension Type 2 diabetes on insulin COPD Former smoker CKD, follows Dr. Nava Plan: -Asked patient to use loop recorder to send event, which he did in ED -Troponin negative x 3 -Cardiac telemetry -Echocardiogram -Home Lasix -Home aspirin -Home hydralazine, carvedilol -Home atorvastatin -Home tamsulosin -CPAP at night -Moderate SSI with Lantus 25 u qHS Cardiac diet DVT PPX: SCDs, short anticipated stay FULL CODE Dispo: Home at 0635 at 1817 RPT #:[id number] END OF REPORT [facility] 2019-06-29 07:13:00 [id number] [place], [place] PATIENT NAME: BOB VITAL ADMIT DATE: 06/29/19 ACCOUNT NO: [id number] ROOM NO: [id number] AGE: 79 REPORT TYPE: ELECTROCARDIOGRAM SEX: M : 38 ADMITTING PHYSICIAN:Patrice Schwartz MD ATTENDING PHYSICIAN:Patrice Schwartz MD Order: [id number] Test Reason : Test Date/Time Stamp: ThuJun 29 2019 07:13:27 Blood Pressure : / mmHG Vent. Rate : 087 BPM Atrial Rate : 087 BPM P-R Int : 180 ms QRS Dur : 162 ms QT Int : 438 ms P-R-T Axes : 068 065 200 degrees QTc Int : 527 ms Normal sinus rhythm Left bundle branch block Abnormal ECG When compared with ECG of 17-DEC-2018 23:54, T wave inversion more evident in Inferior leads QT has lengthened Confirmed by VICENTE QUINTEROS ([id number]), production editor LAUREN KABA ([id number]) on 07/01/2019 10:48:58 AM Referred By: Vicente Quinteros Confirmed by:VICENTE QUINTEROS at 1050 PATIENT NAME: BOB VITAL [facility] 2019-06-29 07:09:00 [facility] ([facility]) OR A [facility]AMP[facility] OF [facility] EMERGENCY PROVIDER REPORT REPORT#:[id number] REPORT STATUS: Signed DATE:06/29/19 TIME: 07 PATIENT: BOB VITAL UNIT #: [id number] ROOM/BED: [place] [address] AGE: 79 SEX: M PCP PHYS: Scar Diaz MD SERVICE AUTHOR: Vicente Quinteros MD * ALL edits or amendments must be made on the electronic/computer document * HPI-General Illness Free Text HPI Notes Free Text HPI Notes Patient brought in by EMS for a syncope. Patient states that he was having chest pain and then he passed out, patient has had this before. When EMS got there, patient was sleepy, eventually woke up. He did hit his head. EMS gave nothing in route. Patient states that his chest pain felt like a sharp pain, is now gone. Patient has had this before in the past. Patient denies any shortness of breath, denies any headache. Acute onset. Mild severity. Patient states that he was just getting up from sleeping when it happened. Patient is currently complaining of nothing right now with makes it better, nothing makes it worse. General Initial Greet Date/Time 06/29/19 0700 Presentation Chief Complaint __ (syncope ) Review of Systems ROS Statements All systems rev neg except as marked. Free Text ROS Notes Free Text ROS Notes ROS: As per HPI and below. All other systems are negative. Constitutional: no fever Eyes: no drainage ENT: no runny nose CV: chest pain Resp: no SOB GI: no vomiting : no dysuria Skin: no rash Hem: no petechiae Allergy: no hives Musculoskeletal: no leg swelling Neurological: no slurred speech Past Medical History - Adult Stated Complaint SYNCOPAL EPISODE Allergies Coded Allergies: vancomycin (Severe, DECREASED RENAL FX 06/29/19) Penicillins (UNKNOWN 06/29/19) succinylcholine (MALIGNANT HYPERTHERMIA 06/29/19) Uncoded Allergies: "ALLERGIC TO ANESTHIA" (Severe, ANAPHYLAXIS 12/17/17) Home Medications Reported Medications ASPIRIN EC (ECOTRIN) 81 MG PO DAILY CHOLECALCIFEROL (VITAMIN D3) (VITAMIN D3) 1,000 UNITS PO DAILY CARVEDILOL (COREG) 12.5 MG PO BID ATORVASTATIN (LIPITOR) 40 MG PO DAILY TAMSULOSIN ER (FLOMAX) 0.4 MG PO DAILY INSULIN ASPART (NovoLOG FLEXPEN) 0 UNITS SUBQ AC HS INSULIN GLARGINE (LANTUS) 40 UNITS SUBQ DAILY FUROSEMIDE (LASIX) 20 MG PO DAILY hydrALAZINE (APRESOLINE) 50 MG PO BID Review of Nursing Notes reviewed Past Medical History: Reports: Coronary artery disease, Diabetes mellitus, GERD/gastritis, Hypertension, BPH, Dyslipidemia. Additional Medical History Htn, IDDM, HLD, CAD sp 1 stent in 2017, HFrEF (unknown last echo), known LBBB, BPH, GERD, REAL, Malignant hyperthermia Additional Surgical History CARDIAC STENT in 2017 Lap yung 08/2016 ERCP in 09/2016 BL knee surgeries Alcohol Use Denies EtOH use Drug Use Denies recreational drugs Smoking status for patients 13 years old or older: Former Smoker Physical Exam Vital Signs Vital Signs First Documented: Result Date Time Pulse Ox 98 06/28 0701 B/P 201/98 06/28 07 B/P Mean 132 06/28 0701 O2 Delivery Room air 06/28 700 Temp 37.1 06/28 700 Pulse 86 06/28 07 Resp 16 06/28 700 Last Documented: Result Date Time B/P 163/80 06/28 0710 B/P Mean 107 06/28 0710 Pulse Ox 98 06/28 700 O2 Delivery Room air 06/28 700 Temp 37.1 06/28 700 Pulse 86 06/28 07 Resp 16 06/28 700 Review of Vital Signs Reviewed Free Text PE Notes Free Text PE Notes CONSTITUTIONAL: Alert and oriented and responds appropriately to questions. Well -appearing; well-nourished HEAD: Normocephalic; superficial abrasion over the right eyebrow EYES: Conjunctiva non-injected millimeters and reactive bilateral ENT: moist mucous membranes NECK: Supple, full rom, no signs of neck stiffness or pain. CARD: No Murmurs RESP: no respiratory distress ABD/GI: non-distended, nontender, no guarding BACK: normal ROM, no cva tenderness EXT: appear atraumatic SKIN: Normal color, no rash NEURO: Moves all extremities equally, A/O, no facial droop, able to follow commands, no visual field deficits, no sensory deficits NIH 0 PSYCH: The patient's mood and manner are appropriate. Grooming and personal hygiene are appropriate Interpretation Diagnostics Lab Results Interpretation Results Laboratory Tests 06/29/19 0718: [Embedded Image Not Available] Laboratory Tests: 06/28 06/28 0724 0718 Chemistry Sodium (133 - 145 MMOL/L) 142 Potassium (3.6 - 5.2 MMOL/L) 3.5 L Chloride (100 - 108 MMOL/L) 105 Carbon Dioxide (22 - 32 MMOL/L) 26 BUN (6 - 20 MG/DL) 20 Creatinine (0.60 - 1.00 MG/DL) 1.50 H Estimated GFR (MDRD) (35 - 81) 45 Glucose (65 - 99 MG/DL) 186 H Calcium (8.7 - 10.5 MG/DL) 9.7 Total Bilirubin (0.0 - 1.0 MG/DL) 1.4 H AST (15 - 37 Units/L) 28 ALT (30 - 65 Units/L) 28 L Alkaline Phosphatase (50 - 136 Units/L) 97 Troponin I (0.00 - 0.06 NG/ML) < 0.04 NT-Pro-B Natriuret Pep (0 - 450 PG/ML) 1347 H Total Protein (6.4 - 8.2 G/DL) 7.9 Albumin (3.4 - 5.0 G/DL) 3.9 Globulin (1.5 - 3.8 G/DL) 4.0 H Albumin/Globulin Ratio (1.1 - 2.2) 1.0 L Hematology WBC (4.80 - 10.80 x10 3/uL) 9.07 RBC (4.7 - 6.1 x10 6/uL) 4.58 L Hgb (14.0 - 17.0 G/DL) 12.6 L Hct (42 - 52 %) 37.0 L MCV (80 - 94 FL) 80.8 MCH (27 - 31 PG) 27.5 MCHC (33 - 37 G/DL) 34.1 RDW Coeff of [place]mond (11.5 - 14.5 %) 15.0 H Plt Count (150 - 450 x10 3/uL) 151 MPV (7.4 - 10.4 FL) 9.7 Neut % (Auto) (42 - 86 %) 69.2 Lymph % (Auto) (24 - 44 %) 19.6 L [place] % (Auto) (0.0 - 4.0 %) 7.6 H Eos % (Auto) (0.0 - 2.7 %) 2.4 Baso % (Auto) (0.0 - 0.5 %) 1.0 H Eos # (Auto) (0.0 - 0.5 x10 3/uL) 0.22 Baso # (Auto) (0.0 - 0.2 x10 3/uL) 0.09 Abs Immat Gran (auto) (0.00 - 0.03 x10 3/uL) 0.02 Absolute Neuts (auto) (1.8 - 7.7 x10 3/uL) 6.27 Absolute Lymphs (auto) (1.0 - 4.8 x10 3/uL) 1.78 Absolute Monos (auto) (0.0 - 0.8 x10 3/uL) 0.69 Absolute Nucleated RBC (0.0 - 0.2 X10 3/uL) 0.0 Immature Gran % (0.0 - 2.0 %) 0.2 Nucleated RBC % (0.0 - 0.0 %) 0.0 Toxicology Urine Opiates Screen (NEGATIVE) NEGATIVE Ur Barbiturates Screen (NEGATIVE) NEGATIVE Ur Phencyclidine Scrn (NEGATIVE) NEGATIVE Ur Amphetamine Screen (NEGATIVE) NEGATIVE MDMA (NEGATIVE) NEGATIVE U Benzodiazepines Scrn (NEGATIVE) NEGATIVE Urine Cocaine Screen (NEGATIVE) NEGATIVE U Cannabinoids Screen (NEGATIVE) NEGATIVE Urines Ur Spec Description Clean Catch Urine Color (YELLOW) Light-Yellow Urine Appearance (CLEAR) CLEAR Urine pH (5.5 - 7.0) 7.0 Ur Specific [place] (1.001 - 1.035) 1.012 Urine Protein (NEGATIVE mg/dL) 50 Urine Glucose (UA) (NEGATIVE mg/dL) NORMAL Urine Ketones (NEGATIVE mg/dL) NEGATIVE Urine Blood 1+ Urine Nitrite (NEGATIVE) NEGATIVE Urine Bilirubin (NEGATIVE) NEGATIVE Urine Urobilinogen (NORMAL mg/dL) NORMAL Ur Leukocyte Esterase (NEGATIVE) NEGATIVE Urine RBC (NONE SEEN #/HPF) 41-50 Urine WBC (0 - 10 #/HPF) < 10 Ur Squamous Epith Cells (<100 #/LPF) 0 - 20 Urine Mucus (NONE SEEN #/lpf) RARE Urine Culture Screen Criteria not met Urine Comment VOLUME 10-12 ML Recent Impressions: RADIOLOGY - XR PELVIS 1/2 VIEWS 06/28 0720 Report Impression - Status: SIGNED Entered: 06/29/2019 0757 IMPRESSION: No acute bony injury or malalignment in the visualized pelvis. Impression By: Racheal Santiago RADIOLOGY - XR CHEST 1 V 06/28 0720 Report Impression - Status: SIGNED Entered: 06/29/2019 0755 IMPRESSION: COPD and interstitial disease. Impression By: Racheal Santiago CAT SCAN - CT C-SPINE W/O CONT 06/28 0730 Report Impression - Status: SIGNED Entered: 06/29/2019 0803 IMPRESSION: No acute bony injury or malalignment in the cervical spine. Impression By: Racheal Santiago CAT SCAN - CT HEAD/BRAIN W/O CONT 06/28 0730 Report Impression - Status: SIGNED Entered: 06/29/2019 0754 IMPRESSION: No acute post-traumatic brain injury. Impression By: Racheal Santiago Lab Imaging Statement Laboratory radiographic studies reviewed and considered in the medical decision-making. ECG #1 Interpretation Text/Dict Note 0713 normal sinus rhythm rate 87 left bundle branch block no stemi per sgarbossa criteria. wide qrs. Normal axis Re-Evaluation MDM Free Text MDM Notes Free Text MDM Notes 79 yo with syncope and collapse and chest pain, patient's EKG did show a left bundle branch block, patient's troponin was negative, patient is no longer have any chest pain. Is having no shortness of breath do not suspect PE, do not suspect dissection. Patient did receive an aspirin. Patient's electrodes are fairly unremarkable, patient CT scan showed no fracture, no acute bleeding. Patient's x-rays also show no fracture. Spoke with the hospitalist accepted patient for admission. Patient agrees with the plan. Re-Evaluation/Progress #1 Text/Dict Note 0800 patient doing well, patient states chest pain is gone ED Course Medication(s) Ordered Medication(s) Ordered: Central Nervous System Agents Sig/Renato Start time Last Medication Dose Route Stop Time Status Admin Aspirin 324 MG X1ED STA 06/29 0715 DC / PO 06/28 0816 0828 Electrolytic, Caloric, And Cathryn Sig/Renato Start time Last Medication Dose Route Stop Time Status Admin Sodium Chloride 500 ML BOLUS 06/28 714 AC 06/28 IV 08/27 07 0829 Gastrointestinal Drugs Sig/Renato Start time Last Medication Dose Route Stop Time Status Admin Ondansetron HCl 4 MG X1ED STA 06/28 0822 DC 06/28 IV 06/28 0823 0828 Patient Discharge Departure Vital Signs/Condition Vital Signs First Documented: Result Date Time Pulse Ox 98 03/04 0701 B/P 201/98 03/04 0701 B/P Mean 132 03/04 0701 O2 Delivery Room air 03/04 0701 Temp 37.1 03/04 0701 Pulse 86 03/04 0701 Resp 16 /04 0701 Last Documented: Result Date Time B/P 163/80 /04 0710 B/P Mean 107 03/04 0710 Pulse Ox 98 /04 0701 O2 Delivery Room air 03/ 0701 Temp 37.1 /04 0701 Pulse 86 03/04 0701 Resp 16 /04 0701 All vital signs available at the time of this entry have been reviewed. Clinical Impression Clinical Impression Primary Impression: Syncope and collapse Secondary Impressions: Acute chest pain Disposition Decision Admit Admit Physician Name Patrice Schwartz MD )( Admission Accepts Yes )( Accepted Time 814 )( Accepted Date 06/29/19 at 1040 RPT #:[id number] END OF REPORT [facility] 2018-12-19 09:36:00 [facility] ([facility]) Hospitalist Progress Note REPORT#:[id number] REPORT STATUS: Signed DATE:12/19/18 TIME: 935 PATIENT: BOB VITAL UNIT #: [id number] ROOM/BED: [facility]-1 : 39 AGE: 78 SEX: M ATTEND: Sally Santoro MD ADM AUTHOR: Sally Santoro MD * ALL edits or amendments must be made on the electronic/computer document * Subjective Free Text Subj Notes Free Subj Notes: Transferred to floor from ICU HD catheter removed No active issues Doing well, states weakness has improved and so has his mentation. Denies any chest pain, SOB, fever, chills, abdominal pain, constipation, or diarrhea. Review of Systems All systems rev neg: except as marked (except as stated above) Objective General VS/I O: Vital Signs: Date Time Temp Pulse Resp B/P B/P Pulse O2 O2 Flow FiO2 Mean Ox Delivery Rate 12/19 0809 97.9 80 12 147/72 96.9 98 Room air 12/19 0456 98.1 76 18 128/72 90.4 99 BiPAP mask 12/19 0222 78 17 98 28 12/18 2350 97.7 78 18 133/63 86.2 98 BiPAP mask 12/18 2320 85 15 95 28 12/18 2143 85 95 28 12/18 1942 98.1 85 18 171/70 104.0 95 Room air 12/18 1810 98.1 84 18 169/50 89.7 99 12/18 1701 86 19 127/60 87 99 12/18 1600 79 17 142/72 100 98 12/18 1532 98.7 76 16 147/65 92 97 Room air 12/18 1500 83 17 147/65 93 98 12/18 1401 87 20 140/65 93 98 12/18 1215 79 23 139/58 91 98 12/18 1200 77 15 129/59 85 98 12/18 1145 77 19 136/63 90 98 12/18 1130 98.6 12/18 1130 76 17 142/69 94 98 12/18 1116 77 16 141/64 92 98 12/18 1101 75 19 137/63 90 100 12/18 1045 75 19 142/60 87 100 12/18 1031 81 22 155/98 118 98 12/18 1000 71 16 136/58 87 98 12/18 0945 73 16 128/63 90 99 24 hour I O ending at 0700: 12/19 0712/18 1900 Intake Total 500.00 Output Total 625 600 Balance -625 -100.00 Intake, IV 500.00 Number 1 Bowel Movements Number 0 Incontinent Voids Number Voids 3 Output, Urine 625 600 Patient Weight Weight (lb): Weight (oz): Weight (kg): 91.818 Medications: Active Meds + DC'd Last 24 Hrs Insulin Human Lispro MILD SLIDING SCALE (Thin, NPO, sensitive) AC HS SUBQ Undefined Medication 10 UNIT BEDTIME SUBQ Dextrose 20 GM ASDIR PRN PO Dextrose/Water 25 GM ASDIR PRN IV Dextrose/Water 12.5 GM ASDIR PRN IV Enoxaparin Sodium 30 MG Q24H SUBQ Sodium Chloride 1,000 ML .Q20H IV Undefined Medication 8.4 GM DAILY PO (DC) Physical Exam General appearance: alert, awake, oriented, no acute distress, pleasant, conversational Head/Eyes: atraumatic, clear cornea, EOMI, normal conjunctiva/sclera ENT: moist mucosal membranes, normal pharynx Neck: non-tender, normal thyroid, no JVD Cardiovascular: normal capillary refill, normal heart sounds, regular rate rhythm Respiratory: aerating well, clear to auscultation, symmetric expansion Abdomen: non-tender, normal bowel sounds, soft, no distention Extremities: moves all, normal capillary refill, no edema Musculoskeletal: normal inspection 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, 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, CNII-XII intact Results Findings/Data: Laboratory Tests 12/19 12/19 12/18 12/18 12/18 0730 0518 2041 1703 1606 Chemistry Sodium (133 - 145 MMOL/L) 140 Potassium (3.6 - 5.2 MMOL/L) 4.8 Chloride (100 - 108 MMOL/L) 105 Carbon Dioxide (22 - 32 MMOL/L) 26 BUN (6 - 20 MG/DL) 27 H Creatinine (0.60 - 1.00 MG/DL) 1.77 H Estimated GFR (MDRD) (42 - 98) 37 L Glucose (65 - 99 MG/DL) 221 H POC Glucose (65 - 99 MG/DL) 186 H 262 H 243 H 268 H Calcium (8.7 - 10.5 MG/DL) 9.2 Magnesium (1.8 - 2.4 MG/DL) 2.0 Total Bilirubin (0.0 - 1.0 MG/DL) 0.7 AST (15 - 37 Units/L) 23 ALT (30 - 65 Units/L) 37 Alkaline Phosphatase (50 - 136 Units/L) 130 Total Protein (6.4 - 8.2 G/DL) 6.7 Albumin (3.4 - 5.0 G/DL) 3.4 Globulin (1.5 - 3.8 G/DL) 3.3 Albumin/Globulin Ratio (1.1 - 2.2) 1.0 L Laboratory Tests 12/19 0730 Hematology WBC (4.80 - 10.80 x10 3/uL) 7.11 RBC (4.7 - 6.1 x10 6/uL) 3.79 L Hgb (14.0 - 17.0 G/DL) 10.7 L Hct (42 - 52 %) 32.7 L MCV (80 - 94 FL) 86.3 MCH (27 - 31 PG) 28.2 MCHC (33 - 37 G/DL) 32.7 L RDW Coeff of Desmond (11.5 - 14.5 %) 13.6 Plt Count (150 - 450 x10 3/uL) 127 L MPV (7.4 - 10.4 FL) 9.8 Neut % (Auto) (42 - 86 %) 51.7 Lymph % (Auto) (24 - 44 %) 31.9 [place] % (Auto) (0.0 - 4.0 %) 10.3 H Eos % (Auto) (0.0 - 2.7 %) 4.9 H Baso % (Auto) (0.0 - 0.5 %) 0.8 H Eos # (Auto) (0.0 - 0.5 x10 3/uL) 0.35 Baso # (Auto) (0.0 - 0.2 x10 3/uL) 0.06 Abs Immat Gran (auto) (0.00 - 0.03 x10 3/uL) 0.03 Absolute Neuts (auto) (1.8 - 7.7 x10 3/uL) 3.67 Absolute Lymphs (auto) (1.0 - 4.8 x10 3/uL) 2.27 Absolute Monos (auto) (0.0 - 0.8 x10 3/uL) 0.73 Absolute Nucleated RBC (0.0 - 0.2 X10 3/uL) 0.0 Immature Gran % (0.0 - 2.0 %) 0.4 Nucleated RBC % (0.0 - 0.0 %) 0.0 Radiology data: Recent Impressions: [facility]UCLE[facility]IC[facility] - [facility] 12/18 1230 Report Impression - Status: SIGNED Entered: 12/18/2018 1732 IMPRESSION: Symmetric flow to both kidneys with somewhat delayed excretion of the radiopharmaceutical into the collecting system in the right side. Normal bilateral nephrograms. Impression By: [email or web address] - Bob Bowie MD ULTRASOUND - US RETROPERITONEAL COM 12/18 191 Report Impression - Status: SIGNED Entered: 12/18/2018 1006 IMPRESSION: 1. No evidence hydronephrosis or perinephric fluid collection. Impression By: [email or web address] - Arden Valdes MD Diagnosis, Assessment Plan Free Text DxA P Notes Free Text DxA P Notes: Assessment: Patient is a 78 year old male with CAD s/p stent x 1 (2016), REAL on CPAP, HTN, IDDM, BPH, GERD who presented with bilateral lower extremity weakness. He was noted to have hyperkalemia (7.5 ) with EKG changes and was emergently dialyzed. He was transferred to floor on 12/19/18. 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 Manda Nava outpatient -PT eval/treat ordered Diet: Renal ADA, low potassium diet DVT PPx: Lovenox 30mg SQ daily GI PPx: not indicated Dispo: pending PT eval at 1145 RPT #:[id number] END OF REPORT [facility] 2018-12-19 09:36:00 [facility] ([facility]) Hospitalist Progress Note REPORT#:[id number] REPORT STATUS: Signed DATE:12/19/18 TIME: 935 PATIENT: BOB VITAL UNIT #: [id number] ROOM[address]BED: [address] : 39 AGE: 78 SEX: M ATTEND: Sally Santoro MD ADM AUTHOR: Sally Santoro MD * ALL edits or amendments must be made on the electronic/computer document * See Addendum Subjective Free Text Subj Notes Free Subj Notes: Transferred to floor from ICU HD catheter removed No active issues Doing well, states weakness has improved and so has his mentation. Denies any chest pain, SOB, fever, chills, abdominal pain, constipation, or diarrhea. Review of Systems All systems rev neg: except as marked (except as stated above) Objective General VS/I O: Vital Signs: Date Time Temp Pulse Resp B/P B/P Pulse O2 O2 Flow FiO2 Mean Ox Delivery Rate 12/19 0809 97.9 80 12 147/72 96.9 98 Room air 12/19 0456 98.1 76 18 128/72 90.4 99 BiPAP mask 12/19 0222 78 17 98 12/18 2350 97.7 78 18 133/63 86.2 98 BiPAP mask 12/18 2320 85 15 95 12/18 2143 85 95 12/18 1942 98.1 85 18 171/70 104.0 95 Room air 12/18 1810 98.1 84 18 169/50 89.7 99 12/18 1701 86 19 127/60 87 99 12/18 1600 79 17 142/72 100 98 12/18 1532 98.7 76 16 147/65 92 97 Room air 12/18 1500 83 17 147/65 93 98 12/18 1401 87 20 140/65 93 98 12/18 1215 79 23 139/58 91 98 12/18 1200 77 15 129/59 85 98 12/18 1145 77 19 136/63 90 98 12/18 1130 98.6 12/18 1130 76 17 142/69 94 98 12/18 1116 77 16 141/64 92 98 12/18 1101 75 19 137/63 90 100 12/18 1045 75 19 142/60 87 100 12/18 1031 81 22 155/98 118 98 12/18 1000 71 16 136/58 87 98 12/18 0945 73 16 128/63 90 99 24 hour I O ending at 0700: 12/19 0700 12/18 1900 Intake Total 500.00 Output Total 625 600 Balance -625 -100.00 Intake, IV 500.00 Number 1 Bowel Movements Number 0 Incontinent Voids Number Voids 3 Output, Urine 625 600 Patient Weight Weight (lb): Weight (oz): Weight (kg): 91.818 Medications: Active Meds + DC'd Last 24 Hrs Insulin Human Lispro MILD SLIDING SCALE (Thin, NPO, sensitive) AC HS SUBQ Undefined Medication 10 UNIT BEDTIME SUBQ Dextrose 20 GM ASDIR PRN PO Dextrose/Water 25 GM ASDIR PRN IV Dextrose/Water 12.5 GM ASDIR PRN IV Enoxaparin Sodium 30 MG Q24H SUBQ Sodium Chloride 1,000 ML .Q20H IV Undefined Medication 8.4 GM DAILY PO (DC) Physical Exam General appearance: alert, awake, oriented, no acute distress, pleasant, conversational Head/Eyes: atraumatic, clear cornea, EOMI, normal conjunctiva/sclera ENT: moist mucosal membranes, normal pharynx Neck: non-tender, normal thyroid, no JVD Cardiovascular: normal capillary refill, normal heart sounds, regular rate rhythm Respiratory: aerating well, clear to auscultation, symmetric expansion Abdomen: non-tender, normal bowel sounds, soft, no distention Extremities: moves all, normal capillary refill, no edema Musculoskeletal: normal inspection 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, 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, CNII-XII intact Results Findings/Data: Laboratory Tests 12/19 12/19 12/18 12/18 12/18 0730 0518 2041 1703 1606 Chemistry Sodium (133 - 145 MMOL/L) 140 Potassium (3.6 - 5.2 MMOL/L) 4.8 Chloride (100 - 108 MMOL/L) 105 Carbon Dioxide (22 - 32 MMOL/L) 26 BUN (6 - 20 MG/DL) 27 H Creatinine (0.60 - 1.00 MG/DL) 1.77 H Estimated GFR (MDRD) (42 - 98) 37 L Glucose (65 - 99 MG/DL) 221 H POC Glucose (65 - 99 MG/DL) 186 H 262 H 243 H 268 H Calcium (8.7 - 10.5 MG/DL) 9.2 Magnesium (1.8 - 2.4 MG/DL) 2.0 Total Bilirubin (0.0 - 1.0 MG/DL) 0.7 AST (15 - 37 Units/L) 23 ALT (30 - 65 Units/L) 37 Alkaline Phosphatase (50 - 136 Units/L) 130 Total Protein (6.4 - 8.2 G/DL) 6.7 Albumin (3.4 - 5.0 G/DL) 3.4 Globulin (1.5 - 3.8 G/DL) 3.3 Albumin/Globulin Ratio (1.1 - 2.2) 1.0 L Laboratory Tests 12/19 0730 Hematology WBC (4.80 - 10.80 x10 3/uL) 7.11 RBC (4.7 - 6.1 x10 6/uL) 3.79 L Hgb (14.0 - 17.0 G/DL) 10.7 L Hct (42 - 52 %) 32.7 L MCV (80 - 94 FL) 86.3 MCH (27 - 31 PG) 28.2 MCHC (33 - 37 G/DL) 32.7 L RDW Coeff of Desmond (11.5 - 14.5 %) 13.6 Plt Count (150 - 450 x10 3/uL) 127 L MPV (7.4 - 10.4 FL) 9.8 Neut % (Auto) (42 - 86 %) 51.7 Lymph % (Auto) (24 - 44 %) 31.9 [place] % (Auto) (0.0 - 4.0 %) 10.3 H Eos % (Auto) (0.0 - 2.7 %) 4.9 H Baso % (Auto) (0.0 - 0.5 %) 0.8 H Eos # (Auto) (0.0 - 0.5 x10 3/uL) 0.35 Baso # (Auto) (0.0 - 0.2 x10 3/uL) 0.06 Abs Immat Gran (auto) (0.00 - 0.03 x10 3/uL) 0.03 Absolute Neuts (auto) (1.8 - 7.7 x10 3/uL) 3.67 Absolute Lymphs (auto) (1.0 - 4.8 x10 3/uL) 2.27 Absolute Monos (auto) (0.0 - 0.8 x10 3/uL) 0.73 Absolute Nucleated RBC (0.0 - 0.2 X10 3/uL) 0.0 Immature Gran % (0.0 - 2.0 %) 0.4 Nucleated RBC % (0.0 - 0.0 %) 0.0 Radiology data: Recent Impressions: NUCLEAR MEDICINE - NM KDNEY SCAN [facility] 12/18 1230 Report Impression - Status: SIGNED Entered: 12/18/2018 1732 IMPRESSION: Symmetric flow to both kidneys with somewhat delayed excretion of the radiopharmaceutical into the collecting system in the right side. Normal bilateral nephrograms. Impression By: [email or web address] - Bob Bowie MD ULTRASOUND - US RETROPERITONEAL COM 12/18 1919 Report Impression - Status: SIGNED Entered: 12/18/2018 1006 IMPRESSION: 1. No evidence hydronephrosis or perinephric fluid collection. Impression By: [email or web address] - Arden Valdes MD Diagnosis, Assessment Plan Free Text DxA P Notes Free Text DxA P Notes: Assessment: Patient is a 78 year old male with CAD s/p stent x 1 (2017), REAL on CPAP, HTN, IDDM, BPH, GERD who presented with bilateral lower extremity weakness. He was noted to have hyperkalemia (7.5 ) with EKG changes and was emergently dialyzed. He was transferred to floor on 12/19/18. 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 Manda Nava outpatient -PT eval/treat ordered Diet: Renal ADA, low potassium diet DVT PPx: Lovenox 30mg SQ daily GI PPx: not indicated Dispo: pending PT eval at 1145 Addendum 1: 12/19/18 1657 by Sally Santoro MD Patient cleared by PT. Stable to be discharged home. D/C instructions provided. Return ER precautions given. Follow up with PCP and fireperson outpatient. Family and patient updated at bedside. Time spent at discharge: >35 min at 1658 RPT #:[id number] END OF REPORT [facility] 2018-12-19 09:32:00 [facility] ([facility] Nephrology Progress Note REPORT#:[id number] REPORT STATUS: Signed DATE:12/19/18 TIME: 931 PATIENT: BOB VITAL UNIT #: [id number] ROOM/BED: H423-1 : 39 AGE: 78 SEX: M ATTEND: Sally Santoro MD ADM AUTHOR: Ector Allen MD * ALL edits or amendments must be made on the electronic/computer document * Subjective Chief Complaint: Patient seen and examined. Denies any specific complaints. Feels better. Strength is back in his legs. HD has been placed on hold. S Potassium 4.8, Patient transferred to the floor. He was acidotic on admission, with wide gap, unfortunately acidosis was not worked up, eg lactic acid levels. He will need to be worked up for renal vascular disease. S Cr. 2.4 is unlikely to be the cause for uremic acidosis. Patient's labs have improved. Review of Systems Constitutional: Yes fatigue, No chills, No fever, No generalized weakness, No lethargy, No malaise, No recent wt loss Skin: No abrasion, No bruising, No contusion, No diaphoresis, No ecchymosis, No itching, No laceration, No rash, No swelling Eyes: No redness, No discharge, No visual loss/blurred, No itching, No diplopia, No eye pain, No photophobia, No swelling ENT: No ear drainage, No ear ringing, No earache, No hearing loss, No mouth pain, No nasal congestion, No nose bleeding, No sinus problem, No sore throat, No throat pain, No throat swelling, No tongue pain Respiratory: No VINCENT (dyspnea on exertion), No hemoptysis, No non productive cough, No parox nocturnal dyspnea, No pleurisy, No pleuritic pain, No pneumonia, No productive cough (sputum), No SOB Cardiovascular: No chest pain, No VINCENT (dyspnea on exertion), No edema, No orthopnea, No palpitations, No parox nocturnal dyspnea GI: Yes nausea, No abdominal pain, No anorexia, No constipation, No diarrhea, No dysphagia, No GERD, No hematemesis, No hematochezia, No hiatal hernia, No vomiting : Denies: dysuria, flank pain, frequency, hematuria, nocturia. Heme: No adenopathy, No bleeding, No bruising Objective General VS/I O: Vital Signs: Date Time Temp Pulse Resp B/P B/P Pulse O2 O2 Flow FiO2 Mean Ox Delivery Rate 12/19 0809 36.6 80 12 147/72 96.9 98 Room air 12/19 0456 36.7 76 18 128/72 90.4 99 BiPAP mask 12/19 0222 78 17 98 12/18 2350 36.5 78 18 133/63 86.2 98 BiPAP mask 12/18 2320 85 15 95 12/18 2143 85 95 12/18 1942 36.7 85 18 171/70 104.0 95 Room air 12/18 1810 36.7 84 18 169/50 89.7 99 12/18 1701 86 19 127/60 87 99 12/18 1600 79 17 142/72 100 98 12/18 1532 37.1 76 16 147/65 92 97 Room air 12/18 1500 83 17 147/65 93 98 12/18 1401 87 20 140/65 93 98 12/18 1215 79 23 139/58 91 98 12/18 1200 77 15 129/59 85 98 12/18 1145 77 19 136/63 90 98 12/18 1130 37.0 12/18 1130 76 17 142/69 94 98 12/18 1116 77 16 141/64 92 98 12/18 1101 75 19 137/63 90 100 12/18 1045 75 19 142/60 87 100 12/18 1031 81 22 155/98 118 98 12/18 1000 71 16 136/58 87 98 12/18 0945 73 16 128/63 90 99 24 hour I O ending at 0700: 12/19 0700 12/18 1900 Intake Total 500.00 Output Total 625 600 Balance -625 -100.00 Intake, IV 500.00 Number 1 Bowel Movements Number 0 Incontinent Voids Number Voids 3 Output, Urine 625 600 Medications Active Meds + DC'd Last 24 Hrs Insulin Human Lispro MILD SLIDING SCALE (Thin, NPO, sensitive) AC HS SUBQ Undefined Medication 10 UNIT BEDTIME SUBQ Dextrose 20 GM ASDIR PRN PO Dextrose/Water 25 GM ASDIR PRN IV Dextrose/Water 12.5 GM ASDIR PRN IV Enoxaparin Sodium 30 MG Q24H SUBQ Sodium Chloride 1,000 ML .Q20H IV Undefined Medication 8.4 GM DAILY PO (DC) Physical Exam General appearance: awake Head/eyes: PERRLA ENT: moist mucous membranes, normal nose, no uvular shift/swelling Neck: full range of motion, no JVD, no lymphadenopathy, no masses or swelling Cardiovascular: normal heart sounds, regular rate and rhythm, pedal pulses present, no murmur, no rub Respiratory: aerating well, clear to auscultation, normal breath sounds, symmetric expansion, no distress Abdomen: non-tender, normal bowel sounds, no CVA tenderness, no distention Extremities: non-tender, no edema Musculoskeletal: normal inspection, no tendereness Results Findings/Data: Laboratory Tests 12/19 0518 2041 1703 1606 Chemistry Sodium (133 - 145 MMOL/L) 140 Potassium (3.6 - 5.2 MMOL/L) 4.8 Chloride (100 - 108 MMOL/L) 105 Carbon Dioxide (22 - 32 MMOL/L) 26 BUN (6 - 20 MG/DL) 27 H Creatinine (0.60 - 1.00 MG/DL) 1.77 H Estimated GFR (MDRD) (42 - 98) 37 L Glucose (65 - 99 MG/DL) 221 H POC Glucose (65 - 99 MG/DL) 186 H 262 H 243 H 268 H Calcium (8.7 - 10.5 MG/DL) 9.2 Magnesium (1.8 - 2.4 MG/DL) 2.0 Total Bilirubin (0.0 - 1.0 MG/DL) 0.7 AST (15 - 37 Units/L) 23 ALT (30 - 65 Units/L) 37 Alkaline Phosphatase (50 - 136 130 Units/L) Total Protein (6.4 - 8.2 G/DL) 6.7 Albumin (3.4 - 5.0 G/DL) 3.4 Globulin (1.5 - 3.8 G/DL) 3.3 Albumin/Globulin Ratio (1.1 - 2.2) 1.0 L Laboratory Tests 12/19 0730 Hematology WBC (4.80 - 10.80 x10 3/uL) 7.11 RBC (4.7 - 6.1 x10 6/uL) 3.79 L Hgb (14.0 - 17.0 G/DL) 10.7 L Hct (42 - 52 %) 32.7 L MCV (80 - 94 FL) 86.3 MCH (27 - 31 PG) 28.2 MCHC (33 - 37 G/DL) 32.7 L RDW Coeff of Desmond (11.5 - 14.5 %) 13.6 Plt Count (150 - 450 x10 3/uL) 127 L MPV (7.4 - 10.4 FL) 9.8 Neut % (Auto) (42 - 86 %) 51.7 Lymph % (Auto) (24 - 44 %) 31.9 [place] % (Auto) (0.0 - 4.0 %) 10.3 H Eos % (Auto) (0.0 - 2.7 %) 4.9 H Baso % (Auto) (0.0 - 0.5 %) 0.8 H Eos # (Auto) (0.0 - 0.5 x10 3/uL) 0.35 Baso # (Auto) (0.0 - 0.2 x10 3/uL) 0.06 Abs Immat Gran (auto) (0.00 - 0.03 x10 3/uL) 0.03 Absolute Neuts (auto) (1.8 - 7.7 x10 3/uL) 3.67 Absolute Lymphs (auto) (1.0 - 4.8 x10 3/uL) 2.27 Absolute Monos (auto) (0.0 - 0.8 x10 3/uL) 0.73 Absolute Nucleated RBC (0.0 - 0.2 X10 3/uL) 0.0 Immature Gran % (0.0 - 2.0 %) 0.4 Nucleated RBC % (0.0 - 0.0 %) 0.0 Radiology data: Recent Impressions: NUCLEAR MEDICINE - NM KDNEY SCAN [facility] 12/18 1230 Report Impression - Status: SIGNED Entered: 12/18/2018 0312 IMPRESSION: Symmetric flow to both kidneys with somewhat delayed excretion of the radiopharmaceutical into the collecting system in the right side. Normal bilateral nephrograms. Impression By: [email or web address] - Bob Bowie MD ULTRASOUND - US RETROPERITONEAL [facility] 12/18 236 Report Impression - Status: SIGNED Entered: 12/18/2018 1006 IMPRESSION: 1. No evidence hydronephrosis or perinephric fluid collection. Impression By: [email or web address] - Arden Valdes MD Results: labs reviewed Diagnosis, Assessment Plan Free Text A P: 1. Sev Acute Hyperkalemia: sr k went from 7.5 to 7.2 only with medical therapy. He is urinating. Has LBBB on EKG, SR, has h/o CAD with s/p stent in past. In my opinion he needs dialysis rx tonight Discussed with pt, pts -agreed. Discussed with JEAN RICHTER for temp HD cath placement tonight, oncall HD nurse. Hold ramipril Low K diet HD orders given for tonight 2. NILES:UA and renal US 3. CKD 2/3: baseline sr cr 1 4. H/o CAD s/p stent- no chest pain 5. Muscle weakness: likely due to hyperkalemia. 12/19/18 Patient's general condition has stabilized. Renal USG and MAG-3 nuclear scan results reviewed, no evidence of renal artery stenosis. Patient was taking NSAIDS every night and had been on Ramipril. Advised to discontinue OTC Advil and avoid NSAIDS, eg. given to the patient. Should also avoid Ramipril. All acute problems related to hyperkalemmia and metabolic acidosis have been addressed. Should not take any SUZETTE-I, ARBs and NSAIDS, Should not take K sparing diuretics. MAG-3 renal scan reviewed, No need for further HD. remove HD catheter and may DC patient. Follow up with Dr. Manda Nava as outpt. at 0940 RPT #:[id number] END OF REPORT [facility] 2018-12-18 08:24:00 [facility] ([facility]) Nephrology Progress Note REPORT#:[id number] REPORT STATUS: Signed DATE:12/18/18 TIME: 823 PATIENT: BOB VITAL UNIT #: [id number] ROOM/BED: [place] [id number] : 39 AGE: 78 SEX: M ATTEND: Jhonatan Celestin MD ADM AUTHOR: Ector Allen MD * ALL edits or amendments must be made on the electronic/computer document * Subjective Chief Complaint: Patient seen and examined. Denies any specific complaints. Feels better. Strength is back in his legs. He was urgently dialysed last night. His Labs have normalized and patient does not seem to be critically ill. He was acidotic on admission, with wide gap, unfortunately acidosis was not worked up, eg lactic acid levels. He will need to be worked up for renal vascular disease. S Cr. 2.4 is unlikely to be the cause for uremic acidosis. Patient's labs have normalized. Comments: No need for any further dialysis today. Review of Systems Constitutional: Yes fatigue, No chills, No fever, No generalized weakness, No lethargy, No malaise, No recent wt loss Skin: No abrasion, No bruising, No contusion, No diaphoresis, No ecchymosis, No itching, No laceration, No rash, No swelling Eyes: No redness, No discharge, No visual loss/blurred, No itching, No diplopia, No eye pain, No photophobia, No swelling ENT: No ear drainage, No ear ringing, No earache, No hearing loss, No mouth pain, No nasal congestion, No nose bleeding, No sinus problem, No sore throat, No throat pain, No throat swelling, No tongue pain Respiratory: No VINCENT (dyspnea on exertion), No hemoptysis, No non productive cough, No parox nocturnal dyspnea, No pleurisy, No pleuritic pain, No pneumonia, No productive cough (sputum), No SOB Cardiovascular: No chest pain, No VINCENT (dyspnea on exertion), No edema, No orthopnea, No palpitations, No parox nocturnal dyspnea GI: Yes nausea, No abdominal pain, No anorexia, No constipation, No diarrhea, No dysphagia, No GERD, No hematemesis, No hematochezia, No hiatal hernia, No vomiting : Denies: dysuria, flank pain, frequency, hematuria, nocturia. Heme: No adenopathy, No bleeding, No bruising Objective General VS/I O: Vital Signs: Date Time Temp Pulse Resp B/P B/P Pulse O2 O2 Flow FiO2 Mean Ox Delivery Rate 12/18 0400 37.2 12/17 2300 37.1 12/17 1942 36.8 76 18 170/90 116 99 Room air 12/17 1533 99 12/17 1530 97 Room air 21 12/17 1310 36.7 88 16 134/62 86 99 24 hour I O ending at 0700: 12/18 0700 12/17 1900 Intake Total 800.00 Output Total 300 Balance 500.00 Intake, IV 800.00 Output, Urine 300 Patient 91.818 kg Weight Weight Stated/Reported Measurement Method Medications Active Meds + DC'd Last 24 Hrs Undefined Medication 10 UNIT BEDTIME SUBQ Magnesium Sulfate 50 ML ONCE ONE IV Undefined Medication 8.4 GM DAILY PO Heparin Sodium 2,400 UNITS .STK-MED ONE IV (DC) Sodium Chloride 1,000 ML .STK-MED ONE IV (DCr) Alteplase, Recombinant 0 .STK-MED ONE INJ (DC) Lidocaine HCl 0 .STK-MED ONE LOCAL (DC) Calcium Gluconate 1,000 MG ONCE ONE IV (DC) Sodium Chloride 100 ML Insulin Human Regular 10 UNIT ONCE ONE IV (DC) Sodium Polystyrene Sulfonate 30 GM ONCE ONE PO (DC) Sodium Chloride 1,000 ML .Q10H IV Sodium Chloride 1,000 ML .Q4H IV Lactated Ringer's 1,000 ML X1ED STA IV (CAN) Albuterol Sulfate 0 .STK-MED ONE NEB (DCr) Albuterol Sulfate 7.5 MG X1ED STA NEB (DC) Calcium Chloride 1 GM X1ED STA IV (DC) Sodium Chloride 50 ML Insulin Human Regular 10 UNIT X1ED STA IV (DC) Sodium Bicarbonate 100 ML X1ED STA IV (DCr) IV Miscellaneous Supplies 1 EACH Ondansetron Base 4 MG ONCE ONE SL (DC) Ondansetron HCl 4 MG X1ED STA IV (CAN) Physical Exam General appearance: awake Head/eyes: PERRLA ENT: moist mucous membranes, normal nose, no uvular shift/swelling Neck: full range of motion, no JVD, no lymphadenopathy, no masses or swelling Cardiovascular: normal heart sounds, regular rate and rhythm, pedal pulses present, no murmur, no rub Respiratory: aerating well, clear to auscultation, normal breath sounds, symmetric expansion, no distress Abdomen: non-tender, normal bowel sounds, no CVA tenderness, no distention Extremities: non-tender, no edema Musculoskeletal: normal inspection, no tendereness Results Findings/Data: Laboratory Tests 12/18 12/17 0455 1515 Blood Gas Puncture Site RR LR ABG pH (7.35 - 7.45) 7.41 7.26 *L ABG pCO2 (35.0 - 45.0 mmHg) 36.1 35.9 ABG pO2 (60.0 - 80.0 mmHg) 78.3 97.7 H ABG HCO3 (20.0 - 26.0 mmol/L) 22.4 15.7 L ABG O2 Saturation (95 - 100 %) 95.8 96.9 ABG Base Excess (-3.0 - 3.0 mmol/L) -1.8 -10.4 L Carli Test Yes Yes Oxyhemoglobin (92.0 - 98.0 %) 95.1 96.1 Carboxyhemoglobin (0.5 - 1.5 %) 0.2 L 0.3 L Methemoglobin (0.4 - 1.5 %) 0.5 0.5 Total Hemoglobin (13.0 - 18.0 G/DL) 12.0 L 11.5 L Temperature (F) 98.6 98.6 Respiration Rate (/MIN) 14.0 22.0 Patient On Oxygen Arterial Arterial Vent Mode room air ROOM AIR FiO2 (%) 21.0 21.0 Instrument Called Laboratory Tests 12/18 12/18 12/17 12/17 12/17 0740 0730 2152 1908 1619 Chemistry Sodium (133 - 145 MMOL/L) 140 143 143 Potassium (3.6 - 5.2 MMOL/L) 4.3 6.5 *H 7.2 *H Chloride (100 - 108 MMOL/L) 105 112 H 112 H Carbon Dioxide (22 - 32 MMOL/L) 27 23 23 BUN (6 - 20 MG/DL) 22 H 53 H 55 H Creatinine (0.60 - 1.00 MG/DL) 1.32 H 2.08 H 2.44 H Estimated GFR (MDRD) (42 - 98) 52 31 L 26 L Glucose (65 - 99 MG/DL) 177 H 157 H 251 H POC Glucose (65 - 99 MG/DL) 175 H 175 H Calcium (8.7 - 10.5 MG/DL) 8.6 L 10.4 10.3 Magnesium (1.8 - 2.4 MG/DL) 1.5 L Total Bilirubin (0.0 - 1.0 MG/DL) 1.0 AST (15 - 37 Units/L) 32 ALT (30 - 65 Units/L) 42 Alkaline Phosphatase (50 - 136 124 Units/L) Total Protein (6.4 - 8.2 G/DL) 6.3 L Albumin (3.4 - 5.0 G/DL) 3.2 L Globulin (1.5 - 3.8 G/DL) 3.1 Albumin/Globulin Ratio (1.1 - 2.2) 1.0 L 12/17 12/17 12/17 1507 1355 1324 Chemistry Sodium (133 - 145 MMOL/L) 135 Potassium (3.6 - 5.2 MMOL/L) 7.5 *H Chloride (100 - 108 MMOL/L) 107 Carbon Dioxide (22 - 32 MMOL/L) 18 L BUN (6 - 20 MG/DL) 56 H Creatinine (0.60 - 1.00 MG/DL) 2.58 H Estimated GFR (MDRD) (42 - 98) 24 L Glucose (65 - 99 MG/DL) 522 *H POC Glucose (65 - 99 MG/DL) 465 *H Calcium (8.7 - 10.5 MG/DL) 9.4 Rapid Troponin I (0.00 - 0.08 NG/ML) 0.00 Laboratory Tests 12/17 2152 Coagulation PT (9.6 - 12.3 SECONDS) 12.1 INR 1.07 APTT (22.5 - 35.3 SECONDS) 33.7 Laboratory Tests 12/18 12/17 0730 1352 Hematology WBC (4.80 - 10.80 x10 3/uL) 7.87 8.67 RBC (4.7 - 6.1 x10 6/uL) 3.47 L 3.83 L Hgb (14.0 - 17.0 G/DL) 10.4 L 11.5 L Hct (42 - 52 %) 29.1 L 33.4 L MCV (80 - 94 FL) 83.9 87.2 MCH (27 - 31 PG) 30.0 30.0 MCHC (33 - 37 G/DL) 35.7 34.4 RDW Coeff of Desmond (11.5 - 14.5 %) 13.6 14.0 Plt Count (150 - 450 x10 3/uL) 118 L 140 L MPV (7.4 - 10.4 FL) 9.7 9.7 Neut % (Auto) (42 - 86 %) 56.4 61.5 Lymph % (Auto) (24 - 44 %) 28.5 24.7 [place] % (Auto) (0.0 - 4.0 %) 9.0 H 7.5 H Eos % (Auto) (0.0 - 2.7 %) 5.0 H 4.8 H Baso % (Auto) (0.0 - 0.5 %) 1.0 H 1.2 H Eos # (Auto) (0.0 - 0.5 x10 3/uL) 0.39 0.42 Baso # (Auto) (0.0 - 0.2 x10 3/uL) 0.08 0.10 Abs Immat Gran (auto) (0.00 - 0.03 x10 3/uL) 0.01 0.03 Absolute Neuts (auto) (1.8 - 7.7 x10 3/uL) 4.44 5.33 Absolute Lymphs (auto) (1.0 - 4.8 x10 3/uL) 2.24 2.14 Absolute Monos (auto) (0.0 - 0.8 x10 3/uL) 0.71 0.65 Absolute Nucleated RBC (0.0 - 0.2 X10 3/uL) 0.0 0.0 Immature Gran % (0.0 - 2.0 %) 0.1 0.3 Nucleated RBC % (0.0 - 0.0 %) 0.0 0.0 Laboratory Tests 12/17 12/17 12/17 2152 1619 1324 Miscellaneous Miscellaneous Test Called Called Called Radiology data: Recent Impressions: RADIOLOGY - XR CHEST 1 V 12/17 1335 Report Impression - Status: SIGNED Entered: 12/17/2018 1417 Impression: 1. No evidence of acute cardiopulmonary disease. Impression By: Toñito Valdes MD CAT SCAN - CT HEAD/BRAIN W/CONT 12/17 1450 Report Impression - Status: SIGNED Entered: 12/17/2018 1501 IMPRESSION: 1. Negative CT scan of the brain for acute disease. 2. 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 Impression By: [email or web address] - Thanh Hernandez MD SPECIAL PROCEDURES - US GUIDANCE VASC ACCESS 12/17 2045 Report Impression - Status: SIGNED Entered: 12/17/2018 2224 IMPRESSION: Successful placement 15 cm right internal jugular Trialysis catheter. Impression By: Toñito Valdes MD RADIOLOGY - XR CHEST 1 V 12/17 2110 Report Impression - Status: SIGNED Entered: 12/17/2018 2208 Impression: 1. No evidence of acute cardiopulmonary disease. Impression By: Toñito Valdes MD RADIOLOGY - XR CHEST 1 V 12/18 0520 Report Impression - Status: SIGNED Entered: 12/18/2018 0827 Impression: 1. No evidence of acute cardiopulmonary disease. Impression By: Toñito Valdes MD Diagnosis, Assessment Plan Free Text A P: 1. Sev Acute Hyperkalemia: sr k went from 7.5 to 7.2 only with medical therapy. He is urinating. Has LBBB on EKG, SR, has h/o CAD with s/p stent in past. In my opinion he needs dialysis rx tonight Discussed with pt, pts -agreed. Discussed with IR for temp HD cath placement tonight, oncall HD nurse. Hold ramipril Low K diet HD orders given for tonight 2. NILES:UA and renal US 3. CKD 2/3: baseline sr cr 1 4. H/o CAD s/p stent- no chest pain 5. Muscle weakness: likely due to hyperkalemia All acute problems related to hyperkalemmia and metabolic acidosis have been addressed. Patent should be worked up for renal artery stenosis. Should discontinue any SUZETTE-I, ARBs and NSAIDS, Should not take K sparing diuretics. MAG-3 renal scan ordered. No need for further HD. Follow up with Dr. Manda Nava as outpt. at 0843 RPT #:[id number] END OF REPORT [facility] 2018-12-18 07:51:00 [facility] ([facility]) Critical Care Progress Note REPORT#:[id number] REPORT STATUS: Signed DATE:12/18/18 TIME: 750 PATIENT: BOB VITAL UNIT #: [id number] ROOM/BED: [place] [id number] : 39 AGE: 78 SEX: M ATTEND: Jhonatan Celestin MD ADM AUTHOR: Deb Kim R1 * ALL edits or amendments must be made on the electronic/computer document * Deb Kim 12/18/18 0751: Subjective Chief Complaint: f/u shaking and weakness in both lower extremities HPI: Patient seen and examined at bedside today. No acute oevrnight evnts. Patient underwent dialysis link cutter today. Patient is resting comfortably in bed in no acute distress. No complaints. Review of Systems ROS Constitutional: generalized weakness. Denies: chills, fatigue, fever. Skin: rash (left lower leg). Eyes: Denies: redness, itching, eye pain, swelling. ENT: Denies: ear drainage, ear ringing, hearing loss, sore throat, throat pain. Respiratory: Denies: hemoptysis, non productive cough, pleuritic pain, productive cough ( sputum), SOB, wheezing. Cardiovascular: Denies: chest pain, edema, orthopnea, palpitations. GI: Denies: abdominal pain, constipation, diarrhea, nausea, vomiting. : Denies: dysuria, flank pain. Musculoskeletal: other (b/l lower extremity weakness). Endocrine: Denies: cold intolerance, heat intolerance, polydipsia, polyphagia. Neuro: Denies: confusion, dizziness, headache, lightheaded, syncope. Psych: Denies: confusion, dizziness, headache, syncope. Objective General VS/I O Last Documented: Result Date Time Temp 98.9 12/18 0400 Pulse Ox 99 12/17 1941 B/P 170/90 12/17 1941 B/P Mean 116 12/17 1941 O2 Delivery Room air 12/17 1941 Pulse 76 12/17 194 Resp 18 12/17 1941 FiO2 21 12/17 1530 24 hour I O ending at 0700: 12/18 0700 12/17 1900 Intake Total 800.00 Output Total 300 Balance 500.00 Intake, IV 800.00 Output, Urine 300 Patient 91.818 kg Weight Weight Stated/Reported Measurement Method Medications: Active Meds + DC'd Last 24 Hrs Undefined Medication 10 UNIT BEDTIME SUBQ Magnesium Sulfate 50 ML ONCE ONE IV Undefined Medication 8.4 GM DAILY PO Heparin Sodium 2,400 UNITS .STK-MED ONE IV (DC) Sodium Chloride 1,000 ML .STK-MED ONE IV (DCr) Alteplase, Recombinant 0 .STK-MED ONE INJ (DC) Lidocaine HCl 0 .STK-MED ONE LOCAL (DC) Calcium Gluconate 1,000 MG ONCE ONE IV (DC) Sodium Chloride 100 ML Insulin Human Regular 10 UNIT ONCE ONE IV (DC) Sodium Polystyrene Sulfonate 30 GM ONCE ONE PO (DC) Sodium Chloride 1,000 ML .Q10H IV Sodium Chloride 1,000 ML .Q4H IV Lactated Ringer's 1,000 ML X1ED STA IV (CAN) Albuterol Sulfate 0 .STK-MED ONE NEB (DCr) Albuterol Sulfate 7.5 MG X1ED STA NEB (DC) Calcium Chloride 1 GM X1ED STA IV (DC) Sodium Chloride 50 ML Insulin Human Regular 10 UNIT X1ED STA IV (DC) Sodium Bicarbonate 100 ML X1ED STA IV (DCr) IV Miscellaneous Supplies 1 EACH Ondansetron Base 4 MG ONCE ONE SL (DC) Ondansetron HCl 4 MG X1ED STA IV (CAN) Physical Exam General appearance: alert, awake, oriented, no acute distress, mental status normal, no respiratory distress Head/Eyes: atraumatic, normocephalic, PERRL, clear cornea, normal conjunctiva/ sclera ENT: moist mucosal membranes Neck: non-tender, supple/no meningismus, no bruit/NL carotids, no lymphadenopathy Cardiovascular: normal heart sounds, normal S1 S2, normal rate and rhythm Respiratory/Chest: aerating well, clear to auscultation, symmetric expansion, no distress Abdomen: soft, non-tender, normal bowel sounds, no guarding Genitourinary: no doan, no flank pain Extremities: normal capillary refill, no calf tenderness, no clubbing, no cyanosis, no peripheral edema 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, 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 Skin: intact, normal color Psychiatry: normal affect, normal judgment/insight, normal mood Results Findings/Data: Laboratory Tests 12/18/18 0730: [Embedded Image Not Available] 12/17/18 2152: [Embedded Image Not Available] 12/17/18 1619: [Embedded Image Not Available] 12/17/18 1352: [Embedded Image Not Available] 12/17/18 1324: [Embedded Image Not Available] Laboratory Tests 12/18 12/17 0455 1515 Blood Gas Puncture Site RR LR ABG pH (7.35 - 7.45) 7.41 7.26 *L ABG pCO2 (35.0 - 45.0 mmHg) 36.1 35.9 ABG pO2 (60.0 - 80.0 mmHg) 78.3 97.7 H ABG HCO3 (20.0 - 26.0 mmol/L) 22.4 15.7 L ABG O2 Saturation (95 - 100 %) 95.8 96.9 ABG Base Excess (-3.0 - 3.0 mmol/L) -1.8 -10.4 L Carli Test Yes Yes Oxyhemoglobin (92.0 - 98.0 %) 95.1 96.1 Carboxyhemoglobin (0.5 - 1.5 %) 0.2 L 0.3 L Methemoglobin (0.4 - 1.5 %) 0.5 0.5 Total Hemoglobin (13.0 - 18.0 G/DL) 12.0 L 11.5 L Temperature (F) 98.6 98.6 Respiration Rate (/MIN) 14.0 22.0 Patient On Oxygen Arterial Arterial Vent Mode room air ROOM AIR FiO2 (%) 21.0 21.0 Instrument Called Laboratory Tests 12/18 12/18 12/17 12/17 12/17 0740 0730 2152 1908 1619 Chemistry Sodium (133 - 145 MMOL/L) 140 143 143 Potassium (3.6 - 5.2 MMOL/L) 4.3 6.5 *H 7.2 *H Chloride (100 - 108 MMOL/L) 105 112 H 112 H Carbon Dioxide (22 - 32 MMOL/L) 27 23 23 BUN (6 - 20 MG/DL) 22 H 53 H 55 H Creatinine (0.60 - 1.00 MG/DL) 1.32 H 2.08 H 2.44 H Estimated GFR (MDRD) (42 - 98) 52 31 L 26 L Glucose (65 - 99 MG/DL) 177 H 157 H 251 H POC Glucose (65 - 99 MG/DL) 175 H 175 H Calcium (8.7 - 10.5 MG/DL) 8.6 L 10.4 10.3 Magnesium (1.8 - 2.4 MG/DL) 1.5 L Total Bilirubin (0.0 - 1.0 MG/DL) 1.0 AST (15 - 37 Units/L) 32 ALT (30 - 65 Units/L) 42 Alkaline Phosphatase (50 - 136 124 Units/L) Total Protein (6.4 - 8.2 G/DL) 6.3 L Albumin (3.4 - 5.0 G/DL) 3.2 L Globulin (1.5 - 3.8 G/DL) 3.1 Albumin/Globulin Ratio (1.1 - 2.2) 1.0 L 12/17 12/17 12/17 1507 1355 1324 Chemistry Sodium (133 - 145 MMOL/L) 135 Potassium (3.6 - 5.2 MMOL/L) 7.5 *H Chloride (100 - 108 MMOL/L) 107 Carbon Dioxide (22 - 32 MMOL/L) 18 L BUN (6 - 20 MG/DL) 56 H Creatinine (0.60 - 1.00 MG/DL) 2.58 H Estimated GFR (MDRD) (42 - 98) 24 L Glucose (65 - 99 MG/DL) 522 *H POC Glucose (65 - 99 MG/DL) 465 *H Calcium (8.7 - 10.5 MG/DL) 9.4 Rapid Troponin I (0.00 - 0.08 NG/ML) 0.00 Laboratory Tests 12/17 2152 Coagulation PT (9.6 - 12.3 SECONDS) 12.1 INR 1.07 APTT (22.5 - 35.3 SECONDS) 33.7 Laboratory Tests 12/18 12/17 0730 1352 Hematology WBC (4.80 - 10.80 x10 3/uL) 7.87 8.67 RBC (4.7 - 6.1 x10 6/uL) 3.47 L 3.83 L Hgb (14.0 - 17.0 G/DL) 10.4 L 11.5 L Hct (42 - 52 %) 29.1 L 33.4 L MCV (80 - 94 FL) 83.9 87.2 MCH (27 - 31 PG) 30.0 30.0 MCHC (33 - 37 G/DL) 35.7 34.4 RDW Coeff of Desmond (11.5 - 14.5 %) 13.6 14.0 Plt Count (150 - 450 x10 3/uL) 118 L 140 L MPV (7.4 - 10.4 FL) 9.7 9.7 Neut % (Auto) (42 - 86 %) 56.4 61.5 Lymph % (Auto) (24 - 44 %) 28.5 24.7 [place] % (Auto) (0.0 - 4.0 %) 9.0 H 7.5 H Eos % (Auto) (0.0 - 2.7 %) 5.0 H 4.8 H Baso % (Auto) (0.0 - 0.5 %) 1.0 H 1.2 H Eos # (Auto) (0.0 - 0.5 x10 3/uL) 0.39 0.42 Baso # (Auto) (0.0 - 0.2 x10 3/uL) 0.08 0.10 Abs Immat Gran (auto) (0.00 - 0.03 x10 3/uL) 0.01 0.03 Absolute Neuts (auto) (1.8 - 7.7 x10 3/uL) 4.44 5.33 Absolute Lymphs (auto) (1.0 - 4.8 x10 3/uL) 2.24 2.14 Absolute Monos (auto) (0.0 - 0.8 x10 3/uL) 0.71 0.65 Absolute Nucleated RBC (0.0 - 0.2 X10 3/uL) 0.0 0.0 Immature Gran % (0.0 - 2.0 %) 0.1 0.3 Nucleated RBC % (0.0 - 0.0 %) 0.0 0.0 Laboratory Tests 12/17 12/17 12/17 2152 1619 1324 Miscellaneous Miscellaneous Test Called Called Called Radiology data Recent Impressions: RADIOLOGY - XR CHEST 1 V 12/17 1335 Report Impression - Status: SIGNED Entered: 12/17/2018 1417 Impression: 1. No evidence of acute cardiopulmonary disease. Impression By: Toñito Valdes MD CAT SCAN - CT HEAD/BRAIN W/CONT 12/17 1450 Report Impression - Status: SIGNED Entered: 12/17/2018 1501 IMPRESSION: 1. Negative CT scan of the brain for acute disease. 2. 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 Impression By: [email or web address] - Thanh Hernandez MD SPECIAL PROCEDURES - US GUIDANCE VASC ACCESS 12/17 2044 Report Impression - Status: SIGNED Entered: 12/17/2018 2224 IMPRESSION: Successful placement 15 cm right internal jugular Trialysis catheter. Impression By: Toñito Valdes MD RADIOLOGY - XR CHEST 1 V 12/17 2110 Report Impression - Status: SIGNED Entered: 12/17/2018 2208 Impression: 1. No evidence of acute cardiopulmonary disease. Impression By: Toñito Vadles MD RADIOLOGY - XR CHEST 1 V 12/18 0520 Report Impression - Status: SIGNED Entered: 12/18/2018 0827 Impression: 1. No evidence of acute cardiopulmonary disease. Impression By: DejuanKFClovis Durham Arden Valdes MD Diagnosis, Assessment Plan Free Text A P: Assessment: -Hyperkalemia (k-7.5) with EKG changes - resolved -Acute renal failure -Metabolic acidosis - improved -COPD -Obstructive Sleep Apnea on CPAP -CAD, s/p Stent placement x 1 (2017) -Diabetes mellitus -HTN -Dyslipidemia -BPH -GERD Plan: -Avoid SUZETTE inhibitors, ARB, NSAIDs, potassium sparing diuretics -Low potassium diet -Patient had dialysis today -DC veltassa -DC IVF, if patient is eating well -Renal ultrasound: No hydronephrosis or perinepric fluid collection -Lantus 10 U SQ bedtime -Stable to TTF Diet: Renal ADA, low potassium diet DVT PPx: Lovenox 30mg SQ daily GI PPx: not indicated Jhonatan Celestin 12/18/18 1210: Attestations Midlevel/Physician Attestation Physician attestation: I have seen the patient, examined, labs and images reviewed. Agree with recommendation above by the resident. 1. Acute renal failure 2. History of hypertension 3. Hyperkalemia with EKG changes resolved 4. History of left bundle branch block 5. Metabolic acidosis improved The patient had dialysis this a.m. His potassium level is improved currently. Weakness also improved. Currently being worked up for acute renal failure MAG3 scan ordered. Follow-up nephrology recommendations. DC Veltassa. DC IV fluids when the patient is taking adequate p.o. Avoid NSAIDs, SUZETTE inhibitors/abscess or potassium sparing diuretics. Low potassium diet. Okay to transfer out of the ICU to medical floor. DVT prophylaxis. at 1532 RPT #:[id number] END OF REPORT [facility] 2018-12-18 07:51:00 [facility] ([facility]) Critical Care Progress Note REPORT#:[id number] REPORT STATUS: Signed DATE:12/18/18 TIME: 750 PATIENT: BOB VITAL UNIT #: [id number] ROOM/BED: [facility]23-1 : 39 AGE: 78 SEX: M ATTEND: Sally Santoro MD ADM AUTHOR: Deb Kim R1 * ALL edits or amendments must be made on the electronic/computer document * Parviz Kimlini 12/18/18 0751: Subjective Chief Complaint: f/u shaking and weakness in both lower extremities HPI: Patient seen and examined at bedside today. No acute oevrnight evnts. Patient underwent dialysis link cutter today. Patient is resting comfortably in bed in no acute distress. No complaints. Review of Systems ROS Constitutional: generalized weakness. Denies: chills, fatigue, fever. Skin: rash (left lower leg). Eyes: Denies: redness, itching, eye pain, swelling. ENT: Denies: ear drainage, ear ringing, hearing loss, sore throat, throat pain. Respiratory: Denies: hemoptysis, non productive cough, pleuritic pain, productive cough ( sputum), SOB, wheezing. Cardiovascular: Denies: chest pain, edema, orthopnea, palpitations. GI: Denies: abdominal pain, constipation, diarrhea, nausea, vomiting. : Denies: dysuria, flank pain. Musculoskeletal: other (b/l lower extremity weakness). Endocrine: Denies: cold intolerance, heat intolerance, polydipsia, polyphagia. Neuro: Denies: confusion, dizziness, headache, lightheaded, syncope. Psych: Denies: confusion, dizziness, headache, syncope. Objective General VS/I O Last Documented: Result Date Time Temp 98.9 12/18 0400 Pulse Ox 99 12/17 1941 B/P 170/90 12/17 1941 B/P Mean 116 12/17 1941 O2 Delivery Room air 12/17 1941 Pulse 76 12/17 194 Resp 18 12/17 1941 FiO2 21 12/17 1530 24 hour I O ending at 0700: 12/18 0700 12/17 1900 Intake Total 800.00 Output Total 300 Balance 500.00 Intake, IV 800.00 Output, Urine 300 Patient 91.818 kg Weight Weight Stated/Reported Measurement Method Medications: Active Meds + DC'd Last 24 Hrs Undefined Medication 10 UNIT BEDTIME SUBQ Magnesium Sulfate 50 ML ONCE ONE IV Undefined Medication 8.4 GM DAILY PO Heparin Sodium 2,400 UNITS .STK-MED ONE IV (DC) Sodium Chloride 1,000 ML .STK-MED ONE IV (DCr) Alteplase, Recombinant 0 .STK-MED ONE INJ (DC) Lidocaine HCl 0 .STK-MED ONE LOCAL (DC) Calcium Gluconate 1,000 MG ONCE ONE IV (DC) Sodium Chloride 100 ML Insulin Human Regular 10 UNIT ONCE ONE IV (DC) Sodium Polystyrene Sulfonate 30 GM ONCE ONE PO (DC) Sodium Chloride 1,000 ML .Q10H IV Sodium Chloride 1,000 ML .Q4H IV Lactated Ringer's 1,000 ML X1ED STA IV (CAN) Albuterol Sulfate 0 .STK-MED ONE NEB (DCr) Albuterol Sulfate 7.5 MG X1ED STA NEB (DC) Calcium Chloride 1 GM X1ED STA IV (DC) Sodium Chloride 50 ML Insulin Human Regular 10 UNIT X1ED STA IV (DC) Sodium Bicarbonate 100 ML X1ED STA IV (DCr) IV Miscellaneous Supplies 1 EACH Ondansetron Base 4 MG ONCE ONE SL (DC) Ondansetron HCl 4 MG X1ED STA IV (CAN) Physical Exam General appearance: alert, awake, oriented, no acute distress, mental status normal, no respiratory distress Head/Eyes: atraumatic, normocephalic, PERRL, clear cornea, normal conjunctiva/ sclera ENT: moist mucosal membranes Neck: non-tender, supple/no meningismus, no bruit/NL carotids, no lymphadenopathy Cardiovascular: normal heart sounds, normal S1 S2, normal rate and rhythm Respiratory/Chest: aerating well, clear to auscultation, symmetric expansion, no distress Abdomen: soft, non-tender, normal bowel sounds, no guarding Genitourinary: no doan, no flank pain Extremities: normal capillary refill, no calf tenderness, no clubbing, no cyanosis, no peripheral edema 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, 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 Skin: intact, normal color Psychiatry: normal affect, normal judgment/insight, normal mood Results Findings/Data: Laboratory Tests 12/18/18 0730: [Embedded Image Not Available] 12/17/18 2152: [Embedded Image Not Available] 12/17/18 1619: [Embedded Image Not Available] 12/17/18 1352: [Embedded Image Not Available] 12/17/18 1324: [Embedded Image Not Available] Laboratory Tests 12/18 12/17 0455 1515 Blood Gas Puncture Site RR LR ABG pH (7.35 - 7.45) 7.41 7.26 *L ABG pCO2 (35.0 - 45.0 mmHg) 36.1 35.9 ABG pO2 (60.0 - 80.0 mmHg) 78.3 97.7 H ABG HCO3 (20.0 - 26.0 mmol/L) 22.4 15.7 L ABG O2 Saturation (95 - 100 %) 95.8 96.9 ABG Base Excess (-3.0 - 3.0 mmol/L) -1.8 -10.4 L Carli Test Yes Yes Oxyhemoglobin (92.0 - 98.0 %) 95.1 96.1 Carboxyhemoglobin (0.5 - 1.5 %) 0.2 L 0.3 L Methemoglobin (0.4 - 1.5 %) 0.5 0.5 Total Hemoglobin (13.0 - 18.0 G/DL) 12.0 L 11.5 L Temperature (F) 98.6 98.6 Respiration Rate (/MIN) 14.0 22.0 Patient On Oxygen Arterial Arterial Vent Mode room air ROOM AIR FiO2 (%) 21.0 21.0 Instrument Called Laboratory Tests 12/18 12/18 12/17 12/17 12/17 0740 0730 2152 1908 1619 Chemistry Sodium (133 - 145 MMOL/L) 140 143 143 Potassium (3.6 - 5.2 MMOL/L) 4.3 6.5 *H 7.2 *H Chloride (100 - 108 MMOL/L) 105 112 H 112 H Carbon Dioxide (22 - 32 MMOL/L) 27 23 23 BUN (6 - 20 MG/DL) 22 H 53 H 55 H Creatinine (0.60 - 1.00 MG/DL) 1.32 H 2.08 H 2.44 H Estimated GFR (MDRD) (42 - 98) 52 31 L 26 L Glucose (65 - 99 MG/DL) 177 H 157 H 251 H POC Glucose (65 - 99 MG/DL) 175 H 175 H Calcium (8.7 - 10.5 MG/DL) 8.6 L 10.4 10.3 Magnesium (1.8 - 2.4 MG/DL) 1.5 L Total Bilirubin (0.0 - 1.0 MG/DL) 1.0 AST (15 - 37 Units/L) 32 ALT (30 - 65 Units/L) 42 Alkaline Phosphatase (50 - 136 124 Units/L) Total Protein (6.4 - 8.2 G/DL) 6.3 L Albumin (3.4 - 5.0 G/DL) 3.2 L Globulin (1.5 - 3.8 G/DL) 3.1 Albumin/Globulin Ratio (1.1 - 2.2) 1.0 L 12/17 12/17 12/17 1507 1355 1324 Chemistry Sodium (133 - 145 MMOL/L) 135 Potassium (3.6 - 5.2 MMOL/L) 7.5 *H Chloride (100 - 108 MMOL/L) 107 Carbon Dioxide (22 - 32 MMOL/L) 18 L BUN (6 - 20 MG/DL) 56 H Creatinine (0.60 - 1.00 MG/DL) 2.58 H Estimated GFR (MDRD) (42 - 98) 24 L Glucose (65 - 99 MG/DL) 522 *H POC Glucose (65 - 99 MG/DL) 465 *H Calcium (8.7 - 10.5 MG/DL) 9.4 Rapid Troponin I (0.00 - 0.08 NG/ML) 0.00 Laboratory Tests 12/17 2152 Coagulation PT (9.6 - 12.3 SECONDS) 12.1 INR 1.07 APTT (22.5 - 35.3 SECONDS) 33.7 Laboratory Tests 12/18 12/17 0730 1352 Hematology WBC (4.80 - 10.80 x10 3/uL) 7.87 8.67 RBC (4.7 - 6.1 x10 6/uL) 3.47 L 3.83 L Hgb (14.0 - 17.0 G/DL) 10.4 L 11.5 L Hct (42 - 52 %) 29.1 L 33.4 L MCV (80 - 94 FL) 83.9 87.2 MCH (27 - 31 PG) 30.0 30.0 MCHC (33 - 37 G/DL) 35.7 34.4 RDW Coeff of Desmond (11.5 - 14.5 %) 13.6 14.0 Plt Count (150 - 450 x10 3/uL) 118 L 140 L MPV (7.4 - 10.4 FL) 9.7 9.7 Neut % (Auto) (42 - 86 %) 56.4 61.5 Lymph % (Auto) (24 - 44 %) 28.5 24.7 [place] % (Auto) (0.0 - 4.0 %) 9.0 H 7.5 H Eos % (Auto) (0.0 - 2.7 %) 5.0 H 4.8 H Baso % (Auto) (0.0 - 0.5 %) 1.0 H 1.2 H Eos # (Auto) (0.0 - 0.5 x10 3/uL) 0.39 0.42 Baso # (Auto) (0.0 - 0.2 x10 3/uL) 0.08 0.10 Abs Immat Gran (auto) (0.00 - 0.03 x10 3/uL) 0.01 0.03 Absolute Neuts (auto) (1.8 - 7.7 x10 3/uL) 4.44 5.33 Absolute Lymphs (auto) (1.0 - 4.8 x10 3/uL) 2.24 2.14 Absolute Monos (auto) (0.0 - 0.8 x10 3/uL) 0.71 0.65 Absolute Nucleated RBC (0.0 - 0.2 X10 3/uL) 0.0 0.0 Immature Gran % (0.0 - 2.0 %) 0.1 0.3 Nucleated RBC % (0.0 - 0.0 %) 0.0 0.0 Laboratory Tests 12/17 12/17 12/17 2152 1619 1324 Miscellaneous Miscellaneous Test Called Called Called Radiology data Recent Impressions: RADIOLOGY - XR CHEST 1 V 12/17 1335 Report Impression - Status: SIGNED Entered: 12/17/2018 1417 Impression: 1. No evidence of acute cardiopulmonary disease. Impression By: [email or web address] - Arden Valdes MD CAT SCAN - CT HEAD/BRAIN W/CONT 12/17 1450 Report Impression - Status: SIGNED Entered: 12/17/2018 1501 IMPRESSION: 1. Negative CT scan of the brain for acute disease. 2. 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 Impression By: [email or web address] - Thanh Hernandez MD SPECIAL PROCEDURES - US GUIDANCE VASC ACCESS 12/17 2044 Report Impression - Status: SIGNED Entered: 12/17/2018 2224 IMPRESSION: Successful placement 15 cm right internal jugular Trialysis catheter. Impression By: Toñito Valdes MD RADIOLOGY - XR CHEST 1 V 12/17 2109 Report Impression - Status: SIGNED Entered: 12/17/20182207 Impression: 1. No evidence of acute cardiopulmonary disease. Impression By: Toñito Valdes MD RADIOLOGY - XR CHEST 1 V 12/18 0520 Report Impression - Status: SIGNED Entered: 12/18/2018826 Impression: 1. No evidence of acute cardiopulmonary disease. Impression By: Toñito Valdes MD Diagnosis, Assessment Plan Free Text A P: Assessment: -Hyperkalemia (k-7.5) with EKG changes - resolved -Acute renal failure -Metabolic acidosis - improved -COPD -Obstructive Sleep Apnea on CPAP -CAD, s/p Stent placement x 1 (2016) -Diabetes mellitus -HTN -Dyslipidemia -BPH -GERD Plan: -Avoid SUZETTE inhibitors, ARB, NSAIDs, potassium sparing diuretics -Low potassium diet -Patient had dialysis today -DC veltassa -DC IVF, if patient is eating well -Renal ultrasound: No hydronephrosis or perinepric fluid collection -Lantus 10 U SQ bedtime -Stable to TTF Diet: Renal ADA, low potassium diet DVT PPx: Lovenox 30mg SQ daily GI PPx: not indicated Jhonatan Celestin 12/18/18 1210: Attestations Midlevel/Physician Attestation Physician attestation: I have seen the patient, examined, labs and images reviewed. Agree with recommendation above by the resident. 1. Acute renal failure 2. History of hypertension 3. Hyperkalemia with EKG changes resolved 4. History of left bundle branch block 5. Metabolic acidosis improved The patient had dialysis this a.m. His potassium level is improved currently. Weakness also improved. Currently being worked up for acute renal failure MAG3 scan ordered. Follow-up nephrology recommendations. DC Veltassa. DC IV fluids when the patient is taking adequate p.o. Avoid NSAIDs, SUZETTE inhibitors/abscess or potassium sparing diuretics. Low potassium diet. Okay to transfer out of the ICU to medical floor. DVT prophylaxis. at 1532 at 0754 RPT #:[id number] END OF REPORT [facility] 2018-12-17 23:54:00 [id number] [place], [place] PATIENT NAME: BOB VITAL ADMIT DATE: 12/17/18 ACCOUNT NO: [id number] ROOM NO: [facility] AGE: 78 REPORT TYPE: ELECTROCARDIOGRAM SEX: M : 38 ADMITTING PHYSICIAN:Sally Santoro MD ATTENDING PHYSICIAN:Sally Santoro MD Order: [id number] Test Reason : Test Date/Time Stamp: ThuDec 17 2018 23:54:42 Blood Pressure : 142/065 mmHG Vent. Rate : 072 BPM Atrial Rate : 072 BPM P-R Int : 168 ms QRS Dur : 146 ms QT Int : 400 ms P-R-T Axes : 057 012 138 degrees QTc Int : 438 ms Normal sinus rhythm Left bundle branch block Abnormal ECG When compared with ECG of 17-DEC-2018 17:10, (Unconfirmed) No significant change was found Confirmed by ARIA BERMUDEZ MD ([id number]) on 12/20/2018 8:24:17 AM Referred By: Jhonatan Celestin Confirmed by:ARIA BERMUDEZ MD at 0824 PATIENT NAME: BOB VITAL [facility] 2018-12-17 18:53:00 [facility] ([facility]) Nephrology Consultation Note REPORT#:[id number] REPORT STATUS: Signed DATE:12/17/18 TIME: 1852 PATIENT: BOB VITAL UNIT #: [id number] ROOM/BED: [place] [address] : 39 AGE: 78 SEX: M ATTEND: Jhonatan Celestin MD ADM AUTHOR: Addie Barnes MD * ALL edits or amendments must be made on the electronic/computer document * History of Present Illness Requesting clinician: Dr Paige Reason for consult: Hyperkalemia Chief complaint: leg weakness HPI: 78 Y M pt with PMH of CKD with baseline sr cr around 1, 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 PMH of DM , CAD s/p stent . 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 ER lab wotrk showed Sr K of 7.5. He received medical rx with iv insulin, iv bicarb, albuterol nebs and recheck sr k 7.2, EKG SR, LBBB. Pt denies any chest pain, no palpitations, has some dizziness Admits eating potatoes, he is on ramipril. Discussed with pt's bedside also History - Adult longitudinal Past medical history: Reports: Coronary artery disease, Diabetes mellitus, GERD/gastritis, Hypertension, BPH, Dyslipidemia. Additional medical history: Htn, IDDM, HLD, CAD sp 1 stent in 2016, HFrEF (unknown last echo), known LBBB, BPH, GERD, REAL, Malignant hyperthermia Additional surgical history: CARDIAC STENT in 2016 Lap yung 08/2016 ERCP in 09/2016 BL knee surgeries Alcohol use: Denies EtOH use Drug use: Denies recreational drugs Smoking status for patients 13 years old or older: Former Smoker Allergies: Coded Allergies: vancomycin (Severe, DECREASED RENAL FX 07/26/17) Penicillins (UNKNOWN 01/18/14) succinylcholine (MALIGNANT HYPERTHERMIA 01/18/14) Uncoded Allergies: "ALLERGIC TO ANESTHIA" (Severe, ANAPHYLAXIS 12/17/17) Review of Systems Constitutional: Yes fatigue, No chills, No fever, No generalized weakness, No lethargy, No malaise, No recent wt loss Skin: No abrasion, No bruising, No contusion, No diaphoresis, No ecchymosis, No itching, No laceration, No rash, No swelling Eyes: No redness, No discharge, No visual loss/blurred, No itching, No diplopia, No eye pain, No photophobia, No swelling ENT: No ear drainage, No ear ringing, No earache, No hearing loss, No mouth pain, No nasal congestion, No nose bleeding, No sinus problem, No sore throat, No throat pain, No throat swelling, No tongue pain Respiratory: No VINCENT (dyspnea on exertion), No hemoptysis, No non productive cough, No parox nocturnal dyspnea, No pleurisy, No pleuritic pain, No pneumonia, No productive cough (sputum), No SOB Cardiovascular: No chest pain, No VINCENT (dyspnea on exertion), No edema, No orthopnea, No palpitations, No parox nocturnal dyspnea GI: Yes nausea, No abdominal pain, No anorexia, No constipation, No diarrhea, No dysphagia, No GERD, No hematemesis, No hematochezia, No hiatal hernia, No vomiting : Denies: dysuria, flank pain, frequency, hematuria, nocturia. Heme: No adenopathy, No bleeding, No bruising Objective General VS/I O: Vital Signs: Date Time Temp Pulse Resp B/P B/P Pulse O2 O2 Flow FiO2 Mean Ox Delivery Rate 12/17 1533 99 12/17 1530 97 Room air 21 12/17 1310 98.1 88 16 134/62 86 99 Patient Weight Weight (lb): Weight (oz): Weight (kg): 91.818 Medications: Active Meds + DC'd Last 24 Hrs Undefined Medication 8.4 GM DAILY PO Calcium Gluconate 1,000 MG ONCE ONE IV Sodium Chloride 100 ML Insulin Human Regular 10 UNIT ONCE ONE IV (DC) Sodium Polystyrene Sulfonate 30 GM ONCE ONE PO (DC) Sodium Chloride 1,000 ML .Q10H IV Sodium Chloride 1,000 ML .Q4H IV Lactated Ringer's 1,000 ML X1ED STA IV (CAN) Albuterol Sulfate 0 .STK-MED ONE NEB (DCr) Albuterol Sulfate 7.5 MG X1ED STA NEB (DC) Calcium Chloride 1 GM X1ED STA IV (DC) Sodium Chloride 50 ML Insulin Human Regular 10 UNIT X1ED STA IV (DC) Sodium Bicarbonate 100 ML X1ED STA IV (DCr) IV Miscellaneous Supplies 1 EACH Ondansetron Base 4 MG ONCE ONE SL (DC) Ondansetron HCl 4 MG X1ED STA IV (CAN) Physical Exam General appearance: alert, awake Head/eyes: PERRLA ENT: moist mucous membranes, normal nose, no uvular shift/swelling Neck: full range of motion, no JVD, no lymphadenopathy, no masses or swelling Cardiovascular: normal heart sounds, regular rate and rhythm, pedal pulses present, no murmur, no rub Respiratory: aerating well, clear to auscultation, normal breath sounds, symmetric expansion, no distress Abdomen: non-tender, normal bowel sounds, no CVA tenderness, no distention Genitourinary: no bladder distention, no flank pain, no doan Extremities: non-tender, no edema Musculoskeletal: normal inspection, no tendereness Results Findings/Data: Laboratory Tests 12/17 1515 Blood Gas Puncture Site LR ABG pH (7.35 - 7.45) 7.26 *L ABG pCO2 (35.0 - 45.0 mmHg) 35.9 ABG pO2 (60.0 - 80.0 mmHg) 97.7 H ABG HCO3 (20.0 - 26.0 mmol/L) 15.7 L ABG O2 Saturation (95 - 100 %) 96.9 ABG Base Excess (-3.0 - 3.0 mmol/L) -10.4 L Carli Test Yes Oxyhemoglobin (92.0 - 98.0 %) 96.1 Carboxyhemoglobin (0.5 - 1.5 %) 0.3 L Methemoglobin (0.4 - 1.5 %) 0.5 Total Hemoglobin (13.0 - 18.0 G/DL) 11.5 L Temperature (F) 98.6 Respiration Rate (/MIN) 22.0 Patient On Oxygen Arterial Vent Mode ROOM AIR FiO2 (%) 21.0 Instrument Called Laboratory Tests 12/17 12/17 12/17 12/17 1619 1507 1355 1324 Chemistry Sodium (133 - 145 MMOL/L) 143 135 Potassium (3.6 - 5.2 MMOL/L) 7.2 *H 7.5 *H Chloride (100 - 108 MMOL/L) 112 H 107 Carbon Dioxide (22 - 32 MMOL/L) 23 18 L BUN (6 - 20 MG/DL) 55 H 56 H Creatinine (0.60 - 1.00 MG/DL) 2.44 H 2.58 H Estimated GFR (MDRD) (42 - 98) 26 L 24 L Glucose (65 - 99 MG/DL) 251 H 522 *H POC Glucose (65 - 99 MG/DL) 465 *H Calcium (8.7 - 10.5 MG/DL) 10.3 9.4 Rapid Troponin I (0.00 - 0.08 NG/ML) 0.00 Laboratory Tests 12/17 1352 Hematology WBC (4.80 - 10.80 x10 3/uL) 8.67 RBC (4.7 - 6.1 x10 6/uL) 3.83 L Hgb (14.0 - 17.0 G/DL) 11.5 L Hct (42 - 52 %) 33.4 L MCV (80 - 94 FL) 87.2 MCH (27 - 31 PG) 30.0 MCHC (33 - 37 G/DL) 34.4 RDW Coeff of Desmond (11.5 - 14.5 %) 14.0 Plt Count (150 - 450 x10 3/uL) 140 L MPV (7.4 - 10.4 FL) 9.7 Neut % (Auto) (42 - 86 %) 61.5 Lymph % (Auto) (24 - 44 %) 24.7 [place] % (Auto) (0.0 - 4.0 %) 7.5 H Eos % (Auto) (0.0 - 2.7 %) 4.8 H Baso % (Auto) (0.0 - 0.5 %) 1.2 H Eos # (Auto) (0.0 - 0.5 x10 3/uL) 0.42 Baso # (Auto) (0.0 - 0.2 x10 3/uL) 0.10 Abs Immat Gran (auto) (0.00 - 0.03 x10 3/uL) 0.03 Absolute Neuts (auto) (1.8 - 7.7 x10 3/uL) 5.33 Absolute Lymphs (auto) (1.0 - 4.8 x10 3/uL) 2.14 Absolute Monos (auto) (0.0 - 0.8 x10 3/uL) 0.65 Absolute Nucleated RBC (0.0 - 0.2 X10 3/uL) 0.0 Immature Gran % (0.0 - 2.0 %) 0.3 Nucleated RBC % (0.0 - 0.0 %) 0.0 Laboratory Tests 12/17 12/17 1619 1324 Miscellaneous Miscellaneous Test Called Called Radiology data: Recent Impressions: RADIOLOGY - XR CHEST 1 V 12/17 1335 Report Impression - Status: SIGNED Entered: 12/17/2018 4720 Impression: 1. No evidence of acute cardiopulmonary disease. Impression By: [email or web address] - Arden Valdes MD CAT SCAN - CT HEAD/BRAIN W/CONT 12/17 1450 Report Impression - Status: SIGNED Entered: 12/17/2018 1501 IMPRESSION: 1. Negative CT scan of the brain for acute disease. 2. 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 Impression By: [email or web address] - Thanh Hernandez MD Results: labs reviewed, vital signs stable, x-ray personally reviewed, current med profile rev'd Diagnosis, Assessment Plan Free Text DxA P Notes Free Text DxA P Notes: 1. Sev Acute Hyperkalemia: sr k went from 7.5 to 7.2 only with medical therapy. He is urinating. Has LBBB on EKG, SR, has h/o CAD with s/p stent in past. In my opinion he needs dialysis rx tonight Discussed with pt, pts -agreed. Discussed with JEAN RICHTER for temp HD cath placement tonight, tj HD nurse. Hold ramipril Low K diet HD orders given for tonight 2. NILES:UA and renal US 3. CKD 2/3: baseline sr cr 1 4. H/o CAD s/p stent- no chest pain 5. 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[employer]- will inform Dr Alejandro spencer for their group to follow the pt from tomorrow thanks for the consult at 1915 RPT #:[id number] END OF REPORT [facility] 2018-12-17 17:45:00 [facility] ([facility]) History Physical - Adult REPORT#:[id number] REPORT STATUS: Signed DATE:12/17/18 TIME: 1744 PATIENT: BOB VITAL UNIT #: [id number] ROOM/BED: [place] [address] : 39 AGE: 78 SEX: M ATTEND: Jhonatan Celestin MD ADM AUTHOR: Deb Kim R1 * ALL edits or amendments must be made on the electronic/computer document * History of Present Illness HPI Chief complaint: shaking and weakness in both lower legs PCP: PCP: Scar Diaz MD HPI: blas Sky is 78 year old male with past medical history of COPD, sleep apnea on CPAP, coronary artery disease, Daibetes mellitus, hypertension, Benign prostate hypertrophy, dyslipidemia presented to the ED with complains of shaking and weakness in his lower extremities since this afternoon. Patient went outside for lunch this afternoon, after lunch, he tried get up from chair and noticed that his legs were shaking associated with weakness, and was unable to walk. Patient reports he was little dizzy too. No weakness noted in upper extremities or face. Patient states that he never had similar symptoms in the past. thought he might have had stroke and drove him to the ED. Patient states that he has been using over the counter medications for the last one week for sneezing. Patient denies any urinary discomfort. In ED patient was found to have elevated potassium (k-7.5), he was given stat dose of calcium, insulin, sodium bicarbonate. Nephrology consulted. History Past medical history: Reports: Coronary artery disease, Diabetes mellitus, GERD/gastritis, Hypertension, BPH, Dyslipidemia. Additional medical history: Htn, IDDM, HLD, CAD sp 1 stent in 2017, HFrEF (unknown last echo), known LBBB, BPH, GERD, REAL, Malignant hyperthermia Additional surgical history: CARDIAC STENT in 2017 Lap yung 08/2016 ERCP in 09/2016 BL knee surgeries Alcohol use: Denies EtOH use Drug use: Denies recreational drugs Smoking status for patients 13 years old or older: Former Smoker Medication/Allergy-Vaccine Hx Home Medications: ASPIRIN EC (ECOTRIN) 81 MG PO DAILY ATORVASTATIN (LIPITOR) 40 MG PO DAILY CARVEDILOL (COREG) 12.5 MG PO BID CHOLECALCIFEROL (VITAMIN D3) (VITAMIN D3) 1,000 UNITS PO DAILY FUROSEMIDE (LASIX) 20 MG PO DAILY INSULIN ASPART (NovoLOG FLEXPEN) 0 UNITS SUBQ AC HS INSULIN GLARGINE (LANTUS) 40 UNITS SUBQ DAILY RAMIPRIL (ALTACE) 5 MG PO DAILY TAMSULOSIN ER (FLOMAX) 0.4 MG PO DAILY Discontinued Medications ASPIRIN 81 MG PO DAILY 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 Denies: chills, fever, recent wt loss. Skin: Denies: abrasion, bruising, itching, laceration. Allergy/Immun: Reports: sneezing. Eyes: Denies: redness, itching, eye pain, swelling. ENT: Denies: ear drainage, ear ringing, mouth pain, sore throat, throat pain. Respiratory: Denies: hemoptysis, non productive cough, productive cough (sputum), SOB, wheezing. Cardiovascular: Denies: chest pain, edema, orthopnea, palpitations, parox nocturnal dyspnea. GI: Denies: abdominal pain, constipation, diarrhea, nausea, vomiting. : Denies: dysuria, flank pain. Endocrine: Denies: polydipsia, polyphagia. Neuro: Denies: confusion, dizziness, headache, lightheaded. Psych: Denies: confusion, delusional. Physical Exam VS/I O Vital Signs: Date Time Temp Pulse Resp B/P B/P Pulse O2 O2 Flow FiO2 Mean Ox Delivery Rate 12/17 1533 99 12/17 1530 97 Room air 21 12/17 1310 98.1 88 16 134/62 86 99 Patient Weight Weight (lb): Weight (oz): Weight (kg): 91.818 General appearance: alert, awake, oriented, no acute distress, pleasant, conversational, mental status normal, no respiratory distress Head/Eyes: atraumatic, EOMI, normocephalic, normal conjunctiva/sclera ENT: moist mucosal membranes Neck: non-tender, no bruit/NL carotids, supple/no meningismus Cardiovascular: regular rate rhythm, normal heart sounds Respiratory: clear to auscultation, no distress, symmetric expansion Abdomen/GI: active bowel sounds, soft, non-tender Genitourinary: no flank pain Extremities: moves all, no calf tenderness, no clubbing, no cyanosis 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, 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 Psychiatry: no hallucinations, normal affect, normal mood Results Findings/Data: Laboratory Tests: 12/17 12/17 12/17 12/17 1619 1515 1507 1355 Blood Gas Puncture Site LR ABG pH (7.35 - 7.45) 7.26 *L ABG pCO2 (35.0 - 45.0 mmHg) 35.9 ABG pO2 (60.0 - 80.0 mmHg) 97.7 H ABG HCO3 (20.0 - 26.0 mmol/L) 15.7 L ABG O2 Saturation (95 - 100 %) 96.9 ABG Base Excess (-3.0 - 3.0 mmol/L) -10.4 L Carli Test Yes Oxyhemoglobin (92.0 - 98.0 %) 96.1 Carboxyhemoglobin (0.5 - 1.5 %) 0.3 L Methemoglobin (0.4 - 1.5 %) 0.5 Total Hemoglobin (13.0 - 18.0 G/DL) 11.5 L Temperature (F) 98.6 Respiration Rate (/MIN) 22.0 Patient On Oxygen Arterial Vent Mode ROOM AIR FiO2 (%) 21.0 Instrument Called Chemistry Sodium (133 - 145 MMOL/L) 143 Potassium (3.6 - 5.2 MMOL/L) 7.2 *H Chloride (100 - 108 MMOL/L) 112 H Carbon Dioxide (22 - 32 MMOL/L) 23 BUN (6 - 20 MG/DL) 55 H Creatinine (0.60 - 1.00 MG/DL) 2.44 H Estimated GFR (MDRD) (42 - 98) 26 L Glucose (65 - 99 MG/DL) 251 H POC Glucose (65 - 99 MG/DL) 465 *H Calcium (8.7 - 10.5 MG/DL) 10.3 Rapid Troponin I (0.00 - 0.08 NG/ML) 0.00 Miscellaneous Miscellaneous Test Called 12/17 12/17 1352 1324 Chemistry Sodium (133 - 145 MMOL/L) 135 Potassium (3.6 - 5.2 MMOL/L) 7.5 *H Chloride (100 - 108 MMOL/L) 107 Carbon Dioxide (22 - 32 MMOL/L) 18 L BUN (6 - 20 MG/DL) 56 H Creatinine (0.60 - 1.00 MG/DL) 2.58 H Estimated GFR (MDRD) (42 - 98) 24 L Glucose (65 - 99 MG/DL) 522 *H Calcium (8.7 - 10.5 MG/DL) 9.4 Hematology WBC (4.80 - 10.80 x10 3/uL) 8.67 RBC (4.7 - 6.1 x10 6/uL) 3.83 L Hgb (14.0 - 17.0 G/DL) 11.5 L Hct (42 - 52 %) 33.4 L MCV (80 - 94 FL) 87.2 MCH (27 - 31 PG) 30.0 MCHC (33 - 37 G/DL) 34.4 RDW Coeff of Desmond (11.5 - 14.5 %) 14.0 Plt Count (150 - 450 x10 3/uL) 140 L MPV (7.4 - 10.4 FL) 9.7 Neut % (Auto) (42 - 86 %) 61.5 Lymph % (Auto) (24 - 44 %) 24.7 [place] % (Auto) (0.0 - 4.0 %) 7.5 H Eos % (Auto) (0.0 - 2.7 %) 4.8 H Baso % (Auto) (0.0 - 0.5 %) 1.2 H Eos # (Auto) (0.0 - 0.5 x10 3/uL) 0.42 Baso # (Auto) (0.0 - 0.2 x10 3/uL) 0.10 Abs Immat Gran (auto) (0.00 - 0.03 x10 3/uL) 0.03 Absolute Neuts (auto) (1.8 - 7.7 x10 3/uL) 5.33 Absolute Lymphs (auto) (1.0 - 4.8 x10 3/uL) 2.14 Absolute Monos (auto) (0.0 - 0.8 x10 3/uL) 0.65 Absolute Nucleated RBC (0.0 - 0.2 X10 3/uL) 0.0 Immature Gran % (0.0 - 2.0 %) 0.3 Nucleated RBC % (0.0 - 0.0 %) 0.0 Miscellaneous Miscellaneous Test Called Radiology data: Recent Impressions: RADIOLOGY - XR CHEST 1 V 12/17 6985 Report Impression - Status: SIGNED Entered: 12/17/2018 3416 Impression: 1. No evidence of acute cardiopulmonary disease. Impression By: [email or web address] - Arden Valdes MD CAT SCAN - CT HEAD/BRAIN W/CONT 12/17 1450 Report Impression - Status: SIGNED Entered: 12/17/2018 1501 IMPRESSION: 1. Negative CT scan of the brain for acute disease. 2. 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 Impression By: [email or web address] - Thanh Hernandez MD Diagnosis, Assessment Plan Free Text DxA P Notes Free Text DxA P Notes: Assessment: -Hyperkalemia (k-7.5) -NILES on CKD -COPD -Sleep apnea on CPAP -CAD, s/p Stent placement x 1 (2016) -Diabetes mellitus -HTN -Dyslipidemia -BPH -GERD Plan: -Patient was given stat dose of calcium, insulin, sodium bicarbonate -started on veltassa -IVF NS 250cc/hr 1 lt , followed by 100cc/hr NS -Nephrology consulted -As per Nephrology started patient on regular Insulin 10 U kayexalate 30g calcium gluconate 1 g repeat potassium 2 h later at 1900 RPT #:[id number] END OF REPORT [facility] 2018-12-17 17:45:00 [facility] ([facility]) History Physical - Adult REPORT#:[id number] REPORT STATUS: Signed DATE:12/17/18 TIME: 1744 PATIENT: BOB VITAL UNIT #: [id number] ROOM/BED: [place] [id number] : [birth year] AGE: 78 SEX: M ATTEND: Jhonatan Celestin MD ADM AUTHOR: Deb Kim R1 * ALL edits or amendments must be made on the electronic/computer document * Deb Kim 12/17/181744: History of Present Illness HPI Chief complaint: shaking and weakness in both lower legs PCP: PCP: Scar Diaz MD HPI: blas Sky is 78 year old male with past medical history of COPD, sleep apnea on CPAP, coronary artery disease, Daibetes mellitus, hypertension, Benign prostate hypertrophy, dyslipidemia presented to the ED with complains of shaking and weakness in his lower extremities since this afternoon. Patient went outside for lunch this afternoon, after lunch, he tried get up from chair and noticed that his legs were shaking associated with weakness, and was unable to walk. Patient reports he was little dizzy too. No weakness noted in upper extremities or face. Patient states that he never had similar symptoms in the past. thought he might have had stroke and drove him to the ED. Patient states that he has been using over the counter medications for the last one week for sneezing. Patient denies any urinary discomfort. In ED patient was found to have elevated potassium (k-7.5), he was given stat dose of calcium, insulin, sodium bicarbonate. Nephrology consulted. History Past medical history: Reports: Coronary artery disease, Diabetes mellitus, GERD/gastritis, Hypertension, BPH, Dyslipidemia. Additional medical history: Htn, IDDM, HLD, CAD sp 1 stent in 2016, HFrEF (unknown last echo), known LBBB, BPH, GERD, REAL, Malignant hyperthermia Additional surgical history: CARDIAC STENT in 2016 Lap yung 08/2016 ERCP in 09/2016 BL knee surgeries Alcohol use: Denies EtOH use Drug use: Denies recreational drugs Smoking status for patients 13 years old or older: Former Smoker Medication/Allergy-Vaccine Hx Home Medications: ASPIRIN EC (ECOTRIN) 81 MG PO DAILY ATORVASTATIN (LIPITOR) 40 MG PO DAILY CARVEDILOL (COREG) 12.5 MG PO BID CHOLECALCIFEROL (VITAMIN D3) (VITAMIN D3) 1,000 UNITS PO DAILY FUROSEMIDE (LASIX) 20 MG PO DAILY INSULIN ASPART (NovoLOG FLEXPEN) 0 UNITS SUBQ AC HS INSULIN GLARGINE (LANTUS) 40 UNITS SUBQ DAILY RAMIPRIL (ALTACE) 5 MG PO DAILY TAMSULOSIN ER (FLOMAX) 0.4 MG PO DAILY Discontinued Medications ASPIRIN 81 MG PO DAILY 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 Denies: chills, fever, recent wt loss. Skin: Denies: abrasion, bruising, itching, laceration. Allergy/Immun: Reports: sneezing. Eyes: Denies: redness, itching, eye pain, swelling. ENT: Denies: ear drainage, ear ringing, mouth pain, sore throat, throat pain. Respiratory: Denies: hemoptysis, non productive cough, productive cough (sputum), SOB, wheezing. Cardiovascular: Denies: chest pain, edema, orthopnea, palpitations, parox nocturnal dyspnea. GI: Denies: abdominal pain, constipation, diarrhea, nausea, vomiting. : Denies: dysuria, flank pain. Endocrine: Denies: polydipsia, polyphagia. Neuro: Denies: confusion, dizziness, headache, lightheaded. Psych: Denies: confusion, delusional. Physical Exam VS/I O Vital Signs: Date Time Temp Pulse Resp B/P B/P Pulse O2 O2 Flow FiO2 Mean Ox Delivery Rate 12/17 1533 99 12/17 1530 97 Room air 21 12/17 1310 98.1 88 16 134/62 86 99 Patient Weight Weight (lb): Weight (oz): Weight (kg): 91.818 General appearance: alert, awake, oriented, no acute distress, pleasant, conversational, mental status normal, no respiratory distress Head/Eyes: atraumatic, EOMI, normocephalic, normal conjunctiva/sclera ENT: moist mucosal membranes Neck: non-tender, no bruit/NL carotids, supple/no meningismus Cardiovascular: regular rate rhythm, normal heart sounds Respiratory: clear to auscultation, no distress, symmetric expansion Abdomen/GI: active bowel sounds, soft, non-tender Genitourinary: no flank pain Extremities: moves all, no calf tenderness, no clubbing, no cyanosis 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, 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 Psychiatry: no hallucinations, normal affect, normal mood Results Findings/Data: Laboratory Tests: 12/17 12/17 12/17 12/17 1619 1515 1507 1355 Blood Gas Puncture Site LR ABG pH (7.35 - 7.45) 7.26 *L ABG pCO2 (35.0 - 45.0 mmHg) 35.9 ABG pO2 (60.0 - 80.0 mmHg) 97.7 H ABG HCO3 (20.0 - 26.0 mmol/L) 15.7 L ABG O2 Saturation (95 - 100 %) 96.9 ABG Base Excess (-3.0 - 3.0 mmol/L) -10.4 L Carli Test Yes Oxyhemoglobin (92.0 - 98.0 %) 96.1 Carboxyhemoglobin (0.5 - 1.5 %) 0.3 L Methemoglobin (0.4 - 1.5 %) 0.5 Total Hemoglobin (13.0 - 18.0 G/DL) 11.5 L Temperature (F) 98.6 Respiration Rate (/MIN) 22.0 Patient On Oxygen Arterial Vent Mode ROOM AIR FiO2 (%) 21.0 Instrument Called Chemistry Sodium (133 - 145 MMOL/L) 143 Potassium (3.6 - 5.2 MMOL/L) 7.2 *H Chloride (100 - 108 MMOL/L) 112 H Carbon Dioxide (22 - 32 MMOL/L) 23 BUN (6 - 20 MG/DL) 55 H Creatinine (0.60 - 1.00 MG/DL) 2.44 H Estimated GFR (MDRD) (42 - 98) 26 L Glucose (65 - 99 MG/DL) 251 H POC Glucose (65 - 99 MG/DL) 465 *H Calcium (8.7 - 10.5 MG/DL) 10.3 Rapid Troponin I (0.00 - 0.08 NG/ML) 0.00 Miscellaneous Miscellaneous Test Called 12/17 12/17 1352 1324 Chemistry Sodium (133 - 145 MMOL/L) 135 Potassium (3.6 - 5.2 MMOL/L) 7.5 *H Chloride (100 - 108 MMOL/L) 107 Carbon Dioxide (22 - 32 MMOL/L) 18 L BUN (6 - 20 MG/DL) 56 H Creatinine (0.60 - 1.00 MG/DL) 2.58 H Estimated GFR (MDRD) (42 - 98) 24 L Glucose (65 - 99 MG/DL) 522 *H Calcium (8.7 - 10.5 MG/DL) 9.4 Hematology WBC (4.80 - 10.80 x10 3/uL) 8.67 RBC (4.7 - 6.1 x10 6/uL) 3.83 L Hgb (14.0 - 17.0 G/DL) 11.5 L Hct (42 - 52 %) 33.4 L MCV (80 - 94 FL) 87.2 MCH (27 - 31 PG) 30.0 MCHC (33 - 37 G/DL) 34.4 RDW Coeff of Desmond (11.5 - 14.5 %) 14.0 Plt Count (150 - 450 x10 3/uL) 140 L MPV (7.4 - 10.4 FL) 9.7 Neut % (Auto) (42 - 86 %) 61.5 Lymph % (Auto) (24 - 44 %) 24.7 [place] % (Auto) (0.0 - 4.0 %) 7.5 H Eos % (Auto) (0.0 - 2.7 %) 4.8 H Baso % (Auto) (0.0 - 0.5 %) 1.2 H Eos # (Auto) (0.0 - 0.5 x10 3/uL) 0.42 Baso # (Auto) (0.0 - 0.2 x10 3/uL) 0.10 Abs Immat Gran (auto) (0.00 - 0.03 x10 3/uL) 0.03 Absolute Neuts (auto) (1.8 - 7.7 x10 3/uL) 5.33 Absolute Lymphs (auto) (1.0 - 4.8 x10 3/uL) 2.14 Absolute Monos (auto) (0.0 - 0.8 x10 3/uL) 0.65 Absolute Nucleated RBC (0.0 - 0.2 X10 3/uL) 0.0 Immature Gran % (0.0 - 2.0 %) 0.3 Nucleated RBC % (0.0 - 0.0 %) 0.0 Miscellaneous Miscellaneous Test Called Radiology data: Recent Impressions: RADIOLOGY - XR CHEST 1 V 12/17 1335 Report Impression - Status: SIGNED Entered: 12/17/2018 1417 Impression: 1. No evidence of acute cardiopulmonary disease. Impression By: [email or web address] - Arden Valdes MD CAT SCAN - CT HEAD/BRAIN W/CONT 12/17 5590 Report Impression - Status: SIGNED Entered: 12/17/2018 1501 IMPRESSION: 1. Negative CT scan of the brain for acute disease. 2. 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 Impression By: [email or web address] - Thanh Hernandez MD Diagnosis, Assessment Plan Free Text DxA P Notes Free Text DxA P Notes: Assessment: -Hyperkalemia (k-7.5) -NILES on CKD -COPD -Sleep apnea on CPAP -CAD, s/p Stent placement x 1 (2016) -Diabetes mellitus -HTN -Dyslipidemia -BPH -GERD Plan: -Patient was given stat dose of calcium, insulin, sodium bicarbonate -started on veltassa -IVF NS 250cc/hr 1 lt , followed by 100cc/hr NS -Nephrology consulted -As per Nephrology started patient on regular Insulin 10 U kayexalate 30g calcium gluconate 1 g repeat potassium 2 h later Jhonatan Celestin 12/18/18 0716: Attestations Midlevel/Physician Attestation Physician attestation: . at 1900 RPT #:[id number] END OF REPORT [facility] 2018-12-17 17:45:00 [facility] ([facility]) History Physical - Adult REPORT#:[id number] REPORT STATUS: Signed DATE:12/17/18 TIME: 1744 PATIENT: BOB VITAL UNIT #: [id number] ROOM/BED: [place] [address] : 39 AGE: 78 SEX: M ATTEND: Sally Santoro MD ADM AUTHOR: Deb Kim * ALL edits or amendments must be made on the electronic/computer document * Deb Kim 12/17/18 174: History of Present Illness HPI Chief complaint: shaking and weakness in both lower legs PCP: PCP: Scar Diaz MD HPI: blas Sky is 78 year old male with past medical history of COPD, sleep apnea on CPAP, coronary artery disease, Daibetes mellitus, hypertension, Benign prostate hypertrophy, dyslipidemia presented to the ED with complains of shaking and weakness in his lower extremities since this afternoon. Patient went outside for lunch this afternoon, after lunch, he tried get up from chair and noticed that his legs were shaking associated with weakness, and was unable to walk. Patient reports he was little dizzy too. No weakness noted in upper extremities or face. Patient states that he never had similar symptoms in the past. thought he might have had stroke and drove him to the ED. Patient states that he has been using over the counter medications for the last one week for sneezing. Patient denies any urinary discomfort. In ED patient was found to have elevated potassium (k-7.5), he was given stat dose of calcium, insulin, sodium bicarbonate. Nephrology consulted. History Past medical history: Reports: Coronary artery disease, Diabetes mellitus, GERD/gastritis, Hypertension, BPH, Dyslipidemia. Additional medical history: Htn, IDDM, HLD, CAD sp 1 stent in 2017, HFrEF (unknown last echo), known LBBB, BPH, GERD, REAL, Malignant hyperthermia Additional surgical history: CARDIAC STENT in 2016 Lap yung 08/2016 ERCP in 09/2016 BL knee surgeries Alcohol use: Denies EtOH use Drug use: Denies recreational drugs Smoking status for patients 13 years old or older: Former Smoker Medication/Allergy-Vaccine Hx Allergies: Coded Allergies: vancomycin (Severe, DECREASED RENAL FX 07/26/17) Penicillins (UNKNOWN 01/18/14) succinylcholine (MALIGNANT HYPERTHERMIA 01/18/14) Uncoded Allergies: "ALLERGIC TO ANESTHIA" (Severe, ANAPHYLAXIS 12/17/17) Review of Systems Constitutional: Reports: generalized weakness. Denies: chills, fever, recent wt loss. Skin: Denies: abrasion, bruising, itching, laceration. Allergy/Immun: Reports: sneezing. Eyes: Denies: redness, itching, eye pain, swelling. ENT: Denies: ear drainage, ear ringing, mouth pain, sore throat, throat pain. Respiratory: Denies: hemoptysis, non productive cough, productive cough (sputum), SOB, wheezing. Cardiovascular: Denies: chest pain, edema, orthopnea, palpitations, parox nocturnal dyspnea. GI: Denies: abdominal pain, constipation, diarrhea, nausea, vomiting. : Denies: dysuria, flank pain. Endocrine: Denies: polydipsia, polyphagia. Neuro: Denies: confusion, dizziness, headache, lightheaded. Psych: Denies: confusion, delusional. Physical Exam VS/I O Vital Signs: Date Time Temp Pulse Resp B/P B/P Pulse O2 O2 Flow FiO2 Mean Ox Delivery Rate 12/17 1533 99 12/17 1530 97 Room air 21 12/17 1310 98.1 88 16 134/62 86 99 Patient Weight Weight (lb): Weight (oz): Weight (kg): 91.818 General appearance: alert, awake, oriented, no acute distress, pleasant, conversational, mental status normal, no respiratory distress Head/Eyes: atraumatic, EOMI, normocephalic, normal conjunctiva/sclera ENT: moist mucosal membranes Neck: non-tender, no bruit/NL carotids, supple/no meningismus Cardiovascular: regular rate rhythm, normal heart sounds Respiratory: clear to auscultation, no distress, symmetric expansion Abdomen/GI: active bowel sounds, soft, non-tender Genitourinary: no flank pain Extremities: moves all, no calf tenderness, no clubbing, no cyanosis 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, 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 Psychiatry: no hallucinations, normal affect, normal mood Results Findings/Data: Laboratory Tests: 12/17 12/17 12/17 12/17 1619 1515 1507 1355 Blood Gas Puncture Site LR ABG pH (7.35 - 7.45) 7.26 *L ABG pCO2 (35.0 - 45.0 mmHg) 35.9 ABG pO2 (60.0 - 80.0 mmHg) 97.7 H ABG HCO3 (20.0 - 26.0 mmol/L) 15.7 L ABG O2 Saturation (95 - 100 %) 96.9 ABG Base Excess (-3.0 - 3.0 mmol/L) -10.4 L Carli Test Yes Oxyhemoglobin (92.0 - 98.0 %) 96.1 Carboxyhemoglobin (0.5 - 1.5 %) 0.3 L Methemoglobin (0.4 - 1.5 %) 0.5 Total Hemoglobin (13.0 - 18.0 G/DL) 11.5 L Temperature (F) 98.6 Respiration Rate (/MIN) 22.0 Patient On Oxygen Arterial Vent Mode ROOM AIR FiO2 (%) 21.0 Instrument Called Chemistry Sodium (133 - 145 MMOL/L) 143 Potassium (3.6 - 5.2 MMOL/L) 7.2 *H Chloride (100 - 108 MMOL/L) 112 H Carbon Dioxide (22 - 32 MMOL/L) 23 BUN (6 - 20 MG/DL) 55 H Creatinine (0.60 - 1.00 MG/DL) 2.44 H Estimated GFR (MDRD) (42 - 98) 26 L Glucose (65 - 99 MG/DL) 251 H POC Glucose (65 - 99 MG/DL) 465 *H Calcium (8.7 - 10.5 MG/DL) 10.3 Rapid Troponin I (0.00 - 0.08 NG/ML) 0.00 Miscellaneous Miscellaneous Test Called 12/17 12/17 1352 1324 Chemistry Sodium (133 - 145 MMOL/L) 135 Potassium (3.6 - 5.2 MMOL/L) 7.5 *H Chloride (100 - 108 MMOL/L) 107 Carbon Dioxide (22 - 32 MMOL/L) 18 L BUN (6 - 20 MG/DL) 56 H Creatinine (0.60 - 1.00 MG/DL) 2.58 H Estimated GFR (MDRD) (42 - 98) 24 L Glucose (65 - 99 MG/DL) 522 *H Calcium (8.7 - 10.5 MG/DL) 9.4 Hematology WBC (4.80 - 10.80 x10 3/uL) 8.67 RBC (4.7 - 6.1 x10 6/uL) 3.83 L Hgb (14.0 - 17.0 G/DL) 11.5 L Hct (42 - 52 %) 33.4 L MCV (80 - 94 FL) 87.2 MCH (27 - 31 PG) 30.0 MCHC (33 - 37 G/DL) 34.4 RDW Coeff of Desmond (11.5 - 14.5 %) 14.0 Plt Count (150 - 450 x10 3/uL) 140 L MPV (7.4 - 10.4 FL) 9.7 Neut % (Auto) (42 - 86 %) 61.5 Lymph % (Auto) (24 - 44 %) 24.7 [place] % (Auto) (0.0 - 4.0 %) 7.5 H Eos % (Auto) (0.0 - 2.7 %) 4.8 H Baso % (Auto) (0.0 - 0.5 %) 1.2 H Eos # (Auto) (0.0 - 0.5 x10 3/uL) 0.42 Baso # (Auto) (0.0 - 0.2 x10 3/uL) 0.10 Abs Immat Gran (auto) (0.00 - 0.03 x10 3/uL) 0.03 Absolute Neuts (auto) (1.8 - 7.7 x10 3/uL) 5.33 Absolute Lymphs (auto) (1.0 - 4.8 x10 3/uL) 2.14 Absolute Monos (auto) (0.0 - 0.8 x10 3/uL) 0.65 Absolute Nucleated RBC (0.0 - 0.2 X10 3/uL) 0.0 Immature Gran % (0.0 - 2.0 %) 0.3 Nucleated RBC % (0.0 - 0.0 %) 0.0 Miscellaneous Miscellaneous Test Called Radiology data: Recent Impressions: RADIOLOGY - XR CHEST 1 V 12/17 1335 Report Impression - Status: SIGNED Entered: 12/17/2018 1417 Impression: 1. No evidence of acute cardiopulmonary disease. Impression By: [email or web address] - Arden Valdes MD CAT SCAN - CT HEAD/BRAIN W/CONT 12/17 1450 Report Impression - Status: SIGNED Entered: 12/17/2018 1501 IMPRESSION: 1. Negative CT scan of the brain for acute disease. 2. 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 Impression By: [email or web address] - Thanh Hernandez MD Diagnosis, Assessment Plan Free Text DxA P Notes Free Text DxA P Notes: Assessment: -Hyperkalemia (k-7.5) -NILES on CKD -COPD -Sleep apnea on CPAP -CAD, s/p Stent placement x 1 (2016) -Diabetes mellitus -HTN -Dyslipidemia -BPH -GERD Plan: -Patient was given stat dose of calcium, insulin, sodium bicarbonate -started on veltassa -IVF NS 250cc/hr 1 lt , followed by 100cc/hr NS -Nephrology consulted -As per Nephrology started patient on regular Insulin 10 U kayexalate 30g calcium gluconate 1 g repeat potassium 2 h later Jhonatan Celestin 12/18/18 0716: History Medication/Allergy-Vaccine Hx Home Medications: ASPIRIN EC (ECOTRIN) 81 MG PO DAILY ATORVASTATIN (LIPITOR) 40 MG PO DAILY CARVEDILOL (COREG) 12.5 MG PO BID CHOLECALCIFEROL (VITAMIN D3) (VITAMIN D3) 1,000 UNITS PO DAILY INSULIN ASPART (NovoLOG FLEXPEN) 0 UNITS SUBQ AC HS INSULIN GLARGINE (LANTUS) 40 UNITS SUBQ DAILY TAMSULOSIN ER (FLOMAX) 0.4 MG PO DAILY Attestations Midlevel/Physician Attestation Physician attestation: I have seen the patient, examined, labs and images reviewed. Agree with the documentation by the resident as above. at 1900 RPT #:[id number] END OF REPORT [facility] 2018-12-17 17:45:00 [facility] ([facility]) History Physical - Adult REPORT#:[id number] REPORT STATUS: Signed DATE:12/17/18 TIME: 1744 PATIENT: BOB VITAL UNIT #: [id number] ROOM/BED: [facility]23-1 : 39 AGE: 78 SEX: M ATTEND: Sally Santoro MD ADM AUTHOR: Deb Kim * ALL edits or amendments must be made on the electronic/computer document * Deb Kim 12/17/18 1745: History of Present Illness HPI Chief complaint: shaking and weakness in both lower legs PCP: PCP: Scar Diaz MD HPI: blas Sky is 78 year old male with past medical history of COPD, sleep apnea on CPAP, coronary artery disease, Daibetes mellitus, hypertension, Benign prostate hypertrophy, dyslipidemia presented to the ED with complains of shaking and weakness in his lower extremities since this afternoon. Patient went outside for lunch this afternoon, after lunch, he tried get up from chair and noticed that his legs were shaking associated with weakness, and was unable to walk. Patient reports he was little dizzy too. No weakness noted in upper extremities or face. Patient states that he never had similar symptoms in the past. thought he might have had stroke and drove him to the ED. Patient states that he has been using over the counter medications for the last one week for sneezing. Patient denies any urinary discomfort. In ED patient was found to have elevated potassium (k-7.5), he was given stat dose of calcium, insulin, sodium bicarbonate. Nephrology consulted. History Past medical history: Reports: Coronary artery disease, Diabetes mellitus, GERD/gastritis, Hypertension, BPH, Dyslipidemia. Additional medical history: Htn, IDDM, HLD, CAD sp 1 stent in 2017, HFrEF (unknown last echo), known LBBB, BPH, GERD, REAL, Malignant hyperthermia Additional surgical history: CARDIAC STENT in 2017 Lap yung 08/2016 ERCP in 09/2016 BL knee surgeries Alcohol use: Denies EtOH use Drug use: Denies recreational drugs Smoking status for patients 13 years old or older: Former Smoker Medication/Allergy-Vaccine Hx Allergies: Coded Allergies: vancomycin (Severe, DECREASED RENAL FX 07/26/17) Penicillins (UNKNOWN 01/18/14) succinylcholine (MALIGNANT HYPERTHERMIA 01/18/14) Uncoded Allergies: "ALLERGIC TO ANESTHIA" (Severe, ANAPHYLAXIS 12/17/17) Review of Systems Constitutional: Reports: generalized weakness. Denies: chills, fever, recent wt loss. Skin: Denies: abrasion, bruising, itching, laceration. Allergy/Immun: Reports: sneezing. Eyes: Denies: redness, itching, eye pain, swelling. ENT: Denies: ear drainage, ear ringing, mouth pain, sore throat, throat pain. Respiratory: Denies: hemoptysis, non productive cough, productive cough (sputum), SOB, wheezing. Cardiovascular: Denies: chest pain, edema, orthopnea, palpitations, parox nocturnal dyspnea. GI: Denies: abdominal pain, constipation, diarrhea, nausea, vomiting. : Denies: dysuria, flank pain. Endocrine: Denies: polydipsia, polyphagia. Neuro: Denies: confusion, dizziness, headache, lightheaded. Psych: Denies: confusion, delusional. Physical Exam VS/I O Vital Signs: Date Time Temp Pulse Resp B/P B/P Pulse O2 O2 Flow FiO2 Mean Ox Delivery Rate 12/17 1533 99 12/17 1530 97 Room air 21 12/17 1310 98.1 88 16 134/62 86 99 Patient Weight Weight (lb): Weight (oz): Weight (kg): 91.818 General appearance: alert, awake, oriented, no acute distress, pleasant, conversational, mental status normal, no respiratory distress Head/Eyes: atraumatic, EOMI, normocephalic, normal conjunctiva/sclera ENT: moist mucosal membranes Neck: non-tender, no bruit/NL carotids, supple/no meningismus Cardiovascular: regular rate rhythm, normal heart sounds Respiratory: clear to auscultation, no distress, symmetric expansion Abdomen/GI: active bowel sounds, soft, non-tender Genitourinary: no flank pain Extremities: moves all, no calf tenderness, no clubbing, no cyanosis 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, 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 Psychiatry: no hallucinations, normal affect, normal mood Results Findings/Data: Laboratory Tests: 12/17 12/17 12/17 12/17 1619 1515 1507 1355 Blood Gas Puncture Site LR ABG pH (7.35 - 7.45) 7.26 *L ABG pCO2 (35.0 - 45.0 mmHg) 35.9 ABG pO2 (60.0 - 80.0 mmHg) 97.7 H ABG HCO3 (20.0 - 26.0 mmol/L) 15.7 L ABG O2 Saturation (95 - 100 %) 96.9 ABG Base Excess (-3.0 - 3.0 mmol/L) -10.4 L Carli Test Yes Oxyhemoglobin (92.0 - 98.0 %) 96.1 Carboxyhemoglobin (0.5 - 1.5 %) 0.3 L Methemoglobin (0.4 - 1.5 %) 0.5 Total Hemoglobin (13.0 - 18.0 G/DL) 11.5 L Temperature (F) 98.6 Respiration Rate (/MIN) 22.0 Patient On Oxygen Arterial Vent Mode ROOM AIR FiO2 (%) 21.0 Instrument Called Chemistry Sodium (133 - 145 MMOL/L) 143 Potassium (3.6 - 5.2 MMOL/L) 7.2 *H Chloride (100 - 108 MMOL/L) 112 H Carbon Dioxide (22 - 32 MMOL/L) 23 BUN (6 - 20 MG/DL) 55 H Creatinine (0.60 - 1.00 MG/DL) 2.44 H Estimated GFR (MDRD) (42 - 98) 26 L Glucose (65 - 99 MG/DL) 251 H POC Glucose (65 - 99 MG/DL) 465 *H Calcium (8.7 - 10.5 MG/DL) 10.3 Rapid Troponin I (0.00 - 0.08 NG/ML) 0.00 Miscellaneous Miscellaneous Test Called 12/17 12/17 1352 1324 Chemistry Sodium (133 - 145 MMOL/L) 135 Potassium (3.6 - 5.2 MMOL/L) 7.5 *H Chloride (100 - 108 MMOL/L) 107 Carbon Dioxide (22 - 32 MMOL/L) 18 L BUN (6 - 20 MG/DL) 56 H Creatinine (0.60 - 1.00 MG/DL) 2.58 H Estimated GFR (MDRD) (42 - 98) 24 L Glucose (65 - 99 MG/DL) 522 *H Calcium (8.7 - 10.5 MG/DL) 9.4 Hematology WBC (4.80 - 10.80 x10 3/uL) 8.67 RBC (4.7 - 6.1 x10 6/uL) 3.83 L Hgb (14.0 - 17.0 G/DL) 11.5 L Hct (42 - 52 %) 33.4 L MCV (80 - 94 FL) 87.2 MCH (27 - 31 PG) 30.0 MCHC (33 - 37 G/DL) 34.4 RDW Coeff of Desmond (11.5 - 14.5 %) 14.0 Plt Count (150 - 450 x10 3/uL) 140 L MPV (7.4 - 10.4 FL) 9.7 Neut % (Auto) (42 - 86 %) 61.5 Lymph % (Auto) (24 - 44 %) 24.7 [place] % (Auto) (0.0 - 4.0 %) 7.5 H Eos % (Auto) (0.0 - 2.7 %) 4.8 H Baso % (Auto) (0.0 - 0.5 %) 1.2 H Eos # (Auto) (0.0 - 0.5 x10 3/uL) 0.42 Baso # (Auto) (0.0 - 0.2 x10 3/uL) 0.10 Abs Immat Gran (auto) (0.00 - 0.03 x10 3/uL) 0.03 Absolute Neuts (auto) (1.8 - 7.7 x10 3/uL) 5.33 Absolute Lymphs (auto) (1.0 - 4.8 x10 3/uL) 2.14 Absolute Monos (auto) (0.0 - 0.8 x10 3/uL) 0.65 Absolute Nucleated RBC (0.0 - 0.2 X10 3/uL) 0.0 Immature Gran % (0.0 - 2.0 %) 0.3 Nucleated RBC % (0.0 - 0.0 %) 0.0 Miscellaneous Miscellaneous Test Called Radiology data: Recent Impressions: RADIOLOGY - XR CHEST 1 V 12/17 1335 Report Impression - Status: SIGNED Entered: 12/17/2018 1417 Impression: 1. No evidence of acute cardiopulmonary disease. Impression By: [email or web address] - Arden Valdes MD CAT SCAN - CT HEAD/BRAIN W/CONT 12/17 1450 Report Impression - Status: SIGNED Entered: 12/17/2018 1501 IMPRESSION: 1. Negative CT scan of the brain for acute disease. 2. 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 Impression By: [email or web address] - Thanh Hernandez MD Diagnosis, Assessment Plan Free Text DxA P Notes Free Text DxA P Notes: Assessment: -Hyperkalemia (k-7.5) -NILES on CKD -COPD -Sleep apnea on CPAP -CAD, s/p Stent placement x 1 (2016) -Diabetes mellitus -HTN -Dyslipidemia -BPH -GERD Plan: -Patient was given stat dose of calcium, insulin, sodium bicarbonate -started on veltassa -IVF NS 250cc/hr 1 lt , followed by 100cc/hr NS -Nephrology consulted -As per Nephrology started patient on regular Insulin 10 U kayexalate 30g calcium gluconate 1 g repeat potassium 2 h later Jhonatan Celestin 12/18/18 0716: History Medication/Allergy-Vaccine Hx Home Medications: ASPIRIN EC (ECOTRIN) 81 MG PO DAILY ATORVASTATIN (LIPITOR) 40 MG PO DAILY CARVEDILOL (COREG) 12.5 MG PO BID CHOLECALCIFEROL (VITAMIN D3) (VITAMIN D3) 1,000 UNITS PO DAILY INSULIN ASPART (NovoLOG FLEXPEN) 0 UNITS SUBQ AC HS INSULIN GLARGINE (LANTUS) 40 UNITS SUBQ DAILY TAMSULOSIN ER (FLOMAX) 0.4 MG PO DAILY Attestations Midlevel/Physician Attestation Physician attestation: I have seen the patient, examined, labs and images reviewed. Agree with the documentation by the resident as above. at 1900 at 0754 RPT #:[id number] END OF REPORT [facility] 2018-12-17 13:16:00 [facility] ([facility]) OR A [facility]AMP[facility] OF [facility] EMERGENCY PROVIDER REPORT REPORT#:[id number] REPORT STATUS: Signed DATE:12/17/18 TIME: 131 PATIENT: BOB VITAL UNIT #: [id number] ROOM/BED: [facility]-1 AGE: 78 SEX: M PCP PHYS: Scar Diaz MD SERVICE AUTHOR: Chandu Hernandez MD * ALL edits or amendments must be made on the electronic/computer document * HPI-Dizziness/Weakness General Confirmed Patient Yes Patient Type New patient Initial Greet Date/Time 12/17/18 1314 Presentation Chief Complaint Dizzy, Lightheaded, Weakness, generalized Hx Obtained From Patient Onset Occurred Just prior to arrival Symptom Duration Brief Context of Onset With standing Associated Other Pt denies other symptoms Exacerbated by standing Free Text HPI Notes Free Text HPI Notes 78M w/ PMHx of CAD, DM, GERD, HTN, BPH, HLD and malignant hyperthermia presents to the ED w/ c/o generalized 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 Pt reports they were having lunch w/ their when they attempted to stand up and their legs started "shaking". Pt reports they were worried that they were having a stroke at onset of their sxs. Pt denies chest pain and any other sxs at this time. Patient denies focal neurological changes states his legs were weak and shaky also states that he has been taking his medications but feels general malaise denies chest pain or shortness of breath denies melena hematochezia hematemesis Portions of this section were scribed by Marquis Jesu on 12/17/18 at 0687 Review of Systems ROS Statements All systems rev neg except as marked. Focused Review of Systems Constitutional Reports: Weakness - generalized. Denies: Chills, Fever, Lethargy. Eyes Denies: Diplopia, Eye pain bilat, Redness bilat, Visual loss bilat. Ears/Nose/Throat Denies: Earache bilat, Nasal congestion, Sore throat. Respiratory Denies: Cough, non-productive, Cough, productive, Shortness of breath. Cardiovascular Denies: Chest pain, Syncope. GI Denies: Abdominal pain, Diarrhea, Nausea, Vomiting. Male Denies: Flank pain, Testicular pain. Hematologic Denies: Bleeding, Bruising. Skin Denies: Diaphoresis, Rash. Neurologic Reports: Generalized weakness. Denies: Confusion. Psychiatric Denies: Anxiety, Depression. Portions of this section were scribed by Marquis Jesu on 12/17/18 at 1316 Past Medical History - Adult Stated Complaint NO STRENGTH IN LOWER EXT Allergies Coded Allergies: vancomycin (Severe, DECREASED RENAL FX 07/26/17) Penicillins (UNKNOWN 01/18/14) succinylcholine (MALIGNANT HYPERTHERMIA 01/18/14) Uncoded Allergies: "ALLERGIC TO ANESTHIA" (Severe, ANAPHYLAXIS 12/17/17) Home Medications Discontinued Scripts LEVOFLOXACIN (LEVAQUIN) 500 MG PO Q2D LEVOFLOXACIN (LEVAQUIN) 500 MG PO Q2D #3 TABS Prov: 12/20/17 DC: 12/17/18 1551 DC prior to admit metroNIDAZOLE (FLAGYL) 500 MG PO TID methylPREDNISolone (MEDROL 4 MG DOSEPAK) 1 EACH PO ASDIR methylPREDNISolone (MEDROL 4 MG DOSEPAK) 1 EACH PO ASDIR #1 PACK Prov: 12/20/17 DC: 12/17/18 1551 DC prior to admit Reported Medications ASPIRIN EC (ECOTRIN) 81 MG PO DAILY CHOLECALCIFEROL (VITAMIN D3) (VITAMIN D3) 1,000 UNITS PO DAILY TAMSULOSIN ER (FLOMAX) 0.4 MG PO DAILY CARVEDILOL (COREG) 12.5 MG PO BID RAMIPRIL (ALTACE) 5 MG PO DAILY FUROSEMIDE (LASIX) 20 MG PO DAILY ATORVASTATIN (LIPITOR) 40 MG PO DAILY INSULIN ASPART (NovoLOG FLEXPEN) 0 UNITS SUBQ AC HS INSULIN GLARGINE (LANTUS) 40 UNITS SUBQ DAILY Discontinued Reported Medications ASPIRIN 81 MG PO DAILY Review of Nursing Notes Rev avail, and agree Past Medical History: Reports: Coronary artery disease, Diabetes mellitus, GERD/gastritis, Hypertension, BPH, Dyslipidemia. Additional Medical History Htn, IDDM, HLD, CAD sp 1 stent in 2017, HFrEF (unknown last echo), known LBBB, BPH, GERD, REAL, Malignant hyperthermia Additional Surgical History CARDIAC STENT in 2017 Lap yung 08/2016 ERCP in 09/2016 BL knee surgeries Alcohol Use Denies EtOH use Drug Use Denies recreational drugs Smoking status for patients 13 years old or older: Former Smoker Portions of this section were scribed by Marquis Jesu on 12/17/18 at 1552 Physical Exam Vital Signs Vital Signs First Documented: Result Date Time Pulse Ox 99 12/17 1310 B/P 134/62 12/17 1310 B/P Mean 86 12/17 1310 Temp 36.7 12/17 1310 Pulse 88 12/17 1310 Resp 16 12/17 1310 FiO2 21 12/17 1530 O2 Delivery Room air 12/17 1530 Last Documented: Result Date Time Pulse Ox 99 12/17 1533 FiO2 21 12/17 1530 O2 Delivery Room air 12/17 1530 B/P 134/62 12/17 1310 B/P Mean 86 12/17 1310 Temp 36.7 12/17 1310 Pulse 88 12/17 1310 Resp 16 12/17 1310 Review of Vital Signs Reviewed Focused PE General/Const General/Const Awake, Alert, No acute distress, Cooperative MS Head Head Normocephalic Ears/Nose/Throat Ears/Nose/Throat Atraumatic, Airway patent, Mucous membranes moist, Pharynx NL Resp/Chest Respiratory/Chest Atraumatic, Breath sounds NL, Breath sounds = bilat, No respiratory distress Cardiovascular Cardiovascular Heart rate NL, Regular rhythm, Heart sounds NL Abdomen/GI Abdomen/GI Atraumatic, Soft, Non-tender, No guarding, No rebound Skin Skin Warm, Dry, Intact Neurologic Neurologic Oriented X3, Speech NL, No motor deficits, No sensory deficits, CN II - XII intact, Memory NL Speech Negative: Slurred. Psychiatric Psychiatric Affect NL, Thought content NL Portions of this section were scribed by Marquis Jesu on 12/17/18 at 1736 Interpretation Diagnostics Lab Results Interpretation Considerations Independ review imaging, Reviewed prior records Results Laboratory Tests 12/17/18 1619: [Embedded Image Not Available] 12/17/18 1352: [Embedded Image Not Available] 12/17/18 1324: [Embedded Image Not Available] Laboratory Tests: 12/17 12/17 12/17 12/17 1619 1515 1507 1355 Blood Gas Puncture Site LR ABG pH (7.35 - 7.45) 7.26 *L ABG pCO2 (35.0 - 45.0 mmHg) 35.9 ABG pO2 (60.0 - 80.0 mmHg) 97.7 H ABG HCO3 (20.0 - 26.0 mmol/L) 15.7 L ABG O2 Saturation (95 - 100 %) 96.9 ABG Base Excess (-3.0 - 3.0 mmol/L) -10.4 L Carli Test Yes Oxyhemoglobin (92.0 - 98.0 %) 96.1 Carboxyhemoglobin (0.5 - 1.5 %) 0.3 L Methemoglobin (0.4 - 1.5 %) 0.5 Total Hemoglobin (13.0 - 18.0 G/DL) 11.5 L Temperature (F) 98.6 Respiration Rate (/MIN) 22.0 Patient On Oxygen Arterial Vent Mode ROOM AIR FiO2 (%) 21.0 Instrument Called Chemistry Sodium (133 - 145 MMOL/L) 143 Potassium (3.6 - 5.2 MMOL/L) 7.2 *H Chloride (100 - 108 MMOL/L) 112 H Carbon Dioxide (22 - 32 MMOL/L) 23 BUN (6 - 20 MG/DL) 55 H Creatinine (0.60 - 1.00 MG/DL) 2.44 H Estimated GFR (MDRD) (42 - 98) 26 L Glucose (65 - 99 MG/DL) 251 H POC Glucose (65 - 99 MG/DL) 465 *H Calcium (8.7 - 10.5 MG/DL) 10.3 Rapid Troponin I (0.00 - 0.08 NG/ML) 0.00 Miscellaneous Miscellaneous Test Called 12/17 12/17 1352 1324 Chemistry Sodium (133 - 145 MMOL/L) 135 Potassium (3.6 - 5.2 MMOL/L) 7.5 *H Chloride (100 - 108 MMOL/L) 107 Carbon Dioxide (22 - 32 MMOL/L) 18 L BUN (6 - 20 MG/DL) 56 H Creatinine (0.60 - 1.00 MG/DL) 2.58 H Estimated GFR (MDRD) (42 - 98) 24 L Glucose (65 - 99 MG/DL) 522 *H Calcium (8.7 - 10.5 MG/DL) 9.4 Hematology WBC (4.80 - 10.80 x10 3/uL) 8.67 RBC (4.7 - 6.1 x10 6/uL) 3.83 L Hgb (14.0 - 17.0 G/DL) 11.5 L Hct (42 - 52 %) 33.4 L MCV (80 - 94 FL) 87.2 MCH (27 - 31 PG) 30.0 MCHC (33 - 37 G/DL) 34.4 RDW Coeff of [place] (11.5 - 14.5 %) 14.0 Plt Count (150 - 450 x10 3/uL) 140 L MPV (7.4 - 10.4 FL) 9.7 Neut % (Auto) (42 - 86 %) 61.5 Lymph % (Auto) (24 - 44 %) 24.7 [place] % (Auto) (0.0 - 4.0 %) 7.5 H Eos % (Auto) (0.0 - 2.7 %) 4.8 H Baso % (Auto) (0.0 - 0.5 %) 1.2 H Eos # (Auto) (0.0 - 0.5 x10 3/uL) 0.42 Baso # (Auto) (0.0 - 0.2 x10 3/uL) 0.10 Abs Immat Gran (auto) (0.00 - 0.03 x10 3/uL) 0.03 Absolute Neuts (auto) (1.8 - 7.7 x10 3/uL) 5.33 Absolute Lymphs (auto) (1.0 - 4.8 x10 3/uL) 2.14 Absolute Monos (auto) (0.0 - 0.8 x10 3/uL) 0.65 Absolute Nucleated RBC (0.0 - 0.2 X10 3/uL) 0.0 Immature Gran % (0.0 - 2.0 %) 0.3 Nucleated RBC % (0.0 - 0.0 %) 0.0 Miscellaneous Miscellaneous Test Called Recent Impressions: RADIOLOGY - XR CHEST 1 V 12/17 1335 Report Impression - Status: SIGNED Entered: 12/17/2018 1417 Impression: 1. No evidence of acute cardiopulmonary disease. Impression By: [email or web address] - Arden Valdes MD CAT SCAN - CT HEAD/BRAIN W/CONT 12/17 1450 Report Impression - Status: SIGNED Entered: 12/17/2018 1501 IMPRESSION: 1. Negative CT scan of the brain for acute disease. 2. 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 Impression By: [email or web address] - Thanh Hernandez MD Lab Imaging Statement Laboratory radiographic studies reviewed and considered in the medical decision-making. Point of Care Testing Pulse Oximetry Pulse Ox % 99 On: Room air Interpretation Interpreted by me, Pulse oximetry normal Time 1310 ECG #1 Interpretation ECG Documented in MUSE Yes Date 12/17/18 Time 1458 Interpreted by ED physician NL ECG Interpretation Normal rate, Normal sinus rhythm, No STEMI, Adequate tracing Rate 68 Conduction/[place] LBBB - complete ECG #2 Interpretation ECG Documented in MUSE Yes Date 12/17/18 Time 1710 Interpreted by ED physician NL ECG Interpretation #2 Normal rate, Normal sinus rhythm, No STEMI, Adequate tracing Rate 67 Conduction/[place] LBBB - complete Portions of this section were scribed by Marquis Jesu on 12/17/18 at 1857 Re-Evaluation MDM Re-Evaluation/Progress #1 Text/Dict Note Pt reports to taking prescribed medications. Informed pt that their potassium is elevated. Pt verbalized understanding. Time of Re-Eval 1533 Re-Evaluation/Progress #2 Text/Dict Note Potassium levels have decreasesd. Time of Eval 1858 Re-Eval Status Improved ED Course Medication(s) Ordered Medication(s) Ordered: Electrolytic, Caloric, And Cathryn Sig/Renato Start time Last Medication Dose Route Stop Time Status Admin Undefined Medication 8.4 GM DAILY 12/18 0900 DC 12/18 PO 02/16 0901 1122 Consultation Consultation 1 Referral/Consult Name Zhen Saucedo MD Slot Manager Called Hospitalist Requested Call Time 1536 Requested Call Date 12/17/18 Slot Manager Agrees with evduc, Agrees with plan Consultation 2 Referral/Consult Name ; Malik Gamez MD Slot Manager Called Outside Sales Account Representative Requested Call Time 1550 Call Returned Call returned Call Returned Time 1552 Call Returned Date 12/17/18 Slot Manager Agrees with eval, Agrees with plan Free Text Consult Notes Dr. Malik Paige returned the consult call. Consultation 3 Referral/Consult Name ; Carli Fregoso MD Slot Manager Called Nephrology Requested Call Time 1615 Requested Call Date 12/17/18 Portions of this section were scribed by Marquis Jesu on 12/17/18 at 1857 Patient Discharge Departure Vital Signs/Condition Vital Signs First Documented: Result Date Time Pulse Ox 99 12/17 1310 B/P 134/62 12/17 1310 B/P Mean 86 12/17 1310 Temp 36.7 12/17 1310 Pulse 88 12/17 1310 Resp 16 12/17 1310 FiO2 21 12/17 1530 O2 Delivery Room air 12/17 1530 Last Documented: Result Date Time Pulse Ox 99 12/17 1533 FiO2 21 12/17 1530 O2 Delivery Room air 12/17 1530 B/P 134/62 12/17 1310 B/P Mean 86 12/17 1310 Temp 36.7 12/17 1310 Pulse 88 12/17 1310 Resp 16 12/17 1310 All vital signs available at the time of this entry have been reviewed. Condition Stable Clinical Impression Clinical Impression Primary Impression: Renal failure Secondary Impressions: Altered mental state, Hyperkalemia, Weakness Disposition Decision Admit Admit Physician Name Jhonatan Celestin MD Admit Physician Outside Sales Account Representative Request Time 1557 Request Date 12/17/18 )( Admission Accepts Yes )( Accepted Time 1557 )( Accepted Date 12/17/18 Call Information will see patient, agrees with eval, agrees with plan Discharge/Care Plan Counseled Regarding Diagnosis, Lab results, Imaging studies, Need for admission Admit Note I have spoken with the patient and/or caregivers. I have explained the patient's condition, diagnoses and treatment plan based on the information available to me at this time. I have answered the patient's and/or caregiver's questions and addressed any concerns. The patient and/or caregivers have as good an understanding of the patient's diagnosis, condition and treatment plan as can be expected at this point. The patient has been stabilized within the capability of the emergency department. The patient will be transported for further care and management or will be moved to an observation or inpatient service. I have communicated with the staff or medical practitioner taking over this patient's care. Critical Care Time Spent (minutes): 120 Services Performed Patient management by me, Time spent at bedside, Reviewing test results, Reviewing imaging, Discussing patient care, Documentation in record, Time with fam/surrogate Separately billable procedures excluded from time. CC Note 1 Total critical care time [120] minutes. Total critical care time documented does not include time spent on separately billed procedures or the services of residents, students, nurses or physician assistants. I personally saw and examined the patient. I have reviewed all diagnostic interpretations and treatment plans as written. I was present for the kaur portions of any procedures performed and the inclusive time noted in any critical care statement. Critical care time includes patient management by me, time spent at the patients bedside, time to review lab and imaging results, discussing patient care, documentation in the medical record, and time spent with the family or caregiver. Quality Measures BP F/U for HTN F/u with PCP/other doc Smoking Cessation Screened, non user Tobacco Screening/Cessation 18 years or older, Denies tobacco use Supervising Physician Note Scribe Statement Marquis Jesu, 12/17/18 1318, scribing for and in the presence of [Dr. Hernandez]. Signed By: Marquis Jesu, 12/17/18 9645 Provider Scribed Statement I personally performed the services described in this documentation and reviewed the documentation that was dictated to the scribe(s) in my presence, and it accurately records my words and actions. Chandu Hernandez MD, 12/18/18 This patient presented to triage with generalized weakness and malaise initial EKG demonstrated wide-complex tachycardia patient was treated with a hyperkalemia cocktail including calcium bicarb insulin patient was admitted to the ICU repeat labs demonstrated the potassium to go down from 7.5-7.2 and the EKG demonstrated narrowing and decreased tachycardia patient did seem remarkably stable for his abnormalities on the ABG and BMP with patient now is awaiting admission to the ICU I have consulted nephrology at the request of the ICU team and let them know of the patient was going to the ICU and gave them the results of the current treatment lab results and they stated that the on-call fireperson that was actually on recall list was not the fireperson to be consulted and this information was transferred to the on-call medicine resident and ICU fellow patient was stable in the ER prior to being transported to the ICU Chandu Hernandez MD FACEP Portions of this section were scribed by Marquis Jesu on 12/17/18 at 1750 at 4086 RPT #:[id number] END OF REPORT [facility]
[2023-12-05] MEDS ORDERED: KETOROLAC 30 MG/ML INJ ONE (16:10)
--- NOTE | 2023-12-05 16:41 | RAD REPORT ---
EXAM DESCRIPTION: RAD - Shoulder Right 2 View - 12/05/2023 4:21 pm CLINICAL HISTORY: Right shoulder pain FINDINGS: Moderately displaced right humeral neck fracture. No dislocation is seen
[2023-12-05] MEDS ORDERED: MORPHINE 4 MG/ML SYR ONE (17:15)
[2023-12-05] MEDS ORDERED: ONDANSETRON 4 MG (ODT) TAB ONE (17:16)
--- NOTE | 2023-12-05 17:21 | EDPHYS ---
Physician Documentation [facility] Name: Bob Blackman Age: 83 yrs Sex: Male : 1940 Arrival Date: 12/05/2023 Time: 15:46 Bed 20 Private MD: ED Physician Zeke Solis HPI: 12/04 16:03 This 83 yrs old Male presents to ER via EMS with complaints of Fall Injury. sb4 16:03 Details of fall: The patient fell from an upright position, while walking. Onset: The sb4 symptoms/episode began/occurred just prior to arrival. Associated injuries: The patient sustained anterior aspect of right shoulder and posterior aspect of right shoulder, decreased range of motion, painful injury. The patient has not experienced similar symptoms in the past. The patient has not recently seen a physician. Historical: - Allergies: 15:57 PENICILLINS; hb 15:57 Vancomycin; hb 15:57 "anesthesia"; hb - PMHx: 15:57 COPD; CHF; DM2; Malignant Hyperthermia; Hypertension; hb - PSHx: 15:57 Appendectomy; Cholecystectomy; RIght Knee Replacement; Pacemaker/Defib; hb - Immunization history:: Adult Immunizations up to date. - Infectious Disease History:: Denies. - Immunization history: Last tetanus immunization: - up to date. - Social history:: Smoking status: unknown. ROS: 16:03 Constitutional: Negative for fever, chills, and weight loss, sb4 16:03 MS/extremity: Positive for injury or acute deformity, decreased range of motion, pain, of the posterior aspect of right shoulder and anterior aspect of right shoulder, 16:03 All other systems are negative, Exam: 16:03 Head/Face: Normocephalic, atraumatic. Eyes: Extra-ocular motions intact. Periorbital sb4 areas with no swelling, redness, or edema. ENT: Mucous membranes moist. Skin: Warm, dry with normal turgor. Normal color with no rashes, no lesions, and no evidence of cellulitis. Neuro: Awake and alert, GCS 15, oriented to person, place, time, and situation. Motor strength 5/5 in all extremities. Sensory grossly intact. 16:03 Constitutional: The patient appears alert, awake, in obvious pain, 16:03 Musculoskeletal/extremity: ROM: limited active range of motion, limited passive range of motion, Circulation is intact in all extremities. Pulses: are normal with no appreciated deficits, Perfusion: the extremity is normally perfused throughout, Sensation intact. Vital Signs: 15:55 BP 141 / 74; Pulse 87; Resp 18; Temp 97.8; Pulse Ox 100% on R/A; Weight 96.16 kg; hb Height 5 ft. 8 in. ; Pain 10/10; 15:55 Body Mass Index 32.23 (96.16 kg, 172.72 cm) hb 15:55 Pain Scale: Adult hb Artesian Coma Score: 16:00 Eye Response: spontaneous(4). Motor Response: obeys commands(6). Verbal Response: me1 oriented(5). Total: 15. Trauma Score (Adult): 16:00 Eye Response: spontaneous(1); Verbal Response: oriented(1); Motor Response: obeys me1 commands(2); Systolic BP: > 89 mm Hg(4); Respiratory Rate: 10 to 29 per min(4); Artesian Score: 15; Trauma Score: 12 MDM: 15:56 Patient medically screened. sb4 17:20 Data reviewed: vital signs, nurses notes, radiologic studies, I have discussed the sb4 patient's presentation/case with the attending Emergency Department Physician; and as a result, I will discharge patient. Counseling: I had a detailed discussion with the patient and/or guardian regarding the historical points, exam findings, and any diagnostic results supporting the discharge/admit diagnosis, radiology results, the need for outpatient follow up, a orthopedic surgeon, to return to the emergency department if symptoms worsen or persist or if there are any questions or concerns that arise at home. 12/04 15:57 Order name: Shoulder Right (2 View) XRAY; Complete Time: 16:42 sb4 12/04 16:57 Order name: Shoulder Immobilizer; Complete Time: 16:58 sb4 Administered Medications: 16:14 Drug: Ketorolac IM 30 mg IM once Route: IM; Site: left deltoid; me1 17:11 Follow up: Response: No adverse reaction; Pain is decreased me1 17:19 Drug: morphine IM 4 mg IM once Route: IM; Site: left deltoid; me1 17:45 Follow up: Response: No adverse reaction; Pain is decreased me1 17:19 Drug: Ondansetron Oral Disintegrating Tablet Oral Disintegrating Tablet 4 mg PO once me1 Route: PO; 17:22 Follow up: Response: No adverse reaction; Nausea is decreased me1 Disposition Summary: 12/05/23 17:21 Discharge Ordered Notes: Location: Home sb4 Problem: new sb4 Symptoms: have improved sb4 Condition: Stable sb4 Diagnosis - Moderately displaced right humeral neck fracture sb4 Followup: sb4 - With: Bob Mariano MD - When: 1 week - Reason: Recheck today's complaints, Re-evaluation by your physician Discharge Instructions: - Discharge Summary Sheet sb4 - Humerus Fracture Treated With Immobilization, [id number] sb4 Forms: - Prescription Opioid Use sb4 - Patient Portal Instructions sb4 - Leadership Thank You Letter sb4 Prescriptions: - acetaminophen-codeine 300-30 mg Oral tablet - take 1 tablet ORAL route every 4 hours as needed for pain; 15 tablet; Refills: sb4 0, Product Selection Permitted Signatures: Dispatcher [employer] Lisset Velasquez RN RN hb Brown, Sophia PAMarvaC PAYaron sb4 Lesly Gomez RN RN me1 Corrections: (The following items were deleted from the chart) 16:17 16:00 Social history: Smoking status: Patient denies any tobacco usage or history of. me1 me1
--- NOTE | 2023-12-05 17:21 | ER ---
Nurse's Notes [facility] Name: Bob Blackman Age: 83 yrs Sex: Male : 1940 Arrival Date: 12/05/2023 Time: 15:46 Bed 20 Private MD: Diagnosis: Moderately displaced right humeral neck fracture Presentation: 12/04 15:55 Chief complaint: EMS states: Severe right shoulder pain and limited ROM after hb mechanical fall from standing just [employer]. Coronavirus screen: At this time, the client does not indicate any symptoms associated with coronavirus-19. Ebola Screen: No symptoms or risks identified at this time. Initial Sepsis Screen: Does the patient meet any 2 criteria? No. Patient's initial sepsis screen is negative. Does the patient have a suspected source of infection? No. Patient's initial sepsis screen is negative. Risk Assessment: Do you want to hurt yourself or someone else? Patient reports no desire to harm self or others. Onset of symptoms was December 05, 2023. 15:55 Method Of Arrival: EMS: [facility] hb 15:55 Acuity: OSMAR 3 hb 17:49 Care prior to arrival: None. Mechanism of Injury: Fall trip and fall in the grass. me1 Trauma event details: Injury occurred in the [facility]. Trauma Activation: Physician: ED Physician; Name: ; Notified At: ; Arrived At: Physician: General Surgeon; Name: ; Notified At: ; Arrived At: Physician: Radiology; Name: ; Notified At: ; Arrived At: Physician: Respiratory; Name: ; Notified At: ; Arrived At: Physician: Lab; Name: ; Notified At: ; Arrived At: 17:49 n/a me1 Historical: - Allergies: 15:57 PENICILLINS; hb 15:57 Vancomycin; hb 15:57 "anesthesia"; hb - PMHx: 15:57 COPD; CHF; DM2; Malignant Hyperthermia; Hypertension; hb - PSHx: 15:57 Appendectomy; Cholecystectomy; RIght Knee Replacement; Pacemaker/Defib; hb - Immunization history:: Adult Immunizations up to date. - Infectious Disease History:: Denies. - Immunization history: Last tetanus immunization: - up to date. - Social history:: Smoking status: unknown. Screenin:00 [facility] ED Fall Risk Assessment (Adult) History of falling in the last 3 months, me1 including since admission Yes- single mechanical fall (1 pt) Confusion or Disorientation No (0 pts) Intoxicated or Sedated No (0 pts) Impaired Gait No (0 pts) Mobility Assist Device Used No (0 pt) Altered Elimination No (0 pt) Score/Fall Risk Level 0 - 2 = Low Risk Maintained a safe environment, Provided non-skid footwear, Hourly rounding (assess needs \\T\\ fall precautionary measures) done. Abuse screen: Denies threats or abuse. Nutritional screening: No deficits noted. Tuberculosis screening: No symptoms or risk factors identified. Primary Survey: 16:00 NO uncontrolled hemorrhage observed. A: The client is awake and alert. The airway is me1 patent. The client is alert. Airway: patent, No supplemental oxygen in use on arrival. Oral cavity: clear, Trachea midline. Breathing/Chest: Spontaneous respiratory effort, equal unlabored respirations, breath sounds clear bilaterally, regular pattern, symmetrical chest rise and fall. Respiratory effort: spontaneous, unlabored, Breath sounds: clear, bilaterally. Circulation: No external hemorrhage present. Regular and strong central pulse, skin warm/dry/normal color. Hemorrhage: No external hemorrhage noted. Pulses: palpable right radial artery. Skin color: pink, Skin temperature: warm, dry, Heart tones present. Disability Pupils are equal, round, reactive to light and accommodation. Client is alert. Exposure/Environment: All clothing and personal items were removed. Forensic evidence collection is not deemed to be indicated at this time. Items placed in patient belonging bag. There is no evidence of uncontrolled external bleeding. Obvious injury(ies) are noted at this time: c/o pain to right shoulder A warming method has been applied: A warm blanket has been provided to the patient. 16:20 Reassessment Alertness and Airway: Awake and alert. The airway is patent. Airway Patent me1 Oxygen No O2 Oral cavity Clear Trachea Midline Breathing: Spontaneous respiratory effort, equal unlabored respirations, breath sounds clear bilaterally, regular pattern with symmetrical chest rise and fall. Respiratory effort Spontaneous Unlabored Breath sounds Clear Respiratory pattern Regular Chest inspection Symmetrical Circulation: No external hemorrhage noted. Regular and strong central pulse, skin warm/dry/normal color. Heart tones Present Pulses Palpable Color [place] Temperature Warm Dry Disability: Pupils Pupils are equal, round, reactive to light and accomodation. Alert. Assessment: 16:00 General: Appears uncomfortable, well groomed, well developed, well nourished, Behavior me1 is calm, cooperative, appropriate for age, Reports Severe right shoulder pain and limited ROM after mechanical fall from standing just [employer]. Pain: Complains of pain in right arm and posterior aspect of right shoulder and anterior aspect of right shoulder Pain does not radiate. Pain currently is 10 out of 10 on a pain scale. Quality of pain is described as sharp, Pain began suddenly, Is continuous. Neuro: Level of Consciousness is awake, alert, obeys commands, Oriented to person, place, time, situation, Appropriate for age. Cardiovascular: Patient's skin is warm and dry. Respiratory: Airway is patent Respiratory effort is even, unlabored, Respiratory pattern is regular, symmetrical. GI: No signs and/or symptoms were reported involving the gastrointestinal system. : No signs and/or symptoms were reported regarding the genitourinary system. EENT: No signs and/or symptoms were reported regarding the EENT system. Derm: Skin is intact, is healthy with good turgor, Skin is pink, warm \\T\\ dry. Musculoskeletal: Range of motion: limited in right shoulder Reports pain in right arm. Injury Description: tripped and fell onto right shoulder in grass. Vital Signs: 15:55 BP 141 / 74; Pulse 87; Resp 18; Temp 97.8; Pulse Ox 100% on R/A; Weight 96.16 kg; hb Height 5 ft. 8 in. ; Pain 10/10; 15:55 Body Mass Index 32.23 (96.16 kg, 172.72 cm) hb 15:55 Pain Scale: Adult hb Olga Lidia Coma Score: 16:00 Eye Response: spontaneous(4). Motor Response: obeys commands(6). Verbal Response: me1 oriented(5). Total: 15. Trauma Score (Adult): 16:00 Eye Response: spontaneous(1); Verbal Response: oriented(1); Motor Response: obeys me1 commands(2); Systolic BP: > 89 mm Hg(4); Respiratory Rate: 10 to 29 per min(4); Tabor Score: 15; Trauma Score: 12 ED Course: 15:55 Patient arrived in ED. hb 15:56 [facility] sb[facility] 15:56 Zeke Solis MD is Attending Physician. sb4 15:56 Triage completed. hb 15:59 Arm band placed on. hb 16:00 Patient has correct armband on for positive identification. Bed in low position. Call me1 light in reach. Side rails up X2. Provided Education on: POC. Verbalized understanding. . Client placed on continuous cardiac and pulse oximetry monitoring. NIBP monitoring applied. Pulse ox on. NIBP on. 16:00 No provider procedures requiring assistance completed. me1 16:08 Lesly Gomez, RN is Primary Nurse. me1 16:23 Shoulder Right (2 View) XRAY In Process Unspecified. EDMS 17:20 Bob Mariano MD is Referral Physician. sb4 17:50 Patient did not have IV access during this emergency room visit. me1 Administered Medications: 16:14 Drug: Ketorolac IM 30 mg IM once Route: IM; Site: left deltoid; me1 17:11 Follow up: Response: No adverse reaction; Pain is decreased me1 17:19 Drug: morphine IM 4 mg IM once Route: IM; Site: left deltoid; me1 17:45 Follow up: Response: No adverse reaction; Pain is decreased me1 17:19 Drug: Ondansetron Oral Disintegrating Tablet Oral Disintegrating Tablet 4 mg PO once me1 Route: PO; 17:22 Follow up: Response: No adverse reaction; Nausea is decreased me1 Medication: 16:00 VIS not applicable for this client. me1 Outcome: 17:21 Discharge ordered by . sb4 17:40 Discharged to home via wheelchair, with family, me1 17:40 Condition: stable 17:40 Discharge instructions given to patient, family, Instructed on discharge instructions, follow up and referral plans. medication usage, Demonstrated understanding of instructions, follow-up care, medications, Prescriptions given X 1, 17:40 Patient's length of stay was not longer than 2 hours. 17:45 Patient left the ED. me1 17:50 Discharge instructions given to Instructed on Demonstrated understanding of me1 Prescriptions given X Signatures: Dispatcher [employer] EDOH Lisset Villegas RN RN Connie Castillo, PA-C PA-C sb4 Lesly Gomez, ADALID RN me1 Corrections: (The following items were deleted from the chart) 16:15 15:55 Chief complaint: EMS states: Severe right shoulder pain and limited ROM after me1 mechanical fall from standing just [employer]. hb 16:17 16:00 Social history: Smoking status: Patient denies any tobacco usage or history of. me1 me1 17:50 16:00 Discharged to home via wheelchair, with family, me1 me1 17:50 16:00 Condition: stable me1 me1 17:50 16:00 Patient's length of stay was not longer than 2 hours. me1 me1 17:50 16:00 Discharge instructions given to patient, family, Instructed on discharge wa1 instructions, follow up and referral plans. medication usage, Demonstrated understanding of instructions, follow-up care, medications, Prescriptions given X 1, me1
[2023-12-05 18:09] VITALS: BP 141/74; TEMP 97.8; O2SAT 100
== END 2023-12-05 17:45 | disposition home or self-care (01) ==
LOC: ER 15:46
DX: S42.211A Unspecified displaced fracture of surgical neck of right humerus, initial encounter for closed fracture (principal); W18.30XA Fall on same level, unspecified, initial encounter; Z96.651 Presence of right artificial knee joint; Z95.810 Presence of automatic (implantable) cardiac defibrillator
CPT/HCPCS: 73030; 96372; 99284; Q0162